=== PATIENT | female | born 1950 | race Caucasian/White ===

== ENCOUNTER → 2020-10-07 10:25 | Outpatient (BNVA) | payer MEDICARE, SELFPAY | PROVIDERS: PCP Internal Medicine; Visit Provider Internal Medicine | DX: J44.9 Chronic obstructive pulmonary disease, unspecified (principal); J30.2 Other seasonal allergic rhinitis; I50.9 Heart failure, unspecified; F17.210 Nicotine dependence, cigarettes, uncomplicated; Z79.899 Other long term (current) drug therapy | CPT/HCPCS: 99212 ==

== ENCOUNTER 2020-12-16 15:06 | Outpatient (REF) | payer MEDICARE, SELFPAY ==
[2020-12-16 15:47] LABS: Hematocrit 52.7 % (37-47); Hemoglobin 16.9 g/dl (12.0-16.0); Mean Corpuscular HGB Conc 32.1 g/dl (31.0-35.0); Mean Corpuscular Volume 87.3 fL (80-98); Platelet Count 268 X10*3/uL (160-400); Red Blood Count 6.04 X10*6/uL (4.20-5.50); Red Cell Distribution Width 12.5 % (11.0-16.0); White Blood Count 9.7 X10*3/uL (4.8-10.8)
[2020-12-16 15:57] LABS: Estimated Average Glucose 186 mg/dL; Hemoglobin A1c % 8.1 %
[2020-12-16 16:08] LABS: Alanine Aminotransferase 13 U/L (0-31); Albumin Level 4.5 g/dL (3.5-5.0); Alkaline Phosphatase 109 U/L (39-117); Anion Gap 17 (12-20); Aspartate Amino Transferase 13 U/L (5-31); Bilirubin Direct 0.2 mg/dL (0.0-0.5); Bilirubin Total 0.2 mg/dL (0.0-1.0); Blood Urea Nitrogen 14 mg/dL (9-16); C Reactive Protein 0.58 mg/dL (< or = 0.50); Calcium 9.4 mg/dL (8.4-10.2); Carbon Dioxide 29 mmol/L (22-29); Chloride 103 mmol/L (96-108); Cholesterol 207 mg/dL; Estimated Glomerular Filt Rate > 60; Glucose Random 213 mg/dL (60-115); HDL Cholesterol 40 mg/dL; LDL Cholesterol Calculated 124 mg/dl; Potassium 4.5 mmol/l (3.3-5.1); Sodium 144 mmol/L (135-145); Total Protein 7.1 g/dL (6.5-8.0); Triglycerides 217 mg/dL
== END 2020-12-16 15:07 | disposition home or self-care (01) ==
LOC: HO.LAB 15:06
PROVIDERS: PCP Internal Medicine; Visit Provider Internal Medicine
DX: E11.9 Type 2 diabetes mellitus without complications (principal); I10 Essential (primary) hypertension
CPT/HCPCS: 36415; 80048; 80061; 80076; 83036; 85027; 86140

== ENCOUNTER → 2021-02-03 13:11 | Outpatient (BNVA) | payer MEDICARE, SELFPAY | PROVIDERS: PCP Internal Medicine; Visit Provider Internal Medicine | DX: J44.9 Chronic obstructive pulmonary disease, unspecified (principal); J30.2 Other seasonal allergic rhinitis; F17.200 Nicotine dependence, unspecified, uncomplicated; Z79.51 Long term (current) use of inhaled steroids; Z71.6 Tobacco abuse counseling | CPT/HCPCS: 99212 ==

== ENCOUNTER 2021-04-22 10:14 | Outpatient (REF) | payer MEDICARE, SELFPAY ==
[2021-04-22 11:00] LABS: Glucose Urine UA 250 MG/DL (NEG); Leukocyte Esterase Urine NEG (NEG); Nitrite Urine NEG (NEG); Urine Blood NEG (NEG); Urine Ketones NEG (NEG); Urine Protein TRACE MG/DL (NEG-TRACE)
[2021-04-22 11:02] LABS: Appearance Urine CLEAR; Color Urine YELLOW
== END 2021-04-22 10:15 | disposition home or self-care (01) ==
LOC: HO.LAB 10:14
PROVIDERS: PCP Internal Medicine; Visit Provider Physician Assistant
DX: R30.0 Dysuria (principal)
CPT/HCPCS: 81003

== ENCOUNTER → 2021-08-11 13:10 | Outpatient (BNVA) | payer MEDICARE, SELFPAY | PROVIDERS: PCP Internal Medicine; Visit Provider Internal Medicine | DX: J30.2 Other seasonal allergic rhinitis (principal); J44.9 Chronic obstructive pulmonary disease, unspecified; F17.200 Nicotine dependence, unspecified, uncomplicated | CPT/HCPCS: 99212 ==

== ENCOUNTER 2022-01-27 12:28 | Outpatient (REF) | payer MEDICARE, SELFPAY ==
--- NOTE | ~2022-01-27 | CT_ITS ---
EXAMINATION: CT CHEST SCREENING CLINICAL INFORMATION: Nicotine dependence. COMPARISON: CT chest 06/04/2020. TECHNIQUE: Multidetector volumetric CT imaging of the chest is performed without contrast using low dose technique. Additional 2D coronal and sagittal reformatted images and axial 3D maximum intensity projection (MIP) images are generated on the CT workstation. This CT examination was performed using dose optimization techniques as appropriate, variously including the following: *Automated exposure control *Adjustment of mA and/or kV according to patient size (this includes techniques or standardized protocols for targeted exams where dose is matched to indication/reason for exam; i.e. extremities or head) *Use of iterative reconstruction technique DLP: 150 mGy-cm FINDINGS: LUNGS: There is diffuse emphysematous lungs with bilateral apical scarring and minimal apical pleural thickening. There is 3 mm subpleural chronic low-density area, which appears contiguous with a thick band of right apical scarring, similar to previous study. It is best visualized on axial image 104/6. There is a 3 mm nodule right major fissure axial image 236/6, likely intrafissural lymph node. There are no additional nodules, mass, or groundglass attenuation. MEDIASTINUM: The thyroid lobes are symmetric and normal. The central trachea and the bronchi are widely patent. Heart size and the great vessels are normal caliber. There is atherosclerotic calcification of thoracic aorta without aneurysmal dilatation. Small shotty lymph nodes are seen in the mediastinum with the largest pretracheal short axis lymph node measuring 6 mm. There is no pericardial effusion. PLEURA: There is no pleural effusion. No pleural mass or thickening. AXILLA: There are bilateral shotty axillary lymph nodes. UPPER ABDOMEN: There is pneumobilia from previous intervention. The rest of the liver, spleen, pancreas and right adrenal gland is unremarkable. There is a left adrenal nodule measuring 1.3 cm, similar to previous study. OSSEOUS STRUCTURES: No lytic or sclerotic process seen. There are degenerative disc changes with ventral spondylosis mid dorsal spine. There is mild osteopenia. CT/CT lung screening IMPRESSION: Diffuse centrilobular emphysema with bilateral bandlike apical scarring and minimal apical pleural thickening. Subpleural nodular density right upper lobe appears contiguous to the right apical scarring. These findings are stable. Mild intrafissural thickening right lung is likely intrafissural lymph node. It is stable. ASSESSMENT: Lung-RADS category 2: Benign. S CATEGORY: Emphysema. Left adrenal nodule, stable. RECOMMENDATION: Low-dose annual CT chest exam.
== END 2022-01-27 12:29 | disposition home or self-care (01) ==
LOC: HO.CT 12:28
PROVIDERS: Visit Provider Physician Assistant Medical
DX: Z12.2 Encounter for screening for malignant neoplasm of respiratory organs (principal); F17.210 Nicotine dependence, cigarettes, uncomplicated
CPT/HCPCS: 71271

== ENCOUNTER → 2022-02-09 12:59 | Outpatient (BNVA) | payer MEDICARE, SELFPAY | PROVIDERS: PCP Internal Medicine; Visit Provider Internal Medicine | DX: J44.9 Chronic obstructive pulmonary disease, unspecified (principal); J30.9 Allergic rhinitis, unspecified; Z87.891 Personal history of nicotine dependence | CPT/HCPCS: 94010; 99212 ==

== ENCOUNTER 2022-05-09 07:33 | Outpatient (REF) | payer MEDICARE, SELFPAY ==
[2022-05-09 08:34] LABS: Hematocrit 49.4 % (37.0-47.0); Hemoglobin 15.6 g/dl (12.0-16.0); Mean Corpuscular HGB Conc 31.6 g/dl (31.0-35.0); Mean Corpuscular Volume 85.6 fL (80.0-98.0); Mean Platelet Volume 10.9 fL (9.4-12.3); Platelet Count 242 X10*3/uL (160-400); Red Blood Count 5.77 X10*6/uL (4.20-5.50); Red Cell Distribution Width 13.3 % (11.0-16.0); White Blood Count 7.9 X10*3/uL (4.8-10.8)
[2022-05-09 08:48] LABS: Appearance Urine CLEAR; Color Urine YELLOW; Glucose Urine UA 100 MG/DL (NEG); Leukocyte Esterase Urine TRACE (NEG); Nitrite Urine NEG (NEG); Urine Blood NEG (NEG); Urine Ketones 5 MG/DL (NEG); Urine Protein NEG (NEG-TRACE)
[2022-05-09 09:11] LABS: Bacteria Urine 3+ /LPF; RBC Urine 0 /HPF (0); Squamous Epithelial Cell Urine 3+ /LPF
[2022-05-09 09:30] LABS: Alanine Aminotransferase 12 U/L (0-31); Albumin Level 4.3 g/dL (3.5-5.0); Alkaline Phosphatase 88 U/L (39-117); Anion Gap 15 (12-20); Aspartate Amino Transferase 13 U/L (5-31); Bilirubin Direct 0.3 mg/dL (0.0-0.5); Bilirubin Total 0.7 mg/dL (0.0-1.0); Blood Urea Nitrogen 18 mg/dL (9-16); Calcium 9.6 mg/dL (8.4-10.2); Carbon Dioxide 28 mmol/L (22-29); Chloride 103 mmol/L (96-108); Cholesterol 140 mg/dL; Estimated Glomerular Filt Rate 59; Glucose Random 176 mg/dL (60-115); HDL Cholesterol 36 mg/dL; LDL Cholesterol Calculated 79 mg/dl; Potassium 4.3 mmol/L (3.3-5.1); Sodium 142 mmol/L (135-145); Total Protein 6.8 g/dL (6.5-8.0); Triglycerides 129 mg/dL
[2022-05-09 09:48] LABS: Thyroid Stimulating Hormone 2.13 uIU/mL (0.32-4.0)
== END 2022-05-09 07:34 | disposition home or self-care (01) ==
LOC: HO.LAB 07:33
PROVIDERS: PCP Internal Medicine; Visit Provider Internal Medicine
DX: E11.9 Type 2 diabetes mellitus without complications (principal); J44.9 Chronic obstructive pulmonary disease, unspecified
CPT/HCPCS: 36415; 80048; 80061; 80076; 81001; 84443; 85027

== ENCOUNTER → 2022-08-10 12:50 | Outpatient (BNVA) | payer MEDICARE, SELFPAY | PROVIDERS: PCP Internal Medicine; Visit Provider Internal Medicine | DX: J44.9 Chronic obstructive pulmonary disease, unspecified (principal); J30.9 Allergic rhinitis, unspecified; F17.210 Nicotine dependence, cigarettes, uncomplicated | CPT/HCPCS: 99212 ==

== ENCOUNTER 2022-11-02 13:08 | Outpatient (REF) | payer MEDICARE, SELFPAY ==
[2022-11-02 14:06] LABS: Hematocrit 47.9 % (37.0-47.0); Hemoglobin 15.5 g/dl (12.0-16.0); Mean Corpuscular HGB Conc 32.4 g/dl (31.0-35.0); Mean Corpuscular Hemoglobin 27.9 pg (27.0-33.0); Mean Corpuscular Volume 86.2 fL (80.0-98.0); Mean Platelet Volume 10.7 fL (9.4-12.3); Platelet Count 274 X10*3/uL (160-400); Red Blood Count 5.56 X10*6/uL (4.20-5.50); Red Cell Distribution Width 13.1 % (11.0-16.0); White Blood Count 8.7 X10*3/uL (4.8-10.8)
[2022-11-02 14:11] LABS: Estimated Average Glucose 163 mg/dL; Hemoglobin A1c % 7.3 %
[2022-11-02 15:01] LABS: Alanine Aminotransferase 18 U/L (0-31); Albumin Level 4.3 g/dL (3.5-5.0); Alkaline Phosphatase 76 U/L (39-117); Anion Gap 15 (12-20); Aspartate Amino Transferase 10 U/L (5-31); Bilirubin Direct < 0.2 mg/dL (0.0-0.5); Bilirubin Total 0.4 mg/dL (0.0-1.0); Blood Urea Nitrogen 16 mg/dL (9-16); Calcium 9.6 mg/dL (8.4-10.2); Carbon Dioxide 30 mmol/L (22-29); Chloride 104 mmol/L (96-108); Cholesterol 180 mg/dL; Estimated Glomerular Filt Rate > 60; Glucose Random 180 mg/dL (60-115); HDL Cholesterol 36 mg/dL; LDL Cholesterol Calculated 103 mg/dl; Potassium 4.1 mmol/L (3.3-5.1); Sodium 145 mmol/L (135-145); Thyroid Stimulating Hormone 0.89 uIU/mL (0.32-4.0); Total Protein 6.6 g/dL (6.5-8.0); Triglycerides 208 mg/dL
== END 2022-11-02 13:09 | disposition home or self-care (01) ==
LOC: HO.HMGCLDS 13:08
PROVIDERS: PCP Internal Medicine; Visit Provider Internal Medicine
DX: E11.9 Type 2 diabetes mellitus without complications (principal); E78.01 Familial hypercholesterolemia; J44.9 Chronic obstructive pulmonary disease, unspecified; F17.200 Nicotine dependence, unspecified, uncomplicated
CPT/HCPCS: 36415; 80048; 80061; 80076; 83036; 84443; 85027

== ENCOUNTER 2023-02-26 13:55 | Outpatient (REF) | payer MEDICARE, SELFPAY ==
--- NOTE | ~2023-02-26 | CT_ITS ---
EXAMINATION: CT CHEST SCREENING CLINICAL INFORMATION: Nicotine dependence, uncomplicated current smoker one PPD 50 years. COMPARISON: None available. TECHNIQUE: Multidetector volumetric CT imaging of the chest is performed without contrast using low dose technique. Additional 2D coronal and sagittal reformatted images and axial 3D maximum intensity projection (MIP) images are generated on the CT workstation. This CT examination was performed using dose optimization techniques as appropriate, variously including the following: *Automated exposure control *Adjustment of mA and/or kV according to patient size (this includes techniques or standardized protocols for targeted exams where dose is matched to indication/reason for exam; i.e. extremities or head) *Use of iterative reconstruction technique DLP: 33 mGy-cm FINDINGS: LUNGS: There is diffuse centrilobular emphysematous lungs with bilateral apical parenchymal scarring and pleural thickening. Chronic bilateral right upper lobe linear stranding is unchanged. 3 mm nodule right major fissure axial image 214/6, is likely a small fissural lymph node. No additional lung nodules visualized. MEDIASTINUM: The thyroid lobes are symmetric and normal. The central trachea and the bronchi widely patent. Heart size and the great vessels are of normal caliber. There is no pericardial effusion. CORONARY ARTERY CALCIFICATION: None visualized on this study. PLEURA: There is no pleural effusion. No pleural mass or thickening. AXILLA: No lymphadenopathy. UPPER ABDOMEN: There is focal pneumobilia of the left hepatic lobe. Otherwise liver, spleen, pancreas and bilateral adrenal glands are unremarkable. Gallbladder has been surgically removed. OSSEOUS STRUCTURES: No aggressive lytic or sclerotic process seen. There is mild exaggerated thoracic kyphosis. CT/CT lung screening IMPRESSION: 1. Centrilobular emphysema with bilateral apical parenchymal scarring and pleural thickening. 2. Small fissural lymph node right major fissure. No new pulmonary nodules seen. ASSESSMENT: Lung-RADS category 2: Benign RECOMMENDATION: Low-dose annual CT chest.
== END 2023-02-26 13:56 | disposition home or self-care (01) ==
LOC: HO.CT 13:55
PROVIDERS: PCP Internal Medicine; Referring Provider Internal Medicine; Visit Provider Physician Assistant Medical
DX: Z12.2 Encounter for screening for malignant neoplasm of respiratory organs (principal); F17.210 Nicotine dependence, cigarettes, uncomplicated
CPT/HCPCS: 71271

== ENCOUNTER 2023-03-20 11:52 | Outpatient (REF) | payer MEDICARE, SELFPAY ==
--- NOTE | ~2023-03-20 | XR_ITS ---
EXAMINATION: XR CHEST CLINICAL INFORMATION: Hypoxemia. COMPARISON: 08/02/2019 chest radiographs. The low-dose chest CT scan dated 02/26/2023. TECHNIQUE: 2 views of the chest were obtained. FINDINGS: Generalized hyperinflation. The lungs otherwise clear. There are no pleural effusions. The heart and mediastinal structures are unremarkable. XR/XR chest 2V IMPRESSION: Generalized hyperinflation consistent with known COPD. No acute cardiopulmonary process.
[2023-03-20 13:45] LABS: Anion Gap 18 (12-20); Blood Urea Nitrogen 20 mg/dL (9-16); Carbon Dioxide 30 mmol/L (22-29); Chloride 102 mmol/L (96-108); Estimated Glomerular Filt Rate > 60; Glucose Random 300 mg/dL (60-115); Potassium 4.5 mmol/L (3.3-5.1); Sodium 145 mmol/L (135-145)
[2023-03-20 13:55] LABS: B Type Natriuretic Peptide 71 pg/mL (<100)
== END 2023-03-20 11:53 | disposition home or self-care (01) ==
LOC: HO.HMGCX 11:52
PROVIDERS: PCP Internal Medicine; Visit Provider Physician Assistant
DX: R09.02 Hypoxemia (principal); I50.9 Heart failure, unspecified
CPT/HCPCS: 36415; 71046; 80048; 83880

== ENCOUNTER 2023-03-22 11:31 | Inpatient (IN) | payer MEDICARE, SELFPAY ==
[2023-03-22] VITALS (8 sets, daily range): BP systolic 132–178; BP diastolic 63–81; PULSE 90–108; RESP 16–22; TEMP 36.1–36.6; O2SAT 87–97; BMI 22.1; BMI 21.7
--- NOTE | ~2023-03-22 | XR_ITS ---
EXAMINATION: XR CHEST CLINICAL INFORMATION: Shortness of breath COMPARISON: Previous chest x-ray most recent February 2022 TECHNIQUE: Frontal view of the chest was obtained. FINDINGS: The cardiac and mediastinal contours are stable. There are increased central bronchial markings. There may be bronchiectasis in the lower lobes. Appearance is more suggestive of airways disease/bronchitis and mild pulmonary edema. There is question of a small nodular opacities at the lung bases/bronchopneumonia. No pleural effusion or pneumothorax. Degenerative changes of the spine. XR/XR chest 1V IMPRESSION: Probable airways disease/bronchopneumonia.
--- NOTE | 2023-03-22 11:42 | ED_ITS ---
HPI - General Adult General Chief complaint: General Medical <CHULA Syed - Last Filed: 03/22/23 11:51> Stated complaint: Needs Labs Per PCP <CHULA Syed Last Filed: 03/22/23 11:51> Time Seen by Provider: 03/22/23 12:03 <CHULA Syed - Last Filed: 03/22/23 11:51> Source: patient <CHULA Lloyd Last Filed: 03/22/23 13:27> Mode of arrival: ambulatory <CHULA Lloyd Last Filed: 03/22/23 13:27> Limitations: no limitations <CHULA Lloyd Last Filed: 03/22/23 13:27> History of Present Illness HPI narrative: 72 yo female with history of CHF, COPD, GERD, HTN, HLD, osteoporosis, active smoker who presents to the ER from home for evaluation of low oxygen saturation and hyperglycemia. She was seen in the Urgent Care on 03/20 for difficulty breathing. She states they did an x-ray and labs, her oxygen was 91% and they encouraged her to come to the hospital but she said no. She was started on antibiotics. They called her today to tell her she might have a touch of pneumonia and her glucose was in the 300s. She states she has a chronic productive cough with white phlegm but it is worse than usual. She is more SOB with exertion than usual. She states it comes and goes. She also endorses LE edema that comes and goes and is chronic. She denies any fever or chills. Her significant other recently had a cold/URI. She arrives to the ER tachycardic and hypoxic to 84%, <CHULA Lloyd Last Filed: 03/22/23 13:27> MD complaint: difficulty breathing <CHULA Lloyd Last Filed: 03/22/23 13:27> Onset (ago): day(s) <CHULA Lloyd Last Filed: 03/22/23 13:27> Location: chest <CHULA Lloyd Last Filed: 03/22/23 13:27> Radiation: non-radiation <CHULA Lloyd Last Filed: 03/22/23 13:27> Severity: moderate <CHULA Lloyd - Last Filed: 03/22/23 13:27> Relieving factors: rest <CHULA Lloyd - Last Filed: 03/22/23 13:27> Exacerbating factors: movement <CHULA Lloyd - Last Filed: 03/22/23 13:27> Associated symptoms: cough and shortness of breath <CHULA Lloyd - Last Filed: 03/22/23 13:27> Treatments prior to arrival: none <CHULA Lloyd - Last Filed: 03/22/23 13:27> Related Data Home medications: Home Medications Medication Instructions Recorded Confirmed albuterol sulfate 90 mcg/actuation 2 puff inhalation Q6H PRN 09/17/20 08/10/22 aerosol inhaler fluticasone propionate 50 1 spray intranasal DAILY PRN 09/17/20 08/10/22 mcg/actuation nasal spray,suspension (Flonase Allergy Relief) Previous Rx's Medication Instructions Recorded blood sugar diagnostic (FreeStyle #100 ea 10/17/20 Lite Strips) lancets 28 gauge (FreeStyle #100 ea 10/17/20 Lancets) furosemide 20 mg tablet 20 mg PO DAILY #90 tabs 05/08/21 budesonide-formoterol HFA 160 2 puff inhalation Q12H copd 30 08/12/22 mcg-4.5 mcg/actuation aerosol days #10.2 grams inhaler (Symbicort) metformin 1,000 mg tablet 1,000 mg PO BID #180 tabs 01/05/23 lisinopril 30 mg tablet 30 mg PO DAILY #90 tabs 01/06/23 simvastatin 10 mg tablet 10 mg PO BEDTIME #90 tabs 01/06/23 amlodipine 5 mg tablet 5 mg PO DAILY #90 tabs 02/04/23 azithromycin 250 mg tablet 250 mg PO DAILY 5 days #6 tabs 03/20/23 (Zithromax Z-Kenneth) furosemide 20 mg tablet 20 mg PO DAILY #30 tabs 03/20/23 <CHULA Syed Last Filed: 03/22/23 11:51> Allergies/adverse reactions: Allergies Allergy/AdvReac Type Severity Reaction Status Date / Time No Known Allergies Allergy Verified 03/22/23 11:47 <CHULA Syed - Last Filed: 03/22/23 11:51> Review of Systems Review of Systems: Yes all other systems are reviewed and are negative <CHULA Lloyd - Last Filed: 03/22/23 13:27> [facility] Past Medical History Medical History: Medical History (Updated 03/22/23 @ 13:20 by CHULA Lloyd) Allergic rhinitis Chronic obstructive pulmonary disease, unspecified Congestive heart failure Familial hypercholesterolemia GERD (gastroesophageal reflux disease) Osteoporosis (~2013) Tobacco use disorder Type 2 diabetes mellitus without complications <CHULA Syed - Last Filed: 03/22/23 11:51> Surgical History: Surgical History History of cholecystectomy (~2017) History of ERCP (~2017) History of eye surgery (~2019) History of femoral hernia repair (~2008) History of myringotomy (~2006) History of nasal surgery (~1989) <CHULA Syed - Last Filed: 03/22/23 11:51> Family History Family History: Family History Father No problems noted. Mother No problems noted. <CHULA Syed - Last Filed: 03/22/23 11:51> Social History Social History: Social History Housing: House Alcohol intake: never Patient Tobacco Use Status: Current someday Tobacco user Tobacco use type: Cigarette Cigarettes Per Day: 1 (one every two days) e-Cigarette/Vaping Use: Never Used Second Hand Smoke Exposure: Yes service: No Current occupational status: retired Cognitive needs: No Hearing needs: No Vision needs: Yes (Glasses) <CHULA Syed - Last Filed: 03/22/23 11:51> Physical Exam ED Vital Signs: Vital Signs - 24 hr 03/22/23 11:42 03/22/23 12:18 Temperature 97.0 F Pulse Rate 103 H 108 H Respiratory Rate 20 16 Blood Pressure 165/65 H Pulse Oximetry 87 L Oxygen Delivery Method Room Air BMI result Body Mass Index 22.1 <CHULA Syed - Last Filed: 03/22/23 11:51> Vital Signs - 24 hr 03/22/23 11:42 03/22/23 12:18 Temperature 97.0 F Pulse Rate 103 H 108 H Respiratory Rate 20 16 Blood Pressure 165/65 H Pulse Oximetry 87 L Oxygen Delivery Method Room Air BMI result Body Mass Index 22.1 <CHULA Lloyd - Last Filed: 03/22/23 13:27> Appearance: Alert. Oriented X3. No acute distress. Head: normocephalic, atraumatic. Eyes: Pupils equal, round and reactive to light. ENT: Pharynx normal. No tonsillar swelling or exudate. Neck: Normal inspection. Neck supple. CVS: tachycardic, regular rhythm. HR low 100s. Pulses normal. Respiratory: No respiratory distress. Breath sounds diminished throughout post eriorly, anteriorly there is a NATE wheeze. Speaking in complete sentences. Abdomen: Soft and nontender. +BS x4 Skin: Skin warm and dry. Normal skin color. Normal skin turgor. No rashes. Extremities: 1+ lower extremity edema with chronic venous changes. No joint swelling. Neuro/psych: Oriented X 3. No motor deficit. No sensory deficit. CN II-XII intact. Normal speech and cognition. <CHULA Lloyd - Last Filed: 03/22/23 13:27> Course Course Course Narrative: RME: 72yo F w/PMHx COPD, CHF, GERD, DM c/o worsening cough, SOB since Wednesday, admits went to on Wednesday has labs and went home, received a call today from to go to ED d/t glucose 380 on outpatient labs. Per patient was 91% on room air at urgent care, reports bilateral ankle swelling and exertional dyspnea. Does not use oxygen at home Patient satting 87% on room air in triage, coarse cough noted EKG, labs, COVID/flu/RSV, CXR, DuoNeb ordered Full HPI, ROS and PE to be performed by primary ED provider. <CHULA Syed - Last Filed: 03/22/23 11:51> Reevaluation(s) Reevaluation #1: lactic acid 2.6, most likely due to increased WOB. WBC 14K with increased H/H and thrombocytosis, ?polycythemia due to chronic hypoxia? BNP normal on 03/20 - 500 cc IVF ordered. <CHULA Lloyd - Last Filed: 03/22/23 13:27> Time: 13:00 <CHULA Lloyd - Last Filed: 03/22/23 13:27> Reevaluation #2: CXR with bronchopneumonia. Rocephin and azithromycin ordered for CAP. After 1st duoneb there is slightly better air movement, now a slight wheeze. IV steroids ordered. Will plan to admit for further management <CHULA Lloyd - Last Filed: 03/22/23 13:27> Time: 13:16 <CHULA Lloyd - Last Filed: 03/22/23 13:27> Medications Administered Generic Name Dose Route Start Last Admin Trade Name Freq PRN Reason Stop Dose Admin Sodium Chloride 500 mls @ 500 mls/hr 03/22/23 12:45 03/22/23 12:42 Ns IV 03/22/23 13:44 500 mls/hr .Q1H DRISS Administration Discontinued Medications Generic Name Dose Route Start Last Admin Trade Name Freq PRN Reason Stop Dose Admin Albuterol/Ipratropium 3 ml 03/22/23 11:50 03/22/23 12:17 Albuterol/Iprat 2.5/0.5mg 3 Ml Ampul.Neb INHALE 03/22/23 11:51 3 ml ONCE ONE Administration <CHULA Syed - Last Filed: 03/22/23 11:51> Medications Administered Generic Name Dose Route Start Last Admin Trade Name Freq PRN Reason Stop Dose Admin Sodium Chloride 500 mls @ 500 mls/hr 03/22/23 12:45 03/22/23 12:42 Ns IV 03/22/23 13:44 500 mls/hr .Q1H DRISS Administration Discontinued Medications Generic Name Dose Route Start Last Admin Trade Name Freq PRN Reason Stop Dose Admin Albuterol/Ipratropium 3 ml 03/22/23 11:50 03/22/23 12:17 Albuterol/Iprat 2.5/0.5mg 3 Ml Ampul.Neb INHALE 03/22/23 11:51 3 ml ONCE ONE Administration <CHULA Lloyd - Last Filed: 03/22/23 13:27> Medical Decision Making Medical Decision Making MDM Narrative: 72 yo female with history of COPD, active smoker, CHF, presenting with SOB, EASON, and acute on chronic productive cough. Hypoxic and tachycardic on arrival but able to speak in complete sentences, SpO2 84%. Decreased breath sounds throughout, no rales, concern for COPD exacerbation. Duoneb given x1 with slight improvement in aeration. Patient found to have leukocytosis, elecavated lactic acid and CXR with PNA. Meets sepsis criteria. Gentle IVF given due to hx CHF. Covered for CAP with rocephin and azithromycin. Plan for admission, patient and spouse updated on plan of care and all questions anwered. <CHULA Lloyd - Last Filed: 03/22/23 13:27> Differential Diagnosis Differential Diagnoses: The differential diagnosis associated with the presentation includes <CHULA Lloyd - Last Filed: 03/22/23 13:27> acute COPD exacerbation, acute CHF exacerbation, pneumonia, bronchitis, COVID, Flu, RSV, other viral syndrome, less likely PE or ACS <CHULA Lloyd - Last Filed: 03/22/23 13:27> Admission/Observation Consideration of admission/observation: Escalation of care including admission/observation considered <CHULA Lloyd - Last Filed: 03/22/23 13:27> requiring O2, meeting sepsis criteria <CHULA Lloyd - Last Filed: 03/22/23 13:27> Consult Healthcare Provider Management of the patient was discussed with: Hospitalist <CHULA Lloyd - Last Filed: 03/22/23 13:27> hosptialist TT who accepts admission <CHULA Lloyd - Last Filed: 03/22/23 13:27> Lab Data MDM Lab Attestation statement: I reviewed the patient's lab results. <CHULA Lloyd - Last Filed: 03/22/23 13:27> Result Diagrams: 03/22/23 12:08 03/22/23 12:08 <CHULA Syed - Last Filed: 03/22/23 11:51> Labs: Lab Results 03/22/23 03/22/23 03/22/23 Range/Units 12:08 12:08 12:08 WBC 14.0 H (4.8-10.8) X10*3/uL RBC 6.06 H (4.20-5.50) X10*6/uL Hgb 16.6 H (12.0-16.0) g/dl Hct 52.7 H (37.0-47.0) % MCV 87.0 (80.0-98.0) fL MCH 27.4 (27.0-33.0) pg MCHC 31.5 (31.0-35.0) g/dl RDW 12.4 (11.0-16.0) % Plt Count 407 H D (160-400) X10*3/uL MPV 10.1 (9.4-12.3) fL Immature Gran % (Auto) 4.3 H (0.0-0.4) % Neut % (Auto) 81.7 H (45-73) % Lymph % (Auto) 7.3 L (20-40) % [place] % (Auto) 5.3 (2-11) % Eos % (Auto) 0.4 (0-4) % Baso % (Auto) 1.0 (0-2) % Lymph # (Auto) 1.0 L (1.2-4.9) X10*3/uL [place] # (Auto) 0.8 (0.1-1.2) X10*3/uL Eos # (Auto) 0.1 (0.0-0.4) X10*3/uL Baso # (Auto) 0.1 (0.0-0.2) X10*3/uL Abs Immat Gran (auto) 0.60 H (0.00-0.03) X10*3/uL Absolute Neuts (auto) 11.5 H (2.0-8.3) x10*3/uL Absolute Nucleated RBC 0.000 (0.0-0.012) X10*3/uL Nucleated RBC % (auto) 0.0 (0.0-0.2) /100WBC PT 12.0 (10.0-13.1) SEC INR 1.0 (0.9-1.1) Sodium 145 (135-145) mmol/L Potassium 4.8 (3.3-5.1) mmol/L Chloride 101 (96-108) mmol/L Carbon Dioxide 30 H (22-29) mmol/L Anion Gap 19 (12-20) BUN 26 H (9-16) mg/dL Creatinine 1.00 (0.5-1.4) mg/dL Estim Creat Clear Calc 39.0 Estimated GFR 54 Random Glucose 219 H (60-115) mg/dL Lactic Acid (0.5-2.0) mmol/L Calcium 9.9 (8.4-10.2) mg/dL Magnesium 1.6 (1.6-2.6) mg/dL Total Bilirubin 0.4 (0.0-1.0) mg/dL Direct Bilirubin 0.1 (0.0-0.5) mg/dL AST 9 (5-31) U/L ALT 11 (0-31) U/L Alkaline Phosphatase 102 (39-117) U/L Troponin I High Sens (<3.5-17.0) ng/L B-Natriuretic Peptide (<100) pg/mL Total Protein 7.3 (6.5-8.0) g/dL Albumin 4.3 (3.5-5.0) g/dL Influenza Type A (PCR) (Negative) Influenza Type B (PCR) (Negative) RSV RNA Qual (PCR) (Negative) SARS-CoV-2 RNA (RT-PCR) (Negative) 03/22/23 03/22/23 03/22/23 Range/Units 12:08 12:08 12:08 WBC (4.8-10.8) X10*3/uL RBC (4.20-5.50) X10*6/uL Hgb (12.0-16.0) g/dl Hct (37.0-47.0) % MCV (80.0-98.0) fL MCH (27.0-33.0) pg MCHC (31.0-35.0) g/dl RDW (11.0-16.0) % Plt Count (160-400) X10*3/uL MPV (9.4-12.3) fL Immature Gran % (Auto) (0.0-0.4) % Neut % (Auto) (45-73) % Lymph % (Auto) (20-40) % [place] % (Auto) (2-11) % Eos % (Auto) (0-4) % Baso % (Auto) (0-2) % Lymph # (Auto) (1.2-4.9) X10*3/uL [place] # (Auto) (0.1-1.2) X10*3/uL Eos # (Auto) (0.0-0.4) X10*3/uL Baso # (Auto) (0.0-0.2) X10*3/uL Abs Immat Gran (auto) (0.00-0.03) X10*3/uL Absolute Neuts (auto) (2.0-8.3) x10*3/uL Absolute Nucleated RBC (0.0-0.012) X10*3/uL Nucleated RBC % (auto) (0.0-0.2) /100WBC PT (10.0-13.1) SEC INR (0.9-1.1) Sodium (135-145) mmol/L Potassium (3.3-5.1) mmol/L Chloride (96-108) mmol/L Carbon Dioxide (22-29) mmol/L Anion Gap (12-20) BUN (9-16) mg/dL Creatinine (0.5-1.4) mg/dL Estim Creat Clear Calc Estimated GFR Random Glucose (60-115) mg/dL Lactic Acid (0.5-2.0) mmol/L Calcium (8.4-10.2) mg/dL Magnesium (1.6-2.6) mg/dL Total Bilirubin (0.0-1.0) mg/dL Direct Bilirubin (0.0-0.5) mg/dL AST (5-31) U/L ALT (0-31) U/L Alkaline Phosphatase (39-117) U/L Troponin I High Sens 7.0 (<3.5-17.0) ng/L B-Natriuretic Peptide 126 H (<100) pg/mL Total Protein (6.5-8.0) g/dL Albumin (3.5-5.0) g/dL Influenza Type A (PCR) NEGATIVE (Negative) Influenza Type B (PCR) NEGATIVE (Negative) RSV RNA Qual (PCR) NEGATIVE (Negative) SARS-CoV-2 RNA (RT-PCR) NEGATIVE (Negative) 04/24/23 Range/Units 12:08 WBC (4.8-10.8) X10*3/uL RBC (4.20-5.50) X10*6/uL Hgb (12.0-16.0) g/dl Hct (37.0-47.0) % MCV (80.0-98.0) fL MCH (27.0-33.0) pg MCHC (31.0-35.0) g/dl RDW (11.0-16.0) % Plt Count (160-400) X10*3/uL MPV (9.4-12.3) fL Immature Gran % (Auto) (0.0-0.4) % Neut % (Auto) (45-73) % Lymph % (Auto) (20-40) % [place] % (Auto) (2-11) % Eos % (Auto) (0-4) % Baso % (Auto) (0-2) % Lymph # (Auto) (1.2-4.9) X10*3/uL [place] # (Auto) (0.1-1.2) X10*3/uL Eos # (Auto) (0.0-0.4) X10*3/uL Baso # (Auto) (0.0-0.2) X10*3/uL Abs Immat Gran (auto) (0.00-0.03) X10*3/uL Absolute Neuts (auto) (2.0-8.3) x10*3/uL Absolute Nucleated RBC (0.0-0.012) X10*3/uL Nucleated RBC % (auto) (0.0-0.2) /100WBC PT (10.0-13.1) SEC INR (0.9-1.1) Sodium (135-145) mmol/L Potassium (3.3-5.1) mmol/L Chloride (96-108) mmol/L Carbon Dioxide (22-29) mmol/L Anion Gap (12-20) BUN (9-16) mg/dL Creatinine (0.5-1.4) mg/dL Estim Creat Clear Calc Estimated GFR Random Glucose (60-115) mg/dL Lactic Acid 2.6 H* (0.5-2.0) mmol/L Calcium (8.4-10.2) mg/dL Magnesium (1.6-2.6) mg/dL Total Bilirubin (0.0-1.0) mg/dL Direct Bilirubin (0.0-0.5) mg/dL AST (5-31) U/L ALT (0-31) U/L Alkaline Phosphatase (39-117) U/L Troponin I High Sens (<3.5-17.0) ng/L B-Natriuretic Peptide (<100) pg/mL Total Protein (6.5-8.0) g/dL Albumin (3.5-5.0) g/dL Influenza Type A (PCR) (Negative) Influenza Type B (PCR) (Negative) RSV RNA Qual (PCR) (Negative) SARS-CoV-2 RNA (RT-PCR) (Negative) <CHULA Syed - Last Filed: 03/22/23 11:51> Lab Results 03/22/23 03/22/23 03/22/23 Range/Units 12:08 12:08 12:08 WBC 14.0 H (4.8-10.8) X10*3/uL RBC 6.06 H (4.20-5.50) X10*6/uL Hgb 16.6 H (12.0-16.0) g/dl Hct 52.7 H (37.0-47.0) % MCV 87.0 (80.0-98.0) fL MCH 27.4 (27.0-33.0) pg MCHC 31.5 (31.0-35.0) g/dl RDW 12.4 (11.0-16.0) % Plt Count 407 H D (160-400) X10*3/uL MPV 10.1 (9.4-12.3) fL Immature Gran % (Auto) 4.3 H (0.0-0.4) % Neut % (Auto) 81.7 H (45-73) % Lymph % (Auto) 7.3 L (20-40) % [place] % (Auto) 5.3 (2-11) % Eos % (Auto) 0.4 (0-4) % Baso % (Auto) 1.0 (0-2) % Lymph # (Auto) 1.0 L (1.2-4.9) X10*3/uL [place] # (Auto) 0.8 (0.1-1.2) X10*3/uL Eos # (Auto) 0.1 (0.0-0.4) X10*3/uL Baso # (Auto) 0.1 (0.0-0.2) X10*3/uL Abs Immat Gran (auto) 0.60 H (0.00-0.03) X10*3/uL Absolute Neuts (auto) 11.5 H (2.0-8.3) x10*3/uL Absolute Nucleated RBC 0.000 (0.0-0.012) X10*3/uL Nucleated RBC % (auto) 0.0 (0.0-0.2) /100WBC PT 12.0 (10.0-13.1) SEC INR 1.0 (0.9-1.1) Sodium 145 (135-145) mmol/L Potassium 4.8 (3.3-5.1) mmol/L Chloride 101 (96-108) mmol/L Carbon Dioxide 30 H (22-29) mmol/L Anion Gap 19 (12-20) BUN 26 H (9-16) mg/dL Creatinine 1.00 (0.5-1.4) mg/dL Estim Creat Clear Calc 39.0 Estimated GFR 54 Random Glucose 219 H (60-115) mg/dL Lactic Acid (0.5-2.0) mmol/L Calcium 9.9 (8.4-10.2) mg/dL Magnesium 1.6 (1.6-2.6) mg/dL Total Bilirubin 0.4 (0.0-1.0) mg/dL Direct Bilirubin 0.1 (0.0-0.5) mg/dL AST 9 (5-31) U/L ALT 11 (0-31) U/L Alkaline Phosphatase 102 (39-117) U/L Troponin I High Sens (<3.5-17.0) ng/L B-Natriuretic Peptide (<100) pg/mL Total Protein 7.3 (6.5-8.0) g/dL Albumin 4.3 (3.5-5.0) g/dL Influenza Type A (PCR) (Negative) Influenza Type B (PCR) (Negative) RSV RNA Qual (PCR) (Negative) SARS-CoV-2 RNA (RT-PCR) (Negative) 03/22/23 03/22/23 03/22/23 Range/Units 12:08 12:08 12:08 WBC (4.8-10.8) X10*3/uL RBC (4.20-5.50) X10*6/uL Hgb (12.0-16.0) g/dl Hct (37.0-47.0) % MCV (80.0-98.0) fL MCH (27.0-33.0) pg MCHC (31.0-35.0) g/dl RDW (11.0-16.0) % Plt Count (160-400) X10*3/uL MPV (9.4-12.3) fL Immature Gran % (Auto) (0.0-0.4) % Neut % (Auto) (45-73) % Lymph % (Auto) (20-40) % [place] % (Auto) (2-11) % Eos % (Auto) (0-4) % Baso % (Auto) (0-2) % Lymph # (Auto) (1.2-4.9) X10*3/uL [place] # (Auto) (0.1-1.2) X10*3/uL Eos # (Auto) (0.0-0.4) X10*3/uL Baso # (Auto) (0.0-0.2) X10*3/uL Abs Immat Gran (auto) (0.00-0.03) X10*3/uL Absolute Neuts (auto) (2.0-8.3) x10*3/uL Absolute Nucleated RBC (0.0-0.012) X10*3/uL Nucleated RBC % (auto) (0.0-0.2) /100WBC PT (10.0-13.1) SEC INR (0.9-1.1) Sodium (135-145) mmol/L Potassium (3.3-5.1) mmol/L Chloride (96-108) mmol/L Carbon Dioxide (22-29) mmol/L Anion Gap (12-20) BUN (9-16) mg/dL Creatinine (0.5-1.4) mg/dL Estim Creat Clear Calc Estimated GFR Random Glucose (60-115) mg/dL Lactic Acid (0.5-2.0) mmol/L Calcium (8.4-10.2) mg/dL Magnesium (1.6-2.6) mg/dL Total Bilirubin (0.0-1.0) mg/dL Direct Bilirubin (0.0-0.5) mg/dL AST (5-31) U/L ALT (0-31) U/L Alkaline Phosphatase (39-117) U/L Troponin I High Sens 7.0 (<3.5-17.0) ng/L B-Natriuretic Peptide 126 H (<100) pg/mL Total Protein (6.5-8.0) g/dL Albumin (3.5-5.0) g/dL Influenza Type A (PCR) NEGATIVE (Negative) Influenza Type B (PCR) NEGATIVE (Negative) RSV RNA Qual (PCR) NEGATIVE (Negative) SARS-CoV-2 RNA (RT-PCR) NEGATIVE (Negative) 03/22/23 Range/Units 12:08 WBC (4.8-10.8) X10*3/uL RBC (4.20-5.50) X10*6/uL Hgb (12.0-16.0) g/dl Hct (37.0-47.0) % MCV (80.0-98.0) fL MCH (27.0-33.0) pg MCHC (31.0-35.0) g/dl RDW (11.0-16.0) % Plt Count (160-400) X10*3/uL MPV (9.4-12.3) fL Immature Gran % (Auto) (0.0-0.4) % Neut % (Auto) (45-73) % Lymph % (Auto) (20-40) % [place] % (Auto) (2-11) % Eos % (Auto) (0-4) % Baso % (Auto) (0-2) % Lymph # (Auto) (1.2-4.9) X10*3/uL [place] # (Auto) (0.1-1.2) X10*3/uL Eos # (Auto) (0.0-0.4) X10*3/uL Baso # (Auto) (0.0-0.2) X10*3/uL Abs Immat Gran (auto) (0.00-0.03) X10*3/uL Absolute Neuts (auto) (2.0-8.3) x10*3/uL Absolute Nucleated RBC (0.0-0.012) X10*3/uL Nucleated RBC % (auto) (0.0-0.2) /100WBC PT (10.0-13.1) SEC INR (0.9-1.1) Sodium (135-145) mmol/L Potassium (3.3-5.1) mmol/L Chloride (96-108) mmol/L Carbon Dioxide (22-29) mmol/L Anion Gap (12-20) BUN (9-16) mg/dL Creatinine (0.5-1.4) mg/dL Estim Creat Clear Calc Estimated GFR Random Glucose (60-115) mg/dL Lactic Acid 2.6 H* (0.5-2.0) mmol/L Calcium (8.4-10.2) mg/dL Magnesium (1.6-2.6) mg/dL Total Bilirubin (0.0-1.0) mg/dL Direct Bilirubin (0.0-0.5) mg/dL AST (5-31) U/L ALT (0-31) U/L Alkaline Phosphatase (39-117) U/L Troponin I High Sens (<3.5-17.0) ng/L B-Natriuretic Peptide (<100) pg/mL Total Protein (6.5-8.0) g/dL Albumin (3.5-5.0) g/dL Influenza Type A (PCR) (Negative) Influenza Type B (PCR) (Negative) RSV RNA Qual (PCR) (Negative) SARS-CoV-2 RNA (RT-PCR) (Negative) <CHULA Lloyd - Last Filed: 03/22/23 13:27> Independent Interpretation I performed an independent interpretation of an: EKG and Plain X-Ray <CHULA Lloyd - Last Filed: 03/22/23 13:27> Interpretation: EKG with sinus tachycardia, HR 102 bpm, no ST segment elevations or depressions, artifact present CXR with increased vascular markings, lower lobe opacities <CHULA Lloyd - Last Filed: 03/22/23 13:27> Radiology Impression Discussion of test interpretation with radiology: I have reviewed the radiologist's reading. <CHULA Lloyd - Last Filed: 03/22/23 13:27> Radiologist Impression: EXAMINATION: XR CHEST CLINICAL INFORMATION: Shortness of breath COMPARISON: Previous chest x-ray most recent February 2022 TECHNIQUE: Frontal view of the chest was obtained. FINDINGS: The cardiac and mediastinal contours are stable. There are increased central bronchial markings. There may be bronchiectasis in the lower lobes. Appearance is more suggestive of airways disease/bronchitis and mild pulmonary edema. There is question of a small nodular opacities at the lung bases/bronchopneumonia. No pleural effusion or pneumothorax. Degenerative changes of the spine. XR/XR chest 1V IMPRESSION: Probable airways disease/bronchopneumonia <CHULA Lloyd - Last Filed: 03/22/23 13:27> Independent Historian Clinical information obtained from an independent historian. History obtained from or confirmed by: Spouse <CHULA Lloyd - Last Filed: 03/22/23 13:27> External Record Review External record reviewed: Outpatient record, Prior outpatient labs and Prior outpatient radiology <CHULA Lloyd - Last Filed: 03/22/23 13:27> Prescription Management I considered prescription management with: Antibiotic <CHULA Lloyd - Last Filed: 03/22/23 13:27> Chronic Conditions Patient?s care impacted by: Other (COPD, active smoker) <CHULA Lloyd - Last Filed: 03/22/23 13:27> Critical Care Time Critical Care Time Critical Care Time: Yes <CHULA Lloyd - Last Filed: 03/22/23 13:27> Total Critical Care Time: 39 <CHULA Lloyd - Last Filed: 03/22/23 13:27> Attestation: I have personally provided critical care time exclusive of time spent on separately billable procedures. Time includes review of lab data, radiology results, discussion with consultants, and monitoring for potential decompensation. Intervention performed as documented. <CHULA Lloyd - Last Filed: 03/22/23 13:27> Discharge Plan Discharge Clinical Impression: Acute respiratory failure with hypoxia, COPD with acute exacerbation, CAP (community acquired pneumonia), Sepsis <CHULA Syed - Last Filed: 03/22/23 11:51> Patient Disposition: Admitted As Inpatient <CHULA Syed - Last Filed: 03/22/23 11:51>
--- NOTE | 2023-03-22 11:46 | ECG_ITS ---
Test Reason : sob Blood Pressure : / mmHG Vent. Rate : 102 BPM Atrial Rate : 102 BPM P-R Int : 122 ms QRS Dur : 080 ms QT Int : 356 ms P-R-T Axes : 085 085 084 degrees QTc Int : 463 ms Sinus tachycardia Right atrial enlargement Minimal voltage criteria for LVH, may be normal variant ( [place] product ) Nonspecific ST and T wave abnormality Abnormal ECG When compared with ECG of 25-AUG-2018 18:53, Nonspecific T wave abnormality, improved in Lateral leads Referred By: Criss Winston Electronically Signed By:Jorge L Winchester
[2023-03-22 12:17] LABS: MANUAL DIFF FLAG NO
[2023-03-22] MEDS: Albuterol/Iprat 2.5/0.5MG 3 ML AMPUL.NEB INHALE ×4 (12:17→19:39)
[2023-03-22 12:19] LABS: Basophils Absolute Auto 0.1 X10*3/uL (0.0-0.2); Eosinophils Absolute Auto 0.1 X10*3/uL (0.0-0.4); Eosinophils Percent Auto 0.4 % (0-4); Hematocrit 52.7 % (37.0-47.0); Hemoglobin 16.6 g/dl (12.0-16.0); Imm Gran Pct Auto 4.3 % (0.0-0.4); Lymphocytes Percent Auto 7.3 % (20-40); Mean Corpuscular HGB Conc 31.5 g/dl (31.0-35.0); Mean Corpuscular Hemoglobin 27.4 pg (27.0-33.0); Mean Platelet Volume 10.1 fL (9.4-12.3); Monocytes Absolute Auto 0.8 X10*3/uL (0.1-1.2); Monocytes Percent Auto 5.3 % (2-11); Neutrophils Absolute Auto 11.5 x10*3/uL (2.0-8.3); Neutrophils Percent Auto 81.7 % (45-73); Platelet Count 407 X10*3/uL (160-400); Red Blood Count 6.06 X10*6/uL (4.20-5.50); Red Cell Distribution Width 12.4 % (11.0-16.0)
[2023-03-22 12:34] LABS: Alanine Aminotransferase 11 U/L (0-31); Albumin Level 4.3 g/dL (3.5-5.0); Alkaline Phosphatase 102 U/L (39-117); Anion Gap 19 (12-20); Aspartate Amino Transferase 9 U/L (5-31); Bilirubin Direct 0.1 mg/dL (0.0-0.5); Bilirubin Total 0.4 mg/dL (0.0-1.0); Blood Urea Nitrogen 26 mg/dL (9-16); Calcium 9.9 mg/dL (8.4-10.2); Carbon Dioxide 30 mmol/L (22-29); Chloride 101 mmol/L (96-108); Estimated Glomerular Filt Rate 54; Glucose Random 219 mg/dL (60-115); Magnesium 1.6 mg/dL (1.6-2.6); Potassium 4.8 mmol/L (3.3-5.1); Sodium 145 mmol/L (135-145); Total Protein 7.3 g/dL (6.5-8.0)
[2023-03-22 12:39] LABS: Lactic Acid 2.6 mmol/L (0.5-2.0)
[2023-03-22 12:40] LABS: B Type Natriuretic Peptide 126 pg/mL (<100)
[2023-03-22] MEDS: 0.9 % Sodium Chloride 500 ML IV (12:42)
[2023-03-22 12:56] LABS: Influenza A PCR NEGATIVE (Negative); Influenza B PCR NEGATIVE (Negative); Resp Syncy Virus RNA Qual PCR NEGATIVE (Negative); SARS COV2 PCR INHOUSE NEGATIVE (Negative)
--- NOTE | 2023-03-22 13:27 | P.HPHOSP_ITS ---
History of Present Illness Date of Service: 03/22/23 Attending physician on admission: Christopher Hassan Chief Complaint: hypoxia 72-year-old female with history of systolic heart failure, COPD, GERD, hypertension, hyperlipidemia, osteoporosis, type 2 diabetes, who is a current everyday smoker presents to the ED for evaluation shortness of breath, hypoxia, and hyperglycemia. She apparently was seen in urgent care on 03/20 due to the shortness of breath and was called today regarding chest x-ray results and was told she had ?a touch of pneumonia? in her glucose was in the 300s. Apparently at the Urgent Care, her oximetry was 91% and she was advised to come to the ED but refused. She was started on azithromycin at the urgent care which she has been taking. There is chronic productive cough which has worsened from baseline with white sputum production. She is also reporting significant dyspnea on exertion that is intermittent. Reports her significant other recently had an upper respiratory infection. She has also had bilateral lower extremity edema. Endorses orthopnea and HACKETT. Only taking lasix intermittently. Denies any fevers, chills, sore throat, wheezing, abd pain, n/v, diarrhea, palpitations, lightheadedness, headache, or chest pain. No increase in albuterol usage. On arrival, patient hypoxic to 84%. Afebrile, tachycardic to 111. Placed on 2 L supplemental O2 via nasal cannula. Leukocytosis of 14.0. Renal function normal, electrolyte levels normal. Lactic acid 2.6, likely secondary to metformin use. Troponin 7.0. BNP 126 (was 71 03/20). Negative for COVID-19, influenza, RSV. CXR showing probable small airways disease/bronchopneumonia and mild pulmonary edema. No definitive pleural effusion. In the ED, treated with nebulizers with some improvement in symptoms. Patient to be admitted for pneumonia with acute hypoxemic respiratory failure and mild CHF exacerbation. Review of Systems Review of Systems: General: No fevers, malaise, unintentional weight loss HEENT: No blurred vision, diplopia. No sore throat, nasal congestion, rhinorrhea, sinus pain, ear pain Cardiovascular: No chest pain, palpitations, or leg edema Respiratory: +cough, +hackett, +orthopnea. No wheezing GI: No abdominal pain, nausea, vomiting, diarrhea, constipation, melena, hematochezia : No dysuria, hematuria, increased urinary frequency, decreased urinary output MSK: No myalgia, back pain Neuro: No headaches, weakness, paresthesias Skin: No rashes or lesions [facility] Medical History Allergic rhinitis Chronic obstructive pulmonary disease, unspecified Congestive heart failure Familial hypercholesterolemia GERD (gastroesophageal reflux disease) Osteoporosis (~2013) Tobacco use disorder Type 2 diabetes mellitus without complications Family History Father No problems noted. Mother No problems noted. Surgical History History of cholecystectomy (~2017) History of ERCP (~2017) History of eye surgery (~2019) History of femoral hernia repair (~2008) History of myringotomy (~2006) History of nasal surgery (~1989) Social History (Updated 03/22/23 @ 14:15 by CHULA Jensen) Housing: House Alcohol intake: never Patient Tobacco Use Status: Current everyday Tobacco user Tobacco use type: Cigarette Cigarette Packs Per Day: 0.5 e-Cigarette/Vaping Use: Never Used Second Hand Smoke Exposure: Yes service: No Current occupational status: retired Cognitive needs: No Hearing needs: No Vision needs: Yes (Glasses) Meds Allergies Allergy/AdvReac Type Severity Reaction Status Date / Time No Known Allergies Allergy Verified 03/22/23 11:47 Active Medications: Current Medications Sodium Chloride (Ns) 500 mls @ 500 mls/hr IV .Q1H DRISS Stop: 03/22/23 13:44 Last Admin: 03/22/23 12:42 Dose: 500 mls/hr Ceftriaxone Sodium 1 gm/ (Sodium Chloride) 50 mls @ 100 mls/hr IV ONCE ONE Stop: 03/22/23 13:35 Azithromycin 500 mg/ Sodium (Chloride) 250 mls @ 125 mls/hr IV ONCE ONE Stop: 03/22/23 15:05 Home Medications Medication Instructions Recorded Confirmed Last Taken Type albuterol sulfate 90 mcg/actuation 2 puff inhalation Q6H PRN Wheezing 09/17/20 03/22/23 03/22/23 History aerosol inhaler Physical Exam Vital Signs and Narrative: Vital Signs: Last Vital Signs Temp 97.0 F 04/24/23 11:42 Pulse 94 03/22/23 13:16 Resp 18 03/22/23 13:16 BP 165/65 H 03/22/23 11:42 Pulse Ox 87 L 03/22/23 11:42 O2 Del Method Room Air 03/22/23 11:42 BMI result Body Mass Index 22.1 Constitutional - Awake and Alert, No apparent distress Eyes - PERRLA, EOMI Cardiovascular - S1S2, RRR, No edema Respiratory - Normal lung expansion, Normal respiratory effort, No respiratory distress, diminished bilaterally, no wheezing, rhonchi, rales Gastrointestinal - NT / ND; +BS; No rebound or guarding Extremities - no calf tenderness bilaterally, no swelling Skin - Warm/Dry Neurological - Alert & oriented x3, CN II-XII in tact, 5/5 strength BUE and BLE Psychological - Appropriate affect Results Labs 03/22/23 12:08 03/22/23 12:08 Labs: Laboratory Results - last 24 hr 03/22/23 03/22/23 03/22/23 12:08 12:08 12:08 MCV 87.0 MCH 27.4 MCHC 31.5 RDW 12.4 Plt Count 407 H D MPV 10.1 Immature Gran % (Auto) 4.3 H Neut % (Auto) 81.7 H Lymph % (Auto) 7.3 L [place] % (Auto) 5.3 Eos % (Auto) 0.4 Baso % (Auto) 1.0 Lymph # (Auto) 1.0 L [place] # (Auto) 0.8 Eos # (Auto) 0.1 Baso # (Auto) 0.1 Abs Immat Gran (auto) 0.60 H Absolute Neuts (auto) 11.5 H Absolute Nucleated RBC 0.000 Nucleated RBC % (auto) 0.0 PT 12.0 INR 1.0 Anion Gap 19 Estim Creat Clear Calc 39.0 Estimated GFR 54 Random Glucose 219 H Lactic Acid Calcium 9.9 Magnesium 1.6 Total Bilirubin 0.4 Direct Bilirubin 0.1 AST 9 ALT 11 Alkaline Phosphatase 102 Troponin I High Sens B-Natriuretic Peptide Total Protein 7.3 Albumin 4.3 Influenza Type A (PCR) Influenza Type B (PCR) RSV RNA Qual (PCR) SARS-CoV-2 RNA (RT-PCR) 03/22/23 03/22/23 03/22/23 12:08 12:08 12:08 MCV MCH MCHC RDW Plt Count MPV Immature Gran % (Auto) Neut % (Auto) Lymph % (Auto) [place] % (Auto) Eos % (Auto) Baso % (Auto) Lymph # (Auto) [place] # (Auto) Eos # (Auto) Baso # (Auto) Abs Immat Gran (auto) Absolute Neuts (auto) Absolute Nucleated RBC Nucleated RBC % (auto) PT INR Anion Gap Estim Creat Clear Calc Estimated GFR Random Glucose Lactic Acid Calcium Magnesium Total Bilirubin Direct Bilirubin AST ALT Alkaline Phosphatase Troponin I High Sens 7.0 B-Natriuretic Peptide 126 H Total Protein Albumin Influenza Type A (PCR) NEGATIVE Influenza Type B (PCR) NEGATIVE RSV RNA Qual (PCR) NEGATIVE SARS-CoV-2 RNA (RT-PCR) NEGATIVE 03/22/23 12:08 MCV MCH MCHC RDW Plt Count MPV Immature Gran % (Auto) Neut % (Auto) Lymph % (Auto) [place] % (Auto) Eos % (Auto) Baso % (Auto) Lymph # (Auto) [place] # (Auto) Eos # (Auto) Baso # (Auto) Abs Immat Gran (auto) Absolute Neuts (auto) Absolute Nucleated RBC Nucleated RBC % (auto) PT INR Anion Gap Estim Creat Clear Calc Estimated GFR Random Glucose Lactic Acid 2.6 H* Calcium Magnesium Total Bilirubin Direct Bilirubin AST ALT Alkaline Phosphatase Troponin I High Sens B-Natriuretic Peptide Total Protein Albumin Influenza Type A (PCR) Influenza Type B (PCR) RSV RNA Qual (PCR) SARS-CoV-2 RNA (RT-PCR) Imaging Radiologist's Impressions: Impressions Chest X-Ray 03/22/23 12:22 IMPRESSION: Probable airways disease/bronchopneumonia. Assessment and Plan (1) Acute respiratory failure with hypoxia: Status: Acute (2) CAP (community acquired pneumonia): Status: Acute Plan 72-year-old female with history of congestive heart failure, COPD, GERD, hypertension, hyperlipidemia, osteoporosis, type 2 diabetes, who is a current everyday smoker admitted for acute bronchopneumonia with acute hypoxemic respiratory failure and mild CHF exacerbation. #Acute bronchopneumonia with acute hypoxemic respiratory failure -Not on supplemental O2 at baseline -CXR showing bilateral small airways disease and bronchopneumonia to maintain oximetry around 92% -Leukocytosis 14.0. Tachycardia likely related to albuterol use, not sepsis -IV ceftriaxone 1 g x5 days and IV azithromycin 500 mg x3 days (initiated 03/22) -IV methylprednisolone 40 mg b.i.d. -DuoNebs q.4h while awake, albuterol p.r.n. -guaifenesin, Elsy Trujillo p.r.n. # mild CHF exacerbation, unspecified ejection fraction -BNP 128 (was 71 two days ago) with orthopnea, HACKETT, and mild pulmonary edema noted on CXR -IV furosemide 20 mg daily -strict I and O -cardiac diet -echocardiogram ordered -consider Cardiology consult if no improvement #Severe exacerbation- no acute exacerbation -Continue home inhalers -IV steroid as above -Nebs as above #HTN -Continue home meds # [id number] type 2 diabetes with hyperglycemia -diabetic diet -POC glucose -humalog on sliding scale -hold metformin #lactic acidosis -related to metformin use, not severe sepsis #Cigarette smoker -0.5ppd smoker, working on quitting -declines nrt -smoking cessation counseling DVT prophylaxis- lovenox DNR/DNI Patient requires inpatient stay of at least 2 midnights for management of acute bronchopneumonia with acute hypoxemic respiratory failure requiring supplemental O2 and IV antibiotics as well as management of a mild CHF exacerbation. She requires close monitoring to prevent cardiopulmonary decompensation which cannot be achieved in a lower level of care. Time Spent With Patient Time: Total time managing care of this patient today ____ minutes. Quality Stroke Does the patient have a stroke diagnosis?: No VTE Prior VTE?: No VTE Risk Level:: Medical - moderate - high VTE Device Contraindication: Treatment Not Indicated VTE Drug Contraindication: N/A - Med Ordered
[2023-03-22 13:47] LABS: Procalcitonin 0.05 ng/mL
[2023-03-22] MEDS: Insulin Lispro 100 UNIT/ML 3 ML VIAL 8 UNIT SUBCUT (13:49)
[2023-03-22] MEDS: guaiFENesin LA 600 MG TAB.ER.12H 1200 MG PO (13:50)
[2023-03-22] MEDS: methylPREDNISolone Sod Succ 40 MG/ML VIAL IVPUSH ×2 (13:50→18:12)
[2023-03-22] MEDS: cefTRIAXone sodium 1 GM in 0.9 % Sodium Chloride 50 ML IV (13:55)
[2023-03-22 14:15] LABS: Reflex Lactate? Lactic Acid Added
--- NOTE | 2023-03-22 14:21 | PHA.MEDREC ---
Pharmacy Consult ? Medication Reconciliation Pharmacy has completed the medication reconciliation.
[2023-03-22 14:46] LABS: Glucose, Whole Blood 161 mg/dL (60-115)
[2023-03-22] MEDS: Furosemide 20 MG/2 ML VIAL IVPUSH (14:47)
[2023-03-22] MEDS: Enoxaparin Sodium 40 MG/0.4 ML SYRINGE SUBCUT (14:48)
[2023-03-22] MEDS: Azithromycin 500 MG in 0.9 % Sodium Chloride 250 ML 125 MG IV (14:48)
--- NOTE | 2023-03-22 14:56 | PC.NURSE ---
Patient states that she can feel the medication start to work, she has some wheezes noted in her lungs, and she has a barking type of cough. Patient sating 95% on 1L of O2, patient with some work of breathing but otherwise well appearing. Denies pain at this time.
[2023-03-22 15:49] LABS: ~Lactic Acid-LAB USE ONLY 2.1 mmol/L (0.5-2.0)
[2023-03-22] MEDS: Benzonatate 100 MG CAPSULE PO ×2 (16:06→21:12)
[2023-03-22 16:20] LABS: Glucose, Whole Blood 114 mg/dL (60-115)
[2023-03-22 16:40] LABS: Reflex Lactate? 2 Y
[2023-03-22 17:24] LABS: ~Lactic Acid-LAB USE ONLY 3.6 mmol/L (0.5-2.0)
[2023-03-22] MEDS: Atorvastatin Calcium 10 MG TABLET PO ×2 (21:13→21:14)
[2023-03-22] MEDS: Insulin Lispro 100 UNIT/ML 3 ML VIAL SUBCUT (21:13)
[2023-03-22 21:30] LABS: Glucose, Whole Blood 375 mg/dL (60-115)
[2023-03-22] MEDS: 0.9 % Sodium Chloride Flush 3 ML SYRINGE IVFLUSH (23:23)
[2023-03-23 03:55] VITALS: BP 160/75; PULSE 83; RESP 19; TEMP 36.1; O2SAT 98
[2023-03-23] MEDS: methylPREDNISolone Sod Succ 40 MG/ML VIAL IVPUSH (05:43)
[2023-03-23 06:34] LABS: Hematocrit 45.8 % (37.0-47.0); Mean Corpuscular HGB Conc 30.6 g/dl (31.0-35.0); Mean Corpuscular Hemoglobin 27.4 pg (27.0-33.0); Mean Corpuscular Volume 89.6 fL (80.0-98.0); Mean Platelet Volume 10.5 fL (9.4-12.3); Platelet Count 358 X10*3/uL (160-400); Red Blood Count 5.11 X10*6/uL (4.20-5.50); Red Cell Distribution Width 12.5 % (11.0-16.0); White Blood Count 16.5 X10*3/uL (4.8-10.8)
[2023-03-23 06:58] LABS: Anion Gap 16 (12-20); Blood Urea Nitrogen 29 mg/dL (9-16); Calcium 9.2 mg/dL (8.4-10.2); Carbon Dioxide 32 mmol/L (22-29); Chloride 104 mmol/L (96-108); Creatinine Clr Calc Pharmacy 44.3; Estimated Glomerular Filt Rate > 60; Glucose Random 185 mg/dL (60-115); Sodium 147 mmol/L (135-145)
--- NOTE | 2023-03-23 07:00 | CA_ITS ---
Transthoracic Echocardiogram Patient (Last, First, Middle): Gisel Taylor S Gender: Female Date of : 1950 Age: 72 Procedure Date: 03/23/2023 Procedure Type: Transthoracic Echocardiogram Location: S3E Height: 157.48 cm Weight: 53.52 kg BSA: 1.53 m2 Heart Rate: 88 bpm BP: 141 / 63 mmHg Shank Carrier: [place] Referring MD: Johanna QUIROS Symptoms: CHF Study Quality: Adequate/Contrast ECG Rhythm: Sinus Conclusions: - Normal left ventricular cavity size. There is mildly increased left ventricular wall thickness. The left ventricular systolic function is hyperdynamic. The visually estimated ejection fraction is >70%. - Normal right ventricular cavity size and systolic function. Findings Procedure Information Contrast agent, definity, is being given per protocol without apparent complications. Left Ventricle Normal left ventricular cavity size. There is mildly increased left ventricular wall thickness. The left ventricular systolic function is hyperdynamic. The visually estimated ejection fraction is >70%. There is no evidence of regional wall motion abnormalities. Abnormal diastolic function is noted. Spectral Doppler is indicative of an impaired relaxation filling pattern. E/E prime ratio is between 8 and 15 consistent with indeterminate filling pressures. Right Ventricle Normal right ventricular cavity size and systolic function. Atria The left atrium is normal in size. The right atrium is normal in size. Aortic Valve Normal aortic valve structure and function. There is no aortic valve stenosis. There is no aortic valve regurgitation. Mitral Valve Normal mitral valve structure and function. There is no mitral valve regurgitation. There is no mitral valve stenosis. Pulmonic Valve The pulmonic valve is likely normal. Tricuspid Valve Likely normal tricuspid valve structure and function. Tricuspid regurgitation envelope is inadequate for calculation of right ventricular systolic pressure. Normal right atrial pressure. Great Vessels All visible segments of the aorta are normal in size. The visualized portions of the pulmonary artery and branches are normal. Venous The inferior vena cava is normal in size and collapses greater than 50% with inspiration. Pericardium/Pleural There is no evidence of pericardial effusion. Prior Study Comparison No significant change compared to prior study dated: 08/08/2019. Measurements 2D Linear Measurements IVSd: 1.17 0.6-0.9/0.6-1.0 cm LVIDd: 3.42 3.9-5.3/4.2-5.9 cm LVIDd Index: 2.24 2.4-3.2/2.2-3.1 cm/m2 LVIDs: 1.45 2.0-3.6 cm LVPWd: 1.09 0.7-1.1 cm LA Diam: 2.90 2.7-3.8/3.0-4.0 cm LAIDs Index: 1.90 1.5-2.3 cm/m2 LV Mass: 148.98 67-162/88-224 g LV Mass Index: 97.37 43-95/49-115 g/m2 LVOT Diam: 1.80 3.0+(-)1.3 cm 2D Systolic Function EF 4C: 72.40 >55% EF 2C: 82.90 >55% EF BiP: 76.80 >55% Mitral Valve MV Pk E: 0.78 MV PK A: 1.15 MV Decel Time: 247.00 E/A: 0.70 E'Lateral: 7.94 E'Medial: 5.98 E/E' Med: 13.10 E/E' Lat: 9.90 PHT: 72.00 MVA PHT: 3.06 Decel [place]: 3.17 Aortic Valve AoV Pk Mal: 1.48 AoV Mn Mal: 1.06 AoV VTI: 0.28 AoV Pk Grad: 9.00 Aov Mn Grad: 5.00 YESENIA Cont.VTI: 2.31 LVOT LVOT Pk Mal: 1.40 LVOT Mn Mal: 0.97 LVOT VTI: 0.25 LVOT Pk Grad: 8.00 LVOT Mn Grad: 4.00 LVOT Diam: 1.80 LVOT Area: 2.54 Diastolic Function MV Pk E: 0.78 MV Pk A: 1.15 E/A: 0.70 E'Medial: 5.98 E/E' Med: 13.10 E' Laterial: 7.94 E/E' Lat: 9.90 Right Ventricle TAPSE (mm): 17.70 TVS' Mal: 13.60 Tricuspid Valve RA Press: 3.00 Great Vessels Aorta Sinus of Valsalva: 2.90 2.0-3.5 cm Ao Asc: 2.70 2.1-3.4 cm Pulmonary Valve PV Pk Mal: 1.11 Peak PV Grad: 5.00 Updated in Other Vendor System with Status of Final Jorge L Winchester MD electronically signed on 03/24/2023 4:48:16 PM with status of Final
[2023-03-23 07:43] LABS: Band Neutrophils Percent 4 % (3-5); Lymphocytes Absolute Manual 0.8 X10*3/uL (1.2-4.9); Lymphocytes Percent Manual 5 % (20-40); Metamyelocytes Absolute 0.2 X10*3/uL; Metamyelocytes Percent 1 %; Monocytes Absolute Manual 0.5 X10*3/uL (0.1-1.2); Monocytes Percent Manual 3 % (2-11); Neutrophils Percent Manual 87 % (45-73)
[2023-03-23 07:44] LABS: Platelet Estimate NORMAL (NORMAL); Platelet Morphology Comment NORMAL
[2023-03-23 07:45] LABS: RBC Morphology NORMAL
[2023-03-23 07:51] LABS: Glucose, Whole Blood 195 mg/dL (60-115)
[2023-03-23 08:22] VITALS: BP 171/76; PULSE 85; RESP 20; TEMP 37.1; O2SAT 97
[2023-03-23] MEDS: Insulin Lispro 100 UNIT/ML 3 ML VIAL SUBCUT ×2 (08:48→12:00)
[2023-03-23] MEDS: Benzonatate 100 MG CAPSULE PO (08:49)
[2023-03-23] MEDS: amLODIPine Besylate 5 MG TABLET PO (08:49)
[2023-03-23] MEDS: lisinopriL 10 MG TABLET 30 MG PO (08:49)
[2023-03-23] MEDS: 0.9 % Sodium Chloride Flush 3 ML SYRINGE IVFLUSH (08:49)
[2023-03-23] MEDS: Albuterol/Iprat 2.5/0.5MG 3 ML AMPUL.NEB INHALE ×3 (08:56→15:41)
[2023-03-23] MEDS: Fluticasone/Vilanterol 200/25 BLST.W.DEV 1 PUFF INHALE (08:56)
[2023-03-23 08:57] VITALS: PULSE 85; RESP 18; O2SAT 95
[2023-03-23 11:43] LABS: Glucose, Whole Blood 337 mg/dL (60-115)
[2023-03-23 12:01] VITALS: PULSE 85; RESP 18; O2SAT 92
--- NOTE | 2023-03-23 13:19 | MHC.CM.PN ---
pt lives with is independent has no services has own ride home dc plan home no services
[2023-03-23] MEDS: cefTRIAXone sodium 1 GM in 0.9 % Sodium Chloride 50 ML IV (14:10)
[2023-03-23 15:42] VITALS: PULSE 89; RESP 18; O2SAT 92
--- NOTE | 2023-03-23 16:05 | MHC.CM.PN ---
pt dcd home no skilled servceis ordered
--- NOTE | 2023-03-23 16:16 | PM.DS ---
DS: Providers Provider Date of Service: 03/23/23 Date of admission: 03/22/23 13:49 Primary care physician: Yoshi Shetty MD DS: Diagnosis Discharge Diagnosis (1) Acute respiratory failure with hypoxia: Status: Acute (2) CAP (community acquired pneumonia): Status: Acute DS: Summary Hospital Course Hospital Course: Date of Service: 03/22/23 Attending physician on admission: Christopher Hassan Chief Complaint: hypoxia 72-year-old female with history of systolic heart failure, COPD, GERD, hypertension, hyperlipidemia, osteoporosis, type 2 diabetes, who is a current everyday smoker presents to the ED for evaluation shortness of breath, hypoxia, and hyperglycemia.? She apparently was seen in urgent care on 03/20 due to the shortness of breath and was called today regarding chest x-ray results and was told she had ?a touch of pneumonia? in her glucose was in the 300s.? Apparently at the Urgent Care, her oximetry was 91% and she was advised to come to the ED but refused.? She was started on azithromycin at the urgent care which she has been taking.? There is chronic productive cough which has worsened from baseline with white sputum production.? She is also reporting significant dyspnea on exertion that is intermittent.? Reports her significant other recently had an upper respiratory infection. She has also had bilateral lower extremity edema. Endorses orthopnea and EASON. Only taking lasix intermittently. Denies any fevers, chills, sore throat, wheezing, abd pain, n/v, diarrhea, palpitations, lightheadedness, headache, or chest pain. No increase in albuterol usage. On arrival, patient hypoxic to 84%.? Afebrile, tachycardic to 111.? Placed on 2 L supplemental O2 via nasal cannula.? Leukocytosis of 14.0.? Renal function normal, electrolyte levels normal.? Lactic acid 2.6, likely secondary to metformin use.? Troponin 7.0. BNP 126 (was 71 03/20).? Negative for COVID-19, influenza, RSV.? CXR showing probable small airways disease/bronchopneumonia and mild pulmonary edema.? No definitive pleural effusion.? In the ED, treated with nebulizers with some improvement in symptoms.? Patient to be admitted for pneumonia with acute hypoxemic respiratory failure and mild CHF exacerbation. Hospital course 72-year-old female with history of congestive heart failure, COPD, GERD, hypertension, hyperlipidemia, osteoporosis, type 2 diabetes, who is a current everyday smoker admitted for acute bronchopneumonia with acute hypoxemic respiratory failure and mild CHF exacerbation. #Acute bronchopneumonia with acute hypoxemic respiratory failure likely viral infection with super added bacterial infection, patient admitted to medical floor,CXR showed bilateral small airways disease and bronchopneumonia patient treated with IV antibiotics, IV steroids and updraft treatment patient responded rapidly to above treatment oxygenation improved , currently on room air finger oximetry 92-94% lung examination of clear therefore she is being discharged home and recommended to finish course of azithromycin med was initiated as outpatient recommended to continue cough medication and use inhalers as needed since patient has no significant rhonchi wheeze therefore will not continue steroids upon discharge # mild CHF exacerbation, unspecified ejection fraction, there was a concern for mild CHF due to BNP 128 (was 71 two days ago) with orthopnea, EASON, and mild pulmonary edema noted on CXR, patient treated with 1 dose of IV Lasix echo obtained clinically patient appears euvolemic therefore no further Lasix as recommended outpatient recommend to follow echo report with primary care physician and review continued use of Lasix with PCP, likely symptoms were related to above. #HTN -Continue home meds # [id number] type 2 diabetes with hyperglycemia recommend to continue diabetic diet and metformin #lactic acidosis -related to metformin use, updraft treatment and not severe sepsis #Cigarette smoker -0.5ppd smoker, working on quitting, declines nrt, counseling done Time Spent with Patient Time attestation: Total time managing care of this patient today ____ minutes. Discharge coordination time: Greater than 30 minutes Quality: Safe Use of Opioids Does Pt have an Active Cancer Diagnosis on the Problem List?: No Quality: Stroke Does the patient have a stroke diagnosis?: No Physical Exam Vital Signs: Vital Signs: Last Vital Signs Temp 98.7 F 03/23/23 08:22 Pulse 89 03/23/23 15:42 Resp 18 03/23/23 15:42 BP 171/76 H 03/23/23 08:22 Pulse Ox 97 03/23/23 08:22 O2 Del Method Room Air 03/23/23 08:22 O2 Flow Rate 2 03/23/23 03:55 BMI result Body Mass Index 21.7 Const: Other: General resting comfortably, talking in full sentences, in no acute distress. Neck supple no JVD. CVS regular rate rhythm, Respiratory lungs clear to auscultation, no respiratory distress, no wheeze, no rhonchi. Gastrointestinal abdomen soft, nontender, bowel sounds audible, no guarding , no rigidity. Extremities no edema. Neuro nonfocal Skin no rash Psych appropriate affect DS: Data Data Completed and Pending Labs on day of discharge: Laboratory Results - last 24 hr 03/22/23 03/22/23 03/22/23 16:17 16:55 21:08 WBC RBC Hgb Hct MCV MCH MCHC RDW Plt Count MPV Immature Gran % (Auto) Neut % (Auto) Lymph % (Auto) [place] % (Auto) Eos % (Auto) Baso % (Auto) Lymph # (Auto) [place] # (Auto) Eos # (Auto) Baso # (Auto) Abs Immat Gran (auto) Absolute Neuts (auto) Absolute Nucleated RBC Nucleated RBC % (auto) Neutrophils % (Manual) Band Neutrophils % Lymphocytes % (Manual) Monocytes % (Manual) Metamyelocytes % Abs Neuts (Manual) Lymphocytes # (Manual) Monocytes # (Manual) Metamyelocytes # Platelet Estimate Plt Morphology Comment RBC Morphology Sodium Potassium Chloride Carbon Dioxide Anion Gap BUN Creatinine Estim Creat Clear Calc Estimated GFR POC Glucose 114 375 H* Random Glucose Lactic Acid F/U @ 4Hr 3.6 H* Calcium 03/23/23 03/23/23 03/23/23 06:00 06:00 07:47 WBC 16.5 H RBC 5.11 Hgb 14.0 Hct 45.8 MCV 89.6 MCH 27.4 MCHC 30.6 L RDW 12.5 Plt Count 358 MPV 10.5 Immature Gran % (Auto) Cancelled Neut % (Auto) Cancelled Lymph % (Auto) Cancelled [place] % (Auto) Cancelled Eos % (Auto) Cancelled Baso % (Auto) Cancelled Lymph # (Auto) Cancelled [place] # (Auto) Cancelled Eos # (Auto) Cancelled Baso # (Auto) Cancelled Abs Immat Gran (auto) Cancelled Absolute Neuts (auto) Cancelled Absolute Nucleated RBC 0.000 Nucleated RBC % (auto) 0.0 Neutrophils % (Manual) 87 H Band Neutrophils % 4 Lymphocytes % (Manual) 5 L Monocytes % (Manual) 3 Metamyelocytes % 1 Abs Neuts (Manual) 15.0 H Lymphocytes # (Manual) 0.8 L Monocytes # (Manual) 0.5 Metamyelocytes # 0.2 Platelet Estimate NORMAL Plt Morphology Comment NORMAL RBC Morphology NORMAL Sodium 147 H Potassium 5.0 Chloride 104 Carbon Dioxide 32 H Anion Gap 16 BUN 29 H Creatinine 0.88 Estim Creat Clear Calc 44.3 Estimated GFR > 60 POC Glucose 195 H Random Glucose 185 H Lactic Acid F/U @ 4Hr Calcium 9.2 D 03/23/23 11:39 WBC RBC Hgb Hct MCV MCH MCHC RDW Plt Count MPV Immature Gran % (Auto) Neut % (Auto) Lymph % (Auto) [place] % (Auto) Eos % (Auto) Baso % (Auto) Lymph # (Auto) [place] # (Auto) Eos # (Auto) Baso # (Auto) Abs Immat Gran (auto) Absolute Neuts (auto) Absolute Nucleated RBC Nucleated RBC % (auto) Neutrophils % (Manual) Band Neutrophils % Lymphocytes % (Manual) Monocytes % (Manual) Metamyelocytes % Abs Neuts (Manual) Lymphocytes # (Manual) Monocytes # (Manual) Metamyelocytes # Platelet Estimate Plt Morphology Comment RBC Morphology Sodium Potassium Chloride Carbon Dioxide Anion Gap BUN Creatinine Estim Creat Clear Calc Estimated GFR POC Glucose 337 H Random Glucose Lactic Acid F/U @ 4Hr Calcium Preliminary micro results at discharge 03/22/23 12:34 Blood Culture - Preliminary Blood - Venous No growth after 24 hours. 03/22/23 12:08 Blood Culture - Preliminary Blood - Venous No growth after 24 hours. Discharge Plan Discharge Anticipated Discharge Date/Time: 03/23/23 15:41 Patient Disposition: Home, Self-Care Discharge Diagnosis: Acute hypoxic respiratory failure due to bronchopneumonia Referrals: Yoshi Shetty MD [Primary Care Provider] - 1 Week Discharge Medications: Continued (DME) FreeStyle Lite Strips Strip See Rx Instructions .ROUTE .MEDSUPPLY Qty: 100 0RF Rx Instructions: once a day (DME) lancets [FreeStyle Lancets] 28 gauge misc See Rx Instructions .ROUTE .MEDSUPPLY Qty: 100 0RF Rx Instructions: once a day budesonide-formoterol [Symbicort] 160-4.5 mcg/actuation HFA aerosol inhaler 2 puff inhalation Q12H 30 Days Qty: 10.2 5RF metformin 1,000 mg tablet 1,000 mg PO BID Qty: 180 1RF lisinopril 30 mg tablet 30 mg PO DAILY Qty: 90 1RF simvastatin 10 mg tablet 10 mg PO BEDTIME Qty: 90 1RF albuterol sulfate 90 mcg/actuation HFA aerosol inhaler 2 puff inhalation Q6H PRN (Reason: Wheezing) amlodipine 5 mg tablet 5 mg PO DAILY Qty: 90 1RF Discontinued furosemide 20 mg tablet 20 mg PO DAILY Qty: 30 0RF Discharge Orders: Discharge Order (Routine); Ordered 03/23/23 Ordered By: Christopher Hassan Diet: Diabetic diet Activity on Discharge: As tolerated Stand Alone Forms: Patient Portal Discharge page Care Plan Goals: take azithromycin tab 250mg daily starting today for 3 more days, take cough medication rest fluids, cough will gradually improve over the course of 1-2 weeks Follow echocardiogram report with primary care physician hold Lasix for now and discuss use with PCP regarding continued use Health Concerns: Diabetes mellitus follow diabetic diet Plan of Treatment: Outpatient follow-up with primary care physician Assessment: As above
== END 2023-03-23 16:49 | disposition home or self-care (01) | DRG 193 ==
LOC: HO.ED 13:55 → HO.EDOVER 13:58 → HO.S3 14:23
PROVIDERS: Physician Assistant; Admitting Provider Physician Assistant; Emergency Provider Emergency Medicine; PCP Internal Medicine; Visit Provider Hospitalist
DX: J15.9 Unspecified bacterial pneumonia (principal); J96.01 Acute respiratory failure with hypoxia; E87.20 Acidosis, unspecified; J44.1 Chronic obstructive pulmonary disease with (acute) exacerbation; J44.0 Chronic obstructive pulmonary disease with (acute) lower respiratory infection; J12.9 Viral pneumonia, unspecified; Z66 Do not resuscitate; E78.00 Pure hypercholesterolemia, unspecified; E11.65 Type 2 diabetes mellitus with hyperglycemia; M81.0 Age-related osteoporosis without current pathological fracture; I11.0 Hypertensive heart disease with heart failure; I50.9 Heart failure, unspecified; F17.210 Nicotine dependence, cigarettes, uncomplicated; Z71.6 Tobacco abuse counseling; Z20.822 Contact with and (suspected) exposure to COVID-19; Z79.84 Long term (current) use of oral hypoglycemic drugs; Z79.899 Other long term (current) drug therapy
CPT/HCPCS: 0241U; 36415; 71045; 80048; 80076; 82947; 83605; 83735; 83880; 84145; 84484; 85007; 85025; 85027; 85610; 87040; 93005; 93306; 94640; 99285; J0456; J0696; J1650; J1940; J2920; Q9957

== ENCOUNTER → 2023-03-31 13:09 | Outpatient (BNVA) | payer MEDICARE, SELFPAY | PROVIDERS: PCP Internal Medicine; Visit Provider Internal Medicine | DX: J18.9 Pneumonia, unspecified organism (principal); J44.9 Chronic obstructive pulmonary disease, unspecified; J30.9 Allergic rhinitis, unspecified; F17.210 Nicotine dependence, cigarettes, uncomplicated | CPT/HCPCS: 99212 ==

== ENCOUNTER 2023-04-08 15:14 | Outpatient (REF) | payer MEDICARE, SELFPAY ==
[2023-04-08 16:29] LABS: Hematocrit 46.6 % (37.0-47.0); Hemoglobin 14.9 g/dl (12.0-16.0); Mean Corpuscular Hemoglobin 27.5 pg (27.0-33.0); Mean Corpuscular Volume 86.1 fL (80.0-98.0); Mean Platelet Volume 10.4 fL (9.4-12.3); Platelet Count 299 X10*3/uL (160-400); Red Blood Count 5.41 X10*6/uL (4.20-5.50); Red Cell Distribution Width 13.4 % (11.0-16.0); White Blood Count 11.4 X10*3/uL (4.8-10.8)
== END 2023-04-08 15:15 | disposition home or self-care (01) ==
LOC: HO.HMGCLDS 15:14
PROVIDERS: PCP Internal Medicine; Visit Provider Internal Medicine
DX: J18.9 Pneumonia, unspecified organism (principal)
CPT/HCPCS: 36415; 85027

== ENCOUNTER 2023-07-22 09:28 | Outpatient (AMB) | payer MEDICARE, SELFPAY ==
--- NOTE | 2023-07-22 09:38 | A.OFFPC_ITS ---
Vital Signs 07/22/23 09:40 Height 5 ft 2 in Weight 118 lb 8 oz BMI 21.7 BP 132/78 Blood Pressure Location Lt brachial Position Sitting Pulse 88 Pulse Source Pulse Oximeter Pulse Oximetry (%) 97 Oxygen Delivery Method Room Air Intake Visit Reasons: 3 month f/u - A1C and Microalbumin due Intake Note: Patient is here to follow up on DM, HTN, CHF, GERD. Complaint of sinus lito estion. Marketing Technologist Required: No Roofing Subcontractor: Not Required per policy Accompanied by: Self / Same As Patient Allergies No Known Allergies Allergy (Verified 07/22/23 10:45) Medication List - Last Reconciled 07/22/23 by Yoshi Shetty MD albuterol sulfate 90 mcg/actuation 2 puffs inhalation Q6H PRN amlodipine 5 mg PO DAILY blood sugar diagnostic (FreeStyle Lite Strips) test daily blood-glucose meter (FreeStyle Lite Meter kit) test daily budesonide-formoterol 160-4.5 mcg/actuation (Symbicort) 2 puffs inhalation Q12H 30 days lancets (FreeStyle Lancets) test daily lisinopril 30 mg PO DAILY metformin 1,000 mg PO BID simvastatin 10 mg PO BEDTIME Tobacco use date assessed: 07/22/23 Fall risk assessment: No Falls in past year Last assessed Fall Risk: 07/22/23 Dental Screening Dental Screen Date: 07/22/23 Did you have a dental visit in the last 12 months?: No Did you have a dental problem in the last 6 months where you did not have access to dental care?: No Was dental information given to patient?: Patient has dentist HPI 3 month f/u - A1C and Microalbumin due HPI Details 73-year-old female presents to the office to discuss her chronic medical conditions. Patient reports compliance with medications. She would like to get her A1c checked. Her Cologuard test came back positive and she is wondering what the next procedure would be. Able to function and do activities of daily living. [facility] Medical History Allergic rhinitis Chronic obstructive pulmonary disease, unspecified Congestive heart failure Familial hypercholesterolemia GERD (gastroesophageal reflux disease) Osteoporosis (~2013) Tobacco use disorder Type 2 diabetes mellitus without complications Surgical History History of cholecystectomy (~2017) History of ERCP (~2017) History of eye surgery (~2019) History of femoral hernia repair (~2008) History of myringotomy (~2006) History of nasal surgery (~1989) Family History Father No problems noted. Mother No problems noted. Social History Household Members: Spouse Housing: House Do you presently have visiting nurse or other home services: No Alcohol intake: never Patient Tobacco Use Status: Current everyday Tobacco user Tobacco use type: Cigarette Cigarette Packs Per Day: 0.5 Cigarettes Per Day: 3 (three a week) Years Smoked: 40 years e-Cigarette/Vaping Use: Never Used Second Hand Smoke Exposure: No service: No Current occupational status: retired Cognitive needs: No Hearing needs: No Vision needs: Yes (Glasses) Questionnaire Thrive Questionnaire Date Thrive assessed: 02/04/23 WESLEY-7 AMB Questionnaire WESLEY-7 Date WESLEY - 7 assessed: 02/04/23 Source: Developed by Drs. Maxx Owens, Gisel Pina, Juvenal Stoner and colleagues, with an educational saritha from [employer]. Physical exam (Primary Care) Vital Signs: Last Vital Signs Pulse 88 07/22/23 09:40 BP 132/78 07/22/23 09:40 Pulse Ox 97 07/22/23 09:40 Oxygen Delivery Method Room Air 07/22/23 09:40 BMI result Body Mass Index 21.7 Tobacco/Smoking Status: Tobacco use Status Tobacco use date assessed 07/22/23 07/22/23 09:50 Patient Tobacco Use Status Current everyday Tobacco 07/22/23 09:50 Tobacco use type Cigarette 07/22/23 09:50 e-Cigarette/Vaping Use Never Used 07/22/23 09:50 Thrive Assessment: Date of Thrive Assessment Date Thrive assessed 02/04/23 07/22/23 09:50 Const General: cooperative, healthy appearing and comfortable HENSD Head: Yes normal to inspection and Yes atraumatic Eyes General: appearance normal, both eyes and all related structures Neck Neck: Yes normal visual inspection and Yes full ROM Chest Chest palpation & inspection: normal inspection of the chest Resp Effort & Inspection: normal respiratory effort Auscultation: clear to auscultation bilaterally Cardio Jugular venous distension: no JVD Palpation: normal PMI Rate: regular rate Heart sounds: S1 normal heart sound present and S2 normal heart sound present GI Palpation (GI): Soft to palpation and No hepatosplenomegaly present Extrem General: Yes normal to inspection and Yes full ROM Results AMB Hemoglobin A1c AMB Hemoglobin A1c 7.1 % Last Edit by LAWSON Caputo on 07/22/23 09:54 Results Reviewed Results Reviewed: Laboratory Last Values Hgb A1c (Clinic) 7.1 % (4.0-6.0) H 07/22/23 09:38 Assessment and Plan Assessment & Plan (1) Familial hypercholesterolemia: Code(s): E78.01 - Familial hypercholesterolemia Plan: Blood work has been ordered will call with results. (2) Type 2 diabetes mellitus without complications: Code(s): E11.9 - Type 2 diabetes mellitus without complications Qualifiers: Diabetes mellitus retirement insulin use: without retirement use Qualified Code(s): E11.9 - Type 2 diabetes mellitus without complications Plan: A1c is 7.1. Continue medications at same dosage P Orders: Orders Basic Metabolic Panel Today E11.9 - Type 2 diabetes mellitus without complications, E78.01 - Familial hypercholesterolemia Lipid Panel Today E11.9 - Type 2 diabetes mellitus without complications, E78.01 - Familial hypercholesterolemia Liver Panel Today E11.9 - Type 2 diabetes mellitus without complications, E78.01 - Familial hypercholesterolemia Thyroid Stimulating Hormone Today E11.9 - Type 2 diabetes mellitus without complications, E78.01 - Familial hypercholesterolemia Microalbumin, Random (w Creat) Today E11.9 - Type 2 diabetes mellitus without complications, E78.01 - Familial hypercholesterolemia Complete Blood Count no Diff Today E11.9 - Type 2 diabetes mellitus without complications, E78.01 - Familial hypercholesterolemia AMB Hemoglobin A1c Today E11.9 - Type 2 diabetes mellitus without complications Referrals Gastroenterology Referral Z12.11 - Encounter for screening for malignant neoplasm of colon Coding Level of Care Code Est Pt Level 4 (78770) Diagnoses Familial hypercholesterolemia E78.01 Type 2 diabetes mellitus without complications E11.9 Diabetes mellitus retirement insulin use: without middle or intermediate school principal use
[2023-07-22 09:40] VITALS: BP 132/78; PULSE 88; O2SAT 97; BMI 21.7
== END 2023-07-22 10:32 | disposition home or self-care (01) ==
PROVIDERS: PCP Internal Medicine; Visit Provider Internal Medicine
DX: E78.01 Familial hypercholesterolemia (principal); E11.9 Type 2 diabetes mellitus without complications
CPT/HCPCS: 83036; 99214

== ENCOUNTER 2023-07-22 11:46 | Outpatient (REF) | payer MEDICARE, SELFPAY ==
[2023-07-22 13:49] LABS: Hematocrit 48.2 % (37.0-47.0); Hemoglobin 15.3 g/dl (12.0-16.0); Mean Corpuscular HGB Conc 31.7 g/dl (31.0-35.0); Mean Corpuscular Hemoglobin 27.5 pg (27.0-33.0); Mean Corpuscular Volume 86.5 fL (80.0-98.0); Mean Platelet Volume 10.8 fL (9.4-12.3); Platelet Count 268 X10*3/uL (160-400); Red Blood Count 5.57 X10*6/uL (4.20-5.50); White Blood Count 9.1 X10*3/uL (4.8-10.8)
[2023-07-22 16:39] LABS: Creatinine Urine 51.01 mg/dL; Microalbum/Creatinine Ratio Ur 58.8 ug/mg cr (<30)
[2023-07-22 16:53] LABS: Alanine Aminotransferase 9 U/L (0-31); Albumin Level 4.1 g/dL (3.5-5.0); Alkaline Phosphatase 73 U/L (39-117); Anion Gap 17 (12-20); Aspartate Amino Transferase 11 U/L (5-31); Bilirubin Direct 0.1 mg/dL (0.0-0.5); Bilirubin Total 0.4 mg/dL (0.0-1.0); Blood Urea Nitrogen 13 mg/dL (9-16); Calcium 9.6 mg/dL (8.4-10.2); Carbon Dioxide 29 mmol/L (22-29); Chloride 102 mmol/L (96-108); Cholesterol 178 mg/dL (<200); Estimated Glomerular Filt Rate > 60; Glucose Random 103 mg/dL (60-115); HDL Cholesterol 43 mg/dL (>40); LDL Cholesterol Calculated 112 mg/dL (<100); Potassium 3.6 mmol/L (3.3-5.1); Sodium 144 mmol/L (135-145); Total Protein 6.9 g/dL (6.5-8.0); Triglycerides 119 mg/dL (<150)
[2023-07-22 17:13] LABS: Thyroid Stimulating Hormone 2.06 uIU/mL (0.32-4.0)
== END 2023-07-22 11:47 | disposition home or self-care (01) ==
LOC: HO.HMGCLDS 11:46
PROVIDERS: PCP Internal Medicine; Visit Provider Internal Medicine
DX: E11.9 Type 2 diabetes mellitus without complications (principal); E78.01 Familial hypercholesterolemia
CPT/HCPCS: 36415; 80048; 80061; 80076; 82043; 84443; 85027

== ENCOUNTER 2023-09-22 09:48 | Outpatient (AMB) | payer MEDICARE, SELFPAY ==
[2023-09-22 09:51] VITALS: BP 154/62; PULSE 97; BMI 21.8
--- NOTE | 2023-09-22 09:51 | A.OFFVIS_ITS ---
Intake Vital Signs 3 09/22/23 09:51 Height 5 ft 2 in Weight 119 lb BMI 21.8 BP 154/62 H Blood Pressure Location Lt brachial Position Sitting Pulse 97 Intake Visit Reasons: Colonoscopy Screening Intake Note: Patient presents to in office visit today as a new patient for colonoscopy screening. CC: Patient reports she had a positive cologuard and was referred to us. She states she sometimes gets abdominal cramps and loose stools d/t metforming. Patient reports concerns about procedure due to COPD. Denies other GI symptoms today. 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 She is referred by Yoshi Shetty of [facility] primary care. PMX Smoker Allergic rhinitis COPD CHF Diabetes Hypertension High cholesterol Osteoporosis GERD - pt denies Left adrenal nodule * SURGICAL HISTORY Bilateral Myringotomy Nasal surgery ERCP and sphincterotomy-Errol Femoral hernia repair Cholecystectomy Iridotomy * ALLERGIES: NKDA * [employer] LABS: Laboratory Tests 03/22/23 07/22/23 07/22/23 12:08 09:38 11:50 WBC 9.1 Hgb 15.3 Hct 48.2 H MCV MCH Plt Count Estimated GFR > 60 Hgb A1c (Clinic) 7.1 H Total Bilirubin Direct Bilirubin AST ALT Alkaline Phosphata se B-Natriuretic Pept omar 126 H TSH 07/22/23 07/22/23 11:50 11:50 WBC Hgb Hct MCV 86.5 MCH 27.5 Plt Count 268 Estimated GFR Hgb A1c (Clinic) Total Bilirubin 0.4 Direct Bilirubin 0.1 AST 11 ALT 9 Alkaline Phosphata se 73 B-Natriuretic Pept omar TSH 2.06 TODAY'S VISIT She has never had a colonoscopy but had a recent positive Cologuard. She is fearful about the procedure with relation to her COPD. Her processing spec is Dr. Zayas so we will check with him for clearance. Despite her CHF she does not see a cycle consultant and she seems unaware of her prior CHF problems. I will send her to cardiology for clearance. No bowel or upper GI problems, she denies having GERD. There are no prior problems with anesthesia or sedation. No ID problems. No known FHX of CRC or polyps. [facility] Medical History Tobacco use disorder Allergic rhinitis Osteoporosis (~2013) Congestive heart failure Chronic obstructive pulmonary disease, unspecified GERD (gastroesophageal reflux disease) Familial hypercholesterolemia Type 2 diabetes mellitus without complications Surgical History History of myringotomy (~2006) History of nasal surgery (~1989) History of ERCP (~2017) History of femoral hernia repair (~2008) History of cholecystectomy (~2017) History of eye surgery (~2019) Family History Father No problems noted. Mother No problems noted. Social History Household Members: Spouse Housing: House Do you presently have visiting nurse or other home services: No Alcohol intake: never Patient Tobacco Use Status: Current everyday Tobacco user Tobacco use type: Cigarette Cigarette Packs Per Day: 0.5 Cigarettes Per Day: 3 (three a week) Years Smoked: 40 years e-Cigarette/Vaping Use: Never Used Second Hand Smoke Exposure: No service: No Current occupational status: retired Cognitive needs: No Hearing needs: No Vision needs: Yes (Glasses) Review of Systems Const Denies fatigue, Denies fever(s), Denies night sweats, Denies poor appetite and Denies weight loss Eyes Details: glasses Reports requires corrective lenses ENT Reports Normal hearing present, Denies dental pain, Denies dysphagia, Denies hearing loss, Denies mouth pain, Denies odynophagia, Denies throat swelling, Denies tongue swelling and Reports other (Dentition adequate) Card Reports no additional complaints, Reports dyspnea and Reports dyspnea on exertion Resp Reports dyspnea and Reports dyspnea on exertion GI Denies abdominal pain, Denies melena, Denies bloating, Denies hematochezia, Denies constipation, Denies GI cramping, Denies dysphagia, Denies excessive flatus, Denies early satiety, Denies heartburn, Denies diarrhea, Denies nausea, Denies odynophagia, Denies vomiting and Denies hematemesis Skin/Breast Denies pruritus, Denies lesions, Denies rash and Denies jaundice Neuro Reports Normal hearing present and Denies Abnormal speech present Endo Denies fatigue Aller/Immun Denies throat swelling and Denies tongue swelling Physical Exam Vital Signs: Last Vital Signs Pulse 97 09/22/23 09:51 BP 154/62 H 09/22/23 09:51 BMI result Body Mass Index 21.8 Const General: cooperative, no acute distress, well developed and well groomed Nutritional Appearance: average body habitus and well nourished Orientation/consciousness: oriented to person, oriented to place and oriented to time Limitations: No language barrier HEENT Head: Yes normocephalic and Yes atraumatic Eyes General: appearance normal, both eyes and all related structures Pupils: Equal, round and reactive pupils present Neck Neck: Yes normal visual inspection and Yes no lymphadenopathy Thyroid: Thyroid normal Resp Effort & Inspection: normal respiratory effort, able to speak in complete sentences and Actively coughing Quality: wet Auscultation: abnormal I/E ratio, wheezes scattered wheezes and upper bilaterally and diminished lung sounds bilateral throughout Cardio Other: heart sounds distant Rate: regular rate Rhythm: regular rhythm Heart sounds: Normal, physiologic split S2 sound present Peripheral pulses: radial pulses present and dorsalis pedis pulses not present GI Inspection: No distended and No Abdominal panniculus present Palpation (GI): Soft to palpation, nontender, no guarding, not rigid and No hepatosplenomegaly present Percussion: Yes normal to percussion Auscultation: normal bowel sounds Rectal Exam - Female: deferred Abdomen image: 2 1. remote surgical scar Skin Other: cap refill of LE's severely diminished General skin exam: decreased turgor, dry skin, no jaundice, No spider nevi, no striae and turgor decreased Rashes: no rashes Wounds: no wounds Nails: clubbing Neuro General: oriented to person, oriented to place and oriented to time Cranial nerves: Yes Equal, round and reactive pupils present and Yes Normal hearing present Speech: No Abnormal speech present Extrem General: Yes normal to inspection, No clubbing, No cyanosis, Yes edema (mild pitting at ankles) and Yes venous stasis dermatitis Psych Appearance: grossly normal and well kempt Mental Status: mental status grossly normal Speech and movement: Normal speech and movement present Affect: normal affect Attitude: cooperative Thought process: Normal thought process present and not confabulating Thought content: Normal thought content present Insight: Limited insight present (Psych) Judgement: Limited judgement present (Psych) Assessment & Plan Assessment & Plan (1) Pre-op examination: Code(s): Z01.818 - Encounter for other preprocedural examination Plan: She has never had a colonoscopy but had a recent positive Cologuard. She is fearful about the procedure with relation to her COPD. Her processing spec is Dr. Zayas so we will check with him for clearance. Despite her CHF she does not see a cycle consultant and she seems unaware of her prior CHF problems. I will send her to cardiology for clearance. No bowel or upper GI problems, she denies having GERD. There are no prior problems with anesthesia or sedation. No ID problems. No known FHX of CRC or polyps. (2) Congestive heart failure: Comment: (hospitalized 11/2019 mild CHF, chronic leg edema controlled on furosemide) Code(s): I50.9 - Heart failure, unspecified Qualifiers: Heart failure chronicity: chronic Heart failure type: unspecified Qualified Code(s): I50.9 - Heart failure, unspecified (3) Type 2 diabetes mellitus without complications: Code(s): E11.9 - Type 2 diabetes mellitus without complications Qualifiers: Diabetes mellitus acute care clinical nurse specialist insulin use: without [facility] use Qualified Code(s): E11.9 - Type 2 diabetes mellitus without complications (4) Chronic obstructive pulmonary disease, unspecified: Comment: (COPD ,severe , but clinically seems to be well controlled and stable. [place] : SYMBICORT 160-4.52 PUFFS B.I.D., I stress that she should use 2 puffs b.i.d. and not only once a day. ALBUTEROL( proair ) 2 PUFFS Q.4 HOURS P.R.N.) Code(s): J44.9 - Chronic obstructive pulmonary disease, unspecified Qualifiers: COPD type: unspecified COPD Qualified Code(s): J44.9 - Chronic obstructive pulmonary disease, unspecified (5) Tobacco use disorder: Comment: Today she claims that she is down to 2 cigarettes a day. Like always she is counseled to quit completely. She claims it is very hard for her to stop altogether. Advised to continue in LDCT program. Code(s): F17.200 - Nicotine dependence, unspecified, uncomplicated (6) Preoperative clearance: Code(s): Z01.818 - Encounter for other preprocedural examination Orders: Referrals 2 Cardiology Referral I50.9 - Heart failure, unspecified, Z01.818 - Encounter for other preprocedural examination Coding Level of Care Code New Pt Level 3 (20150) Diagnoses Pre-op examination Z01.818 Chronic congestive heart failure, unspecified heart failure type I50.9 Heart failure chronicity: chronic Heart failure type: unspecified Type 2 diabetes mellitus without complication, without long-term current use of insulin E11.9 Diabetes mellitus [facility] insulin use: without [facility] use Chronic obstructive pulmonary disease, unspecified COPD type J44.9 COPD type: unspecified COPD Tobacco use disorder F17.200 Preoperative clearance Z01.818
== END 2023-09-22 10:39 | disposition home or self-care (01) ==
PROVIDERS: PCP Internal Medicine; Visit Provider Nurse Practitioner
DX: Z01.818 Encounter for other preprocedural examination (principal); Z12.11 Encounter for screening for malignant neoplasm of colon; R19.5 Other fecal abnormalities; J44.9 Chronic obstructive pulmonary disease, unspecified; F17.200 Nicotine dependence, unspecified, uncomplicated
CPT/HCPCS: 99203

== ENCOUNTER → 2023-09-22 09:48 | Outpatient (BNVA) | payer MEDICARE, SELFPAY | PROVIDERS: PCP Internal Medicine; Visit Provider Nurse Practitioner | DX: Z01.818 Encounter for other preprocedural examination (principal); I50.9 Heart failure, unspecified; E11.9 Type 2 diabetes mellitus without complications; J44.9 Chronic obstructive pulmonary disease, unspecified; F17.210 Nicotine dependence, cigarettes, uncomplicated | CPT/HCPCS: 99202 ==

== ENCOUNTER 2023-10-04 13:18 | Outpatient (AMB) | payer MEDICARE, SELFPAY ==
--- NOTE | 2023-10-04 13:33 | A.OFFVIS_ITS ---
Intake Vital Signs 10/04/23 13:34 Height 5 ft 2 in Weight 120 lb BMI 21.9 BP 120/78 Blood Pressure Location Lt brachial Position Sitting Pulse 86 Pulse Source Pulse Oximeter Pulse Oximetry (%) 94 Oxygen Delivery Method Room Air Intake Visit Reasons: COPD follow-up Intake Note: pt is here for pre-op clearance for colonoscopy, by Roland Rhodes here [facility]. not scheduled yet. Supervisor Print Line Required: No Allergies No Known Allergies Allergy (Verified 10/04/23 13:57) Medication List - Last Reconciled 10/04/23 by Rock Zayas MD albuterol sulfate 90 mcg/actuation 2 puffs inhalation Q6H PRN amlodipine 5 mg PO DAILY blood sugar diagnostic (FreeStyle Lite Strips) test daily blood-glucose meter (FreeStyle Lite Meter kit) test daily budesonide-formoterol 160-4.5 mcg/actuation (Symbicort) 2 puffs inhalation Q12H 30 days lancets (FreeStyle Lancets) test daily lisinopril 30 mg PO DAILY metformin 1,000 mg PO BID simvastatin 10 mg PO BEDTIME Do you need a note to return to daycare/school/sports/work: No HPI COPD follow-up HPI Details BERENICE IS 73 YEARS OLD FEMALE, SHE IS BEING FOLLOWED FOR BRONCHIAL ASTHMA/CHRONIC OBSTRUCTIVE PULMONARY DISEASE. THIS HAS BEEN GOING ON FOR MANY MANY YEARS BUT LUCKILY SHE IS HOLDING STABLE. SHE WAS TREATED FOR ACUTE EXACERBATION IN FEBRUARY OF THIS YEAR, IN THE HOSPITAL AND RECOVERED FROM THAT RELATIVELY QUICKLY. SHE HAS BEEN A PAST SMOKER, CURRENTLY SMOKES ONLY 1-2 CIGARETTES A DAY. HER BREATHING STATUS HAS REMAINED STABLE. SHE GETS SHORT OF BREATH IF SHE WALKS UP HILL, CLIMBS 1 FLIGHT OF STAIRS, OR WALKS ABOUT HALF A BLOCK , FROM THE PARKING LOT TO THE HOUSE. SHE IS SUPPOSED TO USE SYMBICORT 2 PUFFS B.I.D. BUT IS USING ONLY 2 PUFFS A DAY. SHE HAS NOT NEEDED TO USE THE RESCUE INHALER MUCH. PATIENT WILL BE UNDERGOING DIAGNOSTIC COLONOSCOPY AND NEEDS PULMONARY CLEARANCE. [facility] Medical History Tobacco use disorder Allergic rhinitis Osteoporosis (~2013) Congestive heart failure Chronic obstructive pulmonary disease, unspecified GERD (gastroesophageal reflux disease) Familial hypercholesterolemia Type 2 diabetes mellitus without complications Surgical History History of myringotomy (~2006) History of nasal surgery (~1989) History of ERCP (~2017) History of femoral hernia repair (~2008) History of cholecystectomy (~2017) History of eye surgery (~2019) Family History Father No problems noted. Mother No problems noted. Social History Household Members: Spouse Housing: House Do you presently have visiting nurse or other home services: No Alcohol intake: never Patient Tobacco Use Status: Current everyday Tobacco user Tobacco use type: Cigarette Cigarette Packs Per Day: 0.5 Cigarettes Per Day: 3 (three a week) Years Smoked: 40 years e-Cigarette/Vaping Use: Never Used Second Hand Smoke Exposure: No service: No Current occupational status: retired Cognitive needs: No Hearing needs: No Vision needs: Yes (Glasses) Review of Systems Const All systems reviewed & are unremarkable except as noted in HPI and below Eyes Reports no additional complaints ENT Reports nasal congestion and Reports nasal discharge Card Denies chest pain, Denies irregular heart rhythm and Reports leg edema (MILD) Resp Reports as per HPI GI Reports no additional complaints Reports no additional complaints Musc Reports no additional complaints Skin/Breast Reports system reviewed and no additional complaints, except as documented Neuro Reports no additional complaints Psych Reports no additional complaints Endo Reports no additional complaints Physical Exam Vital Signs: Last Vital Signs Pulse 86 10/04/23 13:34 BP 120/78 10/04/23 13:34 Pulse Ox 94 10/04/23 13:34 Oxygen Delivery Method Room Air 10/04/23 13:34 BMI result Body Mass Index 21.9 Const General: comfortable, no acute distress, alert and awake Orientation/consciousness: patient oriented x3 HEENT Head: Yes normal to inspection General nose exam: No nasal polyps present, No nasal discharge present and Other nasal findings present (Marked bilateral nasal congestion and hypertrophy of the turbinates.) Face and sinus: Yes sinuses nontender Mouth: oropharynx normal Throat: Yes posterior oropharynx normal Eyes General: appearance normal, both eyes and all related structures Neck Neck: Yes normal visual inspection, Yes no lymphadenopathy, Yes trachea midline and Yes no JVD Thyroid: Thyroid normal Chest Chest palpation & inspection: normal inspection of the chest, normal palpation of entire chest wall and no tenderness Resp Other: Percussion note hyper-resonant, breath sounds are very distant with prolonged expiratory phase. No audible wheezes rhonchi or crepitations are heard at this time . Cardio Palpation: normal PMI Rate: regular rate Rhythm: regular rhythm Heart sounds: no gallops and no murmurs GI Palpation (GI): Soft to palpation, nontender, No hepatosplenomegaly present and no masses Auscultation: normal bowel sounds Back/Spine/Pelvis Thoracic/Lumbar Spine: thoracic and lumbar spine normal to inspection Skin General skin exam: no rashes or lesions noted Neuro General: patient oriented x3 and no focal motor deficits Cranial nerves: Yes CN's II-XII intact bilaterally Extrem General: Yes normal to inspection, Yes no calf tenderness and Yes edema (1 + edema of the lower 1/3 of the legs.) Psych Appearance: grossly normal and well kempt Speech and movement: Normal speech and movement present Office Procedures Spirometry Testing Spirometry Comments: Spirometry done in the office, Dr. Zayas has the results results scanned to her chart. 13186- Spirometry Results Reviewed Results Reviewed: SPIROMETRY IN THE OFFICE. , FVC 41%, , FEV1 23%, FEV1/FVC = 44 , FEF 25-75 = 11%. * PART OF THE REASON THAT THIS NUMBERS ARE SO POOR, IS THAT SHE WAS NOT ABLE TO BELOW OUT WELL. Assessment & Plan Assessment & Plan (1) Chronic obstructive pulmonary disease, unspecified: Comment: (COPD ,severe , but clinically seems to be well controlled and stable. TX : SYMBICORT 160-4.52 PUFFS B.I.D., I stress that she should use 2 puffs b.i.d. and not only once a day. ALBUTEROL( proair ) 2 PUFFS Q.4 HOURS P.R.N.) Discussed about adding another agent from [facility], but she says, as long as she is stable and doing well she does not want any additional medicine because of extra payments. Code(s): J44.9 - Chronic obstructive pulmonary disease, unspecified Qualifiers: COPD type: unspecified COPD Qualified Code(s): J44.9 - Chronic obstructive pulmonary disease, unspecified (2) Allergic rhinitis: Comment: She has chronic allergic rhinitis which is getting worse and almost on a daily basis. Tx continue Flonase 2 spray in each nostril daily May use Claritin 10 mg once a day as needed Code(s): J30.9 - Allergic rhinitis, unspecified (3) Tobacco use disorder: Comment: Today she claims that she is down to 2 cigarettes a day. Like always she is counseled to quit completely. She claims it is very hard for her to stop altogether. Advised to continue in LDCT program. Code(s): F17.200 - Nicotine dependence, unspecified, uncomplicated Plan: FAR PULMONARY CLEARANCE FOR COLONOSCOPY IS CONCERNED, CLINICALLY I THINK SHE HAS NO CONTRAINDICATION AND SHE SHE SHOULD BE ABLE TO UNDERGO THE PROCEDURE WITHOUT ANY PROBLEM. HOWEVER HER SPIROMETRY NUMBERS ARE QUITE LOW, AND WE NEED TO BE WATCHFUL DURING THE PROCEDURE, SHE MAY NEED OXYGEN SUPPLEMENTATION. AND SHE MAY NEED TO BE TREATED WITH DUONEB UPDRAFT Q 4 HOURS P.R.N.. Orders: Orders AMB Spirometry Testing Today J44.9 - Chronic obstructive pulmonary disease, unspecified Coding Level of Care Code Est Pt Level 3 (15161) Diagnoses Chronic obstructive pulmonary disease, unspecified COPD type J44.9 COPD type: unspecified COPD Allergic rhinitis J30.9 Tobacco use disorder F17.200 CPT Codes Spirometry - CPT: 50527- Spirometry ([id number])
[2023-10-04 13:34] VITALS: BP 120/78; PULSE 86; O2SAT 94; BMI 21.9
== END 2023-10-04 14:09 | disposition home or self-care (01) ==
PROVIDERS: PCP Internal Medicine; Visit Provider Internal Medicine
DX: J44.9 Chronic obstructive pulmonary disease, unspecified (principal); J30.9 Allergic rhinitis, unspecified; F17.200 Nicotine dependence, unspecified, uncomplicated
CPT/HCPCS: 94010; 99213

== ENCOUNTER → 2023-10-04 13:18 | Outpatient (BNVA) | payer MEDICARE, SELFPAY | PROVIDERS: Visit Provider Internal Medicine | DX: J44.9 Chronic obstructive pulmonary disease, unspecified (principal); J30.9 Allergic rhinitis, unspecified; F17.210 Nicotine dependence, cigarettes, uncomplicated | CPT/HCPCS: 94010; 99212 ==

== ENCOUNTER 2023-10-28 09:13 | Outpatient (AMB) | payer MEDICARE, SELFPAY ==
[2023-10-28 09:46] VITALS: BP 136/80; PULSE 90; O2SAT 96; BMI 21.9
--- NOTE | 2023-10-28 09:47 | A.OFFVIS_ITS ---
Intake Vital Signs 10/28/23 09:46 Height 5 ft 2 in Weight 120 lb BMI 21.9 BP 136/80 Blood Pressure Location Lt brachial Position Sitting Pulse 90 Pulse Source Pulse Oximeter Pulse Oximetry (%) 96 Oxygen Delivery Method Room Air Intake Visit Reasons: AWv G0438 Intake Note: Patient here for an annual wellness visit Institution Librarian Required: No Accompanied by: Self / Same As Patient Allergies No Known Allergies Allergy (Verified 10/28/23 09:48) HPI AWv G0438 HPI Details 73-year-old female [facility] wellness [facility]. [facility] Medical History Tobacco use disorder Allergic rhinitis Osteoporosis (~2013) Congestive heart failure Chronic obstructive pulmonary disease, unspecified GERD (gastroesophageal reflux disease) Familial hypercholesterolemia Type 2 diabetes mellitus without complications Surgical History History of myringotomy (~2006) History of nasal surgery (~1989) History of ERCP (~2017) History of femoral hernia repair (~2008) History of cholecystectomy (~2017) History of eye surgery (~2019) Family History Father No problems noted. Mother No problems noted. Social History Household Members: Spouse Housing: House Do you presently have visiting nurse or other home services: No Alcohol intake: never Patient Tobacco Use Status: Current everyday Tobacco user Tobacco use type: Cigarette Cigarette Packs Per Day: 0.5 Cigarettes Per Day: 3 (three a week) Years Smoked: 40 years e-Cigarette/Vaping Use: Never Used Second Hand Smoke Exposure: No service: No Current occupational status: retired Cognitive needs: No Hearing needs: No Vision needs: Yes (Glasses) Questionnaire Medicare Wellness Checkup [age] What gender do you identify with?: female During the past 4 weeks, how much have you been bothered by emotional problems such as feeling anxious, depressed, irritable, sad or downhearted, and blue?: not at all During the past 4 weeks, has your physical & emotional health limited your social activities with family, friends, neighbors, or groups?: not at all During the past 4 weeks, how much bodily pain have you generally had?: no pain During the past 4 weeks, was someone available to help you if you needed & wanted help?: no, not at all During the past 4 weeks, what was the hardest physical activity you could do for at least 2 minutes?: moderate Can you get to places out of walking distance without help? (For eg., can you travel alone on buses, taxis or drive your car?): Yes Can you go shopping for groceries or clothes without someone's help?: Yes Can you prepare your own meals?: Yes Can you do your housework without help?: Yes Because of any health problems, do you need the help of another person with your personal care needs such as eating, bathing, dressing or getting around the house?: No Can you handle your own money without help?: Yes During the past 4 weeks, how would you rate your health in general?: fair During the past 4 weeks how have things been going for you?: good & bad parts about equal Are you having difficulties driving your car?: no Do you always fasten your seat belt when you are in a car?: yes, usually During past 4 weeks, have you been bothered by the following: never: Falling or dizzy when standing up, Sexual problems?, Trouble eating well?, Teeth or denture problems?, Problems using the telephone? and Tiredness or fatigue? Have you fallen 2 or more times in the past year?: No Are you afraid of falling?: No Are you a smoker?: yes, and I might quit During the past 4 weeks, how many drinks of wine, beer, or other alcoholic beverages did you have?: no alcohol at all Do you exercise for about 20 minutes 3 or more times a week?: yes, some of the time Have you been given information to help with the following?: no: Hazards in your house that might hurt you? and no: Keeping track of your medications? How often do you have trouble taking medicines the way you have been told to take them?: I always take medicine as prescribed How confident are you that you can control & manage most of your health problems?: very confident What is your race?: White Mini Mental State Exam (MMSE) Orientation What is the (year) (season) (date) (day) (month)?: year, season, date, day and month Registration Name of 3 unrelated objects clearly and slowly, then ask patient to repeat all 3 of them. (1st repeat determines score. Make sure they can repeat all three): object 1, object 2 and object 3 Attention & Calculation (CHOOSE ONE) Ask pt to begin with 100 & count backward by 7. Stop after 5 repeats. If pt cannot ask them to spell the word WORLD backward.: 93, 86 and 79 Recall Ask patient to repeat the 3 items from question #3.: object 1, object 2 and object 3 Score Score: 14 Activity of Daily Living Bathing - sponge bath, tub bath or shower: receives no assistance (gets in/out by self, if usual bathing means Dressing - getting clothes from closets & drawers, including inner/outer garments & fasteners.: gets clothes & gets completely dressed without help Toileting - going to the 'toilet room' for urine/bowel elimination & cleaning self/arranging clothes: goes to toilet room, cleans self, arranges clothes without help Transfer: moves in & out of bed and chair without help (may use support object) Continence: controls urination/bowel movements completely by self Feeding: feeds self without help Total Score: 0 Information obtained from: patient Using telephone: independent Traveling: independent Shopping: independent Preparing meals: independent Housework: independent Taking medicine: independent Managing money: independent PHQ-9 Over the last 2 weeks, how often have you been bothered by any of the following problems? 1. Little interest or pleasure in doing things: not at all 2. Feeling down, depressed, or hopeless: not at all 3. Trouble falling or staying asleep, or sleeping too much: not at all 4. Feeling tired or having little energy: not at all 5. Poor appetite or overeating: not at all 6. Feeling bad about yourself - or that you are a failure or have let yourself or your family down: not at all 7. Trouble concentrating on things, such as reading the newspaper or watching television: not at all 8. Moving or speaking so slowly that other people could have noticed. Or the opposite - being so fidgety or restless that you have been moving around a lot more than usual: not at all 9. Thoughts that you would be better off or of hurting yourself in some way: not at all Total score: 0 Depression Screening Interpretation: Negative Depression Screening Done: Yes Source: Developed by Drs. Maxx Owens, Gisel Pina, Juvenal Stoner and colleagues, with an educational saritha from [employer]. WESLEY-7 AMB Questionnaire WESLEY-7 Date WESLEY - 7 assessed: 10/28/23 Feeling nervous, anxious, or on edge: 0 = Not at all Not being able to stop or control worryin = Not at all Worrying too much about different things: 0 = Not at all Trouble relaxin = Not at all Being so restless that it is hard to sit still: 0 = Not at all Becoming easily annoyed or irritable: 0 = Not at all Feeling afraid as if something awful might happen: 0 = Not at all Total WESLEY-7 score (0-4 normal; 5-9 mild; 10-14 moderate; 15-21 severe): 0 Source: Developed by Drs. Maxx Owens, Gisel Pina, Juvenal chamorro nd colleagues, with an educational saritha from [employer]. Physical Exam Vital Signs: Last Vital Signs Pulse 90 10/28/23 09:46 BP 136/80 10/28/23 09:46 Pulse Ox 96 10/28/23 09:46 Oxygen Delivery Method Room Air 10/28/23 09:46 BMI result Body Mass Index 21.9 Balance: Negative Romberg: Negative Tandem Walk: Able to Walk and Turn: Able to Rise from sit to stand: Able Hearing Whisper test:Pass Results AMB Hemoglobin A1c AMB Hemoglobin A1c 7.7 % Last Edit by LAWSON Bautista on 10/28/23 10:0 4 Results Reviewed Results Reviewed: Laboratory Last Values Hgb A1c (Clinic) 7.7 % (4.0-6.0) H 10/28/23 09:57 Assessment & Plan Assessment & Plan (1) Essential hypertension: Code(s): I10 - Essential (primary) hypertension (2) Congestive heart failure: Comment: (hospitalized 11/2019 mild CHF, chronic leg edema controlled on furosemide) Code(s): I50.9 - Heart failure, unspecified Qualifiers: Heart failure type: unspecified Heart failure chronicity: chronic Qualified Code(s): I50.9 - Heart failure, unspecified (3) Familial hypercholesterolemia: Code(s): E78.01 - Familial hypercholesterolemia (4) Type 2 diabetes mellitus without complications: Code(s): E11.9 - Type 2 diabetes mellitus without complications Qualifiers: Diabetes mellitus long term care phlebotomist insulin use: without long term care phlebotomist use Qualified Code(s): E11.9 - Type 2 diabetes mellitus without complications Plan: A1c is rising. Patient attributes it to poor diet. Does not want to add any medications. Will check A1c in 3 months. (5) Chronic obstructive pulmonary disease, unspecified: Comment: (COPD ,severe , but clinically seems to be well controlled and stable. [place] : SYMBICORT 160-4.52 PUFFS B.I.D., I stress that she should use 2 puffs b.i.d. and not only once a day. ALBUTEROL( proair ) 2 PUFFS Q.4 HOURS P.R.N.) Code(s): J44.9 - Chronic obstructive pulmonary disease, unspecified Qualifiers: COPD type: unspecified COPD Qualified Code(s): J44.9 - Chronic obstructive pulmonary disease, unspecified (6) GERD (gastroesophageal reflux disease): Comment: Continue PPI as directed. Code(s): K21.9 - Gastro-esophageal reflux disease without esophagitis Qualifiers: Esophagitis presence: esophagitis presence not specified Qualified Code(s): K21.9 - Gastro-esophageal reflux disease without esophagitis Plan: Condition is stable. (7) Adrenal nodule: Comment: (left adrenal nodule measuring 1.3 cm on 12/[address]) Code(s): E27.8 - Other specified disorders of adrenal gland Plan: Condition is stable. (8) Annual physical exam: Code(s): Z00.00 - Encounter for general adult medical examination without abnormal findings Plan Patient is up-to-date on all screening procedures and immunizations. Orders: Orders AMB Hemoglobin A1c Today E11.9 - Type 2 diabetes mellitus without complications Quality Reporting (2019) Depression/Bipolar (159/160/161/177) PHQ-9: Total score: 0 Coding Level of Care Code Medicare Subsequent (G0439) Diagnoses Essential hypertension I10 Chronic congestive heart failure, unspecified heart failure type I50.9 Heart failure type: unspecified Heart failure chronicity: chronic Familial hypercholesterolemia E78.01 Type 2 diabetes mellitus without complication, without long-term current use of insulin E11.9 Diabetes mellitus long term care phlebotomist insulin use: without mcc use Chronic obstructive pulmonary disease, unspecified COPD type J44.9 COPD type: unspecified COPD Gastroesophageal reflux disease, unspecified whether esophagitis present K21.9 Esophagitis presence: esophagitis presence not specified Adrenal nodule E27.8 Annual physical exam Z00.00 CPT Codes Advance Care Planning - Time spent: 1-15 minutes, not on file ([id number]) Advance Care Planning Advance Care Planning discussion: Exists, not on file Date of discussion: 10/28/23 Who was present: Patient Forms completed: Health Care Proxy and MOLST Time spent: 1-15 minutes, not on file Actual minutes spent: 5
== END 2023-10-28 10:23 | disposition home or self-care (01) ==
PROVIDERS: PCP Internal Medicine; Visit Provider Internal Medicine
DX: Z00.00 Encounter for general adult medical examination without abnormal findings (principal); I11.0 Hypertensive heart disease with heart failure; I50.9 Heart failure, unspecified; E11.9 Type 2 diabetes mellitus without complications; E27.8 Other specified disorders of adrenal gland; J44.9 Chronic obstructive pulmonary disease, unspecified; E78.01 Familial hypercholesterolemia; K21.9 Gastro-esophageal reflux disease without esophagitis
CPT/HCPCS: 1124F; 83036; G0439

== ENCOUNTER 2023-11-09 12:41 | Outpatient (AMB) | payer MEDICARE, SELFPAY ==
[2023-11-09 13:02] VITALS: BP 150/66; PULSE 102; BMI 21.8
--- NOTE | 2023-11-09 13:02 | A.OFFVIS_ITS ---
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 Intake Note: NPV Gas Well Pumper Required: No Accompanied by: Self / Same As Patient Allergies No Known Allergies Allergy (Verified 11/09/23 13:03) Medication List - Last Reconciled 11/09/23 by Brenton Macedo MD albuterol sulfate 90 mcg/actuation 2 puffs inhalation Q6H PRN amlodipine 5 mg PO DAILY blood sugar diagnostic (FreeStyle Lite Strips) test daily blood-glucose meter (FreeStyle Lite Meter kit) test daily budesonide-formoterol 160-4.5 mcg/actuation (Symbicort) 2 puffs inhalation Q12H 30 days lancets (FreeStyle Lancets) test daily lisinopril 30 mg PO DAILY metformin 1,000 mg PO BID simvastatin 10 mg PO BEDTIME HPI HPI Comments History of Present Illness Details Gisel is here for assessment of possible congestive heart failure. She also needs preoperative assessment for colonoscopy. No known cardiac issues. However, multiple risk factors including diabetes, hypertension, dyslipidemia, history of smoking. She has significant COPD and also sees Pulmonary. She states she does get short of breath with activity, presumably from her COPD. No clear-cut angina. [facility] Medical History Tobacco use disorder Allergic rhinitis Osteoporosis (~2013) Congestive heart failure Chronic obstructive pulmonary disease, unspecified GERD (gastroesophageal reflux disease) Familial hypercholesterolemia Type 2 diabetes mellitus without complications Surgical History History of myringotomy (~2006) History of nasal surgery (~1989) History of ERCP (~2017) History of femoral hernia repair (~2008) History of cholecystectomy (~2017) History of eye surgery (~2019) Family History Father No problems noted. Mother No problems noted. Social History Household Members: Spouse Housing: House Do you presently have visiting nurse or other home services: No Alcohol intake: never Patient Tobacco Use Status: Current everyday Tobacco user Tobacco use type: Cigarette Cigarette Packs Per Day: 0.5 Cigarettes Per Day: 3 (three a week) Years Smoked: 40 years e-Cigarette/Vaping Use: Never Used Second Hand Smoke Exposure: No service: No Current occupational status: retired Cognitive needs: No Hearing needs: No Vision needs: Yes (Glasses) Review of Systems Const Denies weakness Eyes Denies loss of vision ENT Denies dizziness Card Denies chest pain, Denies chest pain with activity, Denies syncope, Denies rapid heart rate, Denies pedal edema, Denies edema, Denies leg edema, Denies lightheadedness, Denies palpitations, Denies dyspnea, Reports dyspnea on exertion and Denies orthopnea Resp Denies cough, Denies dyspnea, Reports dyspnea on exertion and Denies wheezing GI Denies hematochezia and Denies change in stool character Denies hematuria, Denies urinary frequency and Denies dysuria Musc Denies abnormal gait, Denies muscle cramps, Denies muscle weakness, Denies numbness, Denies radiating pain into limb and Denies tingling Skin/Breast Denies nail changes and Denies rash Neuro Denies Abnormal speech present, Denies abnormal gait, Denies dizziness, Denies syncope, Denies loss of vision, Denies memory loss, Denies numbness, Denies tingling and Denies weakness Psych Denies depression and Denies memory loss Endo Denies palpitations Aller/Immun Denies wheezing Physical Exam Vital Signs: Last Vital Signs Pulse 102 H 11/09/23 13:02 BP 150/66 H 11/09/23 13:02 BMI result Body Mass Index 21.8 Const General: comfortable and no acute distress Orientation/consciousness: patient oriented x3 HEENT Other: Unremarkable Head: Yes normal to inspection Neck Neck: Yes normal visual inspection Chest Chest palpation & inspection: normal inspection of the chest Resp Auscultation: clear to auscultation bilaterally Cardio Palpation: normal PMI Heart sounds: S1 normal heart sound present, S2 normal heart sound present, no gallops, no murmurs and no rubs GI Palpation (GI): Soft to palpation Back/Spine/Pelvis Other: unremarkable Skin General skin exam: no rashes or lesions noted Neuro General: patient oriented x3 Speech: No Abnormal speech present Extrem General: Yes normal to inspection Psych Mental Status: mental status grossly normal Assessment & Plan Assessment & Plan (1) Preoperative cardiovascular examination: Code(s): Z01.810 - Encounter for preprocedural cardiovascular examination (2) Type 2 diabetes mellitus without complications: Code(s): E11.9 - Type 2 diabetes mellitus without complications Qualifiers: Diabetes mellitus termite technician insulin use: without penitentiary use Qualified Code(s): E11.9 - Type 2 diabetes mellitus without complications (3) Essential hypertension: Code(s): I10 - Essential (primary) hypertension (4) Chronic obstructive pulmonary disease, unspecified: Comment: (COPD ,severe , but clinically seems to be well controlled and stable. [place] : SYMBICORT 160-4.52 PUFFS B.I.D., I stress that she should use 2 puffs b.i.d. and not only once a day. ALBUTEROL( proair ) 2 PUFFS Q.4 HOURS P.R.N.) Code(s): J44.9 - Chronic obstructive pulmonary disease, unspecified Qualifiers: COPD type: unspecified COPD Qualified Code(s): J44.9 - Chronic obstructive pulmonary disease, unspecified Plan EKG with sinus rhythm at 102/Min; right atrial enlargement; voltage criteria for LVH, nonspecific ST-T changes. Echocardiogram with hyperdynamic LVEF. No wall motion abnormalities. Based on risk factors, we can get a pharmacological stress perfusion imaging study. Highly unlikely to exercise on the treadmill. When this is completed, can make an addendum. Orders: Orders NM cardiolite stress test Today R07.2 - Precordial pain, Z01.810 - Encounter for preprocedural cardiovascular examination CA lexiscan stress w yamileth Today I20.9 - Angina pectoris, unspecified, Z01.810 - Encounter for preprocedural cardiovascular examination Coding Level of Care Code New Pt Level 4 (26153) Diagnoses Preoperative cardiovascular examination Z01.810 Type 2 diabetes mellitus without complication, without long-term current use of insulin E11.9 Diabetes mellitus penitentiary insulin use: without penitentiary use Essential hypertension I10 Chronic obstructive pulmonary disease, unspecified COPD type J44.9 COPD type: unspecified COPD
== END 2023-11-09 13:20 | disposition home or self-care (01) ==
PROVIDERS: PCP Internal Medicine; Visit Provider Internal Medicine
DX: Z01.810 Encounter for preprocedural cardiovascular examination (principal); E11.9 Type 2 diabetes mellitus without complications; I10 Essential (primary) hypertension; J44.9 Chronic obstructive pulmonary disease, unspecified
CPT/HCPCS: 99204

== ENCOUNTER → 2023-11-09 12:41 | Outpatient (BNVA) | payer MEDICARE, SELFPAY | PROVIDERS: PCP Internal Medicine; Visit Provider Internal Medicine | DX: Z01.810 Encounter for preprocedural cardiovascular examination (principal); J44.9 Chronic obstructive pulmonary disease, unspecified; I10 Essential (primary) hypertension; E11.9 Type 2 diabetes mellitus without complications | CPT/HCPCS: 99202 ==

== ENCOUNTER 2024-02-03 13:11 | Outpatient (AMB) | payer MEDICARE, SELFPAY ==
--- NOTE | 2024-02-03 13:13 | A.OFFPC_ITS ---
Vital Signs 02/03/24 13:15 Height 5 ft 2 in Weight 121 lb 2 oz BMI 22.2 BP 132/64 Blood Pressure Location Lt brachial Position Sitting Pulse 91 Pulse Source Pulse Oximeter Pulse Oximetry (%) 95 Oxygen Delivery Method Room Air Intake Visit Reasons: 3 month f/u Intake Note: Patient is here to follow up on DM, CHF, HTN, COPD, GERD. 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 Crown Buffer: Not Required per policy Accompanied by: Self / Same As Patient Allergies No Known Allergies Allergy (Verified 02/03/24 13:40) Medication List - Last Reconciled 02/03/24 by Yoshi Shetty MD albuterol sulfate 90 mcg/actuation 2 puffs inhalation Q6H PRN amlodipine 5 mg PO DAILY blood sugar diagnostic (FreeStyle Lite Strips) test daily blood-glucose meter (FreeStyle Lite Meter kit) test daily budesonide-formoterol 160-4.5 mcg/actuation (Symbicort) 2 puffs inhalation Q12H 30 days lancets (FreeStyle Lancets) test daily lisinopril 30 mg PO DAILY metformin 1,000 mg PO BID simvastatin 10 mg PO BEDTIME Tobacco use date assessed: 02/03/24 Fall risk assessment: No Falls in past year Last assessed Fall Risk: 02/03/24 Dental Screening Dental Screen Date: 02/03/24 Did you have a dental visit in the last 12 months?: No Did you have a dental problem in the last 6 months where you did not have access to dental care?: No Was dental information given to patient?: Patient has dentist HPI 3 month f/u HPI Details 73-year-old female presents to the [facility] for a follow-up visit. Patient is requesting a handicap plate for her car. Due to her chronic respiratory disease, she experiences shortness of breath even walking from the parking lot. Continues to smoke 5 cigarettes a week. Has been compliant with all her diabetic medications. Does not check her blood sugars at home. Her sleep patterns are normal. Does not report any urinary incontinence. [facility] Medical History Tobacco use disorder Allergic rhinitis Osteoporosis (~2013) Congestive heart failure Chronic obstructive pulmonary disease, unspecified GERD (gastroesophageal reflux disease) Familial hypercholesterolemia Type 2 diabetes mellitus without complications Surgical History History of myringotomy (~2006) History of nasal surgery (~1989) History of ERCP (~2017) History of femoral hernia repair (~2008) History of cholecystectomy (~2017) History of eye surgery (~2019) Family History Father No problems noted. Mother No problems noted. Social History Household Members: Spouse Housing: House Do you presently have visiting nurse or other home services: No Alcohol intake: never Patient Tobacco Use Status: Current everyday Tobacco user Tobacco use type: Cigarette Cigarette Packs Per Day: 0.5 Cigarettes Per Day: 1.5 (three a week) Years Smoked: 40 years e-Cigarette/Vaping Use: Never Used Second Hand Smoke Exposure: Yes service: No Current occupational status: retired Cognitive needs: No Hearing needs: No Vision needs: Yes (Glasses) Questionnaire PHQ-9 Over the last 2 weeks, how often have you been bothered by any of the following problems? 1. Little interest or pleasure in doing things: not at all 2. Feeling down, depressed, or hopeless: not at all 3. Trouble falling or staying asleep, or sleeping too much: not at all 4. Feeling tired or having little energy: not at all 5. Poor appetite or overeating: not at all 6. Feeling bad about yourself - or that you are a failure or have let yourself or your family down: not at all 7. Trouble concentrating on things, such as reading the newspaper or watching television: not at all 8. Moving or speaking so slowly that other people could have noticed. Or the opposite - being so fidgety or restless that you have been moving around a lot more than usual: not at all 9. Thoughts that you would be better off or of hurting yourself in some way: not at all Total score: 0 Depression Screening Interpretation: Negative Depression Screening Done: Yes Source: Developed by Drs. Maxx Owens, Gisel Pina, Juvenal Stoner and colleagues, with an educational saritha from [employer]. Thrive Questionnaire Date Thrive assessed: 02/03/24 I am a: Patient What is your living situation today?: I have a steady place to live Within the past 12 months, did the food you bought not last and you didn't have the money to get more?: Never true Within the past 12 months, did you worry whether your food would run out before you got money to buy more?: Never true Do you have trouble paying for medicines?: No Do you have trouble getting transportation to medical appointments?: No Do you have trouble paying your heating and electricity bill?: No Do you have trouble taking care of your child, family member or friend?: No Do you have trouble with day-to-day activities such as bathing, preparing meals, shopping, managing finances, etc.?: No Are you currently unemployed and looking for a job?: No Are you interested in more education?: No Currently or been in a relationship where the following occur: no concerns reported THRIVE Score: 0 AUDIT C Alcohol Use Questionnaire (AUDIT-C) 1. How often do you have a drink containing alcohol?: Never Total Score: 0 WESLEY-7 AMB Questionnaire WESLEY-7 Date WESLEY - 7 assessed: 02/03/24 Feeling nervous, anxious, or on edge: 0 = Not at all Not being able to stop or control worryin = Not at all Worrying too much about different things: 0 = Not at all Trouble relaxin = Not at all Being so restless that it is hard to sit still: 0 = Not at all Becoming easily annoyed or irritable: 0 = Not at all Feeling afraid as if something awful might happen: 0 = Not at all Total WESLEY-7 score (0-4 normal; 5-9 mild; 10-14 moderate; 15-21 severe): 0 Source: Developed by Drs. Maxx Owens, Gisel Pina, Juvenal Stoner and colleagues, with an educational saritha from [employer]. Physical exam (Primary Care) Vital Signs: Last Vital Signs Pulse 91 02/03/24 13:15 BP 132/64 02/03/24 13:15 Pulse Ox 95 02/03/24 13:15 Oxygen Delivery Method Room Air 02/03/24 13:15 Care Plan Goal for BP management: Blood pressure is in range. Continue current medications. BMI result Body Mass Index 22.2 Tobacco/Smoking Status: Tobacco use Status Tobacco use date assessed 02/03/24 02/03/24 13:26 Patient Tobacco Use Status Current everyday Tobacco 02/03/24 13:26 Tobacco use type Cigarette 02/03/24 13:26 e-Cigarette/Vaping Use Never Used 02/03/24 13:26 Are you ready to quit: No Tobacco cessation counseling provided: No PHQ-9: PHQ-9 Score PHQ-9: Total score 0 02/03/24 13:26 Depression Screening Interpretation: Negative Thrive Assessment: Date of Thrive Assessment Date Thrive assessed 02/03/24 02/03/24 13:26 Currently or been in a relationship where the following occur: no concerns reported Const General: cooperative and healthy appearing Nutritional Appearance: well nourished Orientation/consciousness: patient oriented x3 Limitations: no limitations HENMT Head: Yes normal to inspection Eyes General: appearance normal, both eyes and all related structures Neck Neck: Yes normal visual inspection Chest Chest palpation & inspection: normal palpation of entire chest wall Resp Effort & Inspection: normal respiratory effort Neuro General: patient oriented x3 Results AMB Hemoglobin A1c AMB Hemoglobin A1c 7.7 % Last Edit by LAWSON Caputo on 02/03/24 13:30 Results Reviewed Results Reviewed: Laboratory Last Values Hgb A1c (Clinic) 7.7 % (4.0-6.0) H 02/03/24 13:12 Assessment and Plan Assessment & Plan (1) Type 2 diabetes mellitus without complications: Code(s): E11.9 - Type 2 diabetes mellitus without complications Qualifiers: Diabetes mellitus intermediate manager insulin use: without group home use Qualified Code(s): E11.9 - Type 2 diabetes mellitus without complications Plan: A1c is down to 7.7. I offered to add Jardiance to the regimen. Explained that it will help with her blood sugars and also for the heart failure. Patient is reluctant to start the medications for a variety of reasons. She would like to wait another 3 months before adding medication to the regimen. (2) Chronic obstructive pulmonary disease, unspecified: Comment: (COPD ,severe , but clinically seems to be well controlled and stable. [place] : SYMBICORT 160-4.52 PUFFS B.I.D., I stress that she should use 2 puffs b.i.d. and not only once a day. ALBUTEROL( proair ) 2 PUFFS Q.4 HOURS P.R.N.) Code(s): J44.9 - Chronic obstructive pulmonary disease, unspecified Qualifiers: COPD type: unspecified COPD Qualified Code(s): J44.9 - Chronic obstructive pulmonary disease, unspecified (3) Congestive heart failure: Comment: (hospitalized 11/2019 mild CHF, chronic leg edema controlled on furosemide) Code(s): I50.9 - Heart failure, unspecified Qualifiers: Heart failure type: unspecified Heart failure chronicity: chronic Qualified Code(s): I50.9 - Heart failure, unspecified Orders: Orders AMB Hemoglobin A1c Today E11.9 - Type 2 diabetes mellitus without complications Coding Level of Care Code Est Pt Level 4 (87290) Diagnoses Type 2 diabetes mellitus without complication, without long-term current use of insulin E11.9 Diabetes mellitus intermediate manager insulin use: without group home use Chronic obstructive pulmonary disease, unspecified COPD type J44.9 COPD type: unspecified COPD Chronic congestive heart failure, unspecified heart failure type I50.9 Heart failure type: unspecified Heart failure chronicity: chronic
[2024-02-03 13:15] VITALS: BP 132/64; PULSE 91; O2SAT 95; BMI 22.2
== END 2024-02-03 13:37 | disposition home or self-care (01) ==
PROVIDERS: PCP Internal Medicine; Visit Provider Internal Medicine
DX: E11.9 Type 2 diabetes mellitus without complications (principal); J44.9 Chronic obstructive pulmonary disease, unspecified; I50.9 Heart failure, unspecified
CPT/HCPCS: 83036; 99214

== ENCOUNTER 2024-02-05 08:10 | Outpatient (REF) | payer MEDICARE, SELFPAY ==
[2024-02-05 11:07] LABS: Appearance Urine Hazy; Color Urine Yellow; Glucose Urine UA Negative (Negative); Leukocyte Esterase Urine Negative (Negative); Nitrite Urine Negative (Negative); PH 7.5 (5.0-9.0); Specific Gravity - Urine 1.015 (1.005-1.025); Urine Blood Negative (Negative); Urine Ketones Trace mg/dL (Negative); Urine Protein Negative (Neg-Trace)
[2024-02-05 11:13] LABS: Hematocrit 48.6 % (37.0-47.0); Hemoglobin 15.5 g/dl (12.0-16.0); Mean Corpuscular HGB Conc 31.9 g/dl (31.0-35.0); Mean Corpuscular Hemoglobin 27.8 pg (27.0-33.0); Mean Corpuscular Volume 87.1 fL (80.0-98.0); Mean Platelet Volume 10.9 fL (9.4-12.3); Platelet Count 244 X10*3/uL (160-400); Red Blood Count 5.58 X10*6/uL (4.20-5.50); Red Cell Distribution Width 13.1 % (11.0-16.0); White Blood Count 6.9 X10*3/uL (4.8-10.8)
[2024-02-05 11:58] LABS: Creatinine Urine 93.99 mg/dL; Microalbum/Creatinine Ratio Ur 53.1 ug/mg cr (<30)
[2024-02-05 12:17] LABS: Alanine Aminotransferase 10 U/L (0-31); Albumin Level 4.1 g/dL (3.5-5.0); Alkaline Phosphatase 79 U/L (39-117); Anion Gap 11 (12-20); Aspartate Amino Transferase 13 U/L (5-31); Bilirubin Direct 0.2 mg/dL (0.0-0.5); Bilirubin Total 0.6 mg/dL (0.0-1.0); Blood Urea Nitrogen 15 mg/dL (9-16); Calcium 9.5 mg/dL (8.4-10.2); Carbon Dioxide 31 mmol/L (22-29); Chloride 106 mmol/L (96-108); Cholesterol 144 mg/dL (<200); Estimated Glomerular Filt Rate > 60; Glucose Random 143 mg/dL (60-115); HDL Cholesterol 37 mg/dL (>40); LDL Cholesterol Calculated 78 mg/dL (<100); Potassium 3.9 mmol/L (3.3-5.1); Sodium 144 mmol/L (135-145); Total Protein 6.8 g/dL (6.5-8.0); Triglycerides 148 mg/dL (<150)
[2024-02-05 12:38] LABS: Thyroid Stimulating Hormone 1.64 uIU/mL (0.32-4.0)
== END 2024-02-05 08:11 | disposition home or self-care (01) ==
LOC: HO.HMGCLDS 08:10
PROVIDERS: PCP Internal Medicine; Visit Provider Internal Medicine
DX: E11.9 Type 2 diabetes mellitus without complications (principal); E78.01 Familial hypercholesterolemia; J44.9 Chronic obstructive pulmonary disease, unspecified
CPT/HCPCS: 36415; 80048; 80061; 80076; 81003; 82043; 82570; 84443; 85027

== ENCOUNTER 2024-02-08 13:37 | Outpatient (AMB) | payer MEDICARE, SELFPAY ==
--- NOTE | 2024-02-08 13:42 | MHC.OFFVIS ---
Intake Vital Signs 02/08/24 13:43 Height 5 ft 2 in Weight 121 lb BMI 22.1 BP 110/62 Blood Pressure Location Lt brachial Position Sitting Pulse 112 H Pulse Source Pulse Oximeter Pulse Oximetry (%) 93 Oxygen Delivery Method Room Air Intake Visit Reasons: copd : 4 month f/u Intake Note: pt is here for follow up and states her breathing is only bad when walking long distance, down to 5 cigarettes a week. Transition Advisor Required: No Allergies No Known Allergies Allergy (Verified 02/08/24 13:46) Medication List - Last Reconciled 02/08/24 by Rock Zayas MD albuterol sulfate 90 mcg/actuation 2 puffs inhalation Q6H PRN amlodipine 5 mg PO DAILY blood sugar diagnostic (FreeStyle Lite Strips) test daily blood-glucose meter (FreeStyle Lite Meter kit) test daily budesonide-formoterol 160-4.5 mcg/actuation (Symbicort) 2 puffs inhalation Q12H 30 days lancets (FreeStyle Lancets) test daily lisinopril 30 mg PO DAILY metformin 1,000 mg PO BID simvastatin 10 mg PO BEDTIME Do you need a note to return to daycare/school/sports/work: No HPI copd : 4 month f/u HPI Details Gisel is 73 years old a lifelong smoker, who is being followed for bronchial asthma/COPD. She has cut down the cigarettes to 5 cigarettes in a week, Cough is much less. She denies any wheezing attacks. Still gets short of breath on walking no more than a block, or if she has to climb 1 flight of stairs. Overall she is feeling better. [facility]LY [facility] Medical History Tobacco use disorder Allergic rhinitis Osteoporosis (~2013) Congestive heart failure Chronic obstructive pulmonary disease, unspecified GERD (gastroesophageal reflux disease) Familial hypercholesterolemia Type 2 diabetes mellitus without complications Surgical History History of myringotomy (~2006) History of nasal surgery (~1989) History of ERCP (~2017) History of femoral hernia repair (~2008) History of cholecystectomy (~2017) History of eye surgery (~2019) Family History Father No problems noted. Mother No problems noted. Social History Household Members: Spouse Housing: House Do you presently have visiting nurse or other home services: No Alcohol intake: never Patient Tobacco Use Status: Current everyday Tobacco user Tobacco use type: Cigarette Cigarette Packs Per Day: 0.5 Cigarettes Per Day: 1.5 (three a week) Years Smoked: 40 years e-Cigarette/Vaping Use: Never Used Second Hand Smoke Exposure: Yes service: No Current occupational status: retired Cognitive needs: No Hearing needs: No Vision needs: Yes (Glasses) Review of Systems Const All systems reviewed & are unremarkable except as noted in HPI and below Eyes Reports no additional complaints ENT Reports nasal congestion and Reports nasal discharge Card Denies chest pain, Denies irregular heart rhythm and Reports leg edema (MILD) Resp Reports as per HPI GI Reports no additional complaints Reports no additional complaints Musc Reports no additional complaints Skin/Breast Reports system reviewed and no additional complaints, except as documented Neuro Reports no additional complaints Psych Reports no additional complaints Endo Reports no additional complaints Physical Exam Vital Signs: Last Vital Signs Pulse 112 H 02/08/24 13:43 BP 170/72 H 02/08/24 13:43 Pulse Ox 93 02/08/24 13:43 Oxygen Delivery Method Room Air 02/08/24 13:43 BMI result Body Mass Index 22.1 Const General: comfortable, no acute distress, alert and awake Orientation/consciousness: patient oriented x3 HEENT Head: Yes normal to inspection General nose exam: No nasal polyps present, No nasal discharge present and Other nasal findings present (Marked bilateral nasal congestion and hypertrophy of the turbinates.) Face and sinus: Yes sinuses nontender Mouth: oropharynx normal Throat: Yes posterior oropharynx normal Eyes General: appearance normal, both eyes and all related structures Neck Neck: Yes normal visual inspection, Yes no lymphadenopathy, Yes trachea midline and Yes no JVD Thyroid: Thyroid normal Chest Chest palpation & inspection: normal inspection of the chest, normal palpation of entire chest wall and no tenderness Resp Other: Percussion note hyper-resonant, breath sounds are very distant with prolonged expiratory phase. No audible wheezes rhonchi or crepitations are heard at this time . Cardio Palpation: normal PMI Rate: regular rate Rhythm: regular rhythm Heart sounds: no gallops and no murmurs GI Palpation (GI): Soft to palpation, nontender, No hepatosplenomegaly present and no masses Auscultation: normal bowel sounds Back/Spine/Pelvis Thoracic/Lumbar Spine: thoracic and lumbar spine normal to inspection Skin General skin exam: no rashes or lesions noted Neuro General: patient oriented x3 and no focal motor deficits Cranial nerves: Yes CN's II-XII intact bilaterally Extrem General: Yes normal to inspection, Yes no calf tenderness and Yes edema (1 + edema of the lower 1/3 of the legs.) Psych Appearance: grossly normal and well kempt Speech and movement: Normal speech and movement present Assessment & Plan Assessment & Plan (1) Chronic obstructive pulmonary disease, unspecified: Comment: (COPD ,severe , but clinically seems to be well controlled and stable. Code(s): J44.9 - Chronic obstructive pulmonary disease, unspecified Qualifiers: COPD type: unspecified COPD Qualified Code(s): J44.9 - Chronic obstructive pulmonary disease, unspecified Plan: TX : SYMBICORT 160-4.52 PUFFS B.I.D., ALBUTEROL( proair ) 2 PUFFS Q.4 HOURS P.R.N.) (2) Tobacco use disorder: Comment: She has the lifelong history of smoking, Today she claims that she is smoking only 5 cigarettes a week, which is much less than before. As a result she does feel better and her cough is much less. Code(s): F17.200 - Nicotine dependence, unspecified, uncomplicated Plan: Commended for cutting down smoking and stressed that she should quit completely. Advised to continue in LDCT program. (3) Allergic rhinitis: Comment: She has chronic allergic rhinitis which is getting worse and almost on a daily basis. Code(s): J30.9 - Allergic rhinitis, unspecified Plan: Tx continue Flonase 2 spray in each nostril daily May use Claritin 10 mg once a day as needed Coding Level of Care Code Est Pt Level 3 (26621) Diagnoses Chronic obstructive pulmonary disease, unspecified COPD type J44.9 COPD type: unspecified COPD Tobacco use disorder F17.200 Allergic rhinitis J30.9
[2024-02-08 13:43] VITALS: BP 110/62; PULSE 112; O2SAT 93; BMI 22.1
== END 2024-02-08 13:58 | disposition home or self-care (01) ==
PROVIDERS: PCP Internal Medicine; Visit Provider Internal Medicine
DX: J44.9 Chronic obstructive pulmonary disease, unspecified (principal); F17.200 Nicotine dependence, unspecified, uncomplicated; J30.9 Allergic rhinitis, unspecified
CPT/HCPCS: 99213

== ENCOUNTER → 2024-02-08 13:37 | Outpatient (BNVA) | payer MEDICARE, SELFPAY | PROVIDERS: PCP Internal Medicine; Visit Provider Internal Medicine | DX: J44.9 Chronic obstructive pulmonary disease, unspecified (principal); J30.9 Allergic rhinitis, unspecified; F17.210 Nicotine dependence, cigarettes, uncomplicated | CPT/HCPCS: 99212 ==

== ENCOUNTER 2024-03-17 13:18 | Outpatient (REF) | payer MEDICARE, SELFPAY ==
--- NOTE | ~2024-03-17 | CT_ITS ---
EXAMINATION: CT CHEST SCREENING CLINICAL INFORMATION: Nicotine dependence. Current smoker. One pack per day for a total of 51 pack years. COMPARISON: 02/26/2023. TECHNIQUE: Multidetector volumetric CT imaging of the chest is performed without contrast using low-dose technique. Additional 2D coronal and sagittal reformatted images and axial 3D maximum intensity projection (MIP) images are generated on the CT workstation. This CT examination was performed using dose optimization techniques as appropriate, variously including the following: *Automated exposure control *Adjustment of mA and/or kV according to patient size (this includes techniques or standardized protocols for targeted exams where dose is matched to indication/reason for exam; i.e. extremities or head) *Use of iterative reconstruction technique DLP: 32 mGy-cm. FINDINGS: LUNGS: Marked emphysematous changes are present along with diffuse bronchial thickening. Biapical pleural-parenchymal scarring is present. Multiple pulmonary nodules are present and unchanged includin mm right upper lobe laterally pleural-based (5:96 compare prior 5:96). 3 mm perifissural lymph node right upper lobe (5:157 compare prior 5:163). 3 mm triangular right lower lobe perifissural lymph node (5:230 compare prior 5:230). There is a new 3 mm right upper lobe opacity which represents mucus in a bronchus (5:142 compare prior 5:142). MEDIASTINUM: The mediastinum is normal. CORONARY ARTERY CALCIFICATION: Mild. PLEURA: There is no pleural effusion. No pleural mass or thickening. AXILLA: No lymphadenopathy. UPPER ABDOMEN: Pneumobilia is again noted status post cholecystectomy. Stable low-attenuation thickening of left adrenal gland. No additional imaging or follow up needed. OSSEOUS STRUCTURES: Unremarkable. CT/CT lung screening IMPRESSION: Benign-appearing nodules, none larger than 3 mm. New area of mucus impaction within a right lower lobe bronchus. Marked emphysema. ASSESSMENT: Lung-RADS category 2: Benign. RECOMMENDATION: Routine annual low-dose CT screening in 12 months.
== END 2024-03-17 13:19 | disposition home or self-care (01) ==
LOC: HO.CT 13:18
PROVIDERS: PCP Internal Medicine; Visit Provider Nurse Practitioner Family
DX: Z12.2 Encounter for screening for malignant neoplasm of respiratory organs (principal); F17.210 Nicotine dependence, cigarettes, uncomplicated
CPT/HCPCS: 71271

== ENCOUNTER 2024-04-25 13:45 | Outpatient (AMB) | payer MEDICARE, SELFPAY ==
[2024-04-25 14:57] VITALS: BP 122/70; PULSE 85; O2SAT 93
--- NOTE | 2024-04-25 14:57 | AM.OFFWIN_ITS ---
Intake Vital Signs 04/25/24 14:57 Height 5 ft 2 in BP 122/70 Blood Pressure Location Rt brachial Position Sitting Pulse 85 Pulse Source Pulse Oximeter Pulse Oximetry (%) 93 Intake Visit Reasons: EP Skin tear LT lower leg/Diabetic Intake Note: Pt is here for skin tear on left lower leg Patient Tobacco Use Status: Current everyday Tobacco user Allergies No Known Allergies Allergy (Verified 04/25/24 14:58) Do you need a note to return to daycare/school/sports/work: No HPI EP Skin tear LT lower leg/Diabetic HPI Details 74 yr old female presents to the office for a sick visit. Patient has noticed swelling in both her feet since she started taking amlodipine. In the past few days, the lower leg is oozing fluid and now has an open skin. She would like to have the lower extremity examined. [facility] Medical History Tobacco use disorder Allergic rhinitis Osteoporosis (~2013) Congestive heart failure Chronic obstructive pulmonary disease, unspecified GERD (gastroesophageal reflux disease) Familial hypercholesterolemia Type 2 diabetes mellitus without complications Surgical History History of myringotomy (~2006) History of nasal surgery (~1989) History of ERCP (~2017) History of femoral hernia repair (~2008) History of cholecystectomy (~2017) History of eye surgery (~2019) Family History Father No problems noted. Mother No problems noted. Social History Household Members: Spouse Housing: House Do you presently have visiting nurse or other home services: No Alcohol intake: never Patient Tobacco Use Status: Current everyday Tobacco user Tobacco use type: Cigarette Cigarette Packs Per Day: 0.5 Cigarettes Per Day: 1.5 (three a week) Years Smoked: 40 years e-Cigarette/Vaping Use: Never Used Second Hand Smoke Exposure: Yes service: No Current occupational status: retired Cognitive needs: No Hearing needs: No Vision needs: Yes (Glasses) Physical Exam Vital Signs: Last Vital Signs Pulse 85 04/25/24 14:57 BP 122/70 04/25/24 14:57 Pulse Ox 93 04/25/24 14:57 Const General: cooperative and healthy appearing Nutritional Appearance: well nourished Orientation/consciousness: patient oriented x3 Limitations: no limitations HEENT Head: Yes normal to inspection Eyes General: appearance normal, both eyes and all related structures Neck Neck: Yes normal visual inspection Chest Chest palpation & inspection: normal palpation of entire chest wall Resp Effort & Inspection: normal respiratory effort Neuro General: patient oriented x3 Extrem Other: Lower Ext: Right and left: Edema in both ext, pitting in nature, oozing fluid, more near the george. Open wound at the back of the leg bilaterally. Assessment & Plan Assessment & Plan (1) Edema of both feet: Code(s): R60.0 - Localized edema Plan: Stop the amlodipine. Pt will start 20 mg Furosemide, she has at home. Hydrocortisone cream on the affected open area. Follow up at [facility] if sx not improving. Medications: New hydrocortisone 2.5% 1 appl topical BID PRN 20 grams 0RF skin irritation Discontinued amlodipine Discontinued Reason: Doctor's Order 5 mg PO DAILY 90 tabs 1RF Coding Level of Care Code Est Pt Level 4 (93346) Diagnoses Edema of both feet R60.0
== END 2024-04-25 16:07 | disposition home or self-care (01) ==
PROVIDERS: PCP Internal Medicine; Visit Provider Internal Medicine
DX: R60.0 Localized edema (principal)
CPT/HCPCS: 99214

== ENCOUNTER 2024-05-25 14:51 | Outpatient (AMB) | payer MEDICARE, SELFPAY ==
--- NOTE | 2024-05-25 15:38 | A.OFFPC_ITS ---
Vital Signs 05/25/24 15:39 Height 5 ft 2 in Weight 116 lb 6 oz BMI 21.3 BP 132/72 Blood Pressure Location Lt brachial Position Sitting Pulse 98 Pulse Source Pulse Oximeter Pulse Oximetry (%) 88 L Oxygen Delivery Method Room Air Intake Visit Reasons: 3 Month F/U Intake Note: Patient is here to follow up on DM, CHF, HTN, COPD. 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 Patient has owned dog scratched her on the left hand yesterday. Minimal bleeding. She cleaned the wound profusely under cold water. Compliant with all her medications and reporting no side effects. After the amlodipine was stopped, the edema of the feet has resolved. Unfortunately patient continues to smoke. [facility] Medical History Tobacco use disorder Allergic rhinitis Osteoporosis (~2013) Congestive heart failure Chronic obstructive pulmonary disease, unspecified GERD (gastroesophageal reflux disease) Familial hypercholesterolemia Type 2 diabetes mellitus without complications Surgical History History of myringotomy (~2006) History of nasal surgery (~1989) History of ERCP (~2017) History of femoral hernia repair (~2008) History of cholecystectomy (~2017) History of eye surgery (~2019) Family History Father No problems noted. Mother No problems noted. Social History Household Members: Spouse Housing: House Do you presently have visiting nurse or other home services: No Alcohol intake: never Patient Tobacco Use Status: Current everyday Tobacco user Tobacco use type: Cigarette Cigarette Packs Per Day: 0.25 Cigarettes Per Day: 2 (three a week) Years Smoked: 40 years e-Cigarette/Vaping Use: Never Used Second Hand Smoke Exposure: Yes service: No Current occupational status: retired Cognitive needs: No Hearing needs: No Vision needs: Yes (Glasses) Questionnaire Thrive Questionnaire Date Thrive assessed: 02/03/24 WESLEY-7 AMB Questionnaire WESLEY-7 Date WESLEY - 7 assessed: 02/03/24 Source: Developed by Drs. Maxx Owens, Gisel Pina, Juvenal Stoner and colleagues, with an educational saritha from [employer]. Physical exam (Primary Care) Vital Signs: Last Vital Signs Pulse 98 05/25/24 15:39 BP 132/72 05/25/24 15:39 Pulse Ox 88 L 05/25/24 15:39 Oxygen Delivery Method Room Air 05/25/24 15:39 BMI result Body Mass Index 21.3 Tobacco/Smoking Status: Tobacco use Status Tobacco use date assessed 05/25/24 05/25/24 15:39 Patient Tobacco Use Status Current everyday Tobacco 05/25/24 15:39 Tobacco use type Cigarette 05/25/24 15:39 e-Cigarette/Vaping Use Never Used 05/25/24 15:39 Thrive Assessment: Date of Thrive Assessment Date Thrive assessed 02/03/24 05/25/24 15:39 Const General: cooperative and healthy appearing Nutritional Appearance: well nourished Orientation/consciousness: patient oriented x3 Limitations: no limitations HENMT Head: Yes normal to inspection Eyes General: appearance normal, both eyes and all related structures Neck Neck: Yes normal visual inspection Chest Chest palpation & inspection: normal palpation of entire chest wall Resp Effort & Inspection: normal respiratory effort Skin Other: Left hand: Open wound on the dorsum. Very superficial. No surrounding erythema. 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 Amlodipine has been discontinued. Continue current medications. (2) Type 2 diabetes mellitus without complications: Code(s): E11.9 - Type 2 diabetes mellitus without complications Qualifiers: Diabetes mellitus long-term insulin use: without long-term use Qualified Code(s): E11.9 - Type 2 diabetes mellitus without complications Plan: A1c is improving. Continue medications at same dosage. (3) Chronic obstructive pulmonary disease, unspecified: Comment: (COPD ,severe , but clinically seems to be well controlled and stable. Code(s): J44.9 - Chronic obstructive pulmonary disease, unspecified Qualifiers: COPD type: unspecified COPD Qualified Code(s): J44.9 - Chronic obstructive pulmonary disease, unspecified Plan: Condition is stable. (4) Bite wound of left hand: Code(s): S61.452A - Open bite of left hand, initial encounter Plan The should heal on its own. Tetanus toxoid provided. Orders: Orders AMB Hemoglobin A1c Today E11.9 - Type 2 diabetes mellitus without complications Td State Immunization Today Z23 - Encounter for immunization Coding Level of Care Code Est Pt Level 4 (80011) Complex EM visit Add On G2211 Diagnoses Essential hypertension I10 Type 2 diabetes mellitus without complication, without long-term current use of insulin E11.9 Diabetes mellitus long term care administrator insulin use: without long term care administrator use Chronic obstructive pulmonary disease, unspecified COPD type J44.9 COPD type: unspecified COPD Bite wound of left hand S61.452A
[2024-05-25 15:39] VITALS: BP 132/72; PULSE 98; O2SAT 88; BMI 21.3
== END 2024-05-25 16:24 | disposition home or self-care (01) ==
PROVIDERS: PCP Internal Medicine; Visit Provider Internal Medicine
DX: E11.9 Type 2 diabetes mellitus without complications (principal); J44.9 Chronic obstructive pulmonary disease, unspecified; S61.452A Open bite of left hand, initial encounter; Z23 Encounter for immunization; I10 Essential (primary) hypertension
CPT/HCPCS: 83036; 90471; 90714; 99214

== ENCOUNTER 2024-07-23 12:39 | Inpatient (IN) | payer MEDICARE, SELFPAY ==
[2024-07-23] VITALS (16 sets, daily range): BP systolic 136–166; BP diastolic 58–98; PULSE 80–112; RESP 22–36; TEMP 36.4–36.7; O2SAT 82–98; BMI 23.8
--- NOTE | ~2024-07-23 | XR_ITS ---
EXAMINATION: XR CHEST CLINICAL INFORMATION: Dyspnea. COMPARISON: CT chest 03/17/2024. Chest radiograph 03/22/2023. TECHNIQUE: Frontal view of the chest was obtained. FINDINGS: Stable prominence of the cardiomediastinal silhouette. Background of chronic interstitial coarsening with slightly increased interstitial markings compared to chest radiograph from 03/22/2023. New subtle focal air space density overlying the right lower lung field in between the posterior sixth and seventh ribs. Increased streaky opacities in the retrocardiac space. No pleural effusion or pneumothorax. Subcentimeter pulmonary nodules are best visualized on prior CT chest. No acute osseous findings. XR/XR chest 1V IMPRESSION: 1. Increased interstitial prominence suggesting acute infectious/inflammatory small airways disease within a background of chronic interstitial lung abnormality. 2. New focal air space densities projecting over the right lower lung field suspicious for early consolidation. Recommend follow-up imaging to ensure resolution. 3. Increased subsegmental atelectasis in the retrocardiac region. Electronically signed by: Darlyn Escobar MD 07/23/2024 03:17 PM EDT
--- NOTE | 2024-07-23 12:54 | ECG_ITS ---
Test Reason : sob Blood Pressure : / mmHG Vent. Rate : 110 BPM Atrial Rate : 110 BPM P-R Int : 124 ms QRS Dur : 082 ms QT Int : 360 ms P-R-T Axes : 078 101 087 degrees QTc Int : 487 ms Sinus tachycardia Rightward axis Right atrial enlargement Anterior infarct , age undetermined Abnormal ECG When compared with ECG of 22-MAR-2023 11:53, ST no longer depressed in Lateral leads Referred By: Concha Ruth Electronically Signed By:SAL ECHAVARRIA
[2024-07-23] MEDS: Albuterol Sulfate 5 MG, Albuterol/Iprat 2.5/0.5MG 3 ML 3 ML INHALE ×2 (13:02→13:22)
[2024-07-23 13:16] LABS: MANUAL DIFF FLAG NO
[2024-07-23 13:17] LABS: Basophils Percent Auto 0.2 % (0-2); Hematocrit 51.8 % (37.0-47.0); Hemoglobin 16.2 g/dl (12.0-16.0); Imm Gran Abs Auto 0.08 X10*3/uL (0.00-0.03); Imm Gran Pct Auto 0.7 % (0.0-0.4); Lymphocytes Absolute Auto 0.8 X10*3/uL (1.2-4.9); Lymphocytes Percent Auto 6.5 % (20-40); Mean Corpuscular HGB Conc 31.3 g/dl (31.0-35.0); Mean Corpuscular Hemoglobin 27.6 pg (27.0-33.0); Mean Corpuscular Volume 88.2 fL (80.0-98.0); Mean Platelet Volume 10.5 fL (9.4-12.3); Monocytes Absolute Auto 0.7 X10*3/uL (0.1-1.2); Monocytes Percent Auto 5.3 % (2-11); Neutrophils Absolute Auto 10.7 x10*3/uL (2.0-8.3); Neutrophils Percent Auto 87.3 % (45-73); Platelet Count 326 X10*3/uL (160-400); Red Blood Count 5.87 X10*6/uL (4.20-5.50); Red Cell Distribution Width 13.2 % (11.0-16.0); White Blood Count 12.2 X10*3/uL (4.8-10.8)
[2024-07-23 13:20] LABS: VBG Base Excess 2.6 mmol/L; VBG HCO3 30 mmol/L (22-26); VBG pCO2 59 mmHg; VBG pH 7.32 (7.32-7.43); VBG pO2 71 mmHg
[2024-07-23 13:22] LABS: INTERNATIONAL NORM RATIO 1.1 (0.9-1.1); Prothrombin Time 12.9 SEC (11.1-13.3)
[2024-07-23] MEDS: Furosemide 20 MG/2 ML VIAL IVPUSH ×2 (13:22→17:53)
[2024-07-23 13:23] LABS: Venous Blood Gas Refer to POC result
[2024-07-23 13:31] LABS: Lactic Acid 1.6 mmol/L (0.5-2.0)
[2024-07-23] MEDS: cefTRIAXone sodium 1 GM in 0.9 % Sodium Chloride 50 ML IV (13:31)
[2024-07-23 13:36] LABS: D Dimer High Sensitivity 165 NG/ML
[2024-07-23 13:42] LABS: B Type Natriuretic Peptide 969 pg/mL (<100)
[2024-07-23 13:44] LABS: Troponin-I High Sensitivity 36.1 ng/L (<3.5-17.0)
[2024-07-23 13:48] LABS: Alanine Aminotransferase 32 U/L (0-31); Albumin Level 4.2 g/dL (3.5-5.0); Alkaline Phosphatase 77 U/L (39-117); Anion Gap 20 (12-20); Aspartate Amino Transferase 20 U/L (5-31); Bilirubin Direct 0.2 mg/dL (0.0-0.5); Bilirubin Total 0.4 mg/dL (0.0-1.0); Blood Urea Nitrogen 27 mg/dL (9-16); C Reactive Protein 12.38 mg/dL (< or = 0.50); Carbon Dioxide 26 mmol/L (22-29); Chloride 105 mmol/L (96-108); Estimated Glomerular Filt Rate > 60; Glucose Random 234 mg/dL (60-115); Lipase 10 U/L (8-78); Magnesium 1.9 mg/dL (1.6-2.6); Potassium 4.9 mmol/L (3.3-5.1); Sodium 146 mmol/L (135-145); Total Protein 7.7 g/dL (6.5-8.0)
[2024-07-23 13:59] LABS: Influenza A PCR NEGATIVE (Negative); Influenza B PCR NEGATIVE (Negative); Resp Syncy Virus RNA Qual PCR NEGATIVE (Negative); SARS COV2 PCR INHOUSE POSITIVE (Negative)
--- NOTE | 2024-07-23 14:06 | ED_ITS ---
HPI - SOB/Dyspnea General Chief Complaint: Dyspnea Stated Complaint: SOB 68% RA,96% 10LPM NRB,DUONEB GIVEEN,? COVID Time Seen by Provider: 07/23/24 12:42 Source: patient and EMS Mode of arrival: EMS Limitations: no limitations History of Present Illness ED Provider: BYRON HPI Narrative: 74 yo female with PMH of COPD not on home O2, CHF, HLD, still a smoker, DM2, GERD, vaccinated against COVID x 4, notes her was just ill and hospitalized with COVID she thinks she was sick sometime this week maybe the middle of the week with chills, cough, increased sputum production, increased work of breathing. She has not tested herself. She notes her legs are also more swollen. Today is much worse than usual. EMS found her 88% on RA and gave her 125mg solumedrol and duoneb with some improvement. Patient states she is DNR/DNI. MD elicited complaint: shortness of breath Pertinent past history: COPD and congestive heart failure Onset (ago): day(s) (several) Context: other (sick contact) Timing: progressively worsening Severity: severe Exacerbating factors: lying flat, exertion, movement and coughing Relieving factors: oxygen, rest, bronchodilators and upright position Known history of: COPD and congestive heart failure Associated symptoms: cough, wheezing, sputum production and chest congestion Treatment prior to arrival: oxygen, bronchodilator and other (IV solumedrol) Related Data Home Medications ?Medication ?Instructions ?Recorded ?Confirmed albuterol sulfate 90 mcg/actuation 2 puff inhalation Q6H PRN Wheezing 09/17/20 02/08/24 aerosol inhaler Previous Rx's ?Medication ?Instructions ?Recorded budesonide-formoterol HFA 160 2 puff inhalation Q12H copd 30 08/12/22 mcg-4.5 mcg/actuation aerosol days #10.2 grams inhaler (Symbicort) blood sugar diagnostic (FreeStyle #100 ea 04/15/23 Lite Strips) blood-glucose meter (FreeStyle #1 ea 04/15/23 Lite Meter kit) lancets 28 gauge (FreeStyle #100 ea 07/16/23 Lancets) hydrocortisone 2.5 % topical cream 1 appl topical BID PRN skin 04/25/24 irritation #20 grams lisinopril 30 mg tablet 30 mg PO DAILY #90 tabs 07/05/24 metformin 1,000 mg tablet 1,000 mg PO BID #180 tabs 07/05/24 simvastatin 10 mg tablet 10 mg PO BEDTIME #90 tabs 07/05/24 Allergies Allergy/AdvReac Type Severity Reaction Status Date / Time No Known Allergies Allergy Verified 07/23/24 12:47 Review of Systems 2 Review of Systems: Constitutional : No Fever, pos Chills ENT/Mouth : No Hoarseness, No sore throat, No Rhinorrhea Eyes: No Redness, No Discharge, No Vision Changes Cardiovascular : No Chest Pain, positive SOB, positive Dyspnea on Exertion, pos Edema Respiratory : positive Cough, pos Sputum, positive Wheezing, Gastrointestinal : No Nausea, No Vomiting, No Diarrhea, No abdominal Pain Genitourinary : No Dysuria, No Hematuria Musculoskeletal : No joint pain, No Myalgias Skin : No rash Neuro : No Weakness, No Numbness, No Headache Psych : No anxiety, depression All other systems reviewed and are negative [facility], [facility] Past Medical History Attestation statement: The following information was validated with the patient. Source: old records reviewed Medical History Tobacco use disorder Allergic rhinitis Osteoporosis (~2013) Congestive heart failure Chronic obstructive pulmonary disease, unspecified GERD (gastroesophageal reflux disease) Familial hypercholesterolemia Type 2 diabetes mellitus without complications Surgical History History of myringotomy (~2006) History of nasal surgery (~1989) History of ERCP (~2017) History of femoral hernia repair (~2008) History of cholecystectomy (~2017) History of eye surgery (~2019) Family History Family History Father No problems noted. Mother No problems noted. Social History Social History Household Members: Spouse Housing: House Do you presently have visiting nurse or other home services: No Alcohol intake: never Patient Tobacco Use Status: Current everyday Tobacco user Tobacco use type: Cigarette Cigarette Packs Per Day: 0.25 Cigarettes Per Day: 2 (three a week) Years Smoked: 40 years Smoked in Last 30 Days: Yes e-Cigarette/Vaping Use: Never Used Second Hand Smoke Exposure: Yes Use of substances other than those prescribed or required for medical reasons: No Advance Directives: No Advance Directives Information Provided: No service: No Current occupational status: retired Cognitive needs: No Hearing needs: No Vision needs: Yes (Glasses) Physical Exam 2 Vital Signs: Vital Signs: Last Vital Signs Temp 97.6 F 07/23/24 14:00 Pulse 112 H 07/23/24 14:00 Resp 34 H 07/23/24 14:00 BP 136/58 L 07/23/24 14:00 Pulse Ox 92 07/23/24 14:00 O2 Del Method Large Bore Nasal Cannula 07/23/24 14:00 O2 Flow Rate 2 07/23/24 14:00 BMI result Body Mass Index 23.8 Appearance: Alert. Oriented X3. Mild acute distress. Eyes: Pupils equal, round and reactive to light. ENT: Pharynx normal. Neck: Normal inspection. Neck supple. CVS: Normal heart rate and rhythm. Pulses normal. Respiratory: Mild respiratory distress tachypnea and retractions labored. Breath sounds very coarse throughout with wheezes exp throughout. Abdomen: Soft and nontender. Skin: Skin warm and dry. Normal skin color. Normal skin turgor. Extremities: 1+ pitting lower extremity edema. Neuro: Oriented X 3. No motor deficit. No sensory deficit. Course Course Course Narrative: patient much improved at this time pending high flow and therapies daughter at bedside updated with plan Medications Administered Discontinued Medications Generic Name Dose Route Start Last Admin Trade Name Freq PRN Reason Stop Dose Admin Albuterol Sulfate 5 mg/ 0 mg 07/23/24 12:46 07/23/24 13:02 Albuterol/Ipratropium 3 ml INHALE 07/23/24 12:47 1 each ONCE ONE Administration Albuterol Sulfate 5 mg/ 0 mg 07/23/24 13:18 07/23/24 13:22 Albuterol/Ipratropium 3 ml INHALE 07/23/24 13:19 1 each ONCE ONE Administration Furosemide 20 mg 07/23/24 12:54 07/23/24 13:22 Furosemide 20 Mg/2 Ml Vial IVPUSH 07/23/24 12:55 20 mg ONCE ONE Administration Protocol Ceftriaxone Sodium 1 gm/ 50 mls @ 100 mls/hr 07/23/24 12:54 07/23/24 13:31 Sodium Chloride IV 07/23/24 13:23 100 mls/hr ONCE ONE Administration Medical Decision Making Medical Decision Making [facility] Narrative: 74 yo female with PMH of COPD not on home O2, CHF, HLD, still a smoker, DM2, GERD, vaccinated against COVID x 4 here with malaise, fatigue, difficulty breathing, hypoxia after exposure to COVID at this time already given steroids by EMS will repeat nebs, start on empiric ceftriaxone and azithromycin given her labored breathing will start on high flow and monitor closely she is DNR/DNI, anticipate admission to hospital - ddimer ordered to evaluate for VTE, she denies chest pain low susp for ACS though NSTEMI demand possible. IV lasix 20mg ordered as well for edema and suspicion for CHF. Differential Diagnosis Differential Diagnoses: The differential diagnosis associated with the presentation includes COVID, COPD, CHF, pneumonia Admission/Observation Consideration of admission/observation: Escalation of care including admission/observation considered admit given work of breathing Consult Healthcare Provider Management of the patient was discussed with: Hospitalist (will admit) Lab Data [facility] Lab Attestation statement: I reviewed the patient's lab results. 07/23/24 13:10 07/23/24 13:10 Labs: Lab Results 07/23/24 07/23/24 Range/Units 13:10 13:17 WBC 12.2 H (4.8-10.8) X10*3/uL RBC 5.87 H (4.20-5.50) X10*6/uL Hgb 16.2 H (12.0-16.0) g/dl Hct 51.8 H (37.0-47.0) % MCV 88.2 (80.0-98.0) fL MCH 27.6 (27.0-33.0) pg MCHC 31.3 (31.0-35.0) g/dl RDW 13.2 (11.0-16.0) % Plt Count 326 D (160-400) X10*3/uL MPV 10.5 (9.4-12.3) fL Immature Gran % (Auto) 0.7 H (0.0-0.4) % Neut % (Auto) 87.3 H (45-73) % Lymph % (Auto) 6.5 L (20-40) % Glynn % (Auto) 5.3 (2-11) % Eos % (Auto) 0.0 (0-4) % Baso % (Auto) 0.2 (0-2) % Lymph # (Auto) 0.8 L (1.2-4.9) X10*3/uL Glynn # (Auto) 0.7 (0.1-1.2) X10*3/uL Eos # (Auto) 0.0 (0.0-0.4) X10*3/uL Baso # (Auto) 0.0 (0.0-0.2) X10*3/uL Abs Immat Gran (auto) 0.08 H (0.00-0.03) X10*3/uL Absolute Neuts (auto) 10.7 H (2.0-8.3) x10*3/uL Absolute Nucleated RBC 0.000 (0.0-0.012) X10*3/uL Nucleated RBC % (auto) 0.0 (0.0-0.2) /100WBC PT 12.9 (11.1-13.3) SEC INR 1.1 (0.9-1.1) D-Dimer High Sensitivty 165 NG/ML VBG pH 7.32 (7.32-7.43) VBG pCO2 59 mmHg VBG pO2 71 mmHg VBG HCO3 30 H (22-26) mmol/L VBG O2 Saturation 93.0 % VBG Base Excess 2.6 mmol/L Sodium 146 H (135-145) mmol/L Potassium 4.9 D (3.3-5.1) mmol/L Chloride 105 (96-108) mmol/L Carbon Dioxide 26 (22-29) mmol/L Anion Gap 20 (12-20) BUN 27 H (9-16) mg/dL Creatinine 0.90 (0.5-1.4) mg/dL Estim Creat Clear Calc 42.0 Estimated GFR > 60 Random Glucose 234 H (60-115) mg/dL Lactic Acid 1.6 (0.5-2.0) mmol/L Calcium 10.0 (8.4-10.2) mg/dL Magnesium 1.9 (1.6-2.6) mg/dL Total Bilirubin 0.4 (0.0-1.0) mg/dL Direct Bilirubin 0.2 (0.0-0.5) mg/dL AST 20 (5-31) U/L ALT 32 H (0-31) U/L Alkaline Phosphatase 77 (39-117) U/L Troponin I High Sens 36.1 H D (<3.5-17.0) ng/L C-Reactive Protein 12.38 H (< or = 0.50) mg/dL B-Natriuretic Peptide 969 H (<100) pg/mL Total Protein 7.7 (6.5-8.0) g/dL Albumin 4.2 (3.5-5.0) g/dL Lipase 10 (8-78) U/L Procalcitonin 0.04 ng/mL Influenza Type A (PCR) NEGATIVE (Negative) Influenza Type B (PCR) NEGATIVE (Negative) RSV RNA Qual (PCR) NEGATIVE (Negative) SARS-CoV-2 RNA (RT-PCR) POSITIVE A (Negative) Independent Interpretation I performed an independent interpretation of an: EKG and Plain X-Ray Interpretation: Rate: 110 Rhythm: sinus tachycardia [place]: normal Normal P waves. Normal RENATA. Normal QRS complex. ST T wave : inverted t waves V1 and V2, t waves tall V2 and V4, no MARI qTC: 487 prior studies: changed The study has been interpreted contemporaneously by me. . Radiology Impression Discussion of test interpretation with radiology: I have reviewed the radiologist's reading. Independent Historian Clinical information obtained from an independent historian. History obtained from or confirmed by: EMS External Record Review External record reviewed: Inpatient record Critical Care Time Critical Care Time Critical Care Time: Yes Total Critical Care Time: 60 Attestation: repeat nebs, review of records, high flow for hypoxia, admission I attest to this time spent taking care of the patient Discharge Plan Discharge Clinical Impression: COVID-19, Hypoxia, Acute dyspnea CHF (congestive heart failure) Qualifiers: Heart failure type: unspecified Heart failure chronicity: acute on chronic Q ualified Code(s): I50.9 - Heart failure, unspecified Patient Disposition: Admitted As Inpatient Print Language: Maltese
[2024-07-23 14:08] LABS: Procalcitonin 0.04 ng/mL
[2024-07-23] MEDS: Azithromycin 500 MG in 0.9 % Sodium Chloride 250 ML 125 MG IV (14:52)
--- NOTE | 2024-07-23 15:23 | PM.IMHP ---
History of Present Illness Date of Service: 07/23/24 Chief Complaint: hypoxia, sob The patient is a 74-year-old female with a past medical history of COPD and CHF, diabetes, hypertension, active tobacco use who presents to the hospital with about a one-week history of respiratory symptoms. The patient is currently on high-flow oxygen and hence the history is corroborated by her daughter who is bedside. Apparently, last weekend the patient had begun feeling some shortness of breath. There are reports of intermittent fevers. She reports an intermittently productive cough. She reports chronic lower extremity edema, which she has not noticed to be increased. Unclear if she has orthopnea. The patient's also was hospitalized and reportedly positive for COVID. Over the course of the week, her symptoms progressed and on the day of admission a home pulse ox was checked which read readings below 70. Paramedics were called and ultimately the patient was brought to the emergency room. In the emergency room patient was found to be significantly hypoxic with increased work of breathing. She tested positive for COVID. Her BNP is elevated to over 900. A chest x-ray showed prominent interstitial findings along with possible right lower lung early consolidation. She has been given DuoNebs and steroids by the paramedics. In the emergency room she has been treated with empiric IV antibiotics along with IV Lasix. She is currently on high-flow at 45 L/FiO2 40%. She appears to be breathing comfortably and is able to talk in short sentences. Review of Systems Review of Systems: Negative except HPI [facility] Medical History Tobacco use disorder Allergic rhinitis Osteoporosis (~2013) Congestive heart failure Chronic obstructive pulmonary disease, unspecified GERD (gastroesophageal reflux disease) Familial hypercholesterolemia Type 2 diabetes mellitus without complications Family History Father No problems noted. Mother No problems noted. Surgical History History of myringotomy (~2006) History of nasal surgery (~1989) History of ERCP (~2017) History of femoral hernia repair (~2008) History of cholecystectomy (~2017) History of eye surgery (~2019) Social History Household Members: Spouse Housing: House Do you presently have visiting nurse or other home services: No Alcohol intake: never Patient Tobacco Use Status: Current everyday Tobacco user Tobacco use type: Cigarette Cigarette Packs Per Day: 0.25 Cigarettes Per Day: 2 (three a week) Years Smoked: 40 years e-Cigarette/Vaping Use: Never Used Second Hand Smoke Exposure: Yes service: No Current occupational status: retired Cognitive needs: No Hearing needs: No Vision needs: Yes (Glasses) Meds Allergies Allergy/AdvReac Type Severity Reaction Status Date / Time No Known Allergies Allergy Verified 07/23/24 12:47 Active Medications: Current Medications Acetaminophen (Acetaminophen 325 Mg Tablet) 650 mg PO Q6H PRN PRN Reason: Pain, Mild (Pain Scale 1-3), fever or headache Calcium Carbonate (Calcium Carbonate 750 Mg Tab.Chew) 750 mg PO Q4H PRN PRN Reason: Heartburn Enoxaparin Sodium (Enoxaparin Sodium 40 Mg/0.4 Ml Syringe) 40 mg SUBCUT Q24H DRISS Magnesium Hydroxide (Milk Of Magnesia 30 Ml Oral.Susp) 30 ml PO DAILY PRN PRN Reason: Constipation Melatonin (Melatonin 3 Mg Tablet) 6 mg PO BEDTIME PRN PRN Reason: Insomnia Ondansetron HCl (Ondansetron Hcl 4 Mg/2 Ml Vial) 4 mg IVPUSH Q8H PRN PRN Reason: Nausea and Vomiting Sodium Chloride (0.9 % Sodium Chloride Flush 3 Ml Syringe) 3 ml IVFLUSH QSHIFT DRISS Home Medications ?Medication ?Instructions ?Recorded ?Confirmed ?Last Taken ?Type albuterol sulfate 90 mcg/actuation 2 puff inhalation Q6H PRN Wheezing 09/17/20 07/23/24 03/22/23 History aerosol inhaler furosemide 20 mg tablet 20 mg PO DAILY PRN fluid overload 07/23/24 07/23/24 Unknown History Physical Exam Vital Signs and Narrative: Vital Signs: Last Vital Signs Temp 97.6 F 07/23/24 14:00 Pulse 112 H 07/23/24 14:00 Resp 34 H 07/23/24 15:19 BP 136/58 L 07/23/24 14:00 Pulse Ox 92 07/23/24 14:00 O2 Del Method Large Bore Nasal Cannula 07/23/24 14:00 O2 Flow Rate 2 07/23/24 14:00 BMI result Body Mass Index 23.8 Const: Other: Constitutional - Awake and Alert, mild respiratory distress Eyes - PERRLA, EOMI Cardiovascular - S1S2, RRR, No edema Respiratory - coarse sounds, RR in the 20s Gastrointestinal - NT / ND; +BS; No rebound or guarding - No CVA tenderness Extremities - b/l LE edema Musculoskeletal - Normal inspection, normal ROM Skin - Warm/Dry Neurological - Alert & oriented x3, No focal deficit Psychological - Appropriate affect Results Labs 07/26/24 06:02 07/26/24 06:02 Labs: Laboratory Results - last 24 hr 07/23/24 07/23/24 13:10 13:17 MCV 88.2 MCH 27.6 MCHC 31.3 RDW 13.2 Plt Count 326 D MPV 10.5 Immature Gran % (Auto) 0.7 H Neut % (Auto) 87.3 H Lymph % (Auto) 6.5 L [place] % (Auto) 5.3 Eos % (Auto) 0.0 Baso % (Auto) 0.2 Lymph # (Auto) 0.8 L [place] # (Auto) 0.7 Eos # (Auto) 0.0 Baso # (Auto) 0.0 Abs Immat Gran (auto) 0.08 H Absolute Neuts (auto) 10.7 H Absolute Nucleated RBC 0.000 Nucleated RBC % (auto) 0.0 PT 12.9 INR 1.1 D-Dimer High Sensitivty 165 VBG pH 7.32 VBG pCO2 59 VBG pO2 71 VBG HCO3 30 H VBG O2 Saturation 93.0 VBG Base Excess 2.6 Anion Gap 20 Estim Creat Clear Calc 42.0 Estimated GFR > 60 Random Glucose 234 H Lactic Acid 1.6 Calcium 10.0 Magnesium 1.9 Total Bilirubin 0.4 Direct Bilirubin 0.2 AST 20 ALT 32 H Alkaline Phosphatase 77 Troponin I High Sens 36.1 H D C-Reactive Protein 12.38 H B-Natriuretic Peptide 969 H Total Protein 7.7 Albumin 4.2 Lipase 10 Procalcitonin 0.04 Influenza Type A (PCR) NEGATIVE Influenza Type B (PCR) NEGATIVE RSV RNA Qual (PCR) NEGATIVE SARS-CoV-2 RNA (RT-PCR) POSITIVE A Imaging Radiologist's Impressions: Impressions Chest X-Ray 07/23/24 12:54 IMPRESSION: 1. Increased interstitial prominence suggesting acute infectious/inflammatory small airways disease within a background of chronic interstitial lung abnormality. 2. New focal air space densities projecting over the right lower lung field suspicious for early consolidation. Recommend follow-up imaging to ensure resolution. 3. Increased subsegmental atelectasis in the retrocardiac region. Electronically signed by: Darlyn Escobar MD 07/23/2024 03:17 PM EDT RP Assessment and Plan (1) Hypoxia: Status: Acute (2) CHF (congestive heart failure): Qualifiers: Heart failure chronicity: acute on chronic Heart failure type: unspecified Qualified Code(s): I50.9 - Heart failure, unspecified Status: Acute (3) COVID-19: Status: Acute Plan The patient is a 74-year-old female with a past medical history of COPD and CHF, not on diuretics at home, diabetes, hypertension, active tobacco use who presents to the hospital with a 1 week history of respiratory symptoms. She was found to be COVID positive with likely early pneumonia on imaging and clinically also appears to have some fluid overload. She will be admitted for further work up and treamtment. 1. Acute respiratory failure with hypoxia Currently requiring high-flow oxygen Multifactorial, see details below 2. Pneumonia Suspect a component of bacterial pneumonia with positive imaging Will continue with ceftriaxone and azithromycin 3. COVID positive 3a. COPD Symptomatic with hypoxia Given Solu-Medrol by paramedics, we will continue the same We will consult ID to see if other therapies are indicated 4. Acute heart failure with preserved ejection fraction Does not appear to be on diuretics at home. She states she is on a p.r.n. Given IV Lasix 20 mg in the emergency room, we will continue 20 b.i.d. 5. DM On metformin at home, we will hold orals Use sliding scale insulin and point of cares 6. History of hypertension Normotensive currently Monitor BP trend and start lisinopril tomorrow if stable Med rec pending, we will continue baseline meds as appropriate Code status: (prior MOLST form indicates DNR/DNI); discussed with the patient about her wishes, and at this time she wants to be full code. DVT pptx -- Lovenox Quality Stroke Does the patient have a stroke diagnosis?: No VTE Prior VTE?: No VTE Risk Level:: Medical - moderate - high VTE Device Contraindication: Treatment Not Indicated VTE Drug Contraindication: N/A - Med Ordered
[2024-07-23] MEDS: Enoxaparin Sodium 40 MG/0.4 ML SYRINGE SUBCUT (16:12)
[2024-07-23] MEDS: Albuterol/Iprat 2.5/0.5MG 3 ML AMPUL.NEB INHALE ×2 (16:23→21:11)
--- NOTE | 2024-07-23 17:00 | PHA.MEDREC ---
Addendum entered by Kath Heath RPh 07/23/24 17:42: [facility] reviewed Original Note: Pharmacy Consult ? Medication Reconciliation Pharmacy has completed the medication reconciliation. Per pt, Pt takes furosemide 20 mg PRN fluid overload.
--- NOTE | 2024-07-23 17:43 | PC.NURSE ---
pt resitng. on high flow nasal cannula. tachypnic rate of about 30. abx infused.
[2024-07-23] MEDS: methylPREDNISolone Sod Succ 40 MG/ML VIAL IVPUSH (17:51)
[2024-07-23 19:19] LABS: Glucose, Whole Blood 294 mg/dL (60-115)
[2024-07-23] MEDS: Insulin Lispro 100 UNIT/ML 3 ML VIAL SUBCUT ×2 (19:38→21:55)
--- NOTE | 2024-07-23 19:49 | PC.NURSE ---
Messaged Lucinda QUIROS RE: POC 291, patient not eating, getting IV steroids, do you still want her to get ordered sliding scale? Lucinda confirmed yes please give SC. Medicated per JAN w/ note. Patient changed into hospital attire, O2 probe applied, repositioned in bed, requesting liquids at this time. Continues on 45L 40% on HF, sats 93 - 95%.
[2024-07-23 20:14] LABS: Appearance Urine Clear; Color Urine Yellow; Glucose Urine UA 250 mg/dL (Negative); Leukocyte Esterase Urine Negative (Negative); Nitrite Urine Negative (Negative); Specific Gravity - Urine 1.015 (1.005-1.025); Urine Blood Negative (Negative); Urine Ketones Negative (Negative); Urine Protein Trace mg/dL (Neg-Trace)
[2024-07-23 21:17] LABS: Glucose, Whole Blood 302 mg/dL (60-115)
--- NOTE | 2024-07-23 22:17 | PC.NURSE ---
Patient transferred to hospital bed for patient comfort.
[2024-07-24] VITALS (15 sets, daily range): BP systolic 100–144; BP diastolic 41–75; PULSE 63–101; RESP 19–34; TEMP 36.5–36.7; O2SAT 90–99
[2024-07-24] MEDS: 0.9 % Sodium Chloride Flush 3 ML SYRINGE IVFLUSH (01:17)
[2024-07-24 05:24] LABS: Hematocrit 44.4 % (37.0-47.0); Hemoglobin 13.7 g/dl (12.0-16.0); Mean Corpuscular HGB Conc 30.9 g/dl (31.0-35.0); Mean Corpuscular Hemoglobin 27.8 pg (27.0-33.0); Mean Corpuscular Volume 90.2 fL (80.0-98.0); Mean Platelet Volume 10.9 fL (9.4-12.3); Platelet Count 278 X10*3/uL (160-400); Red Blood Count 4.92 X10*6/uL (4.20-5.50); Red Cell Distribution Width 13.1 % (11.0-16.0); White Blood Count 8.1 X10*3/uL (4.8-10.8)
[2024-07-24 05:43] LABS: Anion Gap 16 (12-20); Blood Urea Nitrogen 32 mg/dL (9-16); Calcium 8.9 mg/dL (8.4-10.2); Carbon Dioxide 29 mmol/L (22-29); Chloride 106 mmol/L (96-108); Creatinine Clr Calc Pharmacy 43.4; Estimated Glomerular Filt Rate > 60; Glucose Random 146 mg/dL (60-115); Potassium 3.9 mmol/L (3.3-5.1); Sodium 147 mmol/L (135-145)
[2024-07-24] MEDS: methylPREDNISolone Sod Succ 40 MG/ML VIAL IVPUSH ×2 (06:22→20:10)
[2024-07-24] MEDS: Albuterol/Iprat 2.5/0.5MG 3 ML AMPUL.NEB INHALE ×4 (07:29→20:38)
[2024-07-24 07:50] LABS: Glucose, Whole Blood 155 mg/dL (60-115)
[2024-07-24] MEDS: Insulin Lispro 100 UNIT/ML 3 ML VIAL SUBCUT ×2 (07:50→14:09)
--- NOTE | 2024-07-24 07:54 | PC.NURSE ---
Pt. medicated per JAN. Breakfast tray provided and set up for pt. Pt. repositioned in a way to comfortably eat, call light within reach.
[2024-07-24] MEDS: Furosemide 20 MG/2 ML VIAL IVPUSH ×2 (10:27→20:10)
--- NOTE | 2024-07-24 11:18 | MHC.CM.PN ---
IMM 07/24/24, Pt lives with her , she does not use home health services or DME. HCP is her daughter Darcy, she said we have it on file. to transport home at DC. PCP confirmed: Dr. Shetty. DCP: home, self care, CM to follow for DC needs.
[2024-07-24 11:37] LABS: Glucose, Whole Blood 181 mg/dL (60-115)
--- NOTE | 2024-07-24 11:42 | HO.PM.IMPN ---
Subjective Subjective Date of Service: 07/24/24 Interval History: seen and examined this AM feeling better but still quiet sob still with cough no chest pain Review of Systems Negative except HPI/interval history. Physical Exam Vital Signs: Vital Signs: Last Vital Signs Temp 98.0 F 07/24/24 08:00 Pulse 71 07/24/24 08:00 Resp 30 H 07/24/24 08:00 BP 137/74 07/24/24 10:27 Pulse Ox 90 L 07/24/24 08:00 O2 Del Method High Flow Nasal C annula 07/24/24 08:00 O2 Flow Rate 45 07/24/24 05:01 FiO2 40 07/23/24 19:39 BMI result Body Mass Index 23.8 Const: Other: General - no acute distress, appears comfortable at rest Cardiovascular - regular rate and rhythm, S1-S2 Lungs - dim sounds; sats low 90s on HFNC Abdomen - soft, nontender, no rebound or guarding Extremities - no edema bilaterally Neuro - awake and alert, no focal deficits Objective Data Active Medications Acetaminophen (Acetaminophen 325 Mg Tablet) 650 mg PO Q6H PRN PRN Reason: Pain, Mild (Pain Scale 1-3), fever or headache Albuterol/Ipratropium (Albuterol/Iprat 2.5/0.5mg 3 Ml Ampul.Neb) 3 ml INHALE RQ4H WHILE AWAKE [facility] Last Admin: 07/24/24 07:29 Dose: 3 ml Documented By: UNA Atorvastatin Calcium (Atorvastatin Calcium 10 Mg Tablet) 10 mg PO BEDTIME [facility] Calcium Carbonate (Calcium Carbonate 750 Mg Tab.Chew) 750 mg PO Q4H PRN PRN Reason: Heartburn Enoxaparin Sodium (Enoxaparin Sodium 40 Mg/0.4 Ml Syringe) 40 mg SUBCUT Q24H [facility] Last Admin: 07/23/24 16:12 Dose: 40 mg Documented By: AJIT Furosemide (Furosemide 20 Mg/2 Ml Vial) 20 mg IVPUSH BID@0900,1800 [facility]; Protocol Last Admin: 07/24/24 10:27 Dose: 20 mg Documented By: ARMANDO Ceftriaxone Sodium 1 gm/ (Sodium Chloride) 50 mls @ 100 mls/hr IV Q24H [facility] Azithromycin 500 mg/ Sodium (Chloride) 250 mls @ 125 mls/hr IV Q24H [facility] Insulin Human Lispro (Insulin Lispro 100 Unit/Ml 3 Ml Vial) 0 unit SUBCUT QIDACHS [facility]; Protocol Last Admin: 07/24/24 07:50 Dose: 2 unit Documented By: ARMANDO Magnesium Hydroxide (Milk Of Magnesia 30 Ml Oral.Susp) 30 ml PO DAILY PRN PRN Reason: Constipation Melatonin (Melatonin 3 Mg Tablet) 6 mg PO BEDTIME PRN PRN Reason: Insomnia Methylprednisolone Sodium Succinate (Methylprednisolone Sod Succ 40 Mg/Ml Vial) 40 mg IVPUSH Q12H [facility] Last Admin: 07/24/24 06:22 Dose: 40 mg Documented By: SHAISTA Ondansetron HCl (Ondansetron Hcl 4 Mg/2 Ml Vial) 4 mg IVPUSH Q8H PRN PRN Reason: Nausea and Vomiting Sodium Chloride (0.9 % Sodium Chloride Flush 3 Ml Syringe) 3 ml IVFLUSH QSHIFT [facility] Last Admin: 07/24/24 07:42 Dose: Not Given Documented By: ARMANDO Non-Admin Reason: Previously Administered Labs 07/24/24 04:08 07/24/24 04:08 Labs: Laboratory Results - last 24 hr 07/23/24 07/23/24 07/23/24 13:10 13:17 19:12 MCV 88.2 MCH 27.6 MCHC 31.3 RDW 13.2 Plt Count 326 D MPV 10.5 Immature Gran % (Auto) 0.7 H Neut % (Auto) 87.3 H Lymph % (Auto) 6.5 L [place] % (Auto) 5.3 Eos % (Auto) 0.0 Baso % (Auto) 0.2 Lymph # (Auto) 0.8 L [place] # (Auto) 0.7 Eos # (Auto) 0.0 Baso # (Auto) 0.0 Abs Immat Gran (auto) 0.08 H Absolute Neuts (auto) 10.7 H Absolute Nucleated RBC 0.000 Nucleated RBC % (auto) 0.0 PT 12.9 INR 1.1 D-Dimer High Sensitivty 165 VBG pH 7.32 VBG pCO2 59 VBG pO2 71 VBG HCO3 30 H VBG O2 Saturation 93.0 VBG Base Excess 2.6 Anion Gap 20 Estim Creat Clear Calc 42.0 Estimated GFR > 60 POC Glucose 294 H Random Glucose 234 H Lactic Acid 1.6 Calcium 10.0 Magnesium 1.9 Total Bilirubin 0.4 Direct Bilirubin 0.2 AST 20 ALT 32 H Alkaline Phosphatase 77 Troponin I High Sens 36.1 H D C-Reactive Protein 12.38 H B-Natriuretic Peptide 969 H Total Protein 7.7 Albumin 4.2 Lipase 10 Procalcitonin 0.04 Urine Color Urine Appearance Urine pH Ur Specific [place] Urine Protein Urine Glucose (UA) Urine Ketones Urine Blood Urine Nitrite Ur Leukocyte Esterase Influenza Type A (PCR) NEGATIVE Influenza Type B (PCR) NEGATIVE RSV RNA Qual (PCR) NEGATIVE SARS-CoV-2 RNA (RT-PCR) POSITIVE A 07/23/24 07/23/24 07/24/24 19:29 21:13 04:08 MCV 90.2 MCH 27.8 MCHC 30.9 L RDW 13.1 Plt Count 278 MPV 10.9 Immature Gran % (Auto) Neut % (Auto) Lymph % (Auto) [place] % (Auto) Eos % (Auto) Baso % (Auto) Lymph # (Auto) [place] # (Auto) Eos # (Auto) Baso # (Auto) Abs Immat Gran (auto) Absolute Neuts (auto) Absolute Nucleated RBC 0.000 Nucleated RBC % (auto) 0.0 PT INR D-Dimer High Sensitivty VBG pH VBG pCO2 VBG pO2 VBG HCO3 VBG O2 Saturation VBG Base Excess Anion Gap 16 Estim Creat Clear Calc 43.4 Estimated GFR > 60 POC Glucose 302 H Random Glucose 146 H Lactic Acid Calcium 8.9 D Magnesium Total Bilirubin Direct Bilirubin AST ALT Alkaline Phosphatase Troponin I High Sens C-Reactive Protein B-Natriuretic Peptide Total Protein Albumin Lipase Procalcitonin Urine Color Yellow Urine Appearance Clear Urine pH 5.0 Ur Specific [place] 1.015 Urine Protein Trace Urine Glucose (UA) 250 H Urine Ketones Negative Urine Blood Negative Urine Nitrite Negative Ur Leukocyte Esterase Negative Influenza Type A (PCR) Influenza Type B (PCR) RSV RNA Qual (PCR) SARS-CoV-2 RNA (RT-PCR) 07/24/24 07/24/24 07:43 11:32 MCV MCH MCHC RDW Plt Count MPV Immature Gran % (Auto) Neut % (Auto) Lymph % (Auto) [place] % (Auto) Eos % (Auto) Baso % (Auto) Lymph # (Auto) [place] # (Auto) Eos # (Auto) Baso # (Auto) Abs Immat Gran (auto) Absolute Neuts (auto) Absolute Nucleated RBC Nucleated RBC % (auto) PT INR D-Dimer High Sensitivty VBG pH VBG pCO2 VBG pO2 VBG HCO3 VBG O2 Saturation VBG Base Excess Anion Gap Estim Creat Clear Calc Estimated GFR POC Glucose 155 H 181 H Random Glucose Lactic Acid Calcium Magnesium Total Bilirubin Direct Bilirubin AST ALT Alkaline Phosphatase Troponin I High Sens C-Reactive Protein B-Natriuretic Peptide Total Protein Albumin Lipase Procalcitonin Urine Color Urine Appearance Urine pH Ur Specific [place] Urine Protein Urine Glucose (UA) Urine Ketones Urine Blood Urine Nitrite Ur Leukocyte Esterase Influenza Type A (PCR) Influenza Type B (PCR) RSV RNA Qual (PCR) SARS-CoV-2 RNA (RT-PCR) Assessment and Plan (1) Acute dyspnea: Status: Acute Plan The patient is a 74-year-old female with a past medical history of COPD and CHF, not on diuretics at home, diabetes, hypertension, active tobacco use who presents to the hospital with a 1 week history of respiratory symptoms. She was found to be COVID positive with likely early pneumonia on imaging and clinically also appears to have some fluid overload. She will be admitted for further work up and treamtment. 1. Acute respiratory failure with hypoxia Currently requiring high-flow oxygen - wean as tolerated Multifactorial, see details below 2. Pneumonia rocehin/zithromax day #2 3. COVID positive 3a. COPD Symptomatic with hypoxia steroids We will consult ID to see if other therapies are indicated 4. Acute heart failure with preserved ejection fraction Does not appear to be on diuretics at home. She states she is on a p.r.n. continue IV lasix BID - day #2 5. DM On metformin at home, we will hold orals Use sliding scale insulin and point of cares 6. History of hypertension Normotensive currently, will continue to hold lisinopril Med rec pending, we will continue baseline meds as appropriate Code status: (prior MOLST form indicates DNR/DNI); discussed with the patient about her wishes, and at this time she wants to be full code. DVT pptx -- Padcomx Quality Stroke Does the patient have a stroke diagnosis?: No VTE Prior VTE?: No VTE Risk Level:: Medical - moderate - high VTE Device Contraindication: Treatment Not Indicated VTE Drug Contraindication: N/A - Med Ordered
--- NOTE | 2024-07-24 11:59 | PC.NURSE ---
Waiting to administer Insulin Lispro until lunch tray arrives
[2024-07-24] MEDS: cefTRIAXone sodium 1 GM in 0.9 % Sodium Chloride 50 ML IV (12:10)
--- NOTE | 2024-07-24 12:51 | P.CDIM_ITS ---
PROVIDER RESPONSE TEXT: To clarify, the appropriate diagnosis supported by the clinical indicators: Other (explain): Clinically insignificant QUERY TEXT: PHYSICIAN'S DOCUMENTATION REQUEST Date of Query: 07/24/2024 12:22 PM EDT Patient Name: Gisel Taylor Admit Date: 07/23/2024 Dear Eladio Maza MD, A review of the medical record indicates additional documentation may be needed. Please review below and update the documentation accordingly. Clinical Indicators: LABS: Sodium 146 H 147 H Fluids Based on the above, is there a diagnosis that correlates with these lab findings: Hypernatremia possible, probable, suspected, resolved etc. Labs indicate a diagnosis of (please specify) Other (explain) Clinically unable to determine (explain) Thank you, Lizbeth Reece, CCS, CDIS Use of terms such as suspected, likely, concern for, or probable (associated with a specific diagnosi s that is being evaluated, monitored, or treated as if it exists) are acceptable and can be coded in the inpatient se tting, when documented at the time of discharge. Please use your independent medical judgment in providing your response. THIS QUERY IS PART OF THE PERMANENT MEDICAL RECORD
--- NOTE | 2024-07-24 14:03 | PC.NURSE ---
Pt. received lunch tray at this time. Will medicate with Lispro per JAN.
[2024-07-24 14:06] LABS: Glucose, Whole Blood 193 mg/dL (60-115)
[2024-07-24] MEDS: Azithromycin 500 MG in 0.9 % Sodium Chloride 250 ML 125 MG IV (14:09)
[2024-07-24] MEDS: Enoxaparin Sodium 40 MG/0.4 ML SYRINGE SUBCUT (16:59)
[2024-07-24] MEDS: Atorvastatin Calcium 10 MG TABLET PO (20:10)
[2024-07-24 20:27] LABS: Glucose, Whole Blood 153 mg/dL (60-115)
[2024-07-25] VITALS (10 sets, daily range): BP systolic 125–145; BP diastolic 60–79; PULSE 66–94; RESP 18–20; TEMP 35.3–36.8; O2SAT 90–100
[2024-07-25] MEDS: 0.9 % Sodium Chloride Flush 3 ML SYRINGE IVFLUSH ×4 (00:04→21:03)
[2024-07-25] MEDS: methylPREDNISolone Sod Succ 40 MG/ML VIAL IVPUSH ×2 (05:51→18:53)
[2024-07-25 07:35] LABS: Glucose, Whole Blood 245 mg/dL (60-115)
[2024-07-25] MEDS: Albuterol/Iprat 2.5/0.5MG 3 ML AMPUL.NEB INHALE ×4 (07:45→19:45)
--- NOTE | 2024-07-25 08:51 | HO.PM.IMPN ---
Subjective Subjective Date of Service: 07/25/24 Interval History: seen and examined this AM continues to feel better day by day still with cough weaned from HFNC to 3L Review of Systems Negative except HPI/interval history. Physical Exam Vital Signs: Vital Signs: Last Vital Signs Temp 98.0 F 07/25/24 07:53 Pulse 83 07/25/24 07:53 Resp 18 07/25/24 07:53 BP 145/72 H 07/25/24 07:53 Pulse Ox 97 07/25/24 07:53 O2 Del Method Nasal Cannula 07/25/24 07:53 O2 Flow Rate 3 07/25/24 07:53 FiO2 35 07/24/24 18:31 BMI result Body Mass Index 23.8 Const: Other: General - no acute distress, appears comfortable at rest Cardiovascular - regular rate and rhythm, S1-S2 Lungs - dim sounds; sats low 90s on 3L Abdomen - soft, nontender, no rebound or guarding Extremities - no edema bilaterally Neuro - awake and alert, no focal deficits Objective Data Active Medications Acetaminophen (Acetaminophen 325 Mg Tablet) 650 mg PO Q6H PRN PRN Reason: Pain, Mild (Pain Scale 1-3), fever or headache Albuterol/Ipratropium (Albuterol/Iprat 2.5/0.5mg 3 Ml Ampul.Neb) 3 ml INHALE RQ4H WHILE AWAKE [facility] Last Admin: 07/25/24 07:45 Dose: 3 ml Documented By: PATRICIA Atorvastatin Calcium (Atorvastatin Calcium 10 Mg Tablet) 10 mg PO BEDTIME [facility] Last Admin: 07/24/24 20:10 Dose: 10 mg Documented By: CHRISTIN Calcium Carbonate (Calcium Carbonate 750 Mg Tab.Chew) 750 mg PO Q4H PRN PRN Reason: Heartburn Enoxaparin Sodium (Enoxaparin Sodium 40 Mg/0.4 Ml Syringe) 40 mg SUBCUT Q24H [facility] Last Admin: 07/24/24 16:59 Dose: 40 mg Documented By: ARMANDO Furosemide (Furosemide 20 Mg/2 Ml Vial) 20 mg IVPUSH BID@0900,1800 [facility]; Protocol Last Admin: 07/24/24 20:10 Dose: 20 mg Documented By: CHRISTIN Ceftriaxone Sodium 1 gm/ (Sodium Chloride) 50 mls @ 100 mls/hr IV Q24H [facility] Last Infusion: 07/24/24 13:53 Dose: Infused Documented By: ARMANDO Azithromycin 500 mg/ Sodium (Chloride) 250 mls @ 125 mls/hr IV Q24H [facility] Last Infusion: 07/24/24 16:19 Dose: Infused Documented By: ARMANDO Insulin Human Lispro (Insulin Lispro 100 Unit/Ml 3 Ml Vial) 0 unit SUBCUT QIDACHS [facility]; Protocol Last Admin: 07/24/24 23:06 Dose: Not Given Documented By: CHRISTIN Non-Admin Reason: No Insulin Coverage Magnesium Hydroxide (Milk Of Magnesia 30 Ml Oral.Susp) 30 ml PO DAILY PRN PRN Reason: Constipation Melatonin (Melatonin 3 Mg Tablet) 6 mg PO BEDTIME PRN PRN Reason: Insomnia Methylprednisolone Sodium Succinate (Methylprednisolone Sod Succ 40 Mg/Ml Vial) 40 mg IVPUSH Q12H [facility] Last Admin: 07/25/24 05:51 Dose: 40 mg Documented By: FRANKLIN Ondansetron HCl (Ondansetron Hcl 4 Mg/2 Ml Vial) 4 mg IVPUSH Q8H PRN PRN Reason: Nausea and Vomiting Sodium Chloride (0.9 % Sodium Chloride Flush 3 Ml Syringe) 3 ml IVFLUSH QSHIFT [facility] Last Admin: 07/25/24 00:04 Dose: 3 ml Documented By: FRANKLIN Labs 07/24/24 04:08 07/24/24 04:08 Labs: Laboratory Results - last 24 hr 07/24/24 07/24/24 07/24/24 11:32 14:02 19:54 POC Glucose 181 H 193 H 153 H 07/25/24 07:29 POC Glucose 245 H Microbiology Microbiology Results: Microbiology 07/23/24 13:21 Blood Culture - Preliminary Blood - Venous No growth after 24 hours. 07/23/24 13:12 Blood Culture - Preliminary Blood - Venous No growth after 24 hours. Assessment and Plan (1) Acute dyspnea: Status: Acute Plan The patient is a 74-year-old female with a past medical history of COPD and CHF, not on diuretics at home, diabetes, hypertension, active tobacco use who presents to the hospital with a 1 week history of respiratory symptoms. She was found to be COVID positive with likely early pneumonia on imaging and clinically also appears to have some fluid overload. She will be admitted for further work up and treamtment. 1. Acute respiratory failure with hypoxia HFNC x 2 days - now on 3L, wean as tolerated Multifactorial, see details below 2. Pneumonia rocehin/zithromax day #3 3. COVID positive 3a. COPD exacerbation continue solu-medrol 40mg bid x 24 hours more and then likely wean continue updrafts 4. Acute heart failure with preserved ejection fraction Does not appear to be on diuretics at home. She states she is on a p.r.n. continue IV lasix BID - day #3; AM labs pending, will re-eval IV lasix pending renal function 5. DM On metformin at home, we will hold orals Use sliding scale insulin and point of cares 6. History of hypertension restart home lisinopril after AM labs Code status: (prior MOLST form indicates DNR/DNI); discussed with the patient about her wishes, and at this time she wants to be full code. DVT pptx -- Lovenox Quality Stroke Does the patient have a stroke diagnosis?: No VTE Prior VTE?: No VTE Risk Level:: Medical - moderate - high VTE Device Contraindication: Treatment Not Indicated VTE Drug Contraindication: N/A - Med Ordered
[2024-07-25] MEDS: Insulin Lispro 100 UNIT/ML 3 ML VIAL SUBCUT ×4 (09:33→21:03)
[2024-07-25] MEDS: Furosemide 20 MG/2 ML VIAL IVPUSH (09:33)
[2024-07-25 09:37] LABS: Hematocrit 48.4 % (37.0-47.0); Hemoglobin 14.9 g/dl (12.0-16.0); Mean Corpuscular HGB Conc 30.8 g/dl (31.0-35.0); Mean Corpuscular Hemoglobin 27.9 pg (27.0-33.0); Mean Corpuscular Volume 90.6 fL (80.0-98.0); Mean Platelet Volume 10.8 fL (9.4-12.3); Platelet Count 295 X10*3/uL (160-400); Red Blood Count 5.34 X10*6/uL (4.20-5.50); Red Cell Distribution Width 13.1 % (11.0-16.0); White Blood Count 15.3 X10*3/uL (4.8-10.8)
[2024-07-25 10:02] LABS: Anion Gap 11 (12-20); Blood Urea Nitrogen 39 mg/dL (9-16); Calcium 8.7 mg/dL (8.4-10.2); Carbon Dioxide 38 mmol/L (22-29); Chloride 103 mmol/L (96-108); Estimated Glomerular Filt Rate 56; Glucose Random 251 mg/dL (60-115); Potassium 4.7 mmol/L (3.3-5.1); Sodium 147 mmol/L (135-145)
[2024-07-25 11:15] LABS: Glucose, Whole Blood 373 mg/dL (60-115)
[2024-07-25] MEDS: cefTRIAXone sodium 1 GM in 0.9 % Sodium Chloride 50 ML IV (12:36)
[2024-07-25] MEDS: Azithromycin 500 MG in 0.9 % Sodium Chloride 250 ML 125 MG IV (14:31)
--- NOTE | 2024-07-25 14:34 | W.PM.IDCN ---
History of Present Illness Data of Consult Service Date: 07/24/24 Requesting physician: Eladio Maza Primary Care Provider: Yoshi Shetty MD HPI Reason for consult: RLL infiltrate,hypoxia ,COVID She presents with cough ,shortness of breath and hypoxia. COVID test is positive. She has symptoms for last week at least. She has COPD and not on home oxygen. reported COVID and hospitalized 07/23. Procal is .04 She has some yellowish sputum production,culture may be pending. Review of Systems Review of Systems: Yes all other systems are reviewed and are negative [facility] Past Medical History Medical History Tobacco use disorder Allergic rhinitis Osteoporosis (~2013) Congestive heart failure Chronic obstructive pulmonary disease, unspecified GERD (gastroesophageal reflux disease) Familial hypercholesterolemia Type 2 diabetes mellitus without complications Family History Family History Father No problems noted. Mother No problems noted. Family history: reviewed and not pertinent Surgical History Surgical History History of myringotomy (~2006) History of nasal surgery (~1989) History of ERCP (~2017) History of femoral hernia repair (~2008) History of cholecystectomy (~2017) History of eye surgery (~2019) Social History Social History Household Members: Spouse Housing: House Do you presently have visiting nurse or other home services: No Alcohol intake: never Patient Tobacco Use Status: Current everyday Tobacco user Tobacco use type: Cigarette Cigarette Packs Per Day: 0.25 Cigarettes Per Day: 2 (three a week) Years Smoked: 40 years e-Cigarette/Vaping Use: Never Used Second Hand Smoke Exposure: Yes service: No Current occupational status: retired Cognitive needs: No Hearing needs: No Vision needs: Yes (Glasses) Meds Allergies Allergy/AdvReac Type Severity Reaction Status Date / Time No Known Allergies Allergy Verified 07/23/24 12:47 Active Medications: Current Medications Acetaminophen (Acetaminophen 325 Mg Tablet) 650 mg PO Q6H PRN PRN Reason: Pain, Mild (Pain Scale 1-3), fever or headache Albuterol/Ipratropium (Albuterol/Iprat 2.5/0.5mg 3 Ml Ampul.Neb) 3 ml INHALE RQ4H WHILE AWAKE [facility] Last Admin: 07/25/24 11:37 Dose: 3 ml Atorvastatin Calcium (Atorvastatin Calcium 10 Mg Tablet) 10 mg PO BEDTIME [facility] Last Admin: 07/24/24 20:10 Dose: 10 mg Calcium Carbonate (Calcium Carbonate 750 Mg Tab.Chew) 750 mg PO Q4H PRN PRN Reason: Heartburn Enoxaparin Sodium (Enoxaparin Sodium 40 Mg/0.4 Ml Syringe) 40 mg SUBCUT Q24H [facility] Last Admin: 07/24/24 16:59 Dose: 40 mg Furosemide (Furosemide 20 Mg/2 Ml Vial) 20 mg IVPUSH BID@0900,1800 [facility]; Protocol Last Admin: 07/25/24 09:33 Dose: 20 mg Ceftriaxone Sodium 1 gm/ (Sodium Chloride) 50 mls @ 100 mls/hr IV Q24H [facility] Last Admin: 07/25/24 12:36 Dose: 100 mls/hr Azithromycin 500 mg/ Sodium (Chloride) 250 mls @ 125 mls/hr IV Q24H [facility] Last Admin: 07/25/24 14:31 Dose: 125 mls/hr Insulin Human Lispro (Insulin Lispro 100 Unit/Ml 3 Ml Vial) 0 unit SUBCUT QIDACHS [facility]; Protocol Last Admin: 07/25/24 12:34 Dose: 10 unit Magnesium Hydroxide (Milk Of Magnesia 30 Ml Oral.Susp) 30 ml PO DAILY PRN PRN Reason: Constipation Melatonin (Melatonin 3 Mg Tablet) 6 mg PO BEDTIME PRN PRN Reason: Insomnia Methylprednisolone Sodium Succinate (Methylprednisolone Sod Succ 40 Mg/Ml Vial) 40 mg IVPUSH Q12H [facility] Last Admin: 07/25/24 05:51 Dose: 40 mg Ondansetron HCl (Ondansetron Hcl 4 Mg/2 Ml Vial) 4 mg IVPUSH Q8H PRN PRN Reason: Nausea and Vomiting Sodium Chloride (0.9 % Sodium Chloride Flush 3 Ml Syringe) 3 ml IVFLUSH QSHIFT [facility] Last Admin: 07/25/24 09:35 Dose: 3 ml Home Medications ?Medication ?Instructions ?Recorded ?Confirmed ?Last Taken ?Type albuterol sulfate 90 mcg/actuation 2 puff inhalation Q6H PRN Wheezing 09/17/20 07/23/24 03/22/23 History aerosol inhaler furosemide 20 mg tablet 20 mg PO DAILY PRN fluid overload 07/23/24 07/23/24 Unknown History Physical Exam Vital Signs: Vital Signs: Last Vital Signs Temp 98.1 F 07/25/24 11:32 Pulse 85 07/25/24 11:37 Resp 18 07/25/24 11:37 BP 140/65 H 07/25/24 11:32 Pulse Ox 98 07/25/24 11:32 O2 Del Method Nasal Cannula 07/25/24 11:32 O2 Flow Rate 3 07/25/24 11:32 FiO2 35 07/24/24 18:31 BMI result Body Mass Index 23.8 Resp: Effort & Inspection: normal respiratory effort Results Labs 07/25/24 08:55 07/25/24 08:55 Labs: Short CBC 07/25/24 Range/Units 08:55 WBC 15.3 H (4.8-10.8) X10*3/uL Hgb 14.9 (12.0-16.0) g/dl Hct 48.4 H (37.0-47.0) % Plt Count 295 (160-400) X10*3/uL BMP 07/25/24 08:55 Sodium 147 H Potassium 4.7 D Chloride 103 Carbon Dioxide 38 H BUN 39 H Creatinine 0.97 Calcium 8.7 Microbiology Microbiology Results: Microbiology 07/23/24 13:21 Blood - Venous Blood Culture - Preliminary No growth after 24 hours. 07/23/24 13:12 Blood - Venous Blood Culture - Preliminary No growth after 24 hours. Assessment and Plan (1) Acute dyspnea: Status: Acute (2) Hypoxia: Status: Acute (3) COVID-19: Status: Acute Plan I think there is some element bronchiectasis or early pneumonia with COPD,despite normal procalcitonin. She has COPD. She also has COVID of undetermined duration ,certain not within last couple days Would continue Ceftriaxone and Zithromax 3-5 days. Await sputum culture if any. Steroids for COPD. No specific COVID therapies ,unknown duration COVID and harm with probable bacterial superinfection more than good. Oxygen supplementation.
[2024-07-25 16:08] LABS: Glucose, Whole Blood 204 mg/dL (60-115)
[2024-07-25] MEDS: Enoxaparin Sodium 40 MG/0.4 ML SYRINGE SUBCUT (18:54)
[2024-07-25 20:21] LABS: Glucose, Whole Blood 172 mg/dL (60-115)
[2024-07-25] MEDS: Atorvastatin Calcium 10 MG TABLET PO (21:03)
[2024-07-26] VITALS (9 sets, daily range): BP systolic 131–162; BP diastolic 59–79; PULSE 81–93; RESP 17–18; TEMP 36–36.7; O2SAT 5–97
[2024-07-26] MEDS: methylPREDNISolone Sod Succ 40 MG/ML VIAL IVPUSH ×2 (05:32→17:21)
[2024-07-26 06:21] LABS: Hematocrit 49.6 % (37.0-47.0); Hemoglobin 15.1 g/dl (12.0-16.0); Mean Corpuscular HGB Conc 30.4 g/dl (31.0-35.0); Mean Corpuscular Hemoglobin 27.2 pg (27.0-33.0); Mean Corpuscular Volume 89.4 fL (80.0-98.0); Mean Platelet Volume 10.5 fL (9.4-12.3); Platelet Count 272 X10*3/uL (160-400); Red Blood Count 5.55 X10*6/uL (4.20-5.50); Red Cell Distribution Width 12.8 % (11.0-16.0); White Blood Count 13.9 X10*3/uL (4.8-10.8)
[2024-07-26 06:34] LABS: Anion Gap 16 (12-20); Blood Urea Nitrogen 36 mg/dL (9-16); Calcium 9.4 mg/dL (8.4-10.2); Carbon Dioxide 32 mmol/L (22-29); Chloride 102 mmol/L (96-108); Creatinine Clr Calc Pharmacy 45.1; Estimated Glomerular Filt Rate > 60; Glucose Random 165 mg/dL (60-115); Potassium 4.2 mmol/L (3.3-5.1); Sodium 146 mmol/L (135-145)
[2024-07-26] MEDS: Albuterol/Iprat 2.5/0.5MG 3 ML AMPUL.NEB INHALE ×4 (07:36→19:23)
[2024-07-26 07:46] LABS: Glucose, Whole Blood 170 mg/dL (60-115)
[2024-07-26] MEDS: Insulin Lispro 100 UNIT/ML 3 ML VIAL SUBCUT ×4 (08:02→20:46)
[2024-07-26] MEDS: 0.9 % Sodium Chloride Flush 3 ML SYRINGE IVFLUSH ×3 (08:03→20:52)
--- NOTE | 2024-07-26 09:50 | P.PNIM_ITS ---
Subjective Subjective Date of Service: 07/26/24 Interval History: Being followed for hypoxic respiratory failure due to COVID-19 infection Patient feeling better denies shortness of breath, no chest pain, no PND, no orthopnea, no fevers, no chills requiring 2 L of oxygen finger oximetry 89-90%, not on home O2. Review of Systems All other system reviewed and negative. Physical Exam 2 Vital Signs: Vital Signs: Last Vital Signs Temp 96.8 F 07/26/24 07:51 Pulse 81 07/26/24 07:51 Resp 18 07/26/24 07:51 BP 162/79 H 07/26/24 07:51 Pulse Ox 95 07/26/24 07:51 O2 Del Method Nasal Cannula 07/26/24 07:51 O2 Flow Rate 3 07/26/24 07:51 FiO2 35 07/24/24 18:31 BMI result Body Mass Index 23.8 Const: Other: General - no acute distress, appears comfortable at rest Anicteric sclera No JVD Cardiovascular - regular rate and rhythm, S1-S2 Lungs - diminished breath sound, prolonged expiration Abdomen - soft, non tender, bowel sounds audible, no rebound or guarding Extremities - no edema bilaterally Neuro - awake and alert, no focal deficits Appropriate affect Objective Data Active Medications Acetaminophen (Acetaminophen 325 Mg Tablet) 650 mg PO Q6H PRN PRN Reason: Pain, Mild (Pain Scale 1-3), fever or headache Albuterol/Ipratropium (Albuterol/Iprat 2.5/0.5mg 3 Ml Ampul.Neb) 3 ml INHALE RQ4H WHILE AWAKE [facility] Last Admin: 07/26/24 07:36 Dose: 3 ml Documented By: UNA Atorvastatin Calcium (Atorvastatin Calcium 10 Mg Tablet) 10 mg PO BEDTIME [facility] Last Admin: 07/25/24 21:03 Dose: 10 mg Documented By: JANICE Calcium Carbonate (Calcium Carbonate 750 Mg Tab.Chew) 750 mg PO Q4H PRN PRN Reason: Heartburn Enoxaparin Sodium (Enoxaparin Sodium 40 Mg/0.4 Ml Syringe) 40 mg SUBCUT Q24H [facility] Last Admin: 07/25/24 18:54 Dose: 40 mg Documented By: SEAN Ceftriaxone Sodium 1 gm/ (Sodium Chloride) 50 mls @ 100 mls/hr IV Q24H [facility] Last Infusion: 07/25/24 14:35 Dose: Infused Documented By: SEAN Azithromycin 500 mg/ Sodium (Chloride) 250 mls @ 125 mls/hr IV Q24H [facility] Last Infusion: 07/25/24 18:56 Dose: Infused Documented By: SEAN Insulin Human Lispro (Insulin Lispro 100 Unit/Ml 3 Ml Vial) 0 unit SUBCUT QIDACHS [facility]; Protocol Last Admin: 07/26/24 08:02 Dose: 2 unit Documented By: EVETTE Magnesium Hydroxide (Milk Of Magnesia 30 Ml Oral.Susp) 30 ml PO DAILY PRN PRN Reason: Constipation Melatonin (Melatonin 3 Mg Tablet) 6 mg PO BEDTIME PRN PRN Reason: Insomnia Methylprednisolone Sodium Succinate (Methylprednisolone Sod Succ 40 Mg/Ml Vial) 40 mg IVPUSH Q12H [facility] Last Admin: 07/26/24 05:32 Dose: 40 mg Documented By: JANICE Ondansetron HCl (Ondansetron Hcl 4 Mg/2 Ml Vial) 4 mg IVPUSH Q8H PRN PRN Reason: Nausea and Vomiting Sodium Chloride (0.9 % Sodium Chloride Flush 3 Ml Syringe) 3 ml IVFLUSH QSHIFT [facility] Last Admin: 07/26/24 08:03 Dose: 3 ml Documented By: EVETTE Labs 07/26/24 06:02 07/26/24 06:02 Labs: Laboratory Results - last 24 hr 07/25/24 07/25/24 07/25/24 08:55 11:09 15:48 MCV MCH MCHC RDW Plt Count MPV Absolute Nucleated RBC Nucleated RBC % (auto) Anion Gap 11 L Estim Creat Clear Calc 39.0 Estimated GFR 56 POC Glucose 373 H* 204 H Random Glucose 251 H Calcium 8.7 07/25/24 07/26/24 07/26/24 20:06 06:02 07:14 MCV 89.4 MCH 27.2 MCHC 30.4 L RDW 12.8 Plt Count 272 MPV 10.5 Absolute Nucleated RBC 0.000 Nucleated RBC % (auto) 0.0 Anion Gap 16 Estim Creat Clear Calc 45.1 Estimated GFR > 60 POC Glucose 172 H 170 H Random Glucose 165 H Calcium 9.4 D Microbiology Microbiology Results: Microbiology 07/23/24 13:21 Blood Culture - Preliminary Blood - Venous No growth after 48 hours. 07/23/24 13:12 Blood Culture - Preliminary Blood - Venous No growth after 48 hours. Assessment and Plan (1) Acute dyspnea: Status: Acute (2) Hypoxia: Status: Acute (3) COVID-19: Status: Acute (4) CHF (congestive heart failure): Status: Acute Plan The patient is a 74-year-old female with a past medical history of COPD and CHF, not on diuretics at home, diabetes, hypertension, active tobacco use who presents to the hospital with a 1 week history of respiratory symptoms. She was found to be COVID positive with likely early pneumonia on imaging and clinically also appears to have some fluid overload. She will be admitted for further work up and treamtment. 1. Acute respiratory failure with hypoxia due to COVID-19 infection and possible pneumonia Initially treated with high-flow currently on nasal cannula 2 L, not on home oxygen No fevers, elevated WBC likely due to steroids, blood cultures x2 no growth times 48 hours On IV ceftriaxone and azithromycin day 3/ will transition to by mouth antibiotic upon discharge Continue IV Solu Medrol 40mg bid , transition to by mouth steroids at a.m. and if stable discharge on tapering dose starting at 30 mg Seen by ID she recommend no specific COVID therapies due to unknown duration of COVID. 2.Mild acute hypernatremia due to diuresis, Lasix stopped, follow BMP. 3. History of COPD mild acute exacerbation on iv steroids and duoneb q4WA On albuterol MDI and Symbicort 2 puffs b.i.d. at home follows by Dr. Zayas 4. Acute heart failure with preserved ejection fraction Heart failure resolved DC IV diuretics Recommend to resume Lasix home dose upon discharge 5. DM type 2 with hyperglycemia likely due to steroids On metformin at home, currently on hold, continue diabetic diet and ISS 6. History of hypertension Noted to have elevated blood pressure 162/79, will resume lisinopril 20 mg daily, (home dose 30 mg) Code status: (prior MOLST form indicates DNR/DNI); discussed with the patient about her wishes, and at this time she wants to be full code. DVT pptx -- Lovenox Patient requires continued inpatient hospitalization for hypoxic respiratory failure requiring IV antibiotics, IV steroids and oxygen treatment can not be provided in less acute setting. Quality Stroke Does the patient have a stroke diagnosis?: No VTE Prior VTE?: No VTE Risk Level:: Medical - moderate - high VTE Device Contraindication: Treatment Not Indicated VTE Drug Contraindication: N/A - Med Ordered
[2024-07-26 11:45] LABS: Glucose, Whole Blood 265 mg/dL (60-115)
[2024-07-26] MEDS: cefTRIAXone sodium 1 GM in 0.9 % Sodium Chloride 50 ML IV (12:33)
[2024-07-26] MEDS: Azithromycin 500 MG in 0.9 % Sodium Chloride 250 ML 125 MG IV (14:03)
--- NOTE | 2024-07-26 14:39 | MHC.CM.PN ---
EMR REVIEWED, PT W/ARF D/T COVID19, PT REMAINS ON IV SOLUMEDROL AND SUPPLEMENTAL O2, PLAN TO TRANSITION TO PO TOMORROW 07/27, ANTIC PT WILL NEED PT EVAL FOR DISPO, CM WILL CONT TO FOLLOW DC NEEDS.
[2024-07-26 16:23] LABS: Glucose, Whole Blood 172 mg/dL (60-115)
[2024-07-26] MEDS: Enoxaparin Sodium 40 MG/0.4 ML SYRINGE SUBCUT (17:22)
[2024-07-26 20:45] LABS: Glucose, Whole Blood 257 mg/dL (60-115)
[2024-07-26] MEDS: Atorvastatin Calcium 10 MG TABLET PO (20:46)
[2024-07-27] VITALS (11 sets, daily range): BP systolic 116–161; BP diastolic 57–82; PULSE 67–103; RESP 18–20; TEMP 35.8–36.8; O2SAT 88–97
[2024-07-27] MEDS: methylPREDNISolone Sod Succ 40 MG/ML VIAL IVPUSH (05:13)
[2024-07-27 07:29] LABS: Glucose, Whole Blood 195 mg/dL (60-115)
[2024-07-27] MEDS: Albuterol/Iprat 2.5/0.5MG 3 ML AMPUL.NEB INHALE ×4 (08:18→18:46)
[2024-07-27 09:20] LABS: Anion Gap 13 (12-20); Blood Urea Nitrogen 35 mg/dL (9-16); Calcium 9.5 mg/dL (8.4-10.2); Carbon Dioxide 36 mmol/L (22-29); Chloride 99 mmol/L (96-108); Creatinine Clr Calc Pharmacy 41.6; Estimated Glomerular Filt Rate > 60; Potassium 4.7 mmol/L (3.3-5.1); Sodium 143 mmol/L (135-145)
[2024-07-27 09:50] LABS: Glucose Random 366 mg/dL (60-115)
[2024-07-27] MEDS: cefTRIAXone sodium 1 GM in 0.9 % Sodium Chloride 50 ML IV (10:39)
[2024-07-27] MEDS: Insulin Lispro 100 UNIT/ML 3 ML VIAL SUBCUT ×4 (10:40→20:27)
[2024-07-27] MEDS: 0.9 % Sodium Chloride Flush 3 ML SYRINGE IVFLUSH ×3 (10:40→20:27)
[2024-07-27 11:11] LABS: Glucose, Whole Blood 307 mg/dL (60-115)
--- NOTE | 2024-07-27 14:04 | P.PNIM_ITS ---
Subjective Subjective Date of Service: 07/27/24 Interval History: seen and examined this morning follow up for covid 19 feeling better, breathing improving, but still requiring supplemental oxygen Review of Systems Review of Systems: Yes all other systems are reviewed and are negative Constitutional Constitutional: Denies chills and Denies fever(s) Cardiovascular Cardiovascular: Denies chest pain, Denies palpitations and Denies dyspnea Respiratory Respiratory: Reports cough and Denies dyspnea Endocrine Endocrine: Denies palpitations Physical Exam 2 Vital Signs: Vital Signs: Last Vital Signs Temp 98.3 F 07/27/24 11:59 Pulse 80 07/27/24 11:59 Resp 18 07/27/24 11:59 BP 131/70 07/27/24 11:59 Pulse Ox 90 L 07/27/24 11:59 O2 Del Method Nasal Cannula 07/27/24 11:59 O2 Flow Rate 3 07/27/24 11:59 FiO2 35 07/24/24 18:31 BMI result Body Mass Index 23.8 Const: General: cooperative, comfortable, no acute distress, alert and awake Nutritional Appearance: average body habitus Orientation/consciousness: p atient oriented x3 Resp: Effort & Inspection: normal respiratory effort, able to speak in complete sentences, no respiratory distress and no use of accessory muscles Cardio: Rate: regular rate GI: Inspection: No distended Palpation (GI): Soft to palpation and nontender Neuro: General: patient oriented x3, moves all extremities and CN's II-XI intact bilaterally Extrem: General: Yes no pedal edema Objective Data Active Medications Acetaminophen (Acetaminophen 325 Mg Tablet) 650 mg PO Q6H PRN PRN Reason: Pain, Mild (Pain Scale 1-3), fever or headache Albuterol/Ipratropium (Albuterol/Iprat 2.5/0.5mg 3 Ml Ampul.Neb) 3 ml INHALE RQ4H WHILE AWAKE [facility] Last Admin: 07/27/24 11:42 Dose: 3 ml Documented By: KATHY Atorvastatin Calcium (Atorvastatin Calcium 10 Mg Tablet) 10 mg PO BEDTIME [facility] Last Admin: 07/26/24 20:46 Dose: 10 mg Documented By: MIKAYLA Calcium Carbonate (Calcium Carbonate 750 Mg Tab.Chew) 750 mg PO Q4H PRN PRN Reason: Heartburn Enoxaparin Sodium (Enoxaparin Sodium 40 Mg/0.4 Ml Syringe) 40 mg SUBCUT Q24H [facility] Last Admin: 07/26/24 17:22 Dose: 40 mg Documented By: EVETTE Ceftriaxone Sodium 1 gm/ (Sodium Chloride) 50 mls @ 100 mls/hr IV Q24H [facility] Last Admin: 07/27/24 10:39 Dose: 100 mls/hr Documented By: HANG Azithromycin 500 mg/ Sodium (Chloride) 250 mls @ 125 mls/hr IV Q24H [facility] Last Infusion: 07/26/24 18:15 Dose: Infused Documented By: EVETTE Insulin Human Lispro (Insulin Lispro 100 Unit/Ml 3 Ml Vial) 0 unit SUBCUT QIDACHS [facility]; Protocol Last Admin: 07/27/24 10:40 Dose: 10 unit Documented By: HANG Magnesium Hydroxide (Milk Of Magnesia 30 Ml Oral.Susp) 30 ml PO DAILY PRN PRN Reason: Constipation Melatonin (Melatonin 3 Mg Tablet) 6 mg PO BEDTIME PRN PRN Reason: Insomnia Methylprednisolone Sodium Succinate (Methylprednisolone Sod Succ 40 Mg/Ml Vial) 40 mg IVPUSH Q12H [facility] Last Admin: 07/27/24 05:13 Dose: 40 mg Documented By: MIKAYLA Ondansetron HCl (Ondansetron Hcl 4 Mg/2 Ml Vial) 4 mg IVPUSH Q8H PRN PRN Reason: Nausea and Vomiting Sodium Chloride (0.9 % Sodium Chloride Flush 3 Ml Syringe) 3 ml IVFLUSH QSHIFT [facility] Last Admin: 07/27/24 10:40 Dose: 3 ml Documented By: HANG Labs 07/26/24 06:02 07/27/24 08:32 Labs: Laboratory Results - last 24 hr 07/26/24 07/26/24 07/27/24 16:12 20:36 07:16 Anion Gap Estim Creat Clear Calc Estimated GFR POC Glucose 172 H 257 H 195 H Random Glucose Calcium 07/27/24 07/27/24 08:32 11:05 Anion Gap 13 Estim Creat Clear Calc 41.6 Estimated GFR > 60 POC Glucose 307 H Random Glucose 366 H* Calcium 9.5 Assessment and Plan (1) COVID-19: Status: Acute Plan The patient is a 74-year-old female with a past medical history of COPD and CHF, not on diuretics at home, diabetes, hypertension, active tobacco use who presents to the hospital with a 1 week history of respiratory symptoms. She was found to be COVID positive with likely early pneumonia on imaging and clinically also appears to have some fluid overload. She will be admitted for further work up and treamtment. 1. Acute respiratory failure with hypoxia due to COVID-19 infection and possible pneumonia Initially treated with high-flow currently on nasal cannula 2-3 L, not on home oxygen No fevers, elevated WBC likely due to steroids, blood cultures x2 no growth times 48 hours On IV ceftriaxone and azithromycin day 4/ will transition to by mouth antibiotic upon discharge transition to by mouth steroids starting tomorrow am, discharge on tapering dose starting at 30 mg Seen by ID she recommend no specific COVID therapies due to unknown duration of COVID. blood cultures negative to date 2.Mild acute hypernatremia due to diuresis, Lasix stopped resolved 3. History of COPD mild acute exacerbation on iv steroids and duoneb q4WA On albuterol MDI and Symbicort 2 puffs b.i.d. at home follows by Dr. Zayas 4. Acute heart failure with preserved ejection fraction Heart failure resolved DC IV diuretics Recommend to resume Lasix home dose upon discharge 5. DM type 2 with hyperglycemia likely due to steroids On metformin at home, currently on hold, continue diabetic diet and ISS 6. History of hypertension Noted to have elevated blood pressure 162/79, will resume lisinopril 20 mg daily, (home dose 30 mg) Code status: (prior MOLST form indicates DNR/DNI); discussed with the patient about her wishes, and at this time she wants to be full code. DVT pptx -- Lovenox Patient requires continued inpatient hospitalization for hypoxic respiratory failure requiring IV antibiotics, IV steroids and oxygen treatment can not be provided in less acute setting. Quality Stroke Does the patient have a stroke diagnosis?: No VTE Prior VTE?: No VTE Risk Level:: Medical - moderate - high VTE Device Contraindication: Treatment Not Indicated VTE Drug Contraindication: N/A - Med Ordered
[2024-07-27] MEDS: Azithromycin 500 MG in 0.9 % Sodium Chloride 250 ML 125 MG IV (14:48)
[2024-07-27] MEDS: Enoxaparin Sodium 40 MG/0.4 ML SYRINGE SUBCUT (15:04)
[2024-07-27 16:13] LABS: Glucose, Whole Blood 246 mg/dL (60-115)
[2024-07-27 20:21] LABS: Glucose, Whole Blood 174 mg/dL (60-115)
[2024-07-27] MEDS: Atorvastatin Calcium 10 MG TABLET PO (20:27)
[2024-07-28] VITALS (7 sets, daily range): BP systolic 131–145; BP diastolic 62–76; PULSE 69–100; RESP 15–18; TEMP 36.7–36.8; O2SAT 84–99
[2024-07-28] MEDS: Albuterol/Iprat 2.5/0.5MG 3 ML AMPUL.NEB INHALE ×2 (07:14→11:14)
[2024-07-28 08:38] LABS: Glucose, Whole Blood 163 mg/dL (60-115)
[2024-07-28] MEDS: Insulin Lispro 100 UNIT/ML 3 ML VIAL SUBCUT ×2 (09:25→13:19)
[2024-07-28] MEDS: predniSONE 20 MG TABLET 40 MG PO (10:30)
[2024-07-28] MEDS: 0.9 % Sodium Chloride Flush 3 ML SYRINGE IVFLUSH (10:31)
[2024-07-28 11:10] LABS: Glucose, Whole Blood 277 mg/dL (60-115)
[2024-07-28] MEDS: cefTRIAXone sodium 1 GM in 0.9 % Sodium Chloride 50 ML IV (12:50)
[2024-07-28] MEDS: Azithromycin 500 MG in 0.9 % Sodium Chloride 250 ML 125 MG IV (13:17)
--- NOTE | 2024-07-28 14:00 | P.DS_ITS ---
DS: Providers Provider Date of Service: 07/28/24 Date of admission: 07/23/24 15:13 Date of discharge: 07/28/24 Primary care physician: Yoshi Shetty MD Consults: 07/23/24 15:22 Consult to Infectious Diseases Routine Consulting Provider: [facility] [facility] Reason for consultation: COVID+; on high-flow; ? need treatment beyond decadron Attending physician on discharge: Eladio Maza Discharging clinician: Yu Michelle DS: Diagnosis Discharge Diagnosis (1) COVID-19: Status: Acute DS: Summary Hospital Course Hospital Course: from H&P on the day of discharge The patient is a 74-year-old female with a past medical history of COPD and CHF, diabetes, hypertension, active tobacco use who presents to the hospital with about a one-week history of respiratory symptoms. The patient is currently on high-flow oxygen and hence the history is corroborated by her daughter who is bedside. Apparently, last weekend the patient had begun feeling some shortness of breath. There are reports of intermittent fevers. She reports an intermittently productive cough. She reports chronic lower extremity edema, which she has not noticed to be increased. Unclear if she has orthopnea. The patient's also was hospitalized and reportedly positive for COVID. Over the course of the week, her symptoms progressed and on the day of admission a home pulse ox was checked which read readings below 70. Paramedics were called and ultimately the patient was brought to the emergency room. In the emergency room patient was found to be significantly hypoxic with increased work of breathing. She tested positive for COVID. Her BNP is elevated to over 900. A chest x-ray showed prominent interstitial findings along with possible right lower lung early consolidation. She has been given DuoNebs and steroids by the paramedics. In the emergency room she has been treated with empiric IV antibiotics along with IV Lasix. She is currently on high-flow at 45 L/FiO2 40%. She appears to be breathing comfortably and is able to talk in short sentences. Acute respiratory failure with hypoxia due to COVID-19 infection and possible pneumonia Initially treated with high-flow currently on nasal cannula 3 L, not on home oxygen No fevers, elevated WBC likely due to steroids, blood cultures x2 no growth to date On IV ceftriaxone and azithromycin, completed course during hospitalization. transitioned to by mouth steroids discharge on tapering dose starting at 30 mg Seen by ID she recommend no specific COVID therapies due to unknown duration of COVID. she had home oxygen evaluation and qualifies for 3L of supplemental oxygen at rest and with ambulation. Reviewed all O2 testing on July 28 Patient was seen by PT on the day of discharge she was able to ambulate without difficulty, no further PT services indicated at the time of discharge. Mild acute hypernatremia due to diuresis, Lasix stopped resolved History of COPD mild acute exacerbation treated with systemi steroids and duonebs continued on home albuterol MDI and Symbicort 2 puffs b.i.d - follows by Dr. Zayas. Recommend outpatient follow-up with pulmonology Acute heart failure with preserved ejection fraction Heart failure resolved DC IV diuretics. Recommend to resume Lasix home dose upon discharge DM type 2 with hyperglycemia likely due to steroids On metformin at home Time Attestation Discharge Coordination Time (in mins): 38 Quality: Safe Use of Opioids Does Pt have an Active Cancer Diagnosis on the Problem List?: No Quality: Stroke Does the patient have a stroke diagnosis?: No Physical Exam Vital Signs: Vital Signs: Last Vital Signs Temp 98.3 F 07/28/24 11:44 Pulse 84 07/28/24 11:44 Resp 18 07/28/24 11:44 BP 131/62 07/28/24 13:46 Pulse Ox 97 07/28/24 11:44 O2 Del Method Nasal Cannula 07/28/24 11:44 O2 Flow Rate 3 07/28/24 11:44 FiO2 35 07/24/24 18:31 BMI result Body Mass Index 23.8 Const: General: cooperative, comfortable, no acute distress, alert and awake Nutritional Appearance: average body habitus Orientation/consciousness: patient oriented x3 Resp: Effort & Inspection: normal respiratory effort, able to speak in complete sentences, no respiratory distress and no use of accessory muscles Cardio: Rate: regular rate GI: Inspection: No distended Palpation (GI): Soft to palpation and nontender Neuro: General: patient oriented x3, moves all extremities and CN's II-XI in tact bilaterally Extrem: General: Yes no pedal edema DS: Data Data Completed and Pending Labs on day of discharge: Laboratory Results - last 24 hr 07/27/24 07/27/24 07/28/24 16:04 20:15 07:50 POC Glucose 246 H 174 H 163 H 07/28/24 11:00 POC Glucose 277 H Preliminary micro results at discharge 07/23/24 13:21 Blood Culture - Preliminary Blood - Venous No growth after 48 hours. 07/23/24 13:12 Blood Culture - Preliminary Blood - Venous No growth after 48 hours. Discharge Plan Discharge Anticipated Discharge Date/Time: 07/28/24 14:05 Patient Disposition: Home Health Service Discharge Diagnosis: covid 19 Referrals: Yoshi Shetty MD [Primary Care Provider] - 1 Week Discharge Medications: New prednisone 10 mg tablet See Taper PO DIRECTED Qty: 12 0RF Taper: Prednisone 30 mg daily for 2 Days and 0 Hour 20 mg daily for 2 Days and 0 Hour 10 mg daily for 3 Days and 0 Hour Rx Instructions: see taper instructions Continued budesonide-formoterol [Symbicort] 160-4.5 mcg/actuation HFA aerosol inhaler 2 puff inhalation Q12H 30 Days Qty: 10.2 5RF (DME) blood-glucose meter [FreeStyle Lite Meter] Kit See Rx Instructions .Route Qty: 1 0RF Rx Instructions: test daily (DME) FreeStyle Lite Strips Strip See Rx Instructions .Route Qty: 100 3RF Rx Instructions: test daily (DME) lancets [FreeStyle Lancets] 28 gauge misc See Rx Instructions .Route Qty: 100 0RF Rx Instructions: test daily lisinopril 30 mg tablet 30 mg PO DAILY Qty: 90 0RF metformin 1,000 mg tablet 1,000 mg PO BID Qty: 180 0RF simvastatin 10 mg tablet 10 mg PO BEDTIME Qty: 90 0RF furosemide 20 mg Tablet 20 mg PO DAILY PRN (Reason: fluid overload) albuterol sulfate 90 mcg/actuation HFA aerosol inhaler 2 puff inhalation Q6H PRN (Reason: Wheezing) Discharge Orders: Discharge Order (Routine); Ordered 07/28/24 Ordered By: Yu Michelle Activity on Discharge: As tolerated Stand Alone Forms: Patient Portal Discharge page Print Language: Argentine Care Plan Goals: see below Health Concerns: acute respiratory failure with hypoxia due to COVID-19 COPD exacerbation Mild exacerbation of CHF. Resolved Plan of Treatment: Complete tapering dose of steroids as prescribed You have qualified for 3 L of supplemental oxygen at rest and with ambulation Do not smoke while using supplemental oxygen Call to schedule post hospitalization follow-up appointment with PCP and design leader Assessment: see discharge summary
--- NOTE | 2024-07-28 14:10 | P.F2F_ITS ---
Service Date Service Date: 07/28/24 Encounter Date of encounter: 07/28/24 Reasons for Services Signs and symptoms assessed: needs mcfp for monitoring of oxygen saturation post-Covid infection with new supplemental oxygen; monitoring of blood sugar while on steroids Reason for mcfp: diabetic teaching MD Overseeing Care: Yoshi Shetty Homebound: Leaving the home is medically contraindicated at this time without the asist of a device and/or another person due th the listed conditions above and below. Reason homebound: weakness related to hospital stay Certification: Based on the above findings, I certify that this patient is confined to the home and needs intermittent mcfp care, physical therapy and/or speech therapy, or continues to need occupational therapy. The patient is under my care, and I have initiated the establishment of the plan of care. The patient will be followed by a physician who will periodically review the plan of care. Time Spent With Patient Time: Total time managing care of this patient today ____ minutes.
--- NOTE | 2024-07-28 14:47 | MHC.CM.PN ---
Addendum entered by María De La Fuente 07/28/24 15:11: VNA services will be provided by [facility] Original Note: Second IMM, pt has been medically cleared for DC, she will go home today via family transport. Refferals out for VNA services that accept HNE, none accepting as of yet.
[2024-07-28] MEDS: Enoxaparin Sodium 40 MG/0.4 ML SYRINGE SUBCUT (15:08)
== END 2024-07-28 16:12 | disposition home health service (06) | DRG 177 ==
LOC: HO.ED 14:18 → HO.EDOVER 15:37 → HO.IMC 07-24 08:22 → HO.EDOVER 07-24 08:29 → HO.IMC 07-24 16:57
PROVIDERS: Hospitalist; Admitting Provider Family Medicine; Emergency Provider Emergency Medicine; PCP Internal Medicine; Visit Provider Physician Assistant Medical
DX: U07.1 COVID-19 (principal); I50.31 Acute diastolic (congestive) heart failure; J96.01 Acute respiratory failure with hypoxia; J15.9 Unspecified bacterial pneumonia; J44.0 Chronic obstructive pulmonary disease with (acute) lower respiratory infection; J44.1 Chronic obstructive pulmonary disease with (acute) exacerbation; E11.65 Type 2 diabetes mellitus with hyperglycemia; Z66 Do not resuscitate; K21.9 Gastro-esophageal reflux disease without esophagitis; I11.0 Hypertensive heart disease with heart failure; F17.210 Nicotine dependence, cigarettes, uncomplicated; Z71.6 Tobacco abuse counseling; Z79.84 Long term (current) use of oral hypoglycemic drugs; Z79.899 Other long term (current) drug therapy
CPT/HCPCS: 0241U; 36415; 71045; 80048; 80076; 81003; 82803; 82947; 83605; 83690; 83735; 83880; 84145; 84484; 85025; 85027; 85379; 85610; 86140; 87040; 93005; 94640; 97161; 99285; J0456; J0696; J1650; J1940; J2919

== ENCOUNTER → 2024-07-23 15:13 | Outpatient (BNV) | payer MEDICARE, SELFPAY | PROVIDERS: Admitting Provider Family Medicine; Emergency Provider Emergency Medicine; PCP Internal Medicine; Visit Provider Family Medicine | DX: U07.1 COVID-19 (principal) | CPT/HCPCS: 99223; 99232; 99233; 99239; G0180 ==

== ENCOUNTER → 2024-07-23 15:13 | Outpatient (BNV) | payer MEDICARE, SELFPAY | PROVIDERS: Admitting Provider Family Medicine; Emergency Provider Emergency Medicine; PCP Internal Medicine; Visit Provider Internal Medicine | DX: R06.00 Dyspnea, unspecified (principal); R09.02 Hypoxemia; U07.1 COVID-19 | CPT/HCPCS: 99222 ==

== ENCOUNTER 2024-08-03 13:42 | Outpatient (AMB) | payer MEDICARE, SELFPAY ==
[2024-08-03 14:08] VITALS: BP 122/68; PULSE 107; O2SAT 95; BMI 19.6
--- NOTE | 2024-08-03 14:08 | A.OFFVIS_ITS ---
Vital Signs 08/03/24 14:08 Height 5 ft 2 in Weight 106 lb 14.787 oz BMI 19.6 BP 122/68 Blood Pressure Location Lt brachial Position Sitting Pulse 107 H Pulse Source Pulse Oximeter Pulse Oximetry (%) 95 Oxygen Delivery Method Nasal Cannula Oxygen Flow Rate 3 Intake Visit Reasons: hospital follow-up Intake Note: pt is here for f/u and went home on oxygen, she is using 3 liters 24 hours a day, she states she feels good, she must monitor her fluid. only a cigarette once in a while, maybe qod. 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 Allergies No Known Allergies Allergy (Verified 08/03/24 14:32) Medication List - Last Reconciled 08/03/24 by Rock Zayas MD albuterol sulfate 90 mcg/actuation 2 puffs inhalation Q6H PRN blood sugar diagnostic (FreeStyle Lite Strips) test daily blood-glucose meter (FreeStyle Lite Meter kit) test daily furosemide 20 mg PO DAILY PRN lancets (FreeStyle Lancets) test daily lisinopril 30 mg PO DAILY metformin 1,000 mg PO BID simvastatin 10 mg PO BEDTIME Symbicort 160-4.5 mcg/actuation (budesonide-formoterol) 2 puffs PO Q12H NS HPI HPI hospital follow-up: Details: BERENICE IS 74 YEARS OLD FEMALE, A [employer], WITH HISTORY OF ASTHMA/COPD, SHE WAS ADMITTED TO THE HOSPITAL, JUST ABOUT 10 DAYS AGO, FOR 1 WEEK, BECAUSE OF COVID INFECTION. SHE CONTRACTED COVID DISEASE FROM HER . SHE WAS TREATED IN THE HOSPITAL WITH PAXLOVID , IV SOLU-MEDROL UPDRAFTS AND OXYGEN. SHE RECOVERED FAIRLY WELL BUT BEFORE SHE WAS DISCHARGE SHE WAS STILL HYPOXIC ON MINIMAL EXERTION. SO SHE WAS SENT HOME ON OXYGEN 3 L/MINUTE CONTINUOUSLY , SHE WAS ADVISED TO COME TO SEE ME FOR FOLLOW-UP. SINCE HER DISCHARGE HOME SHE IS FEELING BETTER THAN BEFORE, WITH THE USE OF OXYGEN SHE ACTUALLY FEELS SOMEWHAT MORE ENERGETIC. SHE RESUMED SMOKING BUT ONLY 1 OR 2 CIGARETTES A DAY. SHE CONTINUES TO USE SYMBICORT 160-4.52 PUFFS B.I.D. AND ALBUTEROL HFA ONLY P.R.N.. PFS Medical History (Updated 08/03/24 @ 14:45 by Rock Zayas MD) Respiratory failure with hypoxia Post covid-19 condition, unspecified Tobacco use disorder Allergic rhinitis Osteoporosis (~2013) Congestive heart failure Chronic obstructive pulmonary disease, unspecified GERD (gastroesophageal reflux disease) Familial hypercholesterolemia Type 2 diabetes mellitus without complications Surgical History History of myringotomy (~2006) History of nasal surgery (~1989) History of ERCP (~2017) History of femoral hernia repair (~2008) History of cholecystectomy (~2017) History of eye surgery (~2019) Family History Father No problems noted. Mother No problems noted. Social History Household Members: Spouse Housing: House Do you presently have visiting nurse or other home services: No Alcohol intake: never Patient Tobacco Use Status: Current someday Tobacco user Tobacco use type: Cigarette Cigarette Packs Per Day: 0.25 Cigarettes Per Day: 1 (three a week) Years Smoked: 40 years e-Cigarette/Vaping Use: Never Used Second Hand Smoke Exposure: Yes service: No Current occupational status: retired Cognitive needs: No Hearing needs: No Vision needs: Yes (Glasses) Review of Systems Const All systems reviewed & are unremarkable except as noted in HPI and below Eyes Reports no additional complaints ENT Reports nasal congestion and Reports nasal discharge Card Denies chest pain, Denies irregular heart rhythm and Reports leg edema (MILD) Resp Reports as per HPI GI Reports no additional complaints Reports no additional complaints Musc Reports no additional complaints Skin/Breast Reports system reviewed and no additional complaints, except as documented Neuro Reports no additional complaints Psych Reports no additional complaints Endo Reports no additional complaints Physical Exam Vital Signs: Last Vital Signs Pulse 107 H 08/03/24 14:08 BP 122/68 08/03/24 14:08 Pulse Ox 95 08/03/24 14:08 Oxygen Delivery Method Nasal Cannula 08/03/24 14:08 Oxygen Flow Rate 3 08/03/24 14:08 BMI result Body Mass Index 19.6 Const General: comfortable, no acute distress, alert and awake Orientation/consciousness: patient oriented x3 HEENT Head: Yes normal to inspection General nose exam: No nasal polyps present, No nasal discharge present and Other nasal findings present (Marked bilateral nasal congestion and hypertrophy of the turbinates.) Face and sinus: Yes sinuses nontender Mouth: oropharynx normal Throat: Yes posterior oropharynx normal Eyes General: appearance normal, both eyes and all related structures Neck Neck: Yes normal visual inspection, Yes no lymphadenopathy, Yes trachea midline and Yes no JVD Thyroid: Thyroid normal Chest Chest palpation & inspection: normal inspection of the chest, normal palpation of entire chest wall and no tenderness Resp Other: Percussion note hyper-resonant, breath sounds are very distant with prolonged expiratory phase. No audible wheezes rhonchi or crepitations are heard at this time . Cardio Palpation: normal PMI Rate: regular rate Rhythm: regular rhythm Heart sounds: no gallops and no murmurs GI Palpation (GI): Soft to palpation, nontender, No hepatosplenomegaly present and no masses Auscultation: normal bowel sounds Back/Spine/Pelvis Thoracic/Lumbar Spine: thoracic and lumbar spine normal to inspection Skin General skin exam: no rashes or lesions noted Neuro General: patient oriented x3 and no focal motor deficits Cranial nerves: Yes CN's II-XII intact bilaterally Extrem General: Yes normal to inspection, Yes no calf tenderness and Yes edema (1 + edema of the lower 1/3 of the legs.) Psych Appearance: grossly normal and well kempt Speech and movement: Normal speech and movement present Results Reviewed Results Reviewed: HOSPITAL COURSE AND REPORTS OF THE CHEST X-RAY ARE REVIEWED. THERE WAS NO CONSOLIDATION, INCREASED BRONCHOVASCULAR MARKINGS CONSISTENT WITH ACUTE INFLAMMATION, Assessment & Plan Assessment & Plan (1) Chronic obstructive pulmonary disease, unspecified: Comment: (COPD ,severe , with recent exacerbation due to acute COVID-19 infection . Now improved and patient feels stronger while using oxygen. Code(s): J44.9 - Chronic obstructive pulmonary disease, unspecified Category: Medical Qualifiers: COPD type: unspecified COPD Qualified Code(s): J44.9 - Chronic obstructive pulmonary disease, unspecified Plan: Symbicort 160-4.52 puffs b.i.d. Albuterol HFA 2 puffs Q 4-6 hours p.r.n.. O2 2 L/minute at night, at rest during the daytime and 3 L/minute when going outdoors with the portable cylinder. IS ADVISED TO CHECK HER O2 SAT AND GOAL IS TO KEEP ABOVE 90%. (2) Tobacco use disorder: Comment: She has the lifelong history of smoking, Today she claims that she is smoking only 1-2 cigarettes a day with a goal to quit completely. Code(s): F17.200 - Nicotine dependence, unspecified, uncomplicated Category: Medical Plan: Again stress that she needs to quit smoking completely. (3) Allergic rhinitis: Comment: She has chronic allergic rhinitis which is controlled relatively well. Code(s): J30.9 - Allergic rhinitis, unspecified Category: Medical Plan: Advised to use loratadine 10 mg once a day but only p.r.n. (4) Post covid-19 condition, unspecified: Comment: Patient recovered from recent COVID infection. Luckily she did not have COVID pneumonia, She did have mild exacerbation of COPD which is now back to baseline, except that she is requiring oxygen supplementation. Code(s): U09.9 - Post COVID-19 condition, unspecified Category: Medical Plan: No further action (5) Respiratory failure with hypoxia: Comment: Due to acute exacerbation/secondary to acute viral infection her pulmonary status has deteriorated and she was treated with oxygen supplementation. She is using O2 3 L/minute continuously. I dropped the O2 to 2 L/minute and O2 sat is remaining 95-96%. Code(s): J96.91 - Respiratory failure, unspecified with hypoxia Category: Medical Plan: Discussed with the patient and her and the plan is gradually cut down on the oxygen supplementation, with the hope to discontinue it in the next few weeks. At present she is advised to use O2 2 L/minute during sleep, 2 L/minute during the daytime when resting. 3 L/minute with the portable cylinder when going outdoors. Coding Level of Care Code Est Pt Level 4 (88792) Diagnoses Chronic obstructive pulmonary disease, unspecified COPD type J44.9 COPD type: unspecified COPD Tobacco use disorder F17.200 Allergic rhinitis J30.9 Post covid-19 condition, unspecified U09.9 Respiratory failure with hypoxia J96.91
== END 2024-08-03 14:32 | disposition home or self-care (01) ==
PROVIDERS: PCP Internal Medicine; Visit Provider Internal Medicine
DX: J44.9 Chronic obstructive pulmonary disease, unspecified (principal); F17.200 Nicotine dependence, unspecified, uncomplicated; J30.9 Allergic rhinitis, unspecified; U09.9 Post COVID-19 condition, unspecified; J96.91 Respiratory failure, unspecified with hypoxia
CPT/HCPCS: 99214

== ENCOUNTER → 2024-08-03 13:42 | Outpatient (BNVA) | payer MEDICARE, SELFPAY | PROVIDERS: PCP Internal Medicine; Visit Provider Internal Medicine | DX: J44.9 Chronic obstructive pulmonary disease, unspecified (principal); J30.9 Allergic rhinitis, unspecified; J96.91 Respiratory failure, unspecified with hypoxia; U09.9 Post COVID-19 condition, unspecified; F17.210 Nicotine dependence, cigarettes, uncomplicated; Z99.81 Dependence on supplemental oxygen | CPT/HCPCS: 99212 ==

== ENCOUNTER 2024-08-04 11:09 | Outpatient (AMB) | payer MEDICARE, SELFPAY ==
[2024-08-04 11:14] VITALS: BP 124/58; PULSE 88; O2SAT 96; BMI 19.6
--- NOTE | 2024-08-04 11:14 | MHC.PC.OV ---
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 Required: No Allergies No Known Allergies Allergy (Verified 08/03/24 14:32) Medication List - Last Reconciled 08/04/24 by yMriam Galloway PA-C albuterol sulfate 90 mcg/actuation 2 puffs inhalation Q6H PRN blood sugar diagnostic (FreeStyle Lite Strips) test daily blood-glucose meter (FreeStyle Lite Meter kit) test daily furosemide 20 mg PO DAILY PRN lancets (FreeStyle Lancets) test daily lisinopril 30 mg PO DAILY metformin 1,000 mg PO BID simvastatin 10 mg PO BEDTIME Symbicort 160-4.5 mcg/actuation (budesonide-formoterol) 2 puffs PO Q12H NS Tobacco use date assessed: 05/25/24 Fall risk assessment: No Falls in past year Last assessed Fall Risk: 08/04/24 Dental Screening Dental Screen Date: 02/03/24 HPI TCM COVID HPI Details 74-year-old female with past medical history of GERD, osteoporosis, tobacco use disorder, COPD, diabetes mellitus, hypertension, congestive heart failure last seen by Dr. Shetty coming in for hospital discharge follow up. In review of the notes, patient was seen in [facility] ED 07/23/2024 for respiratory symptoms. In the ER patient was significantly hypoxic and tested positive for COVID treated with empiric IV antibiotics and IV Lasix for x-ray findings of early consolidation and started on high-flow oxygen. Patient was admitted for further monitoring and treated with IV ceftriaxone and azithromycin. Patient was treated with oral steroids and duo nebs and recommended outpatient follow up with pulmonology. Patient was discharged 07/28/2024 to complete tapering of steroids and follow up with pulmonology. Patient was seen by pulmonology 08/03/2024 with goal decreasing oxygen supplementation over the next few weeks and follow up with pulmonology at that time. Patient states she did recently finish the steroids and has been feeling much better. She still does use the oxygen supplementation and is currently on 3 L. She does regularly monitor her saturation which has been at her baseline. She continues to smoke cigarettes about 1 per day. 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 She does also mentioned that the antibiotics she was on gave her a yeast infection and would like treatment. TCM TCM Information Date of Discharge 07/28/24 Discharged From [facility] Medical History (Updated 08/04/24 @ 12:23 by Myriam Galloway PA-C) Respiratory failure with hypoxia Post covid-19 condition, unspecified Tobacco use disorder Allergic rhinitis Osteoporosis (~2013) Congestive heart failure Chronic obstructive pulmonary disease, unspecified GERD (gastroesophageal reflux disease) Familial hypercholesterolemia Type 2 diabetes mellitus without complications Surgical History History of myringotomy (~2006) History of nasal surgery (~1989) History of ERCP (~2017) History of femoral hernia repair (~2008) History of cholecystectomy (~2017) History of eye surgery (~2019) Family History Father No problems noted. Mother No problems noted. Social History Household Members: Spouse Housing: House Do you presently have visiting nurse or other home services: No Alcohol intake: never Patient Tobacco Use Status: Current someday Tobacco user Tobacco use type: Cigarette Cigarette Packs Per Day: 0.25 Cigarettes Per Day: 1 (three a week) Years Smoked: 40 years e-Cigarette/Vaping Use: Never Used Second Hand Smoke Exposure: Yes service: No Current occupational status: retired Cognitive needs: No Hearing needs: No Vision needs: Yes (Glasses) Questionnaire Thrive Questionnaire Date Thrive assessed: 07/24/24 WESLEY-7 AMB Questionnaire WESLEY-7 Date WESLEY - 7 assessed: 02/03/24 Source: Developed by Drs. Maxx Owens, Gisel Pina, Juvenal Stoner and colleagues, with an educational saritha from [employer]. Review of Systems Const Denies body aches, Denies chills, Denies fatigue and Denies fever(s) Eyes Reports no additional complaints ENT Reports no additional complaints Card Details: Steady weights Denies chest pain, Denies leg edema, Denies lightheadedness and Denies dyspnea Resp Details: Currently on 3 L of oxygen Denies cough, Denies hemoptysis, Denies excessive phlegm production and Denies dyspnea GI Reports no additional complaints Details: Thick white vaginal discharge Musc Reports no additional complaints Skin/Breast Reports system reviewed and no additional complaints, except as documented Endo Denies fatigue Physical exam (Primary Care) Vital Signs: Last Vital Signs Pulse 88 08/04/24 11:14 BP 124/58 L 08/04/24 11:14 Pulse Ox 96 08/04/24 11:14 Oxygen Delivery Method Nasal Cannula 08/04/24 11:14 Oxygen Flow Rate 2 08/04/24 11:14 BMI result Body Mass Index 19.6 Tobacco/Smoking Status: Tobacco use Status Tobacco use date assessed 05/25/24 08/04/24 11:21 Patient Tobacco Use Status Current someday Tobacco 08/04/24 11:21 Tobacco use type Cigarette 08/04/24 11:21 e-Cigarette/Vaping Use Never Used 08/04/24 11:21 Thrive Assessment: Date of Thrive Assessment Date Thrive assessed 07/24/24 08/04/24 11:21 Const General: cooperative, healthy appearing, comfortable and no acute distress Orientation/consciousness: patient oriented x3 HENMT Head: Yes normocephalic Ears: hearing grossly normal bilaterally General nose exam: Normal external nose present Eyes General: appearance normal, both eyes and all related structures Conjunctivae: conjunctivae normal Neck Neck: Yes full ROM and Yes no lymphadenopathy Resp Effort & Inspection: normal respiratory effort Auscultation: clear to auscultation bilaterally, no crackles, no rales, no rhonchi and no wheezes Cardio Rate: regular rate Rhythm: regular rhythm Skin General skin exam: no rashes or lesions noted Neuro General: patient oriented x3 Gait exam (Neuro): Normal gait present Extrem General: Yes normal to inspection, Yes full ROM and No edema Psych Affect: normal affect Attitude: cooperative Insight: Good insight present (Psych) Judgement: Good judgement present (Psych) Assessment and Plan Assessment & Plan (1) Respiratory failure with hypoxia: Comment: Due to acute exacerbation/secondary to acute viral infection her pulmonary status has deteriorated and she was treated with oxygen supplementation. She is using O2 3 L/minute continuously. I dropped the O2 to 2 L/minute and O2 sat is remaining 95-96%. Code(s): J96.91 - Respiratory failure, unspecified with hypoxia Plan: Continue to follow with pulmonology. (2) CHF (congestive heart failure): Code(s): I50.9 - Heart failure, unspecified Qualifiers: Heart failure chronicity: acute on chronic Heart failure type: unspecified Qualified Code(s): I50.9 - Heart failure, unspecified Plan: Patient does not have a history of heart failure and last echocardiogram 02/2023 showed ejection fraction of over 70%. Strongly recommended a repeat echocardiogram which patient has declined. Also suggested follow up with Cardiology for new diagnosis which was also declined. Advised patient to monitor her weights daily and watch oral water and salt intake. Follow up at next visit. (3) Post covid-19 condition, unspecified: Comment: Patient recovered from recent COVID infection. Luckily she did not have COVID pneumonia, She did have mild exacerbation of COPD which is now back to baseline, except that she is requiring oxygen supplementation. Code(s): U09.9 - Post COVID-19 condition, unspecified Plan: Continue to follow up with pulmonology. (4) Tobacco use disorder: Comment: She has the lifelong history of smoking, Today she claims that she is smoking only 1-2 cigarettes a day with a goal to quit completely. Code(s): F17.200 - Nicotine dependence, unspecified, uncomplicated Plan: Discussed nicotine replacement therapy which patient is not interested at this time. Stressed the importance of smoking cessation in regards to her chronic health conditions as well as in the setting oxygen use. She assures me that she does not smoke while close to the oxygen tank. (5) Vulvovaginal candidiasis: Code(s): B37.31 - Acute candidiasis of vulva and vagina Plan: Patient states she has a yeast infection since taking the antibiotics and describes the discharge as thick and white. We will order for fluconazole as 1 time dose. Follow up as needed for this concern. Plan This note was constructed using voice recognition software. While every effort has been made to ensure accuracy and typewriter tester, still areas may have been included sometimes these areas may affect the content or meeting of the given symptoms. Total time spent caring for the patient today was 30 minutes. This includes time spent before the visit reviewing the chart, time spent during the visit, and time spent after the visit and documentation. Medications: New fluconazole 150 mg PO DAILY 1 tab 0RF Coding Level of Care Code TCM Mod MDM <= 7 Days Diagnoses Respiratory failure with hypoxia J96.91 CHF (congestive heart failure) I50.9 Heart failure chronicity: acute on chronic Heart failure type: unspecified Post covid-19 condition, unspecified U09.9 Tobacco use disorder F17.200 Vulvovaginal candidiasis B37.31
== END 2024-08-04 12:04 | disposition home or self-care (01) ==
PROVIDERS: PCP Internal Medicine
DX: J96.91 Respiratory failure, unspecified with hypoxia (principal); I50.9 Heart failure, unspecified; U09.9 Post COVID-19 condition, unspecified; F17.210 Nicotine dependence, cigarettes, uncomplicated; B37.31 Acute candidiasis of vulva and vagina
CPT/HCPCS: 99495

== ENCOUNTER 2024-08-10 14:56 | Outpatient (AMB) | payer MEDICARE, SELFPAY ==
--- NOTE | 2024-08-10 15:05 | MHC.PC.OV ---
Vital Signs 08/10/24 15:08 Height 5 ft 2 in Weight 111 lb BMI 20.3 BP 120/70 Blood Pressure Location Lt brachial Position Sitting Pulse 81 Pulse Source Pulse Oximeter Pulse Oximetry (%) 95 Oxygen Delivery Method Nasal Cannula Intake Visit Reasons: 3mth f/u Intake Note: Patient is here to follow up on DM, CHF, HTN, RF. Orange Picking Supervisor Required: No Business Office Specialist: Present Accompanied by: Spouse Allergies No Known Allergies Allergy (Verified 08/10/24 15:50) Medication List - Last Reconciled 08/10/24 by Yoshi Shetty MD albuterol sulfate 90 mcg/actuation 2 puffs inhalation Q6H PRN blood sugar diagnostic (FreeStyle Lite Strips) test daily blood-glucose meter (FreeStyle Lite Meter kit) test daily fluconazole 150 mg PO DAILY furosemide 20 mg PO DAILY PRN lancets (FreeStyle Lancets) test daily lisinopril 30 mg PO DAILY metformin 1,000 mg PO BID simvastatin 10 mg PO BEDTIME Symbicort 160-4.5 mcg/actuation (budesonide-formoterol) 2 puffs PO Q12H NS Tobacco use date assessed: 08/10/24 Fall risk assessment: No Falls in past year Last assessed Fall Risk: 08/10/24 Dental Screening Dental Screen Date: 02/03/24 HPI 3mth f/u HPI Details 74-year-old female presents to the office for a hospital discharge follow-up. Patient was recently admitted to the hospital with COVID pneumonia. She has been discharged on 2 liters/minute home oxygen. Patient is now at her baseline state of health. Requesting a refill on 1 of her medications. [facility] Medical History (Updated 08/10/24 @ 15:55 by Yoshi Shetty MD) Respiratory failure with hypoxia Post covid-19 condition, unspecified Tobacco use disorder Allergic rhinitis Osteoporosis (~2013) Congestive heart failure Chronic obstructive pulmonary disease, unspecified GERD (gastroesophageal reflux disease) Familial hypercholesterolemia Type 2 diabetes mellitus without complications Surgical History History of myringotomy (~2006) History of nasal surgery (~1989) History of ERCP (~2017) History of femoral hernia repair (~2008) History of cholecystectomy (~2017) History of eye surgery (~2019) Family History Father No problems noted. Mother No problems noted. Social History Household Members: Spouse Housing: House Do you presently have visiting nurse or other home services: No Alcohol intake: never Patient Tobacco Use Status: Current someday Tobacco user Tobacco use type: Cigarette Cigarette Packs Per Day: 0.25 Cigarettes Per Day: 1 (three a week) Years Smoked: 40 years e-Cigarette/Vaping Use: Never Used Second Hand Smoke Exposure: Yes service: No Current occupational status: retired Cognitive needs: No Hearing needs: No Vision needs: Yes (Glasses) Questionnaire Thrive Questionnaire Date Thrive assessed: 07/24/24 WESLEY-7 AMB Questionnaire WESLEY-7 Date WESLEY - 7 assessed: 02/03/24 Source: Developed by Drs. Maxx Owens, Gisel Pina, Juvenal Stoner and colleagues, with an educational saritha from [employer]. Physical exam (Primary Care) Vital Signs: Last Vital Signs Pulse 81 08/10/24 15:08 BP 120/70 08/10/24 15:08 Pulse Ox 95 08/10/24 15:08 Oxygen Delivery Method Nasal Cannula 08/10/24 15:08 BMI result Body Mass Index 20.3 Tobacco/Smoking Status: Tobacco use Status Tobacco use date assessed 08/10/24 08/10/24 15:17 Patient Tobacco Use Status Current someday Tobacco 08/10/24 15:05 Tobacco use type Cigarette 08/10/24 15:05 e-Cigarette/Vaping Use Never Used 08/10/24 15:05 Thrive Assessment: Date of Thrive Assessment Date Thrive assessed 07/24/24 08/10/24 15:05 Const General: cooperative and healthy appearing Nutritional Appearance: well nourished Orientation/consciousness: patient oriented x3 Limitations: no limitations HENMT Head: Yes normal to inspection Eyes General: appearance normal, both eyes and all related structures Neck Neck: Yes normal visual inspection Chest Chest palpation & inspection: normal palpation of entire chest wall Resp Effort & Inspection: normal respiratory effort Neuro General: patient oriented x3 Results AMB Hemoglobin A1c AMB Hemoglobin A1c 8.6 % Last Edit by LAWSON Caputo on 08/10/24 15:21 Results Reviewed Results Reviewed: Laboratory Last Values Hgb A1c (Clinic) 8.6 % (4.0-6.0) H 08/10/24 15:06 Assessment and Plan Assessment & Plan (1) CAP (community acquired pneumonia): Code(s): J18.9 - Pneumonia, unspecified organism Plan: Condition has stabilized. Continue current medications. Furosemide has been reordered. Orders: Orders AMB Hemoglobin A1c Today E11.9 - Type 2 diabetes mellitus without complications Coding Level of Care Code Est Pt Level 3 (77496) Complex EM visit Add On G2211 Diagnoses CAP (community acquired pneumonia) J18.9
[2024-08-10 15:08] VITALS: BP 120/70; PULSE 81; O2SAT 95; BMI 20.3
== END 2024-08-10 15:53 | disposition home or self-care (01) ==
PROVIDERS: PCP Internal Medicine; Visit Provider Internal Medicine
DX: E11.9 Type 2 diabetes mellitus without complications (principal); J18.9 Pneumonia, unspecified organism; U07.1 COVID-19
CPT/HCPCS: 83036; 99213; G2211

== ENCOUNTER → 2024-08-11 23:59 | Outpatient (BNV) | payer MEDICARE, SELFPAY | PROVIDERS: PCP Internal Medicine; Visit Provider Internal Medicine | DX: E11.65 Type 2 diabetes mellitus with hyperglycemia (principal); U07.1 COVID-19; J44.1 Chronic obstructive pulmonary disease with (acute) exacerbation; I50.31 Acute diastolic (congestive) heart failure | CPT/HCPCS: G0180 ==

== ENCOUNTER 2024-08-16 14:09 | Outpatient (AMB) | payer MEDICARE, SELFPAY ==
--- NOTE | 2024-08-16 14:22 | A.OFFPC_ITS ---
Vital Signs 08/16/24 14:24 Height 5 ft 3 in Weight 114 lb 2 oz BMI 20.2 BP 132/70 Blood Pressure Location Lt brachial Position Sitting Pulse 80 Pulse Source Pulse Oximeter Pulse Oximetry (%) 98 Oxygen Delivery Method Nasal Cannula Intake Visit Reasons: bump on right elbow/Discharge fluid Intake Note: Patient is here to follow up on bump on right elbow with fluid discharge. 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 Noticed some drainage from the right elbow. She always had a swelling beneath the elbow. No pain or discomfort. [facility] Medical History (Updated 08/10/24 @ 15:55 by Yoshi Shetty MD) Respiratory failure with hypoxia Post covid-19 condition, unspecified Tobacco use disorder Allergic rhinitis Osteoporosis (~2013) Congestive heart failure Chronic obstructive pulmonary disease, unspecified GERD (gastroesophageal reflux disease) Familial hypercholesterolemia Type 2 diabetes mellitus without complications Surgical History History of myringotomy (~2006) History of nasal surgery (~1989) History of ERCP (~2017) History of femoral hernia repair (~2008) History of cholecystectomy (~2017) History of eye surgery (~2019) Family History Father No problems noted. Mother No problems noted. Social History Household Members: Spouse Housing: House Do you presently have visiting nurse or other home services: No Alcohol intake: never Patient Tobacco Use Status: Current someday Tobacco user Tobacco use type: Cigarette Cigarette Packs Per Day: 0.25 Cigarettes Per Day: 1 (three a week) Years Smoked: 40 years e-Cigarette/Vaping Use: Never Used Second Hand Smoke Exposure: Yes service: No Current occupational status: retired Cognitive needs: No Hearing needs: No Vision needs: Yes (Glasses) Questionnaire Thrive Questionnaire Date Thrive assessed: 07/24/24 Are you currently unemployed and looking for a job?: No WESLEY-7 AMB Questionnaire WESLEY-7 Date WESLEY - 7 assessed: 02/03/24 Source: Developed by Drs. Maxx Owens, Gisel Pina, Juvenal Stoner and colleagues, with an educational saritha from [employer]. Physical exam (Primary Care) Vital Signs: Last Vital Signs Pulse 80 08/16/24 14:24 BP 132/70 08/16/24 14:24 Pulse Ox 98 08/16/24 14:24 Oxygen Delivery Method Nasal Cannula 08/16/24 14:24 BMI result Body Mass Index 20.2 Tobacco/Smoking Status: Tobacco use Status Tobacco use date assessed 08/10/24 08/16/24 14:28 Patient Tobacco Use Status Current someday Tobacco 08/16/24 14:28 Tobacco use type Cigarette 08/16/24 14:28 e-Cigarette/Vaping Use Never Used 08/16/24 14:28 Thrive Assessment: Date of Thrive Assessment Date Thrive assessed 07/24/24 08/16/24 14:28 Extrem Other: Right elbow: Slightly boggy swelling, no erythema or tenderness. Full range of motion at the elbow joint. Trace serous fluid. Assessment and Plan Assessment & Plan (1) Wound, open, elbow: Code(s): S51.009A - Unspecified open wound of unspecified elbow, initial encounter Plan: Serous drainage. No evidence of infection. No antibiotics needed. Coding Level of Care Code Est Pt Level 3 (65502) Complex EM visit Add On G2211 Diagnoses Wound, open, elbow S51.009A
[2024-08-16 14:24] VITALS: BP 132/70; PULSE 80; O2SAT 98; BMI 20.2
== END 2024-08-16 15:55 | disposition home or self-care (01) ==
PROVIDERS: PCP Internal Medicine; Visit Provider Internal Medicine
DX: S51.009A Unspecified open wound of unspecified elbow, initial encounter (principal)

== ENCOUNTER → 2024-08-16 14:09 | Outpatient (BNVA) | payer MEDICARE, SELFPAY | PROVIDERS: PCP Internal Medicine; Visit Provider Internal Medicine | DX: S51.001A Unspecified open wound of right elbow, initial encounter (principal) | CPT/HCPCS: 99212 ==

== ENCOUNTER 2024-09-20 14:37 | Outpatient (AMB) | payer MEDICARE, SELFPAY ==
--- NOTE | 2024-09-20 14:53 | MHC.OFFVIS ---
Vital Signs 09/20/24 14:54 Height 5 ft 3 in Weight 113 lb BMI 20.0 BP 130/78 Blood Pressure Location Lt brachial Position Sitting Pulse 96 Pulse Source Pulse Oximeter Pulse Oximetry (%) 94 Oxygen Delivery Method Room Air Intake Visit Reasons: COPD Intake Note: pt is here for follow up and has not been using oxygen for over a week, and is maintaining about 92-96 .. .O2, slight cough once in a while. Hoping to have oxygen taken out. Die Sinker Apprentice Required: No Allergies No Known Allergies Allergy (Verified 09/20/24 15:21) Medication List - Last Reconciled 09/20/24 by Rock Zayas MD albuterol sulfate 90 mcg/actuation 2 puffs inhalation Q6H PRN blood sugar diagnostic (FreeStyle Lite Strips) test daily blood-glucose meter (FreeStyle Lite Meter kit) test daily furosemide 20 mg PO DAILY PRN lancets (FreeStyle Lancets) test daily lisinopril 30 mg PO DAILY metformin 1,000 mg PO BID simvastatin 10 mg PO BEDTIME Symbicort 160-4.5 mcg/actuation (budesonide-formoterol) 2 puffs PO Q12H NS Do you need a note to return to daycare/school/sports/work: No HPI HPI COPD: Details: BERENICE, 74 YEARS OLD FEMALE IS A CASE OF LONGSTANDING BRONCHIAL ASTHMA, WHICH HAS NOW PROGRESSED TO CHRONIC OBSTRUCTIVE PULMONARY DISEASE. SHE ALSO HAS HISTORY OF SMOKING FOR LONG TIME HAVING QUIT SINCE HER LAST ADMISSION TO THE HOSPITAL IN [place]. STILL ENDS UP SMOKING 1 OR 2 CIGARETTES A DAY EVERY NOW AND THEN. DURING HER ADMISSION IN [place] DUE TO COVID INFECTION SHE WAS FOUND TO BE HYPOXIC AND STARTED ON OXYGEN THERAPY. SHE IS SUPPOSED TO USE O2 2 L/MINUTE WITH ANY PHYSICAL EXERTION AND ALSO AT NIGHT. TODAY SHE COMES FOR FOLLOW-UP AND STATES THAT SHE DOES NOT NEED OXYGEN. DURING THE LAST 1 WEEK HER O2 SAT HAS REMAINED ABOVE 90% THROUGHOUT THE DAY EVEN WITH SOME WALKING IN THE HOUSE. SHE SLEEPS GOOD AND NOT USING OXYGEN AT NIGHT. DENIES COUGH OR EXPECTORATION. [facility] Medical History Respiratory failure with hypoxia Post covid-19 condition, unspecified Tobacco use disorder Allergic rhinitis Osteoporosis (~2013) Congestive heart failure Chronic obstructive pulmonary disease, unspecified GERD (gastroesophageal reflux disease) Familial hypercholesterolemia Type 2 diabetes mellitus without complications Surgical History History of myringotomy (~2006) History of nasal surgery (~1989) History of ERCP (~2017) History of femoral hernia repair (~2008) History of cholecystectomy (~2017) History of eye surgery (~2019) Family History Father No problems noted. Mother No problems noted. Social History Household Members: Spouse Housing: House Do you presently have visiting nurse or other home services: No Alcohol intake: never Patient Tobacco Use Status: Current someday Tobacco user Tobacco use type: Cigarette Cigarette Packs Per Day: 0.25 Cigarettes Per Day: 1 (three a week) Years Smoked: 40 years e-Cigarette/Vaping Use: Never Used Second Hand Smoke Exposure: Yes service: No Current occupational status: retired Cognitive needs: No Hearing needs: No Vision needs: Yes (Glasses) Review of Systems Const All systems reviewed & are unremarkable except as noted in HPI and below Eyes Reports no additional complaints ENT Reports nasal congestion and Reports nasal discharge Card Denies chest pain, Denies irregular heart rhythm and Reports leg edema (MILD) Resp Reports as per HPI GI Reports no additional complaints Reports no additional complaints Musc Reports no additional complaints Skin/Breast Reports system reviewed and no additional complaints, except as documented Neuro Reports no additional complaints Psych Reports no additional complaints Endo Reports no additional complaints Physical Exam Vital Signs: Last Vital Signs Pulse 96 09/20/24 14:54 BP 130/78 09/20/24 14:54 Pulse Ox 94 09/20/24 14:54 Oxygen Delivery Method Room Air 09/20/24 14:54 BMI result Body Mass Index 20.0 Const General: comfortable, no acute distress, alert and awake Orientation/consciousness: patient oriented x3 HEENT Head: Yes normal to inspection General nose exam: No nasal polyps present, No nasal discharge present and Other nasal findings present (Marked bilateral nasal congestion and hypertrophy of the turbinates.) Face and sinus: Yes sinuses nontender Mouth: oropharynx normal Throat: Yes posterior oropharynx normal Eyes General: appearance normal, both eyes and all related structures Neck Neck: Yes normal visual inspection, Yes no lymphadenopathy, Yes trachea midline and Yes no JVD Thyroid: Thyroid normal Chest Chest palpation & inspection: normal inspection of the chest, normal palpation of entire chest wall and no tenderness Resp Other: Percussion note hyper-resonant, breath sounds are very distant with prolonged expiratory phase. No audible wheezes rhonchi or crepitations are heard at this time . Cardio Palpation: normal PMI Rate: regular rate Rhythm: regular rhythm Heart sounds: no gallops and no murmurs GI Palpation (GI): Soft to palpation, nontender, No hepatosplenomegaly present and no masses Auscultation: normal bowel sounds Back/Spine/Pelvis Thoracic/Lumbar Spine: thoracic and lumbar spine normal to inspection Skin General skin exam: no rashes or lesions noted Neuro General: patient oriented x3 and no focal motor deficits Cranial nerves: Yes CN's II-XII intact bilaterally Extrem General: Yes normal to inspection, Yes no calf tenderness and Yes edema (1 + edema of the lower 1/3 of the legs.) Psych Appearance: grossly normal and well kempt Speech and movement: Normal speech and movement present Assessment & Plan Assessment & Plan (1) Chronic obstructive pulmonary disease, unspecified: Comment: (COPD ,severe , with recent exacerbation due to acute COVID-19 infection . RESPIRATORY STATUS IS STABLE, BUT SHE STILL HAS HYPOXEMIA ON WALKING. Code(s): J44.9 - Chronic obstructive pulmonary disease, unspecified Category: Medical Qualifiers: COPD type: unspecified COPD Qualified Code(s): J44.9 - Chronic obstructive pulmonary disease, unspecified Plan: CONTINUE SYMBICORT 160-4.52 PUFFS B.I.D. ALBUTEROL HFA 2 PUFFS Q 4-6 HOURS P.R.N. (2) Allergic rhinitis: Comment: She has chronic allergic rhinitis which is controlled relatively well. Code(s): J30.9 - Allergic rhinitis, unspecified Category: Medical Plan: MAY USE FLONASE NASAL SPRAY 2 SPRAY EACH NOSTRIL ONCE A DAY P.R.N.. AND MAY USE LORATADINE 10 MG ONCE A DAY P.R.N. (3) Tobacco use disorder: Comment: She has the lifelong history of smoking, Today she claims that she is smoking only 1-2 cigarettes a day. HAS NOT BEEN ABLE TO STOP COMPLETELY Code(s): F17.200 - Nicotine dependence, unspecified, uncomplicated Category: Medical Plan: I STRESS THAT SHE NEEDS TO QUIT COMPLETELY. (4) Respiratory failure with hypoxia: Comment: Due to acute exacerbation/secondary to acute viral infection her pulmonary status has deteriorated and she was treated with oxygen supplementation. She is using O2 3 L/minute continuously. I dropped the O2 to 2 L/minute and O2 sat is remaining 95-96%. SHE CAME WITH THE EXPECTATION THAT SHE CAN STOP USING THE OXYGEN. * I MADE HER WALK ON ROOM AIR, WITHIN 2 MINUTES OF WALKING HER O2 SAT DID DROP DOWN TO 89 AND THEN DOWN TO 86%. SHE BECAME SHORT OF BREATH VERY QUICKLY AND HAD TO TAKE REST AFTER 3 MINUTES WALK. Code(s): J96.91 - Respiratory failure, unspecified with hypoxia Category: Medical Plan: I EXPLAINED TO THE PATIENT THAT SHE IS BETTER OF USING O2 2 L/MINUTE WITH ANY PHYSICAL ACTIVITY, AND WHEN SHE GOES OUTDOORS. I THINK IT IS BENEFICIAL FOR HER TO USE O2 AT NIGHT DURING SLEEP AT 2 L/MINUTE. Coding Level of Care Code Est Pt Level 3 (60309) Diagnoses Chronic obstructive pulmonary disease, unspecified COPD type J44.9 COPD type: unspecified COPD Allergic rhinitis J30.9 Tobacco use disorder F17.200 Respiratory failure with hypoxia J96.91
[2024-09-20 14:54] VITALS: BP 130/78; PULSE 96; O2SAT 94
== END 2024-09-20 15:40 | disposition home or self-care (01) ==
PROVIDERS: PCP Internal Medicine; Visit Provider Internal Medicine
DX: J44.9 Chronic obstructive pulmonary disease, unspecified (principal); J30.9 Allergic rhinitis, unspecified; F17.200 Nicotine dependence, unspecified, uncomplicated; J96.91 Respiratory failure, unspecified with hypoxia
CPT/HCPCS: 99213

== ENCOUNTER → 2024-09-20 14:37 | Outpatient (BNVA) | payer MEDICARE, SELFPAY | PROVIDERS: PCP Internal Medicine; Visit Provider Internal Medicine | DX: J44.9 Chronic obstructive pulmonary disease, unspecified (principal); J30.9 Allergic rhinitis, unspecified; J96.91 Respiratory failure, unspecified with hypoxia; F17.210 Nicotine dependence, cigarettes, uncomplicated | CPT/HCPCS: 99212 ==

== ENCOUNTER 2024-11-08 10:01 | Outpatient (AMB) | payer MEDICARE, SELFPAY ==
--- NOTE | 2024-11-08 10:29 | AM.OFFVISMDC ---
Intake Vital Signs 11/08/24 10:31 Height 5 ft 3 in Weight 112 lb 4 oz BMI 19.9 BP 140/70 H Blood Pressure Location Lt brachial Position Sitting Pulse 86 Pulse Source Pulse Oximeter Pulse Oximetry (%) 96 Oxygen Delivery Method Room Air Intake Visit Reasons: AWV Intake Note: Patient is here for an Annual Wellness Visit. Cloth Calender Required: No Allergies No Known Allergies Allergy (Verified 11/08/24 11:33) HPI AWV HPI Details 74 yr old female presents to the office for an annual wellness exam. In addition patient wishes to discuss her diabetes. She has been compliant with metformin. Not checking her blood sugars. Not following any particular diet or exercise. Continues to smoke one cigg per day. [facility] Medical History Respiratory failure with hypoxia Post covid-19 condition, unspecified Tobacco use disorder Allergic rhinitis Osteoporosis (~2013) Congestive heart failure Chronic obstructive pulmonary disease, unspecified GERD (gastroesophageal reflux disease) Familial hypercholesterolemia Type 2 diabetes mellitus without complications Surgical History History of myringotomy (~2006) History of nasal surgery (~1989) History of ERCP (~2017) History of femoral hernia repair (~2008) History of cholecystectomy (~2017) History of eye surgery (~2019) Family History Father No problems noted. Mother No problems noted. Social History Household Members: Spouse Housing: House Do you presently have visiting nurse or other home services: No Alcohol intake: never Patient Tobacco Use Status: Current someday Tobacco user Tobacco use type: Cigarette Cigarette Packs Per Day: 0.25 Cigarettes Per Day: 1 (three a week) Years Smoked: 40 years e-Cigarette/Vaping Use: Never Used Second Hand Smoke Exposure: Yes service: No Current occupational status: retired Cognitive needs: No Hearing needs: No Vision needs: Yes (Glasses) Questionnaire Medicare Wellness Checkup [age] What gender do you identify with?: female During the past 4 weeks, how much have you been bothered by emotional problems such as feeling anxious, depressed, irritable, sad or downhearted, and blue?: not at all During the past 4 weeks, has your physical & emotional health limited your social activities with family, friends, neighbors, or groups?: not at all During the past 4 weeks, how much bodily pain have you generally had?: no pain During the past 4 weeks, was someone available to help you if you needed & wanted help?: yes, as much as I wanted During the past 4 weeks, what was the hardest physical activity you could do for at least 2 minutes?: moderate Can you get to places out of walking distance without help? (For eg., can you travel alone on buses, taxis or drive your car?): Yes Can you go shopping for groceries or clothes without someone's help?: Yes Can you prepare your own meals?: Yes Can you do your housework without help?: Yes Because of any health problems, do you need the help of another person with your personal care needs such as eating, bathing, dressing or getting around the house?: No Can you handle your own money without help?: Yes During the past 4 weeks, how would you rate your health in general?: good During the past 4 weeks how have things been going for you?: pretty well Are you having difficulties driving your car?: no Do you always fasten your seat belt when you are in a car?: yes, usually During past 4 weeks, have you been bothered by the following: never: Falling or dizzy when standing up, Sexual problems?, Trouble eating well?, Teeth or denture problems?, Problems using the telephone? and Tiredness or fatigue? Have you fallen 2 or more times in the past year?: No Are you afraid of falling?: No Are you a smoker?: yes, and I might quit During the past 4 weeks, how many drinks of wine, beer, or other alcoholic beverages did you have?: no alcohol at all Do you exercise for about 20 minutes 3 or more times a week?: yes, some of the time Have you been given information to help with the following?: yes: Keeping track of your medications? and no: Hazards in your house that might hurt you? How often do you have trouble taking medicines the way you have been told to take them?: I always take medicine as prescribed How confident are you that you can control & manage most of your health problems?: somewhat confident What is your race?: White Mini Mental State Exam (MMSE) Orientation What is the (year) (season) (date) (day) (month)?: year, season, date and day Score Score: 4 Activity of Daily Living Bathing - sponge bath, tub bath or shower: receives no assistance (gets in/out by self, if usual bathing means Dressing - getting clothes from closets & drawers, including inner/outer garments & fasteners.: gets clothes & gets completely dressed without help Toileting - going to the 'toilet room' for urine/bowel elimination & cleaning self/arranging clothes: goes to toilet room, cleans self, arranges clothes without help Transfer: moves in & out of bed and chair without help (may use support object) Feeding: feeds self without help Total Score: 0 PHQ-9 Over the last 2 weeks, how often have you been bothered by any of the following problems? 1. Little interest or pleasure in doing things: not at all 2. Feeling down, depressed, or hopeless: not at all 3. Trouble falling or staying asleep, or sleeping too much: not at all 4. Feeling tired or having little energy: not at all 5. Poor appetite or overeating: not at all 6. Feeling bad about yourself - or that you are a failure or have let yourself or your family down: not at all 7. Trouble concentrating on things, such as reading the newspaper or watching television: not at all 8. Moving or speaking so slowly that other people could have noticed. Or the opposite - being so fidgety or restless that you have been moving around a lot more than usual: not at all 9. Thoughts that you would be better off or of hurting yourself in some way: not at all Total score: 0 Depression Screening Interpretation: Negative Depression Screening Done: Yes Source: Developed by Drs. Maxx Owens, Gisel Pina, Juvenal Stoner and colleagues, with an educational saritha from [employer]. Thrive Questionnaire Date Thrive assessed: 07/24/24 Are you currently unemployed and looking for a job?: No WESLEY-7 AMB Questionnaire WESLEY-7 Date WESLEY - 7 assessed: 02/03/24 Source: Developed by DrsMena Owens, Gisel Pina, Juvenal Stoner and colleagues, with an educational saritha from [employer]. Physical Exam Vital Signs: Last Vital Signs Pulse 86 11/08/24 10:31 BP 140/70 H 11/08/24 10:31 Pulse Ox 96 11/08/24 10:31 Oxygen Delivery Method Room Air 11/08/24 10:31 BMI result Body Mass Index 19.9 Balance: Normal Romberg: Negative Tandem Walk: Able to Walk and Turn: Able to Rise from sit to stand: able to Hearing Whisper test: Pass Const General: cooperative and healthy appearing Nutritional Appearance: well nourished Orientation/consciousness: patient oriented x3 Limitations: no limitations HEENT Head: Yes normal to inspection Eyes General: appearance normal, both eyes and all related structures Neck Neck: Yes normal visual inspection Chest Chest palpation & inspection: normal palpation of entire chest wall Resp Effort & Inspection: normal respiratory effort Neuro General: patient oriented x3 Results AMB Hemoglobin A1c AMB Hemoglobin A1c 8.0 % Last Edit by LAWSON Caputo on 11/08/24 10:45 Results Reviewed Results Reviewed: Laboratory Last Values Hgb A1c (Clinic) 8.0 % (4.0-6.0) H 11/08/24 10:34 Assessment & Plan Assessment & Plan (1) Type 2 diabetes mellitus without complications: Code(s): E11.9 - Type 2 diabetes mellitus without complications Qualifiers: Diabetes mellitus technician terminal and repeater insulin use: without retirement use Qualified Code(s): E11.9 - Type 2 diabetes mellitus without complications Plan: A1c is 8.0. Trulicity is added to the regimen. Patient was adviced to make healthy choices for nutrition intake. Encouraged her to quit smoking. (2) Annual physical exam: Code(s): Z00.00 - Encounter for general adult medical examination without abnormal findings Plan: AWE completed. Orders: Orders AMB Hemoglobin A1c Today E11.9 - Type 2 diabetes mellitus without complications Medications: New dulaglutide (Trulicity) 0.75 mg (0.5 mL) subcut QWEEK 2 mL 1RF Quality Reporting (2019) Depression/Bipolar (159/160/161/177) PHQ-9: Total score: 0 Coding Level of Care Code Medicare Subsequent (G0439) Est Pt Level 4 (81233) Diagnoses Type 2 diabetes mellitus without complication, without long-term current use of insulin E11.9 Diabetes mellitus retirement insulin use: without technician terminal and repeater use Annual physical exam Z00.00
[2024-11-08 10:31] VITALS: BP 140/70; PULSE 86; O2SAT 96; BMI 19.9
--- OUTSIDE RECORDS SUMMARY | 2024-11-08 23:59 | XMS_ITS ---
Author Organization [facility] Address [address] [place] [id number] Care Team Providers Care Kitchen Porter Name Role Phone Yoshi Shetty Primary Care Provider Santy Erickson [phone] Encounters Encounter Location Date Provider Diagnosis [address] [address] 07/25/2024 Santy Erickson Plan Of Treatment Next Appt Details Provider Name:Santy Erickson , 12/05/2024 02:45:00 PM, [address] [place] [address], [phone], Progress Notes * BRANDONGisel GUERIN SDOB: [birth year] (74 yo F)Acc No.[id number]:07/25/2024 Progress Note Patient:?BRANDONGisel GUERIN Provider:?Santy Erickson DPM :1950???Age:74 Y???Sex:Female D ate:07/25/2024 Address:[address] [place] [address] [facility] Pcp:Yoshi Shetty Subjective: * Chief Complaints: * ??? * Medical History:? Objective: * Vitals:? Assessment: Plan: * Treatment: * Images: * The named appointment provid er may or may not be the originator of this progress note, and it is not deemed complete until electronically signed by the appointment provider. Sign off status: Pending * Provider:?Santy Erickson DPM Date:?2023 Generated for Janie licea/Paul/Terry on:?11/08/2024 11:59 PM EST
--- OUTSIDE RECORDS SUMMARY | 2024-11-08 23:59 | XMS_ITS ---
Author Organization [facility] Address [address] [place] [address] Care Team Providers Care Web Press Operator Name Role Phone Sena, Kartik Primary Care Provider Santy Erickson [phone] REASON FOR VISIT cx appt 07/25/24 Encounters Encounter Location Date Provider Diagnosis [address] [address] 07/24/2024 Santy Erickson Plan Of Treatment Next Appt Details Provider Name:Santy Erickson , 12/05/2024 02:45:00 PM, [address] [place] [address], [phone], Progress Notes * Gisel TAYLOR SDOB: [birth year] (74 yo F)Acc No.[id number]:07/24/2024 Patient:?Gisel Taylor :1950???Age:74 Y???Sex:Female Address:[address] [place] [id number] * true * Date:? Generated for Printi ng/Fabriang/eTransmitting on:?11/08/2024 11:59 PM EST
--- OUTSIDE RECORDS SUMMARY | 2024-11-08 23:59 | XMS_ITS ---
Author Organization [facility] anuel Beaumont Address [address] [place] [address] Care Team Providers Care Vat Skimmer Name Role Phone Sena, Kartik Primary Care Provider [phone] Santy Erickson Unavailable [phone] Allergies No Known Allergies REASON FOR VISIT At Risk Footcare, Painful Nail(s) aggrevated by shoes and causing difficulty standing/walking. Medications Medication SIG (Take, Route, Frequency, Duration) Notes Start Date End Date Status Extra Depth Orthopedic Shoes, (1) Pair With (3) Pair Custom Heat Molded Multidensity Innersoles Dx: NIDDM/PVD(E11.51), Hammertoe Foot Deformity(M20.41,M20.42) , Preulcerative Skin Lesion(s)(L85.1) Wear Daily for 365 days 12/07/2023 Not-Taking amLODIPine Besylate 5 MG 1 tablet Orally Once a day Active Lisinopril 30 MG 1 tablet Orally Once a day Active Simvastatin 10 MG 2 tablets in the gino lubna Orally Once a day Active metFORMIN HCl 1000 MG 1 tablet with a me al Orally Once a day Active Symbicort 160-4.5 MCG/ACT 2 puffs Inhalation Twice a day Active Social History Tobacco Use: Social History Observation Description Date Details (start date - stop date) Current Smoker NA - NA Tobacco Use/Smoking Question Answer Notes Are you a: current smoker How many cigarettes a day do you smoke? 21-30 Additional Findings: Tobacco User Modera te cigarette smoker (10-19 cigs/day) Alcohol Screen Question Answer Notes Did you have a drink containing alcohol in the p ast year? No Points 0 Interpretation Negative Tobacco use other than smoking: Question Answer Notes Are you an other tobacco user? No Vital Signs Height 5ft 2in in 09/01/2024 Weight 113 lbs 09/01/2024 BMI 20.67 kg/m2 09/01/2024 Blood pressure systolic 120 mm Hg 09/01/20 24 Blood pressure diastolic 80 mm Hg 024 Procedures Procedure Date Ordered Date Performed Result Body Sit e 44018-CTPXYXX NAIL, 1-5 09/01/2024 N/A 67648-RWKG SKIN LESIONS, OVER 4 09/01/2024 N/A N7591-PQVGMBGB DYSTROPHIC NAILS ANY # 09/01/2024 N/A Encounters Encounter Location Date Provider Diagnosis [facility] [address] [address] 09/01/2024 Santy Erickson Type 2 diabetes mellitus with diabetic peripheral angiopathy without gangrene E11.51 ; Tinea unguium B35.1 ; Pain in right toe(s) M79.674 and Pain in left toe(s) M79.675 Assessments Encounter Date Diagnosis (ICD Code) Assessment Notes Treatment Notes Treatment Clinical Notes Section Notes 09/01/2024 Type 2 diabetes mellitus with diabetic peripheral angiopathy without gangrene (ICD-10 - E11.51) 09/01/2024 Tinea unguium (ICD-10 - B35.1) 09/01/2024 Pain in right toe(s) (ICD-10 - M79.674) 09/01/2024 Pain in left toe(s) (ICD-10 - M79.675) Plan Of Treatment Pending Test Test Name Order Date 56684-FHWGZIM NAIL, 1-5 09/01/2024 21869-BVFT SKIN LESIONS, OVER 4 09/01/20 24 N9361-BGTAVLAG DYSTROPHIC NAILS ANY # Next Appt Details Follow Up: prn, Reason: Provider Name:Santy Erickson , 12/05/2024 02:45:00 PM, [address] [place] [address], [id number], Procedure Notes * Category Sub-Category Detail Notes Keratoma Treatment Parring or Cutting o f Benign Hyperkeratotic Lesion(s) (-57) More than 4 Lesions - The Benign hyperkeratotic lesions, as described above were pared, and/or cut utilizing a sterile 15 blade, tissue nippers, and/or dremel - 42599 , Q8 Debride Nails 1-5 Procedure: Performance of this nail treatment by a nonprofessional would put this patients foot and overall health at risk. Therefore, nail debridement was performed extensively to reduce/remove overall nail length, girth, thickness, subungual debris, and necrotic tissue, by manual and/or electrical means through the use of a nail nipper and/or dremel-type grinder carbon plant, to a more viable healthy nail plate or bed tissue 1-5. Silver nitrate used for any petechial bleeding as necessary. Definitive antifungal treatment options have been reviewed and discussed with the patient. The patient chooses, no pharmaceutical tx - 27412 Nail Reduction Nail Reduction (-27) Trimming o f dystrophic nails performed to reduce/remove overall nail length and girth, by manual and electrical means with use of a nail nipper and/or dremel, to more viable healthy nail plate or bed tissue, any number - G0127 , Q8 Progress Notes * Gisel TAYLOR SDOB: [birth year] (74 yo F)Acc No.[id number]:09/01/2024 Progress Note Patient:?Gisel Taylor S Provider:?Santy Erickson DPM :1950???Age:74 Y???Sex:Female D ate:09/01/2024 Address:[address] [place], [place] [id number] Pcp:Yoshi Shetty Subjective: * Chief Complaints: * ???At Risk FootcarePainful N ail(s) aggrevated by shoes and causing difficulty standing/walking. * HPI: ???At Risk footcare:?Pt States Last PCP Visit:?Date?07/17/2024 * ROS:?General/Constitutional:?Nausea?denies.?Vomiting?denies.?Hunger Thirst?denies.?Loss appetite?denies.?Chills?denies.?Fatigue?denies.?Fever?denies.?Night Sweats?denies.?Unexplained weight loss?denies.?Unexplained weight gain?denies.?HEENTM:?Dentures?denies.?Dizziness?denies.?Glasses/contacts?admits.?Retinopathy?de nies.?Blurred/double vision?denies.?TMJ?denies.?Discharge/drainage?denies.?Implants?denies.?Sore throat?denies.?Dental implants?denies.?Hard of hearing ?denies.?Difficulty chewing/swallowing/speaking?denies.?Nose bleeds?denies.?Sore mouth?denies.?Respiratory:?On Oxygen?denies.?Pneumonia/pleurisy?denies.?Bronchitis?denies.?Emphysema?denies.?C oughing?denies.?Cough blood?denies.?Shortness of breath?denies.?Wheezing?denies.?Cardiovascular:?Pacemaker?denies.?MVP?denies.?WPW?denies.?CHF?denies.?Heart attack?denies.?Septal defect?denies.?Rapid beat?denies.?Chest pain ?denies.?Atrial Fib.?denies.?Murmur/Palpitations?denies.?Gastrointestinal:?Hemorrhoids?denies.?Stomach/Abdominal pain?denies.?Dark blood stool?denies.?Irritable bowel ?denies.?Constipation?denies.?Diarrhea?denies.?Hematology:?Swelling?admits.?Clots?denies.?Varicose Veins?denies.?Bruising?denies.?Bleeding problem?denies.?Genitourinary:?Blood urine?denies.?Frequent/Painfu/urination/bladder control?denies.?Kidney stones?denies.?Infection (UTI)?denies.?Nephropathy?denies.?sex trans dis (STD)?denies.?Prostate?denies.?Musculoskeletal:?Hammertoes?denies.?Bunions?denies.?Back Pain?denies.?Muscle Cramps/ Resting?denies.?Muscle cramps / walking?denies.?Generalized aches and pains?denies.?Weakness?denies.?Integ.:?Sanz?denies.?Scars?denies.?Corns/calluses?admits.?Ingrown nails?admits.?Painful nails?admits.?Open Sores?denies.?Rashes?denies.?Neurologic:?Difficulty sleeping?denies.?Brain disorder?denies.?Numbness?denies.?Balance trouble?denies.?Confusion?denies.?Fainting/blackouts?denies.?Tingling?denies.?Tr emors?denies.? * Medical History:? * Surgical History:?Gall bladd er removal [id number] * Hospitalization/Major Diagno stic Procedure:?covid 07/24/2024 * Family History:?Mother: dece ased, diagnosed with Unspecified heart disease.?Father: , diagnosed with Diabetic - NIDDM.? * Social History:?Tobacco Use:?Tobacco Use/Smoking?Are you a:?current smoker ?How many cigarettes a day do you smoke??21-30 ?Additional Findings: Tobacco User?Moderate cigarette smoker (10-19 cigs/day) ?Tobacco use other than smoking?Are you an other tobacco user??No ???Drugs/Alcohol:?Drugs?Have you used drugs other than those for medical reasons in the past 12 months??No ?Alcohol Screen?Did you have a drink containing alcohol in the past year??No ?Points?0 ?Interpretation?Negative ???Miscellaneous:?Caffeine: yes, 1 cup per day. ?Children: yes, 2. ?no Exercise. ?Marital status: . ?Occupation: Retired. * Medications:?TakingSymbicort 160-4.5 MCG/ACT Aerosol 2 puffs Inhalation Twice a daymetFORMIN HCl 1000 MG Tablet 1 tablet with a meal Orally Once a daySimvastatin 10 MG Tablet 2 tablets in the evening Orally Once a dayamLODIPine Besylate 5 MG Tablet 1 tablet Orally Once a dayLisinopril 30 MG Tablet 1 tablet Orally Once a dayTaking Symbicort 160-4.5 MCG/ACT Aerosol 2 puffs Inhalation Twice a dayTaking metFORMIN HCl 1000 MG Tablet 1 tablet with a meal Orally Once a dayTaking Simvastatin 10 MG Tablet 2 tablets in the evening Orally Once a dayTaking amLODIPine Besylate 5 MG Tablet 1 tablet Orally Once a dayTaking Lisinopril 30 MG Tablet 1 tablet Orally Once a dayNot-Taking/PRNExtra Depth Orthopedic Shoes, (1) Pair With (3) Pair Custom Heat Molded Multidensity Innersoles . Dx: NIDDM/PVD(E11.51), Hammertoe Foot Deformity(M20.41,M20.42), Preulcerative Skin Lesion(s)(L85.1) Wear DailyMedication List reviewed and reconciled with the patientNot-Taking/PRN Extra Depth Orthopedic Shoes, (1) Pair With (3) Pair Custom Heat Molded Multidensity Innersoles . Dx: NIDDM/PVD(E11.51), Hammertoe Foot Deformity(M20.41,M20.42), Preulcerative Skin Lesion(s)(L85.1) Wear DailyMedication List reviewed and reconciled with the patient * Allergies:?N.K.D.A.yes[Aller gies Verified] Objective: * Vitals:?Ht: 5ft 2in, Wt: 113 , BMI: 20.67, Shoe size: 8.8.5, BP: 120/80 mm Hg, BS: 126, Ht-cm: 157.48 cm, Wt-k.26 kg. * ???Past Orders: ???Lab:HEMOGLOBIN A1C (GLYCO HEMOGLOBIN) (Order Date - 02/22/2024) (Collection Date - 12/30/2023) ? Value Reference Range ?HEMOGLOBIN A1C (HH) 7.8 * Examination: ???Vascular: ?DP PULSES(B):? 0/4, B/L.?PT PULSES(B):? 0/4, B/L.?CAPILLARY FILL TIME:? delayed, all digits, B/L.?TROPHIC CONDITION-TEXTURE/ELASTICITY/TURGOR/HAIR GROWTH(B):? decreased, fragile, thin, shiny skin, with sparse to absent hair growth, B/L.?TEMPERTURE GRADIENT(C):? decreased, cool to cool, proximal to distal, B/L.?PIGMENTATION:?rubrous, B/L.?EDEMA(C):?2/4 , pitting , without aching pain , Leg(s) , Ankle(s) , Foot , B/L.?CLAUDICATION(C):?denies, B/L.?REST PAIN:?denies, B/L.?Nails: ?NAILS are:?Elongated, overgrown, dystrophic, lytic, greater than 3mm thick, discolored and friable with crumbly malodorous subungual debris, with pain on palpation , TA , T5 , remaining nails are elongated, overgrown, dystrophic.?Dermatologic: ?SKIN FINDINGS:?Skin exam reveals Keratotic lesion(s) located at , SUB MTH (s), 1, B/L, SUB MTH (s) , 5 , B/L , Heel(s) , B/L.? Assessment: * Assessment: 1.?Tinea unguium - B35.1?2.? Type 2 diabetes mellitus with diabetic peripheral angiopathy without gangrene - E11.51?3.?Pain in right toe(s) - M79.674?4.?Pain in left toe(s) - M79.675? Plan: * Treatment: 2.?Type 2 diabetes mellitus with diabetic peripheral angiopathy without gangrene?Procedure: 96654-SBCC SKIN LESIONS, OVER 4 ?Procedure: K8139-DUBWNOXQ DYSTROPHIC NAILS ANY # * Procedures:?Debride Nails 1-5:?Procedure:?Performance of this nail treatment by a nonprofessional would put this patients foot and overall health at risk. Therefore, nail debridement was performed extensively to reduce/remove overall nail length, girth, thickness, subungual debris, and necrotic tissue, by manual and/or electrical means through the use of a nail nipper and/or dremel-type grinder carbon plant, to a more viable healthy nail plate or bed tissue 1-5. Silver nitrate used for any petechial bleeding as necessary. Definitive antifungal treatment options have been reviewed and discussed with the patient. The patient chooses, no pharmaceutical tx - 48073.?Keratoma Treatment:?Parring or Cutting of Benign Hyperkeratotic Lesion(s)?(-57) More than 4 Lesions - The Benign hyperkeratotic lesions, as described above were pared, and/or cut utilizing a sterile 15 blade, tissue nippers, and/or dremel - 79413 , Q8.?Nail Reduction:?Nail Reduction?(-27) Trimming of dystrophic nails performed to reduce/remove overall nail length and girth, by manual and electrical means with use of a nail nipper and/or dremel, to more viable healthy nail plate or bed tissue, any number - G0127 , Q8.? * Procedure Codes:?G0127 ADALBERTO ING DYSTROPHIC NAILS ANY #, Modifiers: XS , [id number] DEBRIDE NAIL, 1-5, Modifiers: XS 78595 TRIM SKIN LESIONS, OVER 4, Modifiers: XS , Q8 * Follow Up:?prn * Images: * Sign off status: Completed true * Provider:?Santy Erickson DPM Date:?2023 Generated for Janie licea/Paul/Terry on:?11/08/2024 11:59 PM EST History and Physical Notes * HPI (History of Present Illness) Category Sub-Category Detail Notes Category Not es At Risk footcare Pt States Last PCP Visit: Date: Examination Category Sub-Category Detail Notes Category Not es Dermatologic SKIN FINDINGS: Skin exam reveal s Keratotic lesion(s) located at , SUB MTH (s), 1, B/L, SUB MTH (s) , 5 , B/L , Heel(s) , B/L Vascular DP PULSES(B): 0/4, B/L PT PULSES(B): 0/4, B/L CAPILLARY FILL TIME: delayed, all digits , B/L TEMPERTURE GRADIENT(C): decreased, cool to cool, proximal to distal, B/L TROPHIC CONDITION-TEXTURE/ELASTICITY/TURGOR/HAIR GROWTH(B): decreased, fragile, thin, shiny skin, wi th sparse to absent hair growth, B/L EDEMA(C): 2/4 , pitting , with out aching pain , Leg(s) , Ankle(s) , Foot , B/L CLAUDICATION(C): denies, B/L REST PAIN: denies, B/L PIGMENTATION: rubrous, B/L Nails NAILS are: Elongated, overg rown, dystrophic, lytic, greater than 3mm thick, discolored and friable with crumbly malodorous subungual debris, with pain on palpation , TA , T5 , remaining nails are elongated, overgrown, dystrophic
--- OUTSIDE RECORDS SUMMARY | 2024-11-08 23:59 | XMS_ITS | Patient Health Record ---
Author Organization [facility] Address [address] [place] [address] Care Team Providers Care Gate Person Name Role Phone Sena Yoshi Primary Care Provider Santy Erickson Unavailable [phone] Allergies No Known Allergies Results Component Value Reference Range Notes HEMOGLOBIN A1C (GLYCOHEMOGLO BIN) Reviewed date:12/07/2023 12:55:26 PM Interpretation: Performing Lab: Notes/Report: HEMOGLOBIN A1C (HH) 7.8 HEMOGLOBIN A1C (GLYCOHEMOGLO BIN) Reviewed date:02/22/2024 01:18:47 PM Interpretation: Performing Lab: Notes/Report: HEMOGLOBIN A1C (HH) 7.8 Reason For Referral No Information Medications Medication SIG (Take, Route, Frequency, Duration) [...] gino lubna Orally Once a day Active Symbicort 160-4.5 MCG/ACT 2 puffs Inhalation Twice a day Active metFORMIN HCl 1000 MG 1 tablet with a me al Orally Once a day Active Social History Tobacco Use: [...] Are you an other tobacco user? No Problems Problem Type SNOMED Code ICD Code Onset Dates Problem Status W/U Status Risk Notes Problem Acquired hammer toe of right foot (1841731087735 105) Other hammer toe(s) (acquired), right foot (M20.41) Active confirmed Response to treatment,I mprovement Problem Acquired hammer toe of left foot (7663970937562 103) Other hammer toe(s) (acquired), left foot (M20.42) Active confirmed Response to treatment,I mprovement Problem Type 2 diabetes mellitus with peripheral angiopathy (872523054) Type 2 diabetes mellitus with diabetic peripheral angiopathy without gangrene (E11.51) Active confirmed Vital Signs Blood pressure diastolic 80 mm Hg 09/01/2024 Height 5ft 2in in 09/01/2024 Blood pressure systolic 120 mm Hg 09/01/2024 Weight 113 lbs 09/01/2024 BMI 20.67 kg/m2 09/01/2024 Procedures Procedure Date Ordered Date Performed Result Body Sit e 30429-TBUCWQV NAIL, 1-12/07/2023 N/A 22194-TZVL SKIN LESIONS, OVER 4 12/07/2023 N/A J8727-TCXLNNAI DYSTROPHIC NAILS ANY # 12/07/2023 N/A 18811-RVFQILV NAIL, 1-5 02/22/2024 N/A 95716-KRIS SKIN LESIONS, OVER 4 02/22/2024 N/A H6520-TAVSBVTQ DYSTROPHIC NAILS ANY # 02/22/2024 N/A 28043-ORAREXH NAIL, 1-5 05/02/2024 N/A 76389-RHQM SKIN LESIONS, OVER 4 05/02/2024 N/A F5940-MPBOINYT DYSTROPHIC NAILS ANY # 05/02/2024 N/A 12348-ELZYUFF NAIL, 1-5 09/01/2024 N/A 78769-NYWJ SKIN LESIONS, OVER 4 09/01/2024 N/A C2694-YHLHADXT DYSTROPHIC NAILS ANY # 09/01/2024 N/A Encounters Encounter Location Date Provider Diagnosis [address] [address] 12/07/2023 Santysandra Erickson Type 2 diabetes mellitus with diabetic peripheral angiopathy without gangrene E11.51 ; Tinea unguium B35.1 ; Pain in right toe(s) M79.674 ; Pain in left toe(s) M79.675 ; Other hammer toe(s) (acquired), right foot M20.41 and Other hammer toe(s) (acquired), left foot M20.[address] [address] 02/22/2024 Santy Erickson Type 2 diabetes mellitus with diabetic peripheral angiopathy without gangrene E11.51 ; Tinea unguium B35.1 ; Pain in right toe(s) M79.674 ; Pain in left toe(s) M79.675 ; Other hammer toe(s) (acquired), right foot M20.41 and Other hammer toe(s) (acquired), left foot M20.[address] [address] 05/02/2024 Santy Erickson Type 2 diabetes mellitus with diabetic peripheral angiopathy without gangrene E11.51 ; Tinea unguium B35.1 ; Pain in right toe(s) M79.674 and Pain in left toe(s) M79.[address] [address] 09/01/2024 Santy Erickson Type 2 diabetes mellitus with diabetic peripheral angiopathy without gangrene E11.51 ; Tinea unguium B35.1 ; Pain in right toe(s) M79.674 and Pain in left toe(s) M79.[address] [address] 07/24/2024 Santy Erickson Assessments Encounter Date Diagnosis (ICD Code) Assessment Notes Treatment Notes Treatment Clinical Notes Section Notes 12/07/2023 Tinea unguium (ICD-10 - B35.1) 12/07/2023 Type 2 diabetes mellitus with diabetic peripheral angiopathy without gangrene (ICD-10 - E11.51) 02/22/2024 Tinea unguium (ICD-10 - B35.1) 02/22/2024 Type 2 diabetes mellitus with diabetic peripheral angiopathy without gangrene (ICD-10 - E11.51) 05/02/2024 Tinea unguium (ICD-10 - B35.1) 05/02/2024 Type 2 diabetes mellitus with diabetic peripheral angiopathy without gangrene (ICD-10 - E11.51) 09/01/2024 Tinea unguium (ICD-10 - B35.1) 09/01/2024 Type 2 diabetes mellitus with diabetic peripheral angiopathy without gangrene (ICD-10 - E11.51) 05/02/2024 Pain in right toe(s) (ICD-10 - M79.674) 09/01/2024 Pain in right toe(s) (ICD-10 - M79.674) 12/07/2023 Pain in right toe(s) (ICD-10 - M79.674) 02/22/2024 Pain in right toe(s) (ICD-10 - M79.674) 05/02/2024 Pain in left toe(s) (ICD-10 - M79.675) 09/01/2024 Pain in left toe(s) (ICD-10 - M79.675) 02/22/2024 Pain in left toe(s) (ICD-10 - M79.675) 12/07/2023 Pain in left toe(s) (ICD-10 - M79.675) 12/07/2023 Other hammer toe(s) (acquired), right foot (ICD-10 - M20.41) Patient Educated with: DIABETIC FOOT CARE INSTRUCTIONS.p df (DIABETIC FOOT CARE INSTRUCTIONS.p df) 02/22/2024 Other hammer toe(s) (acquired), right foot (ICD-10 - M20.41) Response to treatment,Impro vement 02/22/2024 Other hammer toe(s) (acquired), left foot (ICD-10 - M20.42) Response to treatment,Impro vement 12/07/2023 Other hammer toe(s) (acquired), left foot (ICD-10 - M20.42) Plan Of Treatment Pending Test Test Name Order Date 20772-VCWZPSM NAIL, 1-12/07/2023 28718-DKUWWFN NAIL, 1-02/22/2024 65490-DKONWHF NAIL, 1-05/02/2024 59314-VWIZQAP NAIL, 1-09/01/2024 60427-TDTO SKIN LESIONS, OVER 4 09/01/20 90206-NVSF SKIN LESIONS, OVER 4 05/02/20 20726-UOVK SKIN LESIONS, OVER 4 12/07/19 65324-MIDA SKIN LESIONS, OVER 4 02/22/20 W1523-TBKOQIGY DYSTROPHIC NAILS ANY # Z8789-UZLXPOSK DYSTROPHIC NAILS ANY # Z5734-NKSTXGBD DYSTROPHIC NAILS ANY # Z5695-OMHYKCTV DYSTROPHIC NAILS ANY # Next Appt Details Provider Name:Santy Erickson , 12/05/2024 02:45:00 PM, [address] [place], [address], Insurance Providers Payer Name Payer Address Payer Phone Subscriber Number Group Number Insured Name Patient Relationship to Insured Coverage Start Date Coverage End Date [employer] [address] [place] [address] [phone] [id number] Gisel Taylor Self - patient is the insured Medical (General) History Medical History History ICD Code type II diabetes Heart disease High blood pressure Poor circulation sinusitis Measles Mumps Chicken pox COPD Surgical History Surgery Date(Month/Year) Gall bladder removal 08-25-2018 Hernia Hospitalization History Reason Date(Month/Year) covid 07/24/2024
== END 2024-11-08 11:33 | disposition home or self-care (01) ==
PROVIDERS: PCP Internal Medicine; Visit Provider Internal Medicine
DX: Z00.00 Encounter for general adult medical examination without abnormal findings (principal); E11.9 Type 2 diabetes mellitus without complications

== ENCOUNTER → 2024-11-08 10:01 | Outpatient (BNVA) | payer MEDICARE, SELFPAY | PROVIDERS: PCP Internal Medicine; Visit Provider Physician Assistant Medical | DX: Z00.00 Encounter for general adult medical examination without abnormal findings (principal); E11.9 Type 2 diabetes mellitus without complications | CPT/HCPCS: 83036; 96127; 99212 ==

== ENCOUNTER 2024-12-19 13:22 | Outpatient (AMB) | payer MEDICARE, SELFPAY ==
[2024-12-19 13:37] VITALS: BP 168/78; PULSE 105; O2SAT 96; BMI 20.3
--- NOTE | 2024-12-19 13:37 | MHC.OFFVIS ---
Vital Signs 12/19/24 13:37 Height 5 ft 3 in Weight 114 lb 10.246 oz BMI 20.3 BP 168/78 H Blood Pressure Location Lt brachial Position Sitting Pulse 105 H Pulse Source Pulse Oximeter Pulse Oximetry (%) 96 Oxygen Delivery Method Room Air Intake Visit Reasons: COPD Intake Note: pt is here for follow up and states she is feeling good. 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 Allergies No Known Allergies Allergy (Verified 12/19/24 14:06) Medication List - Last Reconciled 12/19/24 by Rock Zayas MD albuterol sulfate 90 mcg/actuation 2 puffs inhalation Q6H PRN blood sugar diagnostic (FreeStyle Lite Strips) test daily blood-glucose meter (FreeStyle Lite Meter kit) test daily dulaglutide (Trulicity) 0.75 mg (0.5 mL) subcut QWEEK furosemide 20 mg PO DAILY PRN lancets (FreeStyle Lancets) test daily lisinopril 30 mg PO DAILY metformin 1,000 mg PO BID simvastatin 10 mg PO BEDTIME Symbicort 160-4.5 mcg/actuation (budesonide-formoterol) 2 puffs PO Q12H NS Do you need a note to return to daycare/school/sports/work: No HPI HPI COPD: Details: 74 YEARS OLD FEMALE IS HERE FOR FOLLOW-UP AFTER 4 MONTHS. SHE IS A SMOKER. BUT NOW HAS CUT DOWN TO 1 AND HALF CIGARETTES A DAY. SHE IS BEING FOLLOWED FOR CHRONIC OBSTRUCTIVE PULMONARY DISEASE USES SYMBICORT 2 PUFFS B.I.D. AND ALBUTEROL JUST NEEDED. SHE HAS HAD NO RECENT RESPIRATORY INFECTION. ONLY COMPLAINT IS MILD INTERMITTENT DRY COUGH. SINCE SHE QUIT SMOKING , HER PHLEGM IS MOSTLY WHITISH. SHE DOES HAVE O2 CONCENTRATOR AT HOME BUT DOES NOT USE. HOWEVER HER O2 SAT DOES FALL BELOW 90 IN WHEN SHE IS DOING ANY PHYSICAL WORK. [facility] Medical History Respiratory failure with hypoxia Post covid-19 condition, unspecified Tobacco use disorder Allergic rhinitis Osteoporosis (~2013) Congestive heart failure Chronic obstructive pulmonary disease, unspecified GERD (gastroesophageal reflux disease) Familial hypercholesterolemia Type 2 diabetes mellitus without complications Surgical History History of myringotomy (~2006) History of nasal surgery (~1989) History of ERCP (~2017) History of femoral hernia repair (~2008) History of cholecystectomy (~2017) History of eye surgery (~2019) Family History Father No problems noted. Mother No problems noted. Social History Household Members: Spouse Housing: House Do you presently have visiting nurse or other home services: No Alcohol intake: never Patient Tobacco Use Status: Current someday Tobacco user Tobacco use type: Cigarette Cigarette Packs Per Day: 0.25 Cigarettes Per Day: 1 (three a week) Years Smoked: 40 years e-Cigarette/Vaping Use: Never Used Second Hand Smoke Exposure: Yes service: No Current occupational status: retired Cognitive needs: No Hearing needs: No Vision needs: Yes (Glasses) Review of Systems Const All systems reviewed & are unremarkable except as noted in HPI and below Eyes Reports no additional complaints ENT Reports nasal congestion and Reports nasal discharge Card Denies chest pain, Denies irregular heart rhythm and Reports leg edema (MILD) Resp Reports as per HPI GI Reports no additional complaints Reports no additional complaints Musc Reports no additional complaints Skin/Breast Reports system reviewed and no additional complaints, except as documented Neuro Reports no additional complaints Psych Reports no additional complaints Endo Reports no additional complaints Physical Exam Vital Signs: Last Vital Signs Pulse 105 H 12/19/24 13:37 BP 168/78 H 12/19/24 13:37 Pulse Ox 96 12/19/24 13:37 Oxygen Delivery Method Room Air 12/19/24 13:37 BMI result Body Mass Index 20.3 Const General: comfortable, no acute distress, alert and awake Orientation/consciousness: patient oriented x3 HEENT Head: Yes normal to inspection General nose exam: No nasal polyps present, No nasal discharge present and Other nasal findings present (Marked bilateral nasal congestion and hypertrophy of the turbinates.) Face and sinus: Yes sinuses nontender Mouth: oropharynx normal Throat: Yes posterior oropharynx normal Eyes General: appearance normal, both eyes and all related structures Neck Neck: Yes normal visual inspection, Yes no lymphadenopathy, Yes trachea midline and Yes no JVD Thyroid: Thyroid normal Chest Chest palpation & inspection: normal inspection of the chest, normal palpation of entire chest wall and no tenderness Resp Other: Percussion note hyper-resonant, breath sounds are very distant with prolonged expiratory phase. No audible wheezes rhonchi or crepitations are heard at this time . Cardio Palpation: normal PMI Rate: regular rate Rhythm: regular rhythm Heart sounds: no gallops and no murmurs GI Palpation (GI): Soft to palpation, nontender, No hepatosplenomegaly present and no masses Auscultation: normal bowel sounds Back/Spine/Pelvis Thoracic/Lumbar Spine: thoracic and lumbar spine normal to inspection Skin General skin exam: no rashes or lesions noted Neuro General: patient oriented x3 and no focal motor deficits Cranial nerves: Yes CN's II-XII intact bilaterally Extrem General: Yes normal to inspection, Yes no clubbing, cyanosis or edema and Yes no calf tenderness Psych Appearance: grossly normal and well kempt Speech and movement: Normal speech and movement present Results Reviewed Results Reviewed: WALK TEST. O2 SAT AT REST 96%. WALKED IN THE HALLWAY FOR 4 MINUTES, O2 SAT DROPPED TO 88%, SHE WAS ONLY SLIGHTLY SHORT OF BREATH. AFTER RESTING O2 SAT COMES BACK TO 96%. Assessment & Plan Assessment & Plan (1) Chronic obstructive pulmonary disease, unspecified: Comment: (COPD ,severe , fairly stable at this time. RESPIRATORY STATUS IS STABLE, BUT SHE STILL HAS MILD HYPOXEMIA ON WALKING. Code(s): J44.9 - Chronic obstructive pulmonary disease, unspecified Category: Medical Qualifiers: COPD type: unspecified COPD Qualified Code(s): J44.9 - Chronic obstructive pulmonary disease, unspecified Plan: CONTINUE SYMBICORT 160-4.52 PUFFS B.I.D.. ALBUTEROL HFA 2 PUFFS Q 6 HOURS P.R.N. (2) Allergic rhinitis: Comment: She has chronic allergic rhinitis which is controlled relatively well. Code(s): J30.9 - Allergic rhinitis, unspecified Category: Medical Plan: USE FLONASE -50 2 SPRAYS IN EACH NOSTRIL ONCE A DAY BUT ONLY P.R.N. (3) Tobacco use disorder: Comment: She has the lifelong history of smoking, Today she claims that she is smoking only 1 AND HAVE cigarette a day. HAS NOT BEEN ABLE TO STOP COMPLETELY Code(s): F17.200 - Nicotine dependence, unspecified, uncomplicated Category: Medical Plan: DISCUSSED WITH HER AND URGE THAT SHE SHOULD QUIT COMPLETELY (4) Respiratory failure with hypoxia: Comment: Due to acute exacerbation/secondary to acute viral infection last year, her pulmonary status has deteriorated and she was treated with oxygen supplementation. SHE CAME WITH THE EXPECTATION THAT SHE CAN STOP USING THE OXYGEN. * I MADE HER WALK ON ROOM AIR, SHE DID NOT HAVE ANY SIGNIFICANT SHORTNESS OF BREATH AFTER WALKING 4 MINUTES , BUT O2 SAT DID DROP DOWN TO 88%. Code(s): J96.91 - Respiratory failure, unspecified with hypoxia Category: Medical Plan: I ADVISED HER TO KEEP THE O2 SUPPLY AT HOME. SHE SHOULD USE O2 2 L/MINUTE P.R.N. IF SHE HAS INCREASED SHORTNESS OF BREATH. ALSO IT WOULD BE GOOD FOR HER TO USE O2 2 L/MINUTE WHENEVER SHE IS WALKING OR DOING ANY PHYSICAL ACTIVITY. NO NEED TO RETURN THE O2 SUPPLY. Coding Level of Care Code Est Pt Level 3 (36423) Diagnoses Chronic obstructive pulmonary disease, unspecified COPD type J44.9 COPD type: unspecified COPD Allergic rhinitis J30.9 Tobacco use disorder F17.200 Respiratory failure with hypoxia J96.91
--- OUTSIDE RECORDS SUMMARY | 2024-12-19 15:08 | XMS_ITS ---
Author Organization [facility] [place] Address [address] [place] [address] Care Team Providers Care Director Market Intelligence Name Role Phone Sena, Kartik Primary Care Provider [phone] Santy Erickson Unavailable [phone] Allergies No Known Allergies REASON FOR VISIT At Risk Footcare, Painful Nail(s) aggrevated by shoes and causing difficulty standing/walking., ToeIrritation Medications Medication SIG (Take, Route, Frequency, Duration) Notes Start Date End Date Status Lisinopril 30 MG 1 tablet Orally Once a day Active amLODIPine Besylate 5 MG 1 tablet Orally Once a day Active Extra Depth Orthopedic Shoes, (1) Pair With (3) Pair Custom Heat Molded Multidensity Innersoles Dx: NIDDM/PVD(E11.51), Hammertoe Foot Deformity(M20.41,M20.42) , Preulcerative Skin Lesion(s)(L85.1) Wear Daily for 365 days 12/07/2023 Not-Taking Simvastatin 10 MG 2 tablets in the [...] User Modera te cigarette smoker (10-19 cigs/day) Tobacco use other than smoking: Question Answer Notes Are you an other tobacco user? No AUDIT-C (Standard) Question Answer Notes Did you have a drink containing alcohol in the p ast year? No Points 0 Interpretation Negative Vital Signs Height 5ft 2in in 12/05/2024 Weight 112 lbs 12/05/2024 BMI 20.48 kg/m2 12/05/2024 Blood pressure systolic 120 mm Hg 12/05/19 25 Blood pressure diastolic 70 mm Hg 025 Procedures Procedure Date Ordered Date Performed Result Body Sit e 20681-EGYEMVJ NAIL, 1-12/05/2024 N/A 84945-GTNT SKIN LESIONS, OVER 4 12/05/2024 N/A R3488-PLDAPYRS DYSTROPHIC NAILS ANY # 12/05/2024 N/A Encounters Encounter Location Date Provider Diagnosis [facility] [address] [place] [address] 12/05/2024 Santy Erickson Type 2 diabetes mellitus with diabetic peripheral angiopathy without gangrene E11.51 ; Other hammer toe(s) (acquired), right foot M20.41 ; Tinea unguium B35.1 ; Pain in right toe(s) M79.674 ; Pain in left toe(s) M79.675 and Other hammer toe(s) (acquired), left foot M20.42 Assessments Encounter Date Diagnosis (ICD Code) Assessment Notes Treatment Notes Treatment Clinical Notes Section Notes 12/05/2024 Type 2 diabetes mellitus with diabetic peripheral angiopathy without gangrene (ICD-10 - E11.51) 12/05/2024 Other hammer toe(s) (acquired), right foot (ICD-10 - M20.41) 12/05/2024 Tinea unguium (ICD-10 - B35.1) 12/05/2024 Pain in right toe(s) (ICD-10 - M79.674) 12/05/2024 Pain in left toe(s) (ICD-10 - M79.675) 12/05/2024 Other hammer toe(s) (acquired), left foot (ICD-10 - M20.42) Plan Of Treatment Pending Test Test Name Order Date 58937-OUWDYFR NAIL, 1-5 12/05/2024 31601-ZPAF SKIN LESIONS, OVER 4 12/05/19 25 H7700-KKRHMCDU DYSTROPHIC NAILS ANY # Next Appt Details Follow Up: prn, Reason: Provider Name:Santy Erickson , 03/06/2025 11:00:00 AM, [address] [place] [address], [id number], Procedure Notes * Category Sub-Category Detail Notes Keratoma Treatment Parring or Cutting o f Benign Hyperkeratotic Lesion(s) (-57) More than 4 Lesions - Due to the at risk nature of the patients medical condition as documented in the exam findings, performance of this keratoderma treatment is medically necessary as its management by an unskilled/untrained nonprofessional would put this patients foot and overall health at risk. Therefore, the benign hyperkeratotic lesions, ( 6) in total, locations as stated and described in the exam ( SUB MTH (s), 1, B/L, SUB MTH (s) , 5 , B/L , Plantar, Heel(s) , B/L), were pared, and/or cut utilizing a sterile 15 blade, tissue nippers, and/or power dremel instrumentation by the physician of record - 83661, Q8 Debride Nails 1-5 Procedure: Due to the cli nical pathology outlined in the exam findings, performance of this nail treatment is medically necessary as its management by an unskilled/untrained nonprofessional would put this patients foot and overall health at risk. Therefore, debridement to affected nail(s), as described in exam ( TA , T5 ), was performed exclusively by the physician of record to reduce/remove overall nail length, girth, thickness, subungual debris, and necrotic tissue, by manual and/or electrical means through the use of a nail nipper and/or dremel stylegrinder, to a more viable healthy nail plate or bed tissue 5 nails or fewer in number. Silver nitrate was used for any petechial bleeding as necessary. Definitive antifungal treatment options, both pharmaceutical and surgical, have been reviewed and discussed with the patient. The patient solely prefers the use of intermittent/as needed professional debridement services for their nail condition and understands that additional periodic treatments may be required as necessary to maintain effective symptomatic relief - 54151 Nail Reduction Nail Reduction (-27) Trimming o f all dystrophic nails - Due to the at risk nature of the patients medical condition as documented in the exam findings, performance of this nail treatment is medically necessary as its management by an unskilled/untrained nonprofessional would put this patients foot and overall health at risk. Therefore, the dystrophic nails, in locations as stated and described in the exam ( T1, T2, T3, T4, T6, T7, T8, T9), were debrided by the phisician of record to reduce/remove overall nail length and girth, by manual and electrical means with use of a nail nipper and/or dremel, to more viable healthy nail plate or bed tissue - G0127, Q8 Progress Notes * Gisel TAYLOR SDOB: [birth year] (74 yo F)Acc No.[id number]:12/05/2024 Progress Note Patient:?Gisel TAYLOR Provider:?Santy Erickson DPM :1950???Age:74 Y???Sex:Female D ate:12/05/2024 Address:[address] [place], [place] [id number] Pcp:Yoshi Shetty Subjective: * Chief Complaints: * ???At Risk FootcarePainful N ail(s) aggrevated by shoes and causing difficulty standing/walking.Toe Irritation * HPI: ???At Risk footcare:?Pt States Last PCP Visit:?Date?11/08/2024 ???Toe pain:?Location:?B/L feet.?Duration:?several years.?Course:?worse.?Aggravated by:?shoes, any pressure.?Treatments:?change in shoes.? * ROS:?General/Constitutional:?Nausea?denies.?Vomiting?denies.?Hunger Thirst?denies.?Loss appetite?denies.?Chills?denies.?Fatigue?denies.?Fever?denies.?Night Sweats?denies.?Unexplained weight loss?denies.?Unexplained weight gain?denies.?HEENTM:?Dentures?denies.?Dizziness?denies.?Glasses/contacts?admits.?Retinopathy?den ies.?Blurred/double vision?denies.?TMJ?denies.?Discharge/drainage?denies.?Implants?denies.?Sore throat?denies.?Dental implants?denies.?Hard of hearing ?denies.?Difficulty chewing/swallowing/speaking?denies.?Nose bleeds?denies.?Sore mouth?denies.?Respiratory:?On O xygen?denies.?Pneumonia/pleurisy?denies.?Bronchitis?denies.?Emphysema?denies.?Co ughing?denies.?Cough blood?denies.?Shortness of breath?denies.?Wheezing?denies.?Cardiovascular:?Pacemaker?denies.?MVP?denies.?WPW?denies.?CHF?denies.?Heart attack?denies.?Septal defect?denies.?Rapid beat?denies.?Chest pain ?denies.?Atrial Fib.?denies.?Murmur/Palpitations?denies.?Gastrointestinal:?Hemorrhoids?denies.?Stomach/Abdominal pain?denies.?Dark blood stool?denies.?Irritable bowel ?denies.?Constipation?denies.?Diarrhea?denies.?Hematology:?Swelling?admits.?Clots?denies.?Varicose Veins?denies.?Bruising?denies.?Bleeding problem?denies.?Genitourinary:?Blood urine?denies.?Frequent/Painfu/urination/bladder control?denies.?Kidney stones?denies.?Infection (UTI)?denies.?Nephropathy?denies.?sex trans dis (STD)?denies.?Prostate?denies.?Musculoskeletal:?Hammertoes?admits.?Bunions?denies.?Back Pain?denies.?Muscle Cramps/ Resting?denies.?Muscle cramps / walking?denies.?Generalized aches and pains?denies.?Weakness?denies.?Integ.:?Sanz?denies.?Scars?denies.?Corns/calluses?admits.?Ingrown nails?admits.?Painful nails?admits.?Open Sores?denies.?Rashes?denies.?Neurologic:?Difficulty sleeping?denies.?Brain disorder?denies.?Numbness?denies.?Balance t rouble?denies.?Confusion?denies.?Fainting/blackouts?denies.?Tingling?denies.?Vance mors?denies.? * Medical History:? * Surgical History:?Gall bladd er removal [id number] * Hospitalization/Major Diagno stic Procedure:?covid 07/24/2024 * [...] medical reasons in the past 12 months??No ???Miscellaneous:?Caffeine: yes, 1 cup per day. ?Children: yes, 2. ?Exercise: no. ?Marital status: . ?Occupation: Retired. ???Drug/Alcohol:?AUDIT-C (Standard)?Did you have a drink containing alcohol in the past year??No ?Points?0 ?Interpretation?Negative * Medications:?TakingSymbicort 160-4.5 MCG/ACT Aerosol 2 puffs Inhalation Twice a day metFORMIN HCl 1000 MG Tablet 1 tablet with a meal Orally Once a day Simvastatin 10 MG Tablet 2 tablets in the evening Orally Once a day amLODIPine Besylate 5 MG Tablet 1 tablet Orally Once a day Lisinopril 30 MG Tablet 1 tablet Orally Once a day Taking Symbicort 160-4.5 MCG/ACT Aerosol 2 puffs Inhalation Twice a day Taking metFORMIN HCl 1000 MG Tablet 1 tablet with a meal Orally Once a day Taking Simvastatin 10 MG Tablet 2 tablets in the evening Orally Once a day Taking amLODIPine Besylate 5 MG Tablet 1 tablet Orally Once a day Taking Lisinopril 30 MG Tablet 1 tablet Orally Once a day Not-Taking/PRNExtra Depth Orthopedic Shoes, (1) Pair With (3) Pair Custom Heat Molded Multidensity Innersoles . Dx: NIDDM/PVD(E11.51), Hammertoe Foot Deformity(M20.41,M20.42), Preulcerative Skin Lesion(s)(L85.1) Wear Daily Medication List reviewed and reconciled with the patientNot-Taking/PRN Extra Depth Orthopedic Shoes, (1) Pair With (3) Pair Custom Heat Molded Multidensity Innersoles . Dx: NIDDM/PVD(E11.51), Hammertoe Foot Deformity(M20.41,M20.42), Preulcerative Skin Lesion(s)(L85.1) Wear Daily Medication List reviewed and reconciled with the patient * Allergies:?N.K.D.A.yes[Aller gies Verified] Objective: * Vitals:?Ht: 5ft 2in, Wt:112, BMI: 20.48, Shoe size:8-8.5, BP:120/70mm Hg, BS:not taken, Ht-cm: 157.48 cm, Wt-k.8 kg. * ???Past Orders: ???Lab:HEMOGLOBIN A1C (GLYCO HEMOGLOBIN) (Order Date - 02/22/2024) (Collection Date & Time - 12/30/2023) ? Value Reference Range ?HEMOGLOBIN A1C (HH) 7.8 * Examination: ???Ophthalmology Referral: ?DIABETES EYE EXAM?Vascular: ?DP PULSES (B):? 0/4, B/L.?PT PULSES (B):? 0/4, B/L.?CAPILLARY FILL TIME:? delayed, all digits, B/L.?TROPHIC CONDITION-TEXTURE/ELASTICITY/TURGOR/HAIR GROWTH (B):? decreased, fragile, thin, shiny skin, with sparse to absent hair growth, B/L.?TEMPERTURE GRADIENT (C):? decreased, cool to cool, proximal to distal, B/L.?PIGMENTATION:?rubrous, B/L.?EDEMA (C):?2/4 , pitting , without aching pain , Leg(s) , Ankle(s) , Foot , B/L.?CLAUDICATION (C):?denies, B/L.?REST PAIN:?denies, B/L.?Nails: ?NAILS are:?Elongated, overgrown, dystrophic, lytic, greater than 3mm thick, discolored and friable with crumbly malodorous subungual debris, with pain on palpation , TA , T5 , all other nails not described with characteristics as possessing mycosis are elongated, overgrown, and dystrophic ( T1, T2, T3, T4, T6, T7, T8, T9?).?Dermatologic: ?SKIN FINDINGS:?Skin exam reveals Keratotic lesion(s) located at , SUB MTH (s), 1, B/L, SUB MTH (s) , 5 , B/L , Plantar, Heel(s) , B/L.?Orthopedic: ?MUSCLE STRENGTH:?5/5 all groups in a symmetrical fashion, B/L.?FOOT MORPHOLOGY:?(-) Charcot collapse/destruction noted at MTJ.?DIGITAL DEFORMITIES:?Digital contracture, PIPJ, 2-5 B/L, incompl-reducible to push-up test, no over, nor underlapping, with evidence of shoe producing skin irritation.?FOOTWEAR:?worn, non-supportive, shoe gear properties exacerbate patient's foot/toe deformity , shoe gear properties exacerbate patients foot/toe deformity.?Neurological: ?SENSORY:?Neurological exam reveals intact sensorium, pain sensation normal, vibration sensation intact, pinprick sensation is normal in the lower extremities, Pt denies, anesthesia, burning, paresthesia, tingling, B/L.?General Examination: ?GENERAL APPEARANCE:?Reveals a pleasant, alert, well nourished, well- developed, well hydrated individual, who demonstrates proper attention to hygiene/body habitus, and is in no acute distress, Pt serves as own historian for office visit today.?ORIENTED:?person, place, and time.?FOOT EXAM:?Footwear Evaluation? Assessment: * Assessment: 1.?Other hammer toe(s) (acqu ired), right foot - M20.41???Specify :Chronic problem, Worse (4),Rx Management (4)???2.?Type 2 diabetes mellitus with diabetic peripheral angiopathy without gangrene - E11.51 (Primary)???3.?Tinea unguium - B35.1???4.?Pain in right toe(s) - M79.674???5.?Pain in left toe(s) - M79.675???6.?Other hammer toe(s) (acquired), left foot - M20.42???Specify :Chronic problem, Worse (4),Rx Management (4)??? Plan: * Treatment: 2.?Tinea unguium?Procedure: 04151-[id number] NAIL, 1-5 * Procedures:?Debride Nails 1-5:?Procedure:?Due to the clinical pathology outlined in the exam findings, performance of this nail treatment is medically necessary as its management by an unskilled/untrained nonprofessional would put this patients foot and overall health at risk. Therefore, debridement to affected nail(s), as described in exam (??TA?,?T5?), was performed exclusively by the physician of record to reduce/remove overall nail length, girth, thickness, subungual debris, and necrotic tissue, by manual and/or electrical means through the use of a nail nipper and/or dremel stylegrinder, to a more viable healthy nail plate or bed tissue 5 nails or fewer in number. Silver nitrate was used for any petechial bleeding as necessary. Definitive antifungal treatment options, both pharmaceutical and surgical, have been reviewed and discussed with the patient. The patient solely prefers the use of intermittent/as needed professional debridement services for their nail condition and understands that additional periodic treatments may be required as necessary to maintain effective symptomatic relief - 24143.?Keratoma Treatment:?Parring or Cutting of Benign Hyperkeratotic Lesion(s)?(-57) More than 4 Lesions - Due to the at risk nature of the patients medical condition as documented in the exam findings, performance of this keratoderma treatment is medically necessary as its management by an unskilled/untrained nonprofessional would put this patients foot and overall health at risk. Therefore, the benign hyperkeratotic lesions, ( 6) in total, locations as stated and described in the exam (?SUB MTH (s),?1,?B/L,?SUB MTH (s)?,?5?,?B/L?,?Plantar,?Heel(s)?,?B/L), were pared, and/or cut utilizing a sterile 15 blade, tissue nippers, and/or power dremel instrumentation by the physician of record - 54365, Q8.?Nail Reduction:?Nail Reduction?(-27) Trimming of all dystrophic nails - Due to the at risk nature of the patients medical condition as documented in the exam findings, performance of this nail treatment is medically necessary as its management by an unskilled/untrained nonprofessional would put this patients foot and overall health at risk. Therefore, the dystrophic nails, in locations as stated and described in the exam (??T1, T2, T3, T4, T6, T7, T8, T9), were debrided by the phisician of record to reduce/remove overall nail length and girth, by manual and electrical means with use of a nail nipper and/or dremel, to more viable healthy nail plate or bed tissue - G0127, Q8.? * Procedure Codes:?G0127 ADALBERTO ING DYSTROPHIC NAILS ANY #, Modifiers: XS , [id number] DEBRIDE NAIL, 1-5, Modifiers: XS 38627 TRIM SKIN LESIONS, OVER 4, Modifiers: XS , Q8 * Preventive Medicine:? ??Counseling:?Tobacco use:?Type of Tobacco Use Cessation Counseling provided?Smoking effects education ?Patient counseled on the dangers of smoking and urged to quit:?12/05/2024 ?Discussion:?-14: Office or other outpatient visit for the evaluation and management of an established patient, which required a medically appropriate history and/or examination and MODERATE level of DECISION MAKING for: 1 OR MORE CHRONIC PROBLEM(S) THATS WORSENING, 2 STABLE CHRONIC PROBLEMS, A NEWLY DIAGNOSED PROBLEM WITH UNCERTAIN PROGNOSIS, AN ACUTE COMPLICATED INJURY WITH MULTIPLE TREATMENT OPTIONS, OR AN ACUTE PROBLEM WITH ACCOMPANYING SYSTEMIC SYMPTOMS, THAT POSE(S) A MODERATE RISK OF MORBIDITY. THIS CONDITION MAY ALSO INCLUDE RX DRUG MANAGEMENT, OR A DECISON FOR MINOR SURGERY. The visit on the day of the encounter encompassed interpreting the data and educating the patient as to the nature of their condition, treatment options available according to their individual PMH, meds, allergies, and overall health/living conditions, as well as any potential risks or complications that may occur from a failure to adhere to, and participate in, the recommended course of therapy. The discussion included a complete verbal, and/or written explanation of the examination results, any x-rays taken, the proposed diagnosis, and outline of the treatment plan. A schedule for future care needs was also explained. The patient verbalized an understanding of the instructions at this time and agreed to be an active participant in their treatment. If the patient should think of any questions or concerns after the visit, I have encouraged the patient to call the office.?Digital Surgery:?Digital surgery was discussed with the patient, We elected to try conservative treatment at the present time, due to the patients medical history and increased asssociated post-operative risks.?Digital Treatment:?HT- I explained to the patient the possible etiologies of Hammertoes, including genetics/foot type/shoegear/activity level/exercise routine and the risks/benefits of all the different treatment options for their pain including: No treatment at all, Rest, Ice, New/supportive/wider/deeper Shoegear, Digital Padding/Strapping/Taping/Bracing/Gel protective sleeves, Foot/Ankle AFO Bracing, Stretching exercises, Deep Tissue Massage, Arch support/shoe inserts with splay metatarsal padding, and Custom orthoses. I insisted that any digital devices be removed daily and not worn overnight for safety. The patient is to carefully examine the toes daily for any skin irritation while using any splinting or padding device. The advantages and disadvantages of each option were discussed and the patients questions re: shoegear, padding, custom vs prefabricated inserts, activity level, and consistency in home treatment regimens for optimal success were answered to their verbally confirmed satisfaction.?Shoe Gear Counseling:?SHOE Rx - The patient was counseled in great detail on their muscoloskeletal foot and toe deformities which coincided with the dermatological presentations visualized on exam. We discussed how their deformities put the integrity of their feet at risk for potential pedal complications which makes the accomidative diabetic shoes and cutomizable inserts medically necessary. We discussed the different shoe and insert treatment types and options, as well as the important advantages for adhering to regularly wearing these accomidative devices daily. The patient was made aware of the fact that a failure to abide by these recommedations may be deleterious to their foot health as they are able to prevent many pedal complications such as skin irritation, skin ulceration, infection, and even loss of toe/foot/leg/or life. Time was also spent with the patient dispensing and discussing proper diabetic footcare techniques including daily skin moisturization, daily foot inspection for any interruption in skin integrity including open lesions, or sign of infection such as redness/malodor/drainage/swelling. Also discussed and recommended were procedures regarding daily shoe inspection for the presence of internal foreign bodies as well as any visualized irregular shoe or insert wear. Patient questions re: shoes, inserts, and self foot inspections were answered to their satisfaction as the patient verbally confirmed a full understanding of the above information, Patient defers recommended Orthopedic shoes.? ??Screening/Special Tests:?Fall Risk?Screening:?No falls in the past year ?FALLS: Screening for Future Fall Risk?Have you had any falls with injury in the past year??No * Follow Up:?prn * Images: * Sign off status: Completed true * Provider:?Santy Erickson DPM Date:?2024 Generated for Janie licea/Paul/Terry on:?12/19/2024 03:07 PM EST History and Physical Notes * HPI (History of Present Illness) Category Sub-Category Detail Notes Category Not es Toe pain Location: B/L feet Duration: several years Course: worse Aggravated by: shoes, any pressure Treatments: change in shoes At Risk footcare Pt States Last PCP Visit: Date: 4 Examination Category Sub-Category Detail Notes Category Not es Neurological SENSORY: Neurological exa m reveals intact sensorium, pain sensation normal, vibration sensation intact, pinprick sensation is normal in the lower extremities, Pt denies, anesthesia, burning, paresthesia, tingling, B/L Dermatologic SKIN FINDINGS: Skin exam reveal s Keratotic lesion(s) located at , SUB MTH (s), 1, B/L, SUB MTH (s) , 5 , B/L , Plantar, Heel(s) , B/L Orthopedic FOOT MORPHOLOGY: (-) Charcot col lapse/destruction noted at NEJ FOOTWEAR: worn, non-supportive , shoe gear properties exacerbate patient's foot/toe deformity , shoe gear properties exacerbate patients foot/toe deformity DIGITAL DEFORMITIES: Digital contracture , PIPJ, 2-5 B/L, incompl-reducible to push-up test, no over, nor underlapping, with evidence of shoe producing skin irritation MUSCLE STRENGTH: 5/5 all groups in a symmetrical fashion, B/L General Examination GENERAL APPEARANCE: Reveals a pleasant, alert, well nourished, well-developed, well hydrated individual, who demonstrates proper attention to hygiene/body habitus, and is in no acute distress, Pt serves as own historian for office visit today FOOT EXAM: Lower Extremity Neurological Exa m performed:: Yes Visual exam of foot performed:: Yes Date: 12/05/2024 ORIENTED: person, place, and t karissa Footwear Evaluation Footwear Evaluation performe d:: Yes Ophthalmology Referral DIABETES EYE EXAM Procedure Perform ed:: Yes ?Date of Exam Performed: 04/12/2024 Diabetic Retinopathy Screening:: Yes Findings of Diabetic Eye Exam:: no retin opathy Vascular DP PULSES (B): 0/4, B/L PT PULSES (B): 0/4, B/L CAPILLARY FILL TIME: delayed, all digits , B/L TEMPERTURE GRADIENT (C): decreased, cool to cool, proximal to distal, B/L TROPHIC CONDITION-TEXTURE/ELASTICITY/TURGOR/HAIR GROWTH (B): decreased, fragile, thin, shiny skin, wi th sparse to absent hair growth, B/L EDEMA (C): 2/4 , pitting , with out aching pain , Leg(s) , Ankle(s) , Foot , B/L CLAUDICATION (C): denies, B/L REST PAIN: denies, B/L PIGMENTATION: rubrous, B/L Nails NAILS are: Elongated, overg rown, dystrophic, lytic, greater than 3mm thick, discolored and friable with crumbly malodorous subungual debris, with pain on palpation , TA , T5 , all other nails not described with characteristics as possessing mycosis are elongated, overgrown, and dystrophic ( T1, T2, T3, T4, T6, T7, T8, T9 )
--- OUTSIDE RECORDS SUMMARY | 2024-12-19 15:08 | XMS_ITS ---
Author Organization [facility] [place] Address [address] [place] [address] Care Team Providers Care Digital Marketing Project Manager Name Role Phone Sena, Kartik Primary Care Provider Santy Erickson Unavailable [phone] Allergies No Known Allergies REASON FOR VISIT [...] Ordered Date Performed Result Body Sit e 49420-ZNDWOWL NAIL, 1-5 09/01/2024 N/A 26069-HZGT SKIN LESIONS, OVER 4 09/01/2024 N/A P5333-DCTNPZYC DYSTROPHIC NAILS ANY # 09/01/2024 N/A Encounters Encounter Location Date Provider Diagnosis [facility] [place] [address] [place] [address] 09/01/2024 Santy Erickson Type 2 diabetes mellitus [...] Treatment Pending Test Test Name Order Date 66450-IQOMRZA NAIL, 1-5 09/01/2024 15073-ROUB SKIN LESIONS, OVER 4 09/01/20 24 K8451-TEABIDTI DYSTROPHIC NAILS ANY # Next Appt Details Follow Up: prn, Reason: Provider Name:Santy Erickson , 03/06/2025 11:00:00 AM, [address] [place], [address], Procedure Notes * Category Sub-Category Detail Notes Keratoma Treatment Parring or Cutting o f Benign Hyperkeratotic Lesion(s) (-57) More than 4 Lesions - The Benign hyperkeratotic lesions, as described above were pared, and/or cut utilizing a sterile 15 blade, tissue nippers, and/or dremel - 11692 , Q8 Debride Nails 1-5 Procedure: Performance of this nail treatment by a nonprofessional would put this patients foot and overall health at risk. Therefore, nail debridement was performed extensively to reduce/remove overall nail length, girth, thickness, subungual debris, and necrotic tissue, by manual and/or electrical means through the use of a nail nipper and/or dremel-type universal grinder tool, to a more viable healthy nail plate or bed tissue 1-5. Silver nitrate used for any petechial bleeding as necessary. Definitive antifungal treatment options have been reviewed and discussed with the patient. The patient chooses, no pharmaceutical tx - 90091 Nail Reduction Nail Reduction (-27) Trimming o f dystrophic nails performed to reduce/remove overall nail length and girth, by manual and electrical means with use of a nail nipper and/or dremel, to more viable healthy nail plate or bed tissue, any number - G0127 , Q8 Progress Notes * Gisel TAYLOR SDOB: [birth year] (74 yo F)Acc No.[id number]:09/01/2024 Progress Note Patient:?Gisel Taylor S Provider:?Santy Erickson DPM :1950???Age:74 Y???Sex:Female D ate:09/01/2024 Address:[address] [place], [place] [id number] Pcp:Yoshi Shetty Subjective: * Chief Complaints: * [...] History:? * Surgical History:?Gall bladd er removal [id number] * Hospitalization/Major Diagno stic Procedure:?covid 07/24/2024 * [...] mellitus with diabetic peripheral angiopathy without gangrene?Procedure: 14637-THWH SKIN LESIONS, OVER 4 ?Procedure: M7738-BNBLRWZM DYSTROPHIC NAILS ANY # * Procedures:?Debride Nails 1-5:?Procedure:?Performance of this nail treatment by a nonprofessional would put this patients foot and overall health at risk. Therefore, nail debridement was performed extensively to reduce/remove overall nail length, girth, thickness, subungual debris, and necrotic tissue, by manual and/or electrical means through the use of a nail nipper and/or dremel-type universal grinder tool, to a more viable healthy nail plate or bed tissue 1-5. Silver nitrate used for any petechial bleeding as necessary. Definitive antifungal treatment options have been reviewed and discussed with the patient. The patient chooses, no pharmaceutical tx - 47517.?Keratoma Treatment:?Parring or Cutting of Benign Hyperkeratotic Lesion(s)?(-57) More than 4 Lesions - The Benign hyperkeratotic lesions, as described above were pared, and/or cut utilizing a sterile 15 blade, tissue nippers, and/or dremel - 03153 , Q8.?Nail Reduction:?Nail Reduction?(-27) Trimming of dystrophic nails performed to reduce/remove overall nail length and girth, by manual and electrical means with use of a nail nipper and/or dremel, to more viable healthy nail plate or bed tissue, any number - G0127 , Q8.? * Procedure Codes:?G0127 ADALBERTO ING DYSTROPHIC NAILS ANY #, Modifiers: XS , [id number] DEBRIDE NAIL, 1-5, Modifiers: XS 32883 TRIM SKIN LESIONS, OVER 4, Modifiers: XS , Q8 * Follow Up:?prn * Images: * Sign off status: Completed true * Provider:?Santy Erickson DPM Date:?2023 Generated for Janie licea/Paul/Terry on:?12/19/2024 03:07 PM [...] B/L , Heel(s) , B/L Vascular DP PULSES (B): 0/4, B/L PT [...]
--- OUTSIDE RECORDS SUMMARY | 2024-12-19 15:08 | XMS_ITS ---
Author Organization [facility] Address [address] [place] [address] Care Team Providers Care Turbo Generator Oiler Name Role Phone Yoshi Shetty Primary Care Provider Santy Erickson [phone] Encounters Encounter Location Date Provider Diagnosis [address] [address] 07/25/2024 Santy Erickson Plan Of Treatment Next Appt Details Provider Name:Santy Erickson , 03/06/2025 11:00:00 AM, [address] [place] [address], [address], Progress Notes * BRANDONGisel SDOB: [birth year] (74 yo F)Acc No.[id number]:07/25/2024 Progress Note Patient:?BRANDONGisel Provider:?Santy Erickson DPM :1950???Age:74 Y???Sex:Female D ate:07/25/2024 Address:[address] [place] [address] [facility] Pcp:Yoshi Shetty Subjective: * Chief Complaints: * [...]
--- OUTSIDE RECORDS SUMMARY | 2024-12-19 15:08 | XMS_ITS | Patient Health Record ---
Author Organization [facility] anuel [place] Address [address] [place] [address] Care Team Providers Care Peripheral Edp Equipment Operator Name Role Phone Sena Yoshi Primary Care Provider Santy Erickson Unavailable [phone] Allergies No Known Allergies Results Component Value Reference Range Notes HEMOGLOBIN A1C (GLYCOHEMOGLO BIN) Reviewed date:02/22/2024 01:18:47 [...] ast year? No Points 0 Interpretation Negative Problems Problem Type SNOMED Code ICD Code Onset Dates Problem Status W/U Status Risk Notes Problem Acquired hammer toe of right foot (8181478362182 105) Other hammer toe(s) (acquired), right foot (M20.41) Active confirmed Response to treatment,I mprovement Problem Acquired hammer toe of left foot (5113688636512 103) Other hammer toe(s) (acquired), left foot (M20.42) Active confirmed Response to treatment,I mprovement Problem Type 2 diabetes mellitus with peripheral angiopathy (708997243) Type 2 diabetes mellitus with diabetic peripheral angiopathy without gangrene (E11.51) Active confirmed Vital Signs Blood pressure diastolic 70 mm Hg 12/05/2024 Height 5ft 2in in 12/05/2024 Blood pressure systolic 120 mm Hg 12/05/2024 Weight 112 lbs 12/05/2024 BMI 20.48 kg/m2 12/05/2024 Procedures Procedure Date Ordered Date Performed Result Body Sit e 31195-OEQNGYL NAIL, 1-5 02/22/2024 N/A 71990-FXXD SKIN LESIONS, OVER 4 02/22/2024 N/A Q6145-BOEYWLQW DYSTROPHIC NAILS ANY # 02/22/2024 N/A 32477-KLOCCFV NAIL, 1-5 05/02/2024 N/A 29632-BFRX SKIN LESIONS, OVER 4 05/02/2024 N/A C8128-LXQDGUTQ DYSTROPHIC NAILS ANY # 05/02/2024 N/A 44289-LEQDAVK NAIL, 1-5 09/01/2024 N/A 77814-BOQQ SKIN LESIONS, OVER 4 09/01/2024 N/A I1003-JDVYJFIS DYSTROPHIC NAILS ANY # 09/01/2024 N/A 97970-TKVVTYH NAIL, 1-5 12/05/2024 N/A 41199-IGQM SKIN LESIONS, OVER 4 12/05/2024 N/A Y6949-SLDNNAVI DYSTROPHIC NAILS ANY # 12/05/2024 N/A Encounters Encounter Location Date Provider Diagnosis [facility] [address] [address] 02/22/2024 Santy Dre Type 2 diabetes mellitus with diabetic peripheral angiopathy without gangrene E11.51 ; Tinea unguium B35.1 ; Pain in right toe(s) M79.674 ; Pain in left toe(s) M79.675 ; Other hammer toe(s) (acquired), right foot M20.41 and Other hammer toe(s) (acquired), left foot M20.[address] [address] 05/02/2024 Santysandra ZunigaDre Type 2 diabetes mellitus with diabetic peripheral angiopathy without gangrene E11.51 ; Tinea unguium B35.1 ; Pain in right toe(s) M79.674 and Pain in left toe(s) M79.[address] [address] 09/01/2024 Santy Erickson Type 2 diabetes mellitus with diabetic peripheral angiopathy without gangrene E11.51 ; Tinea unguium B35.1 ; Pain in right toe(s) M79.674 and Pain in left toe(s) M79.[address] [address] 12/05/2024 Santysandra ZunigaDre Type 2 diabetes mellitus with diabetic peripheral angiopathy without gangrene E11.51 ; Other hammer toe(s) (acquired), right foot M20.41 ; Tinea unguium B35.1 ; Pain in right toe(s) M79.674 ; Pain in left toe(s) M79.675 and Other hammer toe(s) (acquired), left foot M20.[address] [address] 07/24/2024 Santysandra ZunigaDre Assessments Encounter Date Diagnosis (ICD Code) Assessment Notes Treatment Notes Treatment Clinical Notes Section Notes 02/22/2024 Tinea unguium (ICD-10 - B35.1) 02/22/2024 [...] (acquired), right foot (ICD-10 - M20.41) 12/05/2024 Type 2 diabetes mellitus with diabetic peripheral angiopathy without gangrene (ICD-10 - E11.51) 12/05/2024 Tinea unguium (ICD-10 - B35.1) 05/02/2024 Pain in right toe(s) (ICD-10 - M79.674) 09/01/2024 Pain in right toe(s) (ICD-10 - M79.674) 02/22/2024 Pain in right toe(s) (ICD-10 - M79.674) 05/02/2024 Pain in left toe(s) (ICD-10 - M79.675) 09/01/2024 Pain in left toe(s) (ICD-10 - M79.675) 02/22/2024 Pain in left toe(s) (ICD-10 - M79.675) 12/05/2024 Pain in right toe(s) (ICD-10 - M79.674) 12/05/2024 Pain in left toe(s) (ICD-10 - M79.675) 02/22/2024 Other hammer toe(s) (acquired), right foot (ICD-10 - M20.41) Response to treatment,Impro vement 02/22/2024 Other hammer toe(s) (acquired), left foot (ICD-10 - M20.42) Response to treatment,Impro vement 12/05/2024 Other hammer toe(s) (acquired), left foot (ICD-10 - M20.42) Plan Of Treatment Pending Test Test Name Order Date 17275-IDALNJG NAIL, 1-5 12/07/2023 76093-GQHPLEJ NAIL, 1-5 02/22/2024 69339-IXPZGCX NAIL, 1-5 05/02/2024 63758-FSEBFCY NAIL, 1-5 09/01/2024 43518-VJEWYLE NAIL, 1-12/05/2024 83424-JVID SKIN LESIONS, OVER 4 12/05/19 25 68396-XAWT SKIN LESIONS, OVER 4 09/01/20 35389-GQPR SKIN LESIONS, OVER 4 05/02/20 45115-SZQP SKIN LESIONS, OVER 4 12/07/19 24 41056-TCUW SKIN LESIONS, OVER 4 02/22/20 24 E1224-LWUMBENG DYSTROPHIC NAILS ANY # U8176-KJPFHQUB DYSTROPHIC NAILS ANY # N6081-SXSUDUAA DYSTROPHIC NAILS ANY # P1624-XNLDVQEB DYSTROPHIC NAILS ANY # J3765-QDJUQMUP DYSTROPHIC NAILS ANY # Next Appt Details Provider Name:Santy Erickson , 03/06/2025 11:00:00 AM, [address] [place], [address], Insurance Providers Payer Name Payer Address Payer Phone Subscriber Number Group Number Insured Name Patient Relationship to Insured Coverage Start Date Coverage End Date [employer] [address] [place] [address] [id number] Gisel Taylor Self - patient is the insured Medical (General) History Medical History History ICD Code type II diabetes Heart disease High blood pressure Poor circulation sinusitis Measles Mumps Chicken pox COPD Surgical History Surgery Date(Month/Year) Gall bladder removal 08-25-2018 Hernia Hospitalization History Reason Date(Month/Year) covid 07/24/2024
== END 2024-12-19 14:06 | disposition home or self-care (01) ==
PROVIDERS: PCP Internal Medicine; Visit Provider Internal Medicine
DX: J44.9 Chronic obstructive pulmonary disease, unspecified (principal); J30.9 Allergic rhinitis, unspecified; F17.200 Nicotine dependence, unspecified, uncomplicated; J96.91 Respiratory failure, unspecified with hypoxia
CPT/HCPCS: 99213

== ENCOUNTER → 2024-12-19 13:22 | Outpatient (BNVA) | payer MEDICARE, SELFPAY | PROVIDERS: PCP Internal Medicine; Visit Provider Internal Medicine | DX: J44.9 Chronic obstructive pulmonary disease, unspecified (principal); J30.9 Allergic rhinitis, unspecified; J96.91 Respiratory failure, unspecified with hypoxia; F17.210 Nicotine dependence, cigarettes, uncomplicated; Z79.899 Other long term (current) drug therapy | CPT/HCPCS: 99212 ==

== ENCOUNTER 2025-02-22 10:14 | Outpatient (AMB) | payer MEDICARE, SELFPAY ==
--- NOTE | 2025-02-22 11:13 | MHC.PC.OV ---
Vital Signs 02/22/25 11:15 Height 5 ft 3 in Weight 113 lb 2 oz BMI 20.0 BP 140/84 H Blood Pressure Location Lt brachial Position Sitting Pulse 86 Pulse Source Pulse Oximeter Temp 97.3 F Temp Source Temporal Artery Scan Pulse Oximetry (%) 95 Oxygen Delivery Method Room Air Intake Visit Reasons: 3mth f/u - see comments Intake Note: Patient is here to follow up on DM, CHF, COPD. Acetone Button Paster Required: No Entry Level Recruiter: Not Required per policy Accompanied by: Self / Same As Patient Allergies No Known Allergies Allergy (Verified 02/22/25 11:15) Tobacco use date assessed: 02/22/25 Fall risk assessment: No Falls in past year Last assessed Fall Risk: 02/22/25 Dental Screening Dental Screen Date: 02/22/25 Did you have a dental visit in the last 12 months?: Yes Did you have a dental problem in the last 6 months where you did not have access to dental care?: No Was dental information given to patient?: Patient has dentist HPI 3mth f/u - see comments HPI Details Presents to the office to discuss her chronic medical conditions. Stopped taking the trulicity. Compliant with other meds. [facility] Medical History (Updated 01/16/25 @ 10:51 by Johanna Weber PA-C) Nicotine dependence, cigarettes, uncomplicated Respiratory failure with hypoxia Post covid-19 condition, unspecified Tobacco use disorder Allergic rhinitis Osteoporosis (~2013) Congestive heart failure Chronic obstructive pulmonary disease, unspecified GERD (gastroesophageal reflux disease) Familial hypercholesterolemia Type 2 diabetes mellitus without complications Surgical History History of myringotomy (~2006) History of nasal surgery (~1989) History of ERCP (~2017) History of femoral hernia repair (~2008) History of cholecystectomy (~2017) History of eye surgery (~2019) Family History Father No problems noted. Mother No problems noted. Social History Household Members: Spouse Housing: House Do you presently have visiting nurse or other home services: No Alcohol intake: never Patient Tobacco Use Status: Current someday Tobacco user Tobacco use type: Cigarette Cigarette Packs Per Day: 0.25 Cigarettes Per Day: 1 (three a week) Years Smoked: 40 years e-Cigarette/Vaping Use: Never Used Second Hand Smoke Exposure: Yes service: No Current occupational status: retired Cognitive needs: No Hearing needs: No Vision needs: Yes (Glasses) Questionnaire PHQ-9 Over the last 2 weeks, how often have you been bothered by any of the following problems? 1. Little interest or pleasure in doing things: not at all 2. Feeling down, depressed, or hopeless: not at all 3. Trouble falling or staying asleep, or sleeping too much: not at all 4. Feeling tired or having little energy: not at all 5. Poor appetite or overeating: not at all 6. Feeling bad about yourself - or that you are a failure or have let yourself or your family down: not at all 7. Trouble concentrating on things, such as reading the newspaper or watching television: not at all 8. Moving or speaking so slowly that other people could have noticed. Or the opposite - being so fidgety or restless that you have been moving around a lot more than usual: not at all 9. Thoughts that you would be better off or of hurting yourself in some way: not at all Total score: 0 Depression Screening Interpretation: Negative Depression Screening Done: Yes Source: Developed by Drs. Maxx Owens, Gisel Pina, Juvenal Stoner and colleagues, with an educational saritha from [employer]. Thrive Questionnaire Date Thrive assessed: 02/22/25 I am a: Patient What is your living situation today?: I have a steady place to live Within the past 12 months, did the food you bought not last and you didn't have the money to get more?: Never true Within the past 12 months, did you worry whether your food would run out before you got money to buy more?: Never true Do you have trouble paying for medicines?: No Do you have trouble getting transportation to medical appointments?: No Do you have trouble paying your heating and electricity bill?: No Do you have trouble taking care of your child, family member or friend?: No Do you have trouble with day-to-day activities such as bathing, preparing meals, shopping, managing finances, etc.?: No Are you currently unemployed and looking for a job?: No Are you interested in more education?: No Please select the resources that you would like help with: None Currently or been in a relationship where the following occur: No concerns reported THRIVE Score: 0 AUDIT C Alcohol Use Questionnaire (AUDIT-C) 1. How often do you have a drink containing alcohol?: Never Total Score: 0 WESLEY-7 AMB Questionnaire WESLEY-7 Date WESLEY - 7 assessed: 02/22/25 Feeling nervous, anxious, or on edge: 0 = Not at all Not being able to stop or control worryin = Not at all Worrying too much about different things: 0 = Not at all Trouble relaxin = Not at all Being so restless that it is hard to sit still: 0 = Not at all Becoming easily annoyed or irritable: 0 = Not at all Feeling afraid as if something awful might happen: 0 = Not at all Total WESLEY-7 score (0-4 normal; 5-9 mild; 10-14 moderate; 15-21 severe): 0 Source: Developed by Drs. Maxx Owens, Gisel Pina, Juvenal Stoner and colleagues, with an educational saritha from [employer]. Physical exam (Primary Care) Vital Signs: Last Vital Signs Temp 97.3 F 02/22/25 11:15 Pulse 86 02/22/25 11:15 BP 140/84 H 02/22/25 11:15 Pulse Ox 95 02/22/25 11:15 Oxygen Delivery Method Room Air 02/22/25 11:15 Care Plan Goal for BP management: BP in range BMI result Body Mass Index 20.0 Tobacco/Smoking Status: Tobacco use Status Tobacco use date assessed 02/22/25 02/22/25 11:21 Patient Tobacco Use Status Current someday Tobacco 02/22/25 11:21 Tobacco use type Cigarette 02/22/25 11:21 e-Cigarette/Vaping Use Never Used 02/22/25 11:21 Are you ready to quit: No Tobacco cessation counseling provided: No PHQ-9: PHQ-9 Score PHQ-9: Total score 0 02/22/25 11:21 Depression Screening Interpretation: Negative Thrive Assessment: Date of Thrive Assessment Date Thrive assessed 02/22/25 02/22/25 11:21 Currently or been in a relationship where the following occur: No concerns reported Advance Care Planning discussion: Exists, not on file Date of discussion: 02/22/25 Who was present: Patient Forms completed: MOLST Actual minutes spent: 5 Const General: cooperative and healthy appearing Nutritional Appearance: well nourished Orientation/consciousness: patient oriented x3 Limitations: no limitations HENMT Head: Yes normal to inspection Eyes General: appearance normal, both eyes and all related structures Neck Neck: Yes normal visual inspection Chest Chest palpation & inspection: normal palpation of entire chest wall Resp Effort & Inspection: normal respiratory effort Neuro General: patient oriented x3 Results AMB Hemoglobin A1c AMB Hemoglobin A1c 7.8 % Last Edit by LAWSON Caputo on 02/22/25 11:50 Results Reviewed Results Reviewed: Laboratory Last Values Hgb A1c (Clinic) 7.8 % (4.0-6.0) H 02/22/25 11:12 Coding Level of Care Code Est Pt Level 3 (48919) Complex EM visit Add On G2211 Diagnoses Type 2 diabetes mellitus without complication, without long-term current use of insulin E11.9 Diabetes mellitus snf insulin use: without snf use Additional Codes Vital Signs *Quality* - Advance Care Planning discussion: Exists, not on file ([id number]) Assessment & Plan Assessment & Plan (1) Type 2 diabetes mellitus without complications: Code(s): E11.9 - Type 2 diabetes mellitus without complications Category: Medical Qualifiers: Diabetes mellitus snf insulin use: without termite control servicer use Qualified Code(s): E11.9 - Type 2 diabetes mellitus without complications Plan: Encouraged her to be compliant with medications Orders: Orders Complete Blood Count no Diff Today E11.9 - Type 2 diabetes mellitus without complications Lipid Panel Today E11.9 - Type 2 diabetes mellitus without complications UA and rflx microscopic Today E11.9 - Type 2 diabetes mellitus without complications AMB Hemoglobin A1c 02/22/25 E11.9 - Type 2 diabetes mellitus without complications Basic Metabolic Panel Today E11.9 - Type 2 diabetes mellitus without complications Liver Panel Today E11.9 - Type 2 diabetes mellitus without complications Thyroid Stimulating Hormone Today E11.9 - Type 2 diabetes mellitus without complications Microalbumin, Random (w Creat) Today E11.9 - Type 2 diabetes mellitus without complications Medications: Changed From dulaglutide (Trulicity) 0.75 mg (0.5 mL) subcut QWEEK 2 mL 1RF To dulaglutide (Trulicity) 0.75 mg (0.5 mL) subcut QWEEK 6.5 mL 1RF 90 days
[2025-02-22 11:15] VITALS: BP 140/84; PULSE 86; TEMP 36.3; O2SAT 95
--- OUTSIDE RECORDS SUMMARY | 2025-02-22 13:15 | XMS_ITS ---
Author Organization [facility] [place] Address [address] [place] [address] Care Team Providers Care Residential Specialist Name Role Phone Sena, Kartik Primary Care Provider Santy Erickson Unavailable [phone] Allergies No Known Allergies REASON FOR VISIT [...] Ordered Date Performed Result Body Sit e 43047-SKPEYBI NAIL, 1-5 09/01/2024 N/A 62698-EZND SKIN LESIONS, OVER 4 09/01/2024 N/A H6848-WGLPGKDG DYSTROPHIC NAILS ANY # 09/01/2024 N/A Encounters Encounter Location Date Provider Diagnosis [facility] [place] [address] [place] [address] 09/01/2024 Santy Erickson Type 2 diabetes mellitus [...] Treatment Pending Test Test Name Order Date 94487-SGCNMBN NAIL, 1-5 09/01/2024 16099-NKVT SKIN LESIONS, OVER 4 09/01/20 24 Z0838-QCBZGTNW DYSTROPHIC NAILS ANY # Next Appt Details Follow Up: prn, Reason: Provider Name:Santy Erickson , 03/06/2025 11:00:00 AM, [address] [place], [address], Procedure Notes * Category Sub-Category Detail Notes Keratoma Treatment Parring or Cutting o f Benign Hyperkeratotic Lesion(s) (-57) More than 4 Lesions - The Benign hyperkeratotic lesions, as described above were pared, and/or cut utilizing a sterile 15 blade, tissue nippers, and/or dremel - 95308 , Q8 Debride Nails 1-5 Procedure: Performance of this nail treatment by a nonprofessional would put this patients foot and overall health at risk. Therefore, nail debridement was performed extensively to reduce/remove overall nail length, girth, thickness, subungual debris, and necrotic tissue, by manual and/or electrical means through the use of a nail nipper and/or dremel-type surface grinder, to a more viable healthy nail plate or bed tissue 1-5. Silver nitrate used for any petechial bleeding as necessary. Definitive antifungal treatment options have been reviewed and discussed with the patient. The patient chooses, no pharmaceutical tx - 89252 Nail Reduction Nail Reduction (-27) Trimming o f dystrophic nails performed to reduce/remove overall nail length and girth, by manual and electrical means with use of a nail nipper and/or dremel, to more viable healthy nail plate or bed tissue, any number - G0127 , Q8 Progress Notes * Gisel TAYLOR SDOB: [birth year] (74 yo F)Acc No.[id number]:09/01/2024 Progress Note Patient:?Gisel Taylor S Provider:?Santy Erickson DPM :1950???Age:74 Y???Sex:Female D ate:09/01/2024 Address:[address] [place], [place] [address] Pcp:Yoshi Shetty Subjective: * Chief Complaints: * [...] History:? * Surgical History:?Gall bladd er removal 4-26-2046Xyxciw * Hospitalization/Major Diagno stic Procedure:?covid 07/24/2024 * [...] mellitus with diabetic peripheral angiopathy without gangrene?Procedure: 17339-ELTE SKIN LESIONS, OVER 4 ?Procedure: M3633-KZGJHPFE DYSTROPHIC NAILS ANY # * Procedures:?Debride Nails 1-5:?Procedure:?Performance of this nail treatment by a nonprofessional would put this patients foot and overall health at risk. Therefore, nail debridement was performed extensively to reduce/remove overall nail length, girth, thickness, subungual debris, and necrotic tissue, by manual and/or electrical means through the use of a nail nipper and/or dremel-type surface grinder, to a more viable healthy nail plate or bed tissue 1-5. Silver nitrate used for any petechial bleeding as necessary. Definitive antifungal treatment options have been reviewed and discussed with the patient. The patient chooses, no pharmaceutical tx - 56582.?Keratoma Treatment:?Parring or Cutting of Benign Hyperkeratotic Lesion(s)?(-57) More than 4 Lesions - The Benign hyperkeratotic lesions, as described above were pared, and/or cut utilizing a sterile 15 blade, tissue nippers, and/or dremel - 08943 , Q8.?Nail Reduction:?Nail Reduction?(-27) Trimming of dystrophic nails performed to reduce/remove overall nail length and girth, by manual and electrical means with use of a nail nipper and/or dremel, to more viable healthy nail plate or bed tissue, any number - G0127 , Q8.? * Procedure Codes:?G0127 ADALBERTO ING DYSTROPHIC NAILS ANY #, Modifiers: XS , [id number] DEBRIDE NAIL, 1-5, Modifiers: XS 38759 TRIM SKIN LESIONS, OVER 4, Modifiers: XS , Q8 * Follow Up:?prn * Images: * Sign off status: Completed true * Provider:?Santy Erickson DPM Date:?2023 Generated for Janie licea/Paul/Terry on:?02/22/2025 01:15 PM EDT History and Physical Notes * HPI (History [...]
--- OUTSIDE RECORDS SUMMARY | 2025-02-22 13:15 | XMS_ITS ---
Author Organization [facility] Address [address] [place] [address] Care Team Providers Care Engineer Of System Development Name Role Phone Yoshi Shetty Primary Care Provider Santy Erickson [phone] Encounters Encounter Location Date Provider Diagnosis [address] [address] 07/25/2024 Santy Erickson Plan Of Treatment Next Appt Details Provider Name:Santy Erickson , 03/06/2025 11:00:00 AM, [address] [place] [address], [address], Progress Notes * BRANDONGisel SDOB: [birth year] (74 yo F)Acc No.[id number]:07/25/2024 Progress Note Patient:?BRANDONGisel Provider:?Santy Erickson DPM :1950???Age:74 Y???Sex:Female D ate:07/25/2024 Address:[address] [place] [address] [facility] Pcp:Yoshi Shetty Subjective: * Chief Complaints: * [...]
--- OUTSIDE RECORDS SUMMARY | 2025-02-22 13:15 | XMS_ITS | Patient Health Record ---
Author Organization [facility] [place] Address [address] [place] [address] Care Team Providers Care Drafter Structural Name Role Phone Sena, Kartik Primary Care Provider Santy Erickson Unavailable [phone] Allergies No Known Allergies Reason For Referral No Information Medications Medication [...] Problem Acquired hammer toe of right foot (7160251602651 105) Other hammer toe(s) (acquired), right foot (M20.41) Active confirmed Response to treatment,I mprovement Problem Acquired hammer toe of left foot (9157448777857 103) Other hammer toe(s) (acquired), left foot (M20.42) Active confirmed Response to treatment,I mprovement Problem Type 2 diabetes mellitus with peripheral angiopathy (771861815) Type 2 diabetes mellitus with diabetic peripheral angiopathy without gangrene (E11.51) Active confirmed Vital Signs Blood pressure diastolic 70 mm Hg 12/05/2024 Height 5ft 2in in 12/05/2024 Blood pressure systolic 120 mm Hg 12/05/2024 Weight 112 lbs 12/05/2024 BMI 20.48 kg/m2 12/05/2024 Procedures Procedure Date Ordered Date Performed Result Body Sit e 09797-BLRULAI NAIL, 1-5 05/02/2024 N/A 67117-FEFL SKIN LESIONS, OVER 4 05/02/2024 N/A Z1903-FZMZOPCT DYSTROPHIC NAILS ANY # 05/02/2024 N/A 20898-FYYRVJA NAIL, 1-5 09/01/2024 N/A 15690-ZAQR SKIN LESIONS, OVER 4 09/01/2024 N/A R2091-QLUVUCFM DYSTROPHIC NAILS ANY # 09/01/2024 N/A 80415-MZQFOAY NAIL, 1-5 12/05/2024 N/A 69985-GUYT SKIN LESIONS, OVER 4 12/05/2024 N/A N3076-SHOBQXQL DYSTROPHIC NAILS ANY # 12/05/2024 N/A Encounters Encounter Location Date Provider Diagnosis [facility] [address] 05/02/2024 Santy Erickson Type 2 diabetes mellitus with diabetic peripheral angiopathy without gangrene E11.51 ; Tinea unguium B35.1 ; Pain in right toe(s) M79.674 and Pain in left toe(s) M79.[address] [facility] [address] 09/01/2024 Santy Erickson Type 2 diabetes mellitus with diabetic peripheral angiopathy without gangrene E11.51 ; Tinea unguium B35.1 ; Pain in right toe(s) M79.674 and Pain in left toe(s) M79.[address] [facility] [address] 12/05/2024 Santy Erickson Type 2 diabetes mellitus with diabetic peripheral angiopathy without gangrene E11.51 ; Other hammer toe(s) (acquired), right foot M20.41 ; Tinea unguium B35.1 ; Pain in right toe(s) M79.674 ; Pain in left toe(s) M79.675 and Other hammer toe(s) (acquired), left foot M20.42 [facility] [address] 07/24/2024 Santy Erickson Assessments Encounter Date Diagnosis (ICD Code) Assessment Notes Treatment Notes Treatment Clinical Notes Section Notes 05/02/2024 Tinea unguium (ICD-10 - B35.1) 05/02/2024 [...] Treatment Pending Test Test Name Order Date 92255-BQICRON NAIL, -12/07/2023 71955-VCWZSXP NAIL, -02/22/2024 22318-KHMFSGF NAIL, -05/02/2024 22244-UQLGKTC NAIL, -09/01/2024 18475-QOYXSWA NAIL, -12/05/2024 89902-AIMH SKIN LESIONS, OVER 4 12/05/19 25 09663-QJEI SKIN LESIONS, OVER 4 09/01/20 24 24732-AYVR SKIN LESIONS, OVER 4 05/02/20 24 30252-MFLC SKIN LESIONS, OVER 4 12/07/19 24 03978-UHXE SKIN LESIONS, OVER 4 02/22/20 24 U4525-MWEKTPVZ DYSTROPHIC NAILS ANY # L6128-FAEZRJED DYSTROPHIC NAILS ANY # K1440-XSQCDWTX DYSTROPHIC NAILS ANY # T6544-NVWALRDC DYSTROPHIC NAILS ANY # T8654-PZQHIYLD DYSTROPHIC NAILS ANY # Next Appt Details Provider Name:Santy Erickson , 03/06/2025 11:00:00 AM, [address] [place], [address], Insurance Providers Payer Name Payer Address Payer Phone Subscriber Number Group Number Insured Name Patient Relationship to Insured Coverage Start Date Coverage End Date [employer] [place] [employer]vantage [facility] [address] [place] [address] [phone] [id number] Gisel Taylor Self - patient is the insured Medical (General) History Medical History History ICD Code type II diabetes Heart disease High blood pressure Poor circulation sinusitis Measles Mumps Chicken pox COPD Surgical History Surgery Date(Month/Year) Gall bladder removal 08-25-2018 Hernia Hospitalization History Reason Date(Month/Year) covid 07/24/2024
--- OUTSIDE RECORDS SUMMARY | 2025-02-22 13:15 | XMS_ITS ---
Author Organization [facility] [place] Address [address] [place] [address] Care Team Providers Care Manager Management Name Role Phone Sena, Kartik Primary Care Provider Santy Erickson Unavailable [phone] Allergies No Known Allergies REASON FOR VISIT [...] Ordered Date Performed Result Body Sit e 22534-MFYAXXY NAIL, 1-12/05/2024 N/A 25221-OWLX SKIN LESIONS, OVER 4 12/05/2024 N/A C7832-HGNDRUIL DYSTROPHIC NAILS ANY # 12/05/2024 N/A Encounters Encounter Location Date Provider Diagnosis [facility] [place] [address] [place] [address] 12/05/2024 Santy Erickson Type 2 diabetes mellitus [...] Treatment Pending Test Test Name Order Date 10273-WRZEZHC NAIL, 1-5 12/05/2024 45387-EANT SKIN LESIONS, OVER 4 12/05/19 25 R0671-IPSVMNQM DYSTROPHIC NAILS ANY # Next Appt Details Follow Up: prn, Reason: Provider Name:Santy Erickson , 03/06/2025 11:00:00 AM, [address] [place] [address], [address], Procedure Notes * Category Sub-Category Detail Notes [...] instrumentation by the physician of record - 03631, Q8 Debride Nails 1-5 Procedure: Due to [...] necessary to maintain effective symptomatic relief - 79841 Nail Reduction Nail Reduction (-27) Trimming o [...] Gisel TAYLOR SDOB: [birth year] (74 yo F)Acc No.[id number]:12/05/2024 Progress Note Patient:?Gisel TAYLOR Provider:?Santy Erickson DPM :1950???Age:74 Y???Sex:Female D ate:12/05/2024 Address:[address] [place], [place] [id number] Pcp:Yoshi Shetty Subjective: * Chief Complaints: * [...] History:? * Surgical History:?Gall bladd er removal 3-33-7731Ouxvmi * Hospitalization/Major Diagno stic Procedure:?covid 07/24/2024 * [...] 7.8 * Examination: ???Ophthalmology Referral: ?DIABETES EYE EXAM?Procedure Performed:?Yes ?Date of Exam Performed?04/12/2024 ?Diabetic Retinopathy Screening:?Yes ?Findings of Diabetic Eye Exam:?no retinopathy?Vascular: ?DP PULSES (B):? 0/4, B/L.?PT PULSES (B):? [...] for office visit today.?ORIENTED:?person, place, and time.?FOOT EXAM:?Lower Extremity Neurological Exam performed:?Yes ?Visual exam of foot performed:?Yes ?Date?12/05/2024 ?Footwear Evaluation?Footwear Evaluation performed:?Yes??? Assessment: * Assessment: 1.?Other hammer toe(s) (acqu ired), right foot - M20.41???Specify :Chronic problem, Worse (4),Rx Management (4)???2.?Type 2 diabetes mellitus with diabetic peripheral angiopathy without gangrene - E11.51 (Primary)???3.?Tinea unguium - B35.1???4.?Pain in right toe(s) - M79.674???5.?Pain in left toe(s) - M79.675???6.?Other hammer toe(s) (acquired), left foot - M20.42???Specify :Chronic problem, Worse (4),Rx Management (4)??? Plan: * Treatment: 2.?Tinea unguium?Procedure: 25775-RHXIWMM NAIL, 1-5 * Procedures:?Debride Nails 1-5:?Procedure:?Due to [...] necessary to maintain effective symptomatic relief - 81254.?Keratoma Treatment:?Parring or Cutting of Benign Hyperkeratotic Lesion(s)?(-57) [...] instrumentation by the physician of record - 63447, Q8.?Nail Reduction:?Nail Reduction?(-27) Trimming of all dystrophic [...] DYSTROPHIC NAILS ANY #, Modifiers: XS , [id number] DEBRIDE NAIL, 1-5, Modifiers: XS 80415 TRIM SKIN LESIONS, OVER 4, Modifiers: XS [...] Erickson DPM Date:?2024 Generated for Janie licea/Paul/Terry on:?02/22/2025 01:14 PM EDT History and Physical Notes * [...] MORPHOLOGY: (-) Charcot col lapse/destruction noted at [facility] FOOTWEAR: worn, non-supportive , shoe gear properties [...]
== END 2025-02-22 11:36 | disposition home or self-care (01) ==
LOC: HO.HMCH 10:15
PROVIDERS: PCP Internal Medicine; Visit Provider Internal Medicine
DX: E11.9 Type 2 diabetes mellitus without complications (principal)

== ENCOUNTER → 2025-02-22 10:14 | Outpatient (BNVA) | payer MEDICARE, SELFPAY | PROVIDERS: PCP Internal Medicine; Visit Provider Internal Medicine | DX: E11.9 Type 2 diabetes mellitus without complications (principal) | CPT/HCPCS: 83036; 99212 ==

== ENCOUNTER 2025-02-23 08:15 | Outpatient (REF) | payer MEDICARE, SELFPAY ==
[2025-02-23 10:24] LABS: Hemoglobin 15.7 g/dl (12.0-16.0); Mean Corpuscular Hemoglobin 27.6 pg (27.0-33.0); Mean Corpuscular Volume 86.1 fL (80.0-98.0); Mean Platelet Volume 10.9 fL (9.4-12.3); Platelet Count 271 X10*3/uL (160-400); Red Blood Count 5.69 X10*6/uL (4.20-5.50); Red Cell Distribution Width 13.3 % (11.0-16.0); White Blood Count 7.6 X10*3/uL (4.8-10.8)
[2025-02-23 10:30] LABS: Appearance Urine Clear; Color Urine Yellow; Glucose Urine UA Negative (Negative); Leukocyte Esterase Urine Negative (Negative); Nitrite Urine Negative (Negative); Specific Gravity - Urine 1.025 (1.005-1.025); UMIC TRIGGER UA YES; Urine Blood Negative (Negative); Urine Ketones Trace mg/dL (Negative); Urine Protein 30 (1+) mg/dL (Neg-Trace)
[2025-02-23 10:44] LABS: Bacteria Urine Trace (None Seen); Hyaline Casts Urine 0-2 /LPF (0-2); RBC Urine 0-2 /HPF (0-2); WBC Urine 0-5 /HPF (0-5)
[2025-02-23 11:00] LABS: Alanine Aminotransferase 7 U/L (0-31); Albumin Level 4.1 g/dL (3.5-5.0); Alkaline Phosphatase 78 U/L (39-117); Anion Gap 11 (12-20); Aspartate Amino Transferase 14 U/L (5-31); Bilirubin Direct 0.2 mg/dL (0.0-0.5); Bilirubin Total 0.6 mg/dL (0.0-1.0); Blood Urea Nitrogen 24 mg/dL (9-16); Calcium 9.5 mg/dL (8.4-10.2); Carbon Dioxide 30 mmol/L (22-29); Chloride 107 mmol/L (96-108); Cholesterol 193 mg/dL (<200); Estimated Glomerular Filt Rate 57; Glucose Random 156 mg/dL (60-115); HDL Cholesterol 36 mg/dL (>40); LDL Cholesterol Calculated 125 mg/dL (<100); Potassium 4.2 mmol/L (3.3-5.1); Sodium 144 mmol/L (135-145); Total Protein 6.7 g/dL (6.5-8.0); Triglycerides 163 mg/dL (<150)
[2025-02-23 11:05] LABS: Microalbum/Creatinine Ratio Ur 259.8 ug/mg cr (<30)
[2025-02-23 11:30] LABS: Thyroid Stimulating Hormone 2.01 uIU/mL (0.32-4.0)
== END 2025-02-23 08:16 | disposition home or self-care (01) ==
LOC: HO.HMGCLDS 08:15
PROVIDERS: PCP Internal Medicine; Visit Provider Internal Medicine
DX: E11.9 Type 2 diabetes mellitus without complications (principal)
CPT/HCPCS: 36415; 80048; 80061; 80076; 81001; 82043; 82570; 84443; 85027

== ENCOUNTER 2025-05-15 09:20 | Outpatient (AMB) | payer MEDICARE, SELFPAY ==
--- NOTE | 2025-05-15 09:42 | MHC.OFFVIS ---
Vital Signs 05/15/25 09:43 Height 5 ft 3 in Weight 110 lb BMI 19.5 BP 130/74 Blood Pressure Location Lt brachial Position Sitting Pulse 96 Pulse Source Pulse Oximeter Pulse Oximetry (%) 94 Oxygen Delivery Method Room Air Intake Visit Reasons: copd Intake Note: pt is here for follow up and states she has a cough with mucous in her throat, for about a week, thick and cold. Manager Treasury Required: No Allergies No Known Allergies Allergy (Verified 05/15/25 10:13) Medication List - Last Reconciled 05/15/25 by Rock Zayas MD albuterol sulfate 90 mcg/actuation 2 puffs inhalation Q6H PRN blood sugar diagnostic (FreeStyle Lite Strips) test daily blood-glucose meter (FreeStyle Lite Meter kit) test daily dulaglutide (Trulicity) 0.75 mg (0.5 mL) subcut QWEEK 90 days furosemide 20 mg PO DAILY PRN lancets (FreeStyle Lancets) test daily lisinopril 30 mg PO DAILY metformin 1,000 mg PO BID simvastatin 10 mg PO BEDTIME Symbicort 160-4.5 mcg/actuation (budesonide-formoterol) 2 puffs PO Q12H NS Do you need a note to return to daycare/school/sports/work: No HPI HPI copd: Details: THIS 75 YEARS OLD FEMALE IS HERE FOR HER ROUTINE FOLLOW-UP AFTER 4 MONTHS. SHE IS BEING TREATED FOR COPD WITH SYMBICORT 160-4.52 PUFFS B.I.D.. HER BREATHING IS WELL CONTROLLED AND STABLE. CURRENTLY HER MAIN ISSUE IS NASAL CONGESTION, POSTNASAL DRIP AND FREQUENT COUGH. NO FEVER OR CHILLS AND NO INCREASE IN WHEEZING. BERENICE STILL SMOKES ABOUT 4 CIGARETTES A DAY, HAS NOT BEEN ABLE TO QUIT COMPLETELY. LAST LDCT WAS IN 2023 , SHOWING A FEW PULMONARY NODULES BUT ONLY ABOUT 3 MM IN SIZE. [facility] Medical History (Updated 05/15/25 @ 10:27 by Rock Zayas MD) Pulmonary nodules Nicotine dependence, cigarettes, uncomplicated Respiratory failure with hypoxia Post covid-19 condition, unspecified Tobacco use disorder Allergic rhinitis Osteoporosis (~2013) Congestive heart failure Chronic obstructive pulmonary disease, unspecified GERD (gastroesophageal reflux disease) Familial hypercholesterolemia Type 2 diabetes mellitus without complications Surgical History History of myringotomy (~2006) History of nasal surgery (~1989) History of ERCP (~2017) History of femoral hernia repair (~2008) History of cholecystectomy (~2017) History of eye surgery (~2019) Family History Father No problems noted. Mother No problems noted. Social History Household Members: Spouse Housing: House Do you presently have visiting nurse or other home services: No Alcohol intake: never Patient Tobacco Use Status: Current someday Tobacco user Tobacco use type: Cigarette Cigarette Packs Per Day: 0.25 Cigarettes Per Day: 1 (three a week) Years Smoked: 40 years e-Cigarette/Vaping Use: Never Used Second Hand Smoke Exposure: Yes service: No Current occupational status: retired Cognitive needs: No Hearing needs: No Vision needs: Yes (Glasses) Review of Systems Const All systems reviewed & are unremarkable except as noted in HPI and below Eyes Reports no additional complaints ENT Reports nasal congestion and Reports nasal discharge Card Denies chest pain, Denies irregular heart rhythm and Reports leg edema (MILD) Resp Reports as per HPI GI Reports no additional complaints Reports no additional complaints Musc Reports no additional complaints Skin/Breast Reports system reviewed and no additional complaints, except as documented Neuro Reports no additional complaints Psych Reports no additional complaints Endo Reports no additional complaints Physical Exam Vital Signs: Last Vital Signs Pulse 96 05/15/25 09:43 BP 130/74 05/15/25 09:43 Pulse Ox 94 05/15/25 09:43 Oxygen Delivery Method Room Air 05/15/25 09:43 BMI result Body Mass Index 19.5 Const General: comfortable, no acute distress, alert and awake Orientation/consciousness: patient oriented x3 HEENT Head: Yes normal to inspection General nose exam: No nasal polyps present, No nasal discharge present and Other nasal findings present (Marked bilateral nasal congestion and hypertrophy of the turbinates.) Face and sinus: Yes sinuses nontender and Yes other (HAS BILATERAL NASAL CONGESTION. WITH SMALL AMOUNT OF MUCUS IN NASOPHARYNX) Mouth: oropharynx normal Throat: Yes posterior oropharynx normal Eyes General: appearance normal, both eyes and all related structures Neck Neck: Yes normal visual inspection, Yes no lymphadenopathy, Yes trachea midline and Yes no JVD Thyroid: Thyroid normal Chest Chest palpation & inspection: normal inspection of the chest, normal palpation of entire chest wall and no tenderness Resp Other: Percussion note hyper-resonant, breath sounds are very distant with prolonged expiratory phase. No audible wheezes rhonchi or crepitations are heard at this time . Cardio Palpation: normal PMI Rate: regular rate Rhythm: regular rhythm Heart sounds: no gallops and no murmurs GI Palpation (GI): Soft to palpation, nontender, No hepatosplenomegaly present and no masses Auscultation: normal bowel sounds Back/Spine/Pelvis Thoracic/Lumbar Spine: thoracic and lumbar spine normal to inspection Skin General skin exam: no rashes or lesions noted Neuro General: patient oriented x3 and no focal motor deficits Cranial nerves: Yes CN's II-XII intact bilaterally Extrem General: Yes normal to inspection, Yes no clubbing, cyanosis or edema and Yes no calf tenderness Psych Appearance: grossly normal and well kempt Speech and movement: Normal speech and movement present Results Reviewed Results Reviewed: LAST LDCT IN 2023. . SHOWED HYPERINFLATED LUNG JONES AND A FEW 3 MM SIZED PULMONARY NODULES. Assessment & Plan Assessment & Plan (1) Chronic obstructive pulmonary disease, unspecified: Comment: (COPD ,severe , fairly stable at this time. RESPIRATORY STATUS IS STABLE, BUT SHE STILL HAS MILD HYPOXEMIA ON WALKING. Code(s): J44.9 - Chronic obstructive pulmonary disease, unspecified Category: Medical Qualifiers: COPD type: unspecified COPD Qualified Code(s): J44.9 - Chronic obstructive pulmonary disease, unspecified Plan: SYMBICORT 160-4.52 PUFFS B.I.D.. ALBUTEROL HFA 2 PUFFS Q 6 HOURS P.R.N. (2) Tobacco use disorder: Comment: She has the lifelong history of smoking, Currently she is still smoking 3-4 cigarettes a day. She has problem is to cut down the number of cigarettes but not ready to quit completely. Code(s): F17.200 - Nicotine dependence, unspecified, uncomplicated Category: Medical Plan: Advised to cut down the number to 3 then to 2 and 1. Per day She is due for LDCT this year (3) Allergic rhinitis: Comment: She has chronic allergic rhinitis which is controlled relatively well. But since last week she is having an acute exacerbation. Code(s): J30.9 - Allergic rhinitis, unspecified Category: Medical Plan: Continue to use Flonase 2 sprays in each nostril daily. May use loratadine 10 mg once a day. P.r.n. (4) Pulmonary nodules: Comment: She is in annual lung screening program which would be ending this year. Has a few pulmonary nodules the size his 3 mm or less, not worrisome. Code(s): R91.8 - Other nonspecific abnormal finding of lung field Category: Medical Plan: Advised to have the LDCT scan this year. And in the subsequent years we will order the regular CT scan as needed. Coding Level of Care Code Est Pt Level 3 (57980) Diagnoses Chronic obstructive pulmonary disease, unspecified COPD type J44.9 COPD type: unspecified COPD Tobacco use disorder F17.200 Allergic rhinitis J30.9 Pulmonary nodules R91.8
[2025-05-15 09:43] VITALS: BP 130/74; PULSE 96; O2SAT 94; BMI 19.5
--- OUTSIDE RECORDS SUMMARY | 2025-05-15 10:02 | XMS_ITS | Patient Health Record ---
Author Organization [facility] [place] Address [address] [place] [address] Care Team Providers Care Software Licensing Specialist Name Role Phone Sena Yoshi Primary Care Provider [phone] Santy Erickson Unavailable [phone] Allergies No Known Allergies Results Component Value Reference Range Notes HEMOGLOBIN A1C (GLYCOHEMOGLO BIN) Reviewed date:03/06/2025 11:24:35 AM Interpretation: Performing Lab: Notes/Report: HEMOGLOBIN A1C % (HH) 7.8 Reason For Referral No Information Medications Medication SIG (Take, Route, Frequency, Duration) Notes Start Date End Date Status Symbicort 160-4.5 MCG/ACT 2 puffs Inhalation Twice a day Active Trulicity Active metFORMIN HCl 1000 MG 1 tablet with a me al Orally Once a day Active amLODIPine Besylate 5 MG 1 tablet Orally Once a day Active Simvastatin 10 MG 2 tablets in the gino lubna Orally Once a day Active Extra Depth Orthopedic Shoes, (1) Pair With (3) Pair Custom Heat Molded Multidensity Innersoles Dx: NIDDM/PVD(E11.51), Hammertoe Foot Deformity(M20.41,M20.42) , Preulcerative Skin Lesion(s)(L85.1) Wear Daily for 365 days 12/07/2023 Not-Taking Lisinopril 30 MG 1 tablet Orally Once a day Active Social History Tobacco Use: Social History Observation Description Date Details (start date - stop date) Current Smoker 02/28/1985 - NA Tobacco use other than smoking: Question Answer Notes Are you an other tobacco user? No Tobacco Control (Standard) Question Answer Notes Tobacco use: Current smoker When did you start smoking? 02/28/1985 How often do you smoke cigarettes? Every day How many cigarettes a day do you smoke? 6-10 How soon after you wake up d o you smoke your first cigarette? 6-30 minutes Are you interested in quitting? Thinking about q uitting Additional Findings: Tobacco user Modera te cigarette smoker (10-19 cigs/day) AUDIT-C (Standard) Question Answer Notes Did you have a drink containing alcohol in the p ast year? No Points 0 Interpretation Negative Problems Problem Type SNOMED Code ICD Code Onset Dates Problem Status W/U Status Risk Notes Problem Acquired hammer toe of right foot (2908234177684 105) Other hammer toe(s) (acquired), right foot (M20.41) Active confirmed Response to treatment,I mprovement Problem Acquired hammer toe of left foot (9687972438051 103) Other hammer toe(s) (acquired), left foot (M20.42) Active confirmed Response to treatment,I mprovement Problem Type 2 diabetes mellitus with peripheral angiopathy (066653664) Type 2 diabetes mellitus with diabetic peripheral angiopathy without gangrene (E11.51) Active confirmed Vital Signs Blood pressure diastolic 70 mm Hg 03/06/2025 Height 5ft 2in in 03/06/2025 Blood pressure systolic 120 mm Hg 03/06/2025 Weight 112 lbs 03/06/2025 BMI 20.48 kg/m2 03/06/2025 Procedures Procedure Date Ordered Date Performed Result Body Sit e 67952-MIDEQUE NAIL, 1-5 09/01/2024 N/A 20007-IBKP SKIN LESIONS, OVER 4 09/01/2024 N/A C9375-UIQZXOAJ DYSTROPHIC NAILS ANY # 09/01/2024 N/A 60041-IVWKKBW NAIL, 1-5 12/05/2024 N/A 38358-KRFV SKIN LESIONS, OVER 4 12/05/2024 N/A G6317-OHSFHZZI DYSTROPHIC NAILS ANY # 12/05/2024 N/A 90224-ILVCZJN NAIL, 1-5 03/06/2025 N/A 60860-GYXB SKIN LESIONS, OVER 4 03/06/2025 N/A D5047-SYGBONEP DYSTROPHIC NAILS ANY # 03/06/2025 N/A Encounters Encounter Location Date Provider Diagnosis [facility] [address] [place] [address] 09/01/2024 Santy Erickson Type 2 diabetes mellitus with diabetic peripheral angiopathy without gangrene E11.51 ; Tinea unguium B35.1 ; Pain in right toe(s) M79.674 and Pain in left toe(s) M79.[address] [address] 12/05/2024 Santy Erickson Type 2 diabetes mellitus with diabetic peripheral angiopathy without gangrene E11.51 ; Other hammer toe(s) (acquired), right foot M20.41 ; Tinea unguium B35.1 ; Pain in right toe(s) M79.674 ; Pain in left toe(s) M79.675 and Other hammer toe(s) (acquired), left foot M20.[address] [address] 03/06/2025 Santy Erickson Type 2 diabetes mellitus with diabetic peripheral angiopathy without gangrene E11.51 ; Tinea unguium B35.1 ; Pain in right toe(s) M79.674 and Pain in left toe(s) M79.[address] [address] 07/24/2024 Santy Erickson Assessments Encounter Date Diagnosis (ICD Code) Assessment Notes Treatment Notes Treatment Clinical Notes Section Notes 09/01/2024 Tinea unguium (ICD-10 - B35.1) 09/01/2024 Type 2 diabetes mellitus with diabetic peripheral angiopathy without gangrene (ICD-10 - E11.51) 12/05/2024 Other hammer toe(s) (acquired), right foot (ICD-10 - M20.41) 12/05/2024 Type 2 diabetes mellitus with diabetic peripheral angiopathy without gangrene (ICD-10 - E11.51) 03/06/2025 Tinea unguium (ICD-10 - B35.1) 03/06/2025 Type 2 diabetes mellitus with diabetic peripheral angiopathy without gangrene (ICD-10 - E11.51) 03/06/2025 Pain in right toe(s) (ICD-10 - M79.674) 12/05/2024 Tinea unguium (ICD-10 - B35.1) 09/01/2024 Pain in right toe(s) (ICD-10 - M79.674) 09/01/2024 Pain in left toe(s) (ICD-10 - M79.675) 12/05/2024 Pain in right toe(s) (ICD-10 - M79.674) 03/06/2025 Pain in left toe(s) (ICD-10 - M79.675) 12/05/2024 Pain in left toe(s) (ICD-10 - M79.675) 12/05/2024 Other hammer toe(s) (acquired), left foot (ICD-10 - M20.42) Plan Of Treatment Pending Test Test Name Order Date 58462-LZKSOAA NAIL, 1-12/07/2023 29869-TDBEFPU NAIL, -02/22/2024 23211-WLGLCGR NAIL, -05/02/2024 79165-BSELNGN NAIL, -09/01/2024 64752-JDLKUKB NAIL, -12/05/2024 22881-KPJIZDN NAIL, -03/06/2025 28194-YJQN SKIN LESIONS, OVER 4 03/06/20 25 00534-QBAF SKIN LESIONS, OVER 4 12/05/19 25 61169-ZSMK SKIN LESIONS, OVER 4 09/01/20 24 68018-ISYY SKIN LESIONS, OVER 4 05/02/20 24 20301-IGHS SKIN LESIONS, OVER 4 12/07/19 24 23962-QSSI SKIN LESIONS, OVER 4 02/22/20 24 E1399-XNSTIZEA DYSTROPHIC NAILS ANY # A6275-DBQGDNGC DYSTROPHIC NAILS ANY # Q7104-JVNHYLRB DYSTROPHIC NAILS ANY # Y1446-QWNDOXEX DYSTROPHIC NAILS ANY # R1904-WNMRPLJU DYSTROPHIC NAILS ANY # P4934-GWZSAEKA DYSTROPHIC NAILS ANY # Next Appt Details Provider Name:Santy Erickson , 06/12/2025 10:30:00 AM, [address] [place], [address], Insurance Providers Payer Name Payer Address Payer Phone Subscriber Number Group Number Insured Name Patient Relationship to Insured Coverage Start Date Coverage End Date [employer] [place] [employer]age [address] [place] [address] [id number] Gisel Taylor Self - patient is the insured 4 Medical (General) History Medical History History ICD Code type II diabetes Heart disease High blood pressure Poor circulation sinusitis Measles Mumps Chicken pox COPD Surgical History Surgery Date(Month/Year) Gall bladder removal 08-25-2018 Hernia Hospitalization History Reason Date(Month/Year) covid 07/24/2024
== END 2025-05-15 10:15 | disposition home or self-care (01) ==
LOC: HO.HPS 09:21
PROVIDERS: PCP Internal Medicine; Visit Provider Internal Medicine
DX: J44.9 Chronic obstructive pulmonary disease, unspecified (principal); F17.200 Nicotine dependence, unspecified, uncomplicated; J30.9 Allergic rhinitis, unspecified; R91.8 Other nonspecific abnormal finding of lung field
CPT/HCPCS: 99213

== ENCOUNTER → 2025-05-15 09:20 | Outpatient (BNVA) | payer MEDICARE, SELFPAY | PROVIDERS: PCP Internal Medicine; Visit Provider Internal Medicine | DX: J44.9 Chronic obstructive pulmonary disease, unspecified (principal); R05.3 Chronic cough; R91.8 Other nonspecific abnormal finding of lung field; F17.200 Nicotine dependence, unspecified, uncomplicated; J30.9 Allergic rhinitis, unspecified | CPT/HCPCS: 99212 ==

== ENCOUNTER 2025-06-05 08:32 | Outpatient (AMB) | payer MEDICARE, SELFPAY ==
--- NOTE | 2025-06-05 08:35 | A.OFFPC_ITS ---
Vital Signs 06/05/25 08:38 Height 5 ft 3 in Weight 106 lb 0.8 oz BMI 18.8 BP 172/52 H Blood Pressure Location Lt brachial Pulse 102 H Pulse Source Pulse Oximeter Temp 97.2 F Pulse Oximetry (%) 94 Intake Visit Reasons: discuss medication/ f/u Intake Note: would also like to talk about trulicity Boatswains Mate Required: No Study Abroad Coordinator: Not Required per policy Accompanied by: Self / Same As Patient Allergies No Known Allergies Allergy (Verified 06/05/25 08:36) Tobacco use date assessed: 02/22/25 Fall risk assessment: No Falls in past year Last assessed Fall Risk: 02/22/25 Dental Screening Dental Screen Date: 02/22/25 Did you have a dental visit in the last 12 months?: Yes Did you have a dental problem in the last 6 months where you did not have access to dental care?: No Was dental information given to patient?: Patient has dentist [facility] Medical History (Updated 05/15/25 @ 10:27 by Rock Zayas MD) Pulmonary nodules Nicotine dependence, cigarettes, uncomplicated Respiratory failure with hypoxia Post covid-19 condition, unspecified Tobacco use disorder Allergic rhinitis Osteoporosis (~2013) Congestive heart failure Chronic obstructive pulmonary disease, unspecified GERD (gastroesophageal reflux disease) Familial hypercholesterolemia Type 2 diabetes mellitus without complications Surgical History History of myringotomy (~2006) History of nasal surgery (~1989) History of ERCP (~2017) History of femoral hernia repair (~2008) History of cholecystectomy (~2017) History of eye surgery (~2019) Family History Father No problems noted. Mother No problems noted. Social History Household Members: Spouse Housing: House Do you presently have visiting nurse or other home services: No Alcohol intake: never Patient Tobacco Use Status: Current someday Tobacco user Tobacco use type: Cigarette Cigarette Packs Per Day: 0.25 Cigarettes Per Day: 1 (three a week) Years Smoked: 40 years e-Cigarette/Vaping Use: Never Used Second Hand Smoke Exposure: Yes service: No Current occupational status: retired Cognitive needs: No Hearing needs: No Vision needs: Yes (Glasses) Questionnaire Thrive Questionnaire Date Thrive assessed: 02/22/25 WESLEY-7 AMB Questionnaire WESLEY-7 Date WESLEY - 7 assessed: 02/22/25 Source: Developed by Drs. Maxx Owens, Gisel Pina, Juvenal Stoner and colleagues, with an educational saritha from [employer]. Physical exam (Primary Care) Vital Signs: Last Vital Signs Temp 97.2 F 06/05/25 08:38 Pulse 102 H 06/05/25 08:38 BP 172/52 H 06/05/25 08:38 Pulse Ox 94 06/05/25 08:38 BMI result Body Mass Index 18.8 Tobacco/Smoking Status: Tobacco use Status Tobacco use date assessed 02/22/25 06/05/25 08:38 Patient Tobacco Use Status Current someday Tobacco 06/05/25 08:38 Tobacco use type Cigarette 06/05/25 08:38 e-Cigarette/Vaping Use Never Used 06/05/25 08:38 Are you ready to quit: No Tobacco cessation counseling provided: No Thrive Assessment: Date of Thrive Assessment Date Thrive assessed 02/22/25 06/05/25 08:38 Coding Level of Care Code Est Pt Level 4 (81380) Complex EM visit Add On G2211 Diagnoses Essential hypertension I10 Chronic congestive heart failure, unspecified heart failure type I50.9 Heart failure chronicity: chronic Heart failure type: unspecified Familial hypercholesterolemia E78.01 Adrenal nodule E27.8 Type 2 diabetes mellitus without complication, without long-term current use of insulin E11.9 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 No change in med dosage. Advised to record BP at home. (2) Congestive heart failure: Comment: (hospitalized 11/2019 mild CHF, chronic leg edema controlled on furosemide) Code(s): I50.9 - Heart failure, unspecified Category: Medical Qualifiers: Heart failure chronicity: chronic Heart failure type: unspecified Qualified Code(s): I50.9 - Heart failure, unspecified Plan: Condition is stable (3) Familial hypercholesterolemia: Code(s): E78.01 - Familial hypercholesterolemia Category: Medical Plan: Stable (4) Adrenal nodule: Comment: (left adrenal nodule measuring 1.3 cm on 12/[address]) Code(s): E27.8 - Other specified disorders of adrenal gland Category: Medical Plan: Stable (5) Type 2 diabetes mellitus without complications: Code(s): E11.9 - Type 2 diabetes mellitus without complications Category: Medical Qualifiers: Diabetes mellitus prison insulin use: without dedicated intermodal truck driver use Qualified Code(s): E11.9 - Type 2 diabetes mellitus without complications Plan: A1c is 7.0 . Continue current meds (6) Tobacco use disorder: Comment: She has the lifelong history of smoking, Currently she is still smoking 3-4 cigarettes a day. She has problem is to cut down the number of cigarettes but not ready to quit completely. Code(s): F17.200 - Nicotine dependence, unspecified, uncomplicated Category: Medical Plan: As above Plan History of Present Illness - The patient is a 75-year-old female presenting with anxiety, hypertension, COPD, and diabetes management. - Anxiety: The patient reports ongoing anxiety, which contributes to elevated blood pressure readings during visits. - Hypertension: The patient experiences elevated blood pressure, which is noted to decrease upon retesting. - COPD: The patient has a history of COPD, which causes shortness of breath and productive cough with phlegm. - Type 2 Diabetes Mellitus: The patient is on Trulicity and metformin for diabetes management, with recent A1c testing planned. Social History - Smoking: The patient smokes occasionally. - Oxygen Use: The patient uses oxygen at home as needed. Review of Systems - Cardiovascular: Reports anxiety-related elevated blood pressure. - Respiratory: Reports dyspnea and productive cough with phlegm due to COPD. Physical Exam General: Cooperative and healthy appearing Nutritional Appearance: Well nourished Orientation/consciousness: Patient oriented x3 Limitations: No limitations Head: Normal to inspection General: Appearance normal, both eyes and all related structures Neck: Normal visual inspection Chest: Normal palpation of entire chest wall Respiratory: Patient reports shortness of breath and cough with phlegm, likely due to COPD. ormal respiratory effort Neurology: Patient oriented x3 Results - Labs: A1c testing planned, to be conducted at the lab. Plan 1. Anxiety - Continue monitoring blood pressure and manage anxiety symptoms. 2. Essential Hypertension - Blood pressure to be monitored, lisinopril prescription refilled. 3. Chronic Obstructive Pulmonary Disease (Copd) - Continue using oxygen as needed, monitor respiratory symptoms. 4. Type 2 Diabetes Mellitus - Continue Trulicity and metformin, A1c testing to be conducted. Discussion Notes I discussed with the patient the importance of managing anxiety to help control blood pressure levels. We reviewed the use of Trulicity and metformin for diabetes management and planned for A1c testing. The patient was advised to continue using oxygen as needed for COPD and to monitor respiratory symptoms. Prescriptions for lisinopril, metformin, and simvastatin were refilled. Follow- up was scheduled in three months. Patient Instructions - Monitor blood pressure regularly and manage anxiety symptoms. - Continue taking Trulicity and metformin as prescribed. - Use oxygen as needed for COPD symptoms. - Complete A1c testing at the lab. - Follow up in three months. Orders: Orders AMB Hemoglobin A1c Today E11.9 - Type 2 diabetes mellitus without complications Medications: Refilled simvastatin 10 mg PO BEDTIME 90 tabs 1RF lisinopril 30 mg PO DAILY 90 tabs 1RF I10 - Essential (primary) hypertension metformin 1,000 mg PO BID 180 tabs 1RF
[2025-06-05 08:38] VITALS: BP 172/52; PULSE 102; TEMP 36.2; O2SAT 94; BMI 18.8
--- OUTSIDE RECORDS SUMMARY | 2025-06-05 08:43 | XMS_ITS | Patient Health Record ---
[facility] [place] Address [address] [place] [address] Care Team Providers Care Washing Tub Operator Name Role Phone Sena Yoshi Primary Care Provider [phone] Santy Erickson Unavailable [phone] Allergies No Known Allergies Results Component Value [...] Foot Deformity(M20.41,M20.42) , Preulcerative Skin Lesion(s)(L85.1) Wear Daily; Duration: 365 days 12/07/2023 Not-Taking Lisinopril 30 MG [...] Problem Acquired hammer toe of right foot (3187150456646 105) Other hammer toe(s) (acquired), right foot (M20.41) Active confirmed Response to treatment,I mprovement Problem Acquired hammer toe of left foot (7688368683675 103) Other hammer toe(s) (acquired), left foot (M20.42) Active confirmed Response to treatment,I mprovement Problem Type 2 diabetes mellitus with peripheral angiopathy (026334053) Type 2 diabetes mellitus with diabetic peripheral angiopathy without gangrene (E11.51) Active confirmed Vital Signs Blood pressure diastolic 70 mm Hg 03/06/2025 Height 5ft 2in in 03/06/2025 Blood pressure systolic 120 mm Hg 03/06/2025 Weight 112 lbs 03/06/2025 BMI 20.48 kg/m2 03/06/2025 Procedures Procedure Date Ordered Date Performed Result Body Sit e 46587-YGCQSNJ NAIL, 1-09/01/2024 N/A 19193-GRQL SKIN LESIONS, OVER 4 09/01/2024 N/A B6975-KBADSJRS DYSTROPHIC NAILS ANY # 09/01/2024 N/A 72237-RFWZWHG NAIL, 1-5 12/05/2024 N/A 60791-URBC SKIN LESIONS, OVER 4 12/05/2024 N/A X2732-GGPWPSOS DYSTROPHIC NAILS ANY # 12/05/2024 N/A 47435-GVLNCML NAIL, 1-5 03/06/2025 N/A 30477-FHME SKIN LESIONS, OVER 4 03/06/2025 N/A Z9243-TAKMCQNG DYSTROPHIC NAILS ANY # 03/06/2025 N/A Encounters Encounter Location Date [facility] [address] [address] [facility]/01/2024 Santy Erickson Type 2 diabetes mellitus with diabetic peripheral angiopathy without gangrene E11.51 ; Tinea unguium B35.1 ; Pain in right toe(s) M79.674 and Pain in left toe(s) M79.[address] [address] 12/05/2024 Santy Erickson Type 2 diabetes mellitus with diabetic peripheral angiopathy without gangrene E11.51 ; Other hammer toe(s) (acquired), right foot M20.41 ; Tinea unguium B35.1 ; Pain in right toe(s) M79.674 ; Pain in left toe(s) M79.675 and Other hammer toe(s) (acquired), left foot M20.[address] [address] 03/06/2025 Santy Erickson Type 2 diabetes mellitus with diabetic peripheral angiopathy without gangrene E11.51 ; Tinea unguium B35.1 ; Pain in right toe(s) M79.674 and Pain in left toe(s) M79.[address] [address] 07/24/2024 Santy Erickson Assessments Encounter Date Diagnosis [...] Treatment Pending Test Test Name Order Date 72607-XVCEOAO NAIL, 1-12/07/2023 79152-KUFNERV NAIL, 1-5 02/22/2024 55822-ZFHTLMP NAIL, 1-5 05/02/2024 45928-VLLPMOR NAIL, 1-5 09/01/2024 68721-ZMNVQOV NAIL, 1-5 12/05/2024 17115-TLNKTEV NAIL, 1-5 03/06/2025 74164-WDUG SKIN LESIONS, OVER 4 03/06/20 25 66521-AJHC SKIN LESIONS, OVER 4 12/05/19 25 69147-YGXT SKIN LESIONS, OVER 4 09/01/20 24 05305-NJWX SKIN LESIONS, OVER 4 05/02/20 24 40284-YQJJ SKIN LESIONS, OVER 4 12/07/19 24 10646-CDAN SKIN LESIONS, OVER 4 02/22/20 24 S9993-SJKNVEFQ DYSTROPHIC NAILS ANY # L4557-MJDQFNRL DYSTROPHIC NAILS ANY # O6676-UCDTCIZA DYSTROPHIC NAILS ANY # Z7350-LGFWMLRZ DYSTROPHIC NAILS ANY # R1484-TZGLALCZ DYSTROPHIC NAILS ANY # T7251-QPSVQBQD DYSTROPHIC NAILS ANY # Next Appt Details Provider Name:Santy Erickson , 06/12/2025 10:30:00 AM, [address] [place], [address], Insurance Providers Payer Name Payer Address Payer Phone Subscriber Number Group Number Insured Name Patient Relationship to Insured Coverage Start Date Coverage End Date [employer] [place] [employer]vantage [address] [place] [address] [phone] [id number] Gisel Taylor Self - patient is the insured 4 Medical (General) History Medical History History ICD Code type II diabetes Heart disease High blood pressure Poor circulation sinusitis Measles Mumps Chicken pox COPD Surgical History Surgery Date(Month/Year) Gall bladder removal 08-25-2018 Hernia Hospitalization History Reason Date(Month/Year) covid 07/24/2024
== END 2025-06-05 09:05 | disposition home or self-care (01) ==
LOC: HO.HMCSH 08:32
PROVIDERS: PCP Internal Medicine; Visit Provider Internal Medicine
DX: I10 Essential (primary) hypertension (principal); I50.9 Heart failure, unspecified; E78.01 Familial hypercholesterolemia; E27.8 Other specified disorders of adrenal gland; E11.9 Type 2 diabetes mellitus without complications; F17.200 Nicotine dependence, unspecified, uncomplicated

== ENCOUNTER → 2025-06-05 08:32 | Outpatient (BNVA) | payer MEDICARE, SELFPAY | PROVIDERS: PCP Internal Medicine; Visit Provider Internal Medicine | DX: I11.0 Hypertensive heart disease with heart failure (principal); I50.9 Heart failure, unspecified; E78.01 Familial hypercholesterolemia; E27.8 Other specified disorders of adrenal gland; E11.9 Type 2 diabetes mellitus without complications; J44.9 Chronic obstructive pulmonary disease, unspecified; F17.210 Nicotine dependence, cigarettes, uncomplicated | CPT/HCPCS: 83036; 99212 ==

== ENCOUNTER 2025-07-24 12:33 | Outpatient (REF) | payer MEDICARE, SELFPAY ==
--- NOTE | ~2025-07-24 | CT_ITS ---
EXAMINATION: CT LOW-DOSE SCREENING CHEST WITHOUT CONTRAST CLINICAL INFORMATION: 75-year-old female, current smoker, 52 pack years, lung cancer screening. COMPARISON: 03/17/2024, 02/26/2023. TECHNIQUE: Multidetector volumetric CT imaging of the chest is performed on a Siemens SOMATOM Definition scanner without contrast using low dose technique. Additional 2D coronal and sagittal reformatted images and axial 3D maximum intensity projection (MIP) images are generated on the CT workstation. This CT examination was performed using dose optimization techniques as appropriate, variously including the following: *Automated exposure control *Adjustment of mA and/or kV according to patient size (this includes techniques or standardized protocols for targeted exams where dose is matched to indication/reason for exam; i.e. extremities or head) *Use of iterative reconstruction technique FINDINGS: PULMONARY NODULES: 3 mm pleural-based nodule lateral right upper lobe (series 5, image 39), unchanged. 3 mm pleural-based nodule right major fissure (series 5, image 78), unchanged. No new or enlarging pulmonary nodule. LUNGS: There is moderate centrilobular emphysema with upper lobe predominance, unchanged. There is no airspace disease. There is linear scarring in both apices. There is no interstitial abnormality. Small airways demonstrate mild thickening, findings suggestive of mild chronic bronchitis. The central airways are patent. There are mild secretions in the distal trachea dependently. There is no pneumothorax or pleural effusion. MEDIASTINUM: Normal thyroid. Moderate atheromatous calcification of the aorta. No aortic aneurysm. Prominence of the main pulmonary artery suggesting pulmonary artery hypertension. Heart size is normal. There is no pericardial effusion. There is no adenopathy or mass. The esophagus is normal. CORONARY ARTERY CALCIFICATION: Mild three-vessel coronary calcification. CHEST WALL/AXILLA: No masses or abnormal lymph nodes present. UPPER ABDOMEN: There is pneumobilia, unchanged. There has been a cholecystectomy. There is hyperplasia of the left adrenal. OSSEOUS STRUCTURES: No suspicious lytic or blastic bone lesions. There are degenerative changes throughout the spine. CT/CT lung screening IMPRESSION: 1. There are two stable right lung 3 mm pulmonary nodules. There is no new or enlarging nodule. 2. Moderate centrilobular emphysema. No underlying active pulmonary disease. 3. Mild thickening of the small airways suggesting mild chronic bronchitis. 4. Additional ancillary findings as discussed in the body of the report. ASSESSMENT: 1. Lung-RADS Category 2: Benign appearance or behavior of nodules. 2. Lung-RADS Category S: None. RECOMMENDATION: Continued routine annual low-dose CT lung screening in 1 year is recommended. An order for CT CHEST LOW DOSE CANCER SCREENING ([id number]) can be placed. Electronically signed by: Sal Cerna MD 07/24/2025 01:48 PM EDT
--- OUTSIDE RECORDS SUMMARY | 2025-07-24 13:19 | XMS_ITS | Patient Health Record ---
[facility] Address [address] [place] [address] Care Team Providers Care Aboriginal Education Worker Coordinator Name Role Phone SenaYoshi Primary Care Provider [phone] Santy Erickson Unavailable [phone] Allergies No Known Allergies Results Component Value Reference Range Notes HEMOGLOBIN A1C (GLYCOHEMOGLO BIN) Reviewed date:03/06/2025 11:24:35 AM Interpretation: Performing Lab: Notes/Report: HEMOGLOBIN A1C % (HH) 7.8 Reason For Referral No Information Medications Medication SIG (Take, Route, Frequency, Duration) Notes Start Date End Date Status Symbicort 160-4.5 MCG/ACT 2 puffs Inhalation Twice a day Active Trulicity 0.75 MG/0.5ML as directed daily Active Simvastatin 10 MG 2 tablets in the gino lubna Orally Once a day Active metFORMIN HCl 1000 MG 1 tablet with a me al Orally Once a day Active Lisinopril 30 MG 1 tablet Orally Once a day Active amLODIPine Besylate 5 MG 1 tablet Orally Once a day Active Extra Depth Orthopedic Shoes, (1) Pair With (3) Pair Custom Heat Molded Multidensity Innersoles Dx: NIDDM/PVD(E11.51), Hammertoe Foot Deformity(M20.41,M20.42) , Preulcerative Skin Lesion(s)(L85.1) Wear Daily; Duration: 365 days 12/07/2023 Not-Taking Immunizations Vaccine Route Administration Date Status Comme nts Influenza Unknown 08/29/2024 Administered Social History Tobacco Use: Social History Observation [...] Problem Acquired hammer toe of right foot (4777821832869 105) Other hammer toe(s) (acquired), right foot (M20.41) Active confirmed Response to treatment,I mprovement Problem Acquired hammer toe of left foot (8142679117706 103) Other hammer toe(s) (acquired), left foot (M20.42) Active confirmed Response to treatment,I mprovement Problem Type 2 diabetes mellitus with peripheral angiopathy (037488175) Type 2 diabetes mellitus with diabetic peripheral angiopathy without gangrene (E11.51) Active confirmed Vital Signs Blood pressure diastolic 70 mm Hg 06/12/2025 Height 5ft 2in in 06/12/2025 Blood pressure systolic 126 mm Hg 06/12/2025 Weight 110 lbs 06/12/2025 BMI 20.12 kg/m2 06/12/2025 Procedures Procedure Date Ordered Date Performed Result Body Sit e 65892-BYJKMMC NAIL, 1-5 09/01/2024 N/A 77967-JYFE SKIN LESIONS, OVER 4 09/01/2024 N/A P8699-MLJRPSZS DYSTROPHIC NAILS ANY # 09/01/2024 N/A 21158-UYNYMNE NAIL, 1-5 12/05/2024 N/A 86889-ICVN SKIN LESIONS, OVER 4 12/05/2024 N/A J0460-JLNGOGND DYSTROPHIC NAILS ANY # 12/05/2024 N/A 05550-QKVYOQP NAIL, 1-5 03/06/2025 N/A 48784-JTMW SKIN LESIONS, OVER 4 03/06/2025 N/A I7724-WAYCQFPU DYSTROPHIC NAILS ANY # 03/06/2025 N/A 01646-KOLTHGC NAIL, 1-5 06/12/2025 N/A 08664-NOCM SKIN LESIONS, OVER 4 06/12/2025 N/A I3801-IWIJLJOV DYSTROPHIC NAILS ANY # 06/12/2025 N/A Encounters Encounter Location Date Provider Diagnosis [address] [address] 09/01/2024 Santy Erickson Type 2 diabetes mellitus with diabetic peripheral angiopathy without gangrene E11.51 ; Tinea unguium B35.1 ; Pain in right toe(s) M79.674 and Pain in left toe(s) M79.[address] [address] 12/05/2024 Santy Erickson Type 2 diabetes mellitus with diabetic peripheral angiopathy without gangrene E11.51 ; Other hammer toe(s) (acquired), right foot M20.41 ; Tinea unguium B35.1 ; Pain in right toe(s) M79.674 ; Pain in left toe(s) M79.675 and Other hammer toe(s) (acquired), left foot M20.[address] [address] 03/06/2025 Santy Erickson Type 2 diabetes mellitus with diabetic peripheral angiopathy without gangrene E11.51 ; Tinea unguium B35.1 ; Pain in right toe(s) M79.674 and Pain in left toe(s) M79.[address] [address] 06/12/2025 Santy Erickson Type 2 diabetes mellitus with diabetic peripheral angiopathy without gangrene E11.51 ; Tinea unguium B35.1 ; Pain in right toe(s) M79.674 and Pain in left toe(s) M79.[address] [address] 07/24/2024 Santy Erickson Assessments Encounter Date Diagnosis [...] peripheral angiopathy without gangrene (ICD-10 - E11.51) 06/12/2025 Tinea unguium (ICD-10 - B35.1) 06/12/2025 Type 2 diabetes mellitus with diabetic peripheral angiopathy without gangrene (ICD-10 - E11.51) 06/12/2025 Pain in right toe(s) (ICD-10 - M79.674) 03/06/2025 Pain in right toe(s) (ICD-10 - M79.674) 12/05/2024 Tinea unguium (ICD-10 - B35.1) 09/01/2024 Pain in right toe(s) (ICD-10 - M79.674) 09/01/2024 Pain in left toe(s) (ICD-10 - M79.675) 12/05/2024 Pain in right toe(s) (ICD-10 - M79.674) 03/06/2025 Pain in left toe(s) (ICD-10 - M79.675) 06/12/2025 Pain in left toe(s) (ICD-10 - M79.675) 12/05/2024 Pain in left toe(s) (ICD-10 - M79.675) 12/05/2024 Other hammer toe(s) (acquired), left foot (ICD-10 - M20.42) Plan Of Treatment Pending Test Test Name Order Date 55585-ZTYRUQB NAIL, 1-12/07/2023 39673-KJYETMX NAIL, 1-5 02/22/2024 15485-GJBPCOG NAIL, 1-5 05/02/2024 61944-PCVLMAG NAIL, 1-5 09/01/2024 39091-QUAGLCD NAIL, -12/05/2024 98412-IFKNERW NAIL, 1-03/06/2025 83230-GFTPJZH NAIL, 1-06/12/2025 45380-TBCV SKIN LESIONS, OVER 4 06/12/20 25 05038-DMXR SKIN LESIONS, OVER 4 03/06/20 18314-HISM SKIN LESIONS, OVER 4 12/05/19 25 15556-KPYC SKIN LESIONS, OVER 4 09/01/20 24 10016-BXAD SKIN LESIONS, OVER 4 05/02/20 24 88973-CEBS SKIN LESIONS, OVER 4 12/07/19 24 04583-PPLD SKIN LESIONS, OVER 4 02/22/20 W1445-VXIMXCAH DYSTROPHIC NAILS ANY # L4272-KPACDRLT DYSTROPHIC NAILS ANY # H8475-UDPKKTOT DYSTROPHIC NAILS ANY # F8123-KDJRVPUL DYSTROPHIC NAILS ANY # H2401-RVABTPTK DYSTROPHIC NAILS ANY # V8002-ZYGGSNHZ DYSTROPHIC NAILS ANY # E5845-ZNFHFNRQ DYSTROPHIC NAILS ANY # Next Appt Details Provider Name:Santy Erickson , 09/14/2025 09:15:00 AM, [address] [place], [address], Insurance Providers Payer Name Payer Address Payer Phone Subscriber Number Group Number Insured Name Patient Relationship to Insured Coverage Start Date Coverage End Date [employer] [place] [employer]vantage [address] [place] [address] [id number] Gisel Taylor Self - patient is the insured Medical (General) History Medical History History ICD Code type II diabetes Heart disease High blood pressure Poor circulation sinusitis Measles Mumps Chicken pox COPD Hypercholesterolemia Surgical History Surgery Date(Month/Year) Gall bladder removal 08-25-2018 Hernia Hospitalization History Reason Date(Month/Year) covid 07/24/2024
== END 2025-07-24 12:34 | disposition home or self-care (01) ==
LOC: HO.CT 12:33
PROVIDERS: PCP Internal Medicine; Visit Provider Physician Assistant Medical
DX: Z12.2 Encounter for screening for malignant neoplasm of respiratory organs (principal); F17.210 Nicotine dependence, cigarettes, uncomplicated
CPT/HCPCS: 71271

== ENCOUNTER → 2025-07-24 13:00 | Outpatient (BNV) | payer MEDICARE, SELFPAY | PROVIDERS: PCP Internal Medicine; Visit Provider Radiology Diagnostic Radiology | DX: F17.210 Nicotine dependence, cigarettes, uncomplicated (principal) | CPT/HCPCS: 71271 ==

== ENCOUNTER 2025-09-11 13:06 | Outpatient (AMB) | payer MEDICARE, SELFPAY ==
--- OUTSIDE RECORDS SUMMARY | 2024-07-25 09:30 | XMS_ITS ---
Author Organization [facility] Address [address] [place] [id number] Care Team Providers Care Sponge Packer Name Role Phone Yoshi Shetty Primary Care Provider Santy Erickson [phone] Encounters Encounter Location Date Provider Diagnosis [address] [address] 07/25/2024 Santy Erickson Plan Of Treatment Next Appt Details Provider Name:Santy Erickson , 09/14/2025 09:15:00 AM, [address] [place] [address], [phone], Progress Notes * Gisel TAYLOR SDOB: [birth year] (75 yo F)Acc No.[id number]:07/25/2024 Progress Note Patient: Gisel GAMBLE Provider: Tati Erickson DPM :1950 A ge:74 Y S ex:Female Date:07/25/2024 Address:[address] [place] [address] [facility] Pcp:Yoshi Shetty Subjective: * Chief Complaints: * [...] 07/25/2024 Generated for Janie licea/Paul/Terry on: 1 03:49 PM EDT
--- NOTE | 2025-09-11 13:25 | MHC.OFFVIS ---
Vital Signs 09/11/25 13:26 Height 5 ft 3 in Weight 110 lb 0.23 oz BMI 19.5 BP 190/78 H Blood Pressure Location Lt brachial Position Sitting Pulse 107 H Pulse Source Pulse Oximeter Pulse Oximetry (%) 90 L Oxygen Delivery Method Room Air Intake Visit Reasons: COPD Intake Note: pt is here for follow up and states she coughs and raises mucous. using oxygen at home as needed. Drugless Physician Required: No Water/Wastewater Project Manager: Water/Wastewater Project Manager offered & declined Allergies No Known Allergies Allergy (Verified 09/11/25 13:33) Medication List - Last Reconciled 09/11/25 by Rock Zayas MD albuterol sulfate 90 mcg/actuation 2 puffs inhalation Q6H PRN blood sugar diagnostic (FreeStyle Lite Strips) test daily blood-glucose meter (FreeStyle Lite Meter kit) test daily dulaglutide (Trulicity) 0.75 mg (0.5 mL) subcut QWEEK 90 days furosemide 20 mg PO DAILY PRN lancets (FreeStyle Lancets) test daily lisinopril 30 mg PO DAILY metformin 1,000 mg PO BID simvastatin 10 mg PO BEDTIME Symbicort 160-4.5 mcg/actuation (budesonide-formoterol) 2 puffs PO Q12H NS Do you need a note to return to daycare/school/sports/work: No HPI HPI COPD: Details: Gisel is 75 years old, smoker throughout her adult life, but now has cut down to only 1 cigarettes a day. She has mild cough especially in the morning hours and moderate amount of mucus. Her main complaint is runny nose and postnasal discharge, due to her chronic allergic rhinitis. It gets worse when there is some change in the climate. Breathing has remained stable. She does have O2 at home but uses only once in a while. [facility] Medical History Pulmonary nodules Nicotine dependence, cigarettes, uncomplicated Respiratory failure with hypoxia Post covid-19 condition, unspecified Tobacco use disorder Allergic rhinitis Osteoporosis (~2013) Congestive heart failure Chronic obstructive pulmonary disease, unspecified GERD (gastroesophageal reflux disease) Familial hypercholesterolemia Type 2 diabetes mellitus without complications Surgical History History of myringotomy (~2006) History of nasal surgery (~1989) History of ERCP (~2017) History of femoral hernia repair (~2008) History of cholecystectomy (~2017) History of eye surgery (~2019) Family History Father No problems noted. Mother No problems noted. Social History Household Members: Spouse Housing: House Do you presently have visiting nurse or other home services: No Alcohol intake: never Patient Tobacco Use Status: Current someday Tobacco user Tobacco use type: Cigarette Cigarette Packs Per Day: 0.25 Cigarettes Per Day: 1 (three a week) Years Smoked: 40 years e-Cigarette/Vaping Use: Never Used Second Hand Smoke Exposure: Yes service: No Current occupational status: retired Cognitive needs: No Hearing needs: No Vision needs: Yes (Glasses) Review of Systems Const All systems reviewed & are unremarkable except as noted in HPI and below Eyes Reports no additional complaints ENT Reports nasal congestion and Reports nasal discharge Card Denies chest pain, Denies irregular heart rhythm and Reports leg edema (MILD) Resp Reports as per HPI GI Reports no additional complaints Reports no additional complaints Musc Reports no additional complaints Skin/Breast Reports system reviewed and no additional complaints, except as documented Neuro Reports no additional complaints Psych Reports no additional complaints Endo Reports no additional complaints Physical Exam Vital Signs: Last Vital Signs Pulse 107 H 09/11/25 13:26 BP 190/78 H 09/11/25 13:26 Pulse Ox 90 L 09/11/25 13:26 Oxygen Delivery Method Room Air 09/11/25 13:26 BMI result Body Mass Index 19.5 Const General: comfortable, no acute distress, alert and awake Orientation/consciousness: patient oriented x3 HEENT Head: Yes normal to inspection General nose exam: No nasal polyps present, No nasal discharge present and Other nasal findings present (Marked bilateral nasal congestion and hypertrophy of the turbinates.) Face and sinus: Yes sinuses nontender and Yes other (HAS BILATERAL NASAL CONGESTION. WITH SMALL AMOUNT OF MUCUS IN NASOPHARYNX) Mouth: oropharynx normal Throat: Yes posterior oropharynx normal Eyes General: appearance normal, both eyes and all related structures Neck Neck: Yes normal visual inspection, Yes no lymphadenopathy, Yes trachea midline and Yes no JVD Thyroid: Thyroid normal Chest Chest palpation & inspection: normal inspection of the chest, normal palpation of entire chest wall and no tenderness Resp Other: Percussion note hyper-resonant, breath sounds are very distant with prolonged expiratory phase. No audible wheezes rhonchi or crepitations are heard at this time . Cardio Palpation: normal PMI Rate: regular rate Rhythm: regular rhythm Heart sounds: no gallops and no murmurs GI Palpation (GI): Soft to palpation, nontender, No hepatosplenomegaly present and no masses Auscultation: normal bowel sounds Back/Spine/Pelvis Thoracic/Lumbar Spine: thoracic and lumbar spine normal to inspection Skin General skin exam: no rashes or lesions noted Neuro General: patient oriented x3 and no focal motor deficits Cranial nerves: Yes CN's II-XII intact bilaterally Extrem General: Yes normal to inspection, Yes no clubbing, cyanosis or edema and Yes no calf tenderness Psych Appearance: grossly normal and well kempt Speech and movement: Normal speech and movement present Results Reviewed Results Reviewed: LDCT IN JUNE 2025, USUAL 3 MM NODULES, UNCHANGED FROM BEFORE. Assessment & Plan Assessment & Plan (1) Chronic obstructive pulmonary disease, unspecified: Comment: (COPD ,severe , fairly stable at this time. RESPIRATORY STATUS IS STABLE, BUT SHE STILL HAS MILD HYPOXEMIA ON WALKING. Code(s): J44.9 - Chronic obstructive pulmonary disease, unspecified Category: Medical Qualifiers: COPD type: unspecified COPD Qualified Code(s): J44.9 - Chronic obstructive pulmonary disease, unspecified Plan: Continue Symbicort 160-4.52 puffs b.i.d. and albuterol HFA 2 puffs Q 4-6 hours p.r.n. (2) Allergic rhinitis: Comment: She has chronic allergic rhinitis which is controlled but frequently flares up especially due to change in the weather. Code(s): J30.9 - Allergic rhinitis, unspecified Category: Medical Plan: Advised to use Flonase 2 spray in each nostril daily. And use Claritin 10 mg once a day p.r.n. if there is increased nasal congestion (3) Tobacco use disorder: Comment: She has the lifelong history of smoking, Currently she is still smoking 1-2 cigarettes a day . Code(s): F17.200 - Nicotine dependence, unspecified, uncomplicated Category: Medical Plan: Advised to quit smoking completely. Continue annual LDCT. (4) Respiratory failure with hypoxia: Comment: She has exercise induced hypoxemia. She does have stationary concentrator at home and also portable unit. Using oxygen during the day only for short periods. And takes the portable unit with her if she had to go for a long trip and for more than 1 or 2 hours. Code(s): J96.91 - Respiratory failure, unspecified with hypoxia Category: Medical Plan: as above (5) Pulmonary nodules: Comment: She is in annual lung screening program which would be ending this year. Has a few pulmonary nodules the size his 3 mm or less, not worrisome. Code(s): R91.8 - Other nonspecific abnormal finding of lung field Category: Medical Plan: Continue to participate in annual lung screening program. Coding Level of Care Code Est Pt Level 3 (00811) Diagnoses Chronic obstructive pulmonary disease, unspecified COPD type J44.9 COPD type: unspecified COPD Allergic rhinitis J30.9 Tobacco use disorder F17.200 Respiratory failure with hypoxia J96.91 Pulmonary nodules R91.8
[2025-09-11 13:26] VITALS: BP 190/78; PULSE 107; O2SAT 90; BMI 19.5
--- OUTSIDE RECORDS SUMMARY | 2025-09-11 15:49 | XMS_ITS | Patient Health Record ---
[facility] Address [address] [place] [address] Care Team Providers Care Slackline Operator Name Role Phone SenaYoshi Primary Care Provider Santy Erickson Unavailable [phone] Allergies No Known Allergies Results Component Value [...] Problem Acquired hammer toe of right foot (0018960011002 105) Other hammer toe(s) (acquired), right foot (M20.41) Active confirmed Response to treatment,I mprovement Problem Acquired hammer toe of left foot (9566382939789 103) Other hammer toe(s) (acquired), left foot (M20.42) Active confirmed Response to treatment,I mprovement Problem Type 2 diabetes mellitus with peripheral angiopathy (740338219) Type 2 diabetes mellitus with diabetic peripheral angiopathy without gangrene (E11.51) Active confirmed Vital Signs Blood pressure diastolic 70 mm Hg 06/12/2025 Height 5ft 2in in 06/12/2025 Blood pressure systolic 126 mm Hg 06/12/2025 Weight 110 lbs 06/12/2025 BMI 20.12 kg/m2 06/12/2025 Procedures Procedure Date Ordered Date Performed Result Body Sit e 10921-IQLPUIH NAIL, 1-5 12/05/2024 N/A 76582-WPBM SKIN LESIONS, OVER 4 12/05/2024 N/A M0803-CQWXPXIC DYSTROPHIC NAILS ANY # 12/05/2024 N/A 11720-CGGCYNM NAIL, 1-5 03/06/2025 N/A 14195-UMBP SKIN LESIONS, OVER 4 03/06/2025 N/A Y3034-RNDMREEU DYSTROPHIC NAILS ANY # 03/06/2025 N/A 85622-WNVHBDC NAIL, 1-5 06/12/2025 N/A 42273-EUFX SKIN LESIONS, OVER 4 06/12/2025 N/A Y7529-MUFMVNIU DYSTROPHIC NAILS ANY # 06/12/2025 N/A Encounters Encounter Location Date [facility] [address] 12/05/2024 Santy Erickson Type 2 diabetes mellitus with diabetic peripheral angiopathy without gangrene E11.51 ; Other hammer toe(s) (acquired), right foot M20.41 ; Tinea unguium B35.1 ; Pain in right toe(s) M79.674 ; Pain in left toe(s) M79.675 and Other hammer toe(s) (acquired), left foot M20.[address] [address] 03/06/2025 Santy Erickson Type 2 diabetes mellitus with diabetic peripheral angiopathy without gangrene E11.51 ; Tinea unguium B35.1 ; Pain in right toe(s) M79.674 and Pain in left toe(s) M79.[address] [address] 06/12/2025 Santy Erickson Type 2 diabetes mellitus with diabetic peripheral angiopathy without gangrene E11.51 ; Tinea unguium B35.1 ; Pain in right toe(s) M79.674 and Pain in left toe(s) M79.675 Assessments Encounter Date Diagnosis (ICD Code) Assessment Notes Treatment Notes Treatment Clinical Notes Section Notes 12/05/2024 Other hammer toe(s) (acquired), right foot [...] M79.674) 12/05/2024 Tinea unguium (ICD-10 - B35.1) 12/05/2024 Pain in right toe(s) (ICD-10 - M79.674) 03/06/2025 Pain in left toe(s) (ICD-10 - M79.675) 06/12/2025 Pain in left toe(s) (ICD-10 - M79.675) 12/05/2024 Pain in left toe(s) (ICD-10 - M79.675) 12/05/2024 Other hammer toe(s) (acquired), left foot (ICD-10 - M20.42) Plan Of Treatment Pending Test Test Name Order Date 49635-ZDXTLAP NAIL, 1-12/07/2023 10055-GDFEZZZ NAIL, -02/22/2024 79720-ODHOOCI NAIL, -05/02/2024 71634-LBOWCNC NAIL, -09/01/2024 71989-QEBWFNK NAIL, -12/05/2024 73726-UEAIRQX NAIL, -03/06/2025 70276-UIOUWKA NAIL, -06/12/2025 50215-WYCK SKIN LESIONS, OVER 4 06/12/20 25 37980-WNNJ SKIN LESIONS, OVER 4 03/06/20 25 29409-VWMK SKIN LESIONS, OVER 4 12/05/19 25 48374-PCWM SKIN LESIONS, OVER 4 09/01/20 24 50966-SIDQ SKIN LESIONS, OVER 4 05/02/20 24 48023-TZYX SKIN LESIONS, OVER 4 12/07/19 24 84682-EKVZ SKIN LESIONS, OVER 4 02/22/20 24 S4191-PORPZLMF DYSTROPHIC NAILS ANY # J4340-CVIYGDBW DYSTROPHIC NAILS ANY # O3726-HLUTFJKH DYSTROPHIC NAILS ANY # K3282-OKWMEZJJ DYSTROPHIC NAILS ANY # B6299-KOPAVGFD DYSTROPHIC NAILS ANY # B1819-ROAXHIIB DYSTROPHIC NAILS ANY # I6613-NIRRIPMY DYSTROPHIC NAILS ANY # Next Appt Details Provider Name:Santy Erickson , 09/14/2025 09:15:00 AM, [address] [place], [address], Insurance Providers Payer Name Payer Address Payer Phone Subscriber Number Group Number Insured Name Patient Relationship to Insured Coverage Start Date Coverage End Date [employer] Advantage [facility] [address] [place] [address] [phone] [id number] Gisel Taylor Self - patient is the insured Medical (General) History Medical History History ICD Code type II diabetes Heart disease High blood pressure Poor circulation sinusitis Measles Mumps Chicken pox COPD Hypercholesterolemia Surgical History Surgery Date(Month/Year) Gall bladder removal 08-25-2018 Hernia Hospitalization History Reason Date(Month/Year) covid 07/24/2024
== END 2025-09-11 13:48 | disposition home or self-care (01) ==
LOC: HO.HPS 13:07
PROVIDERS: PCP Internal Medicine; Visit Provider Internal Medicine
DX: J44.9 Chronic obstructive pulmonary disease, unspecified (principal); J30.9 Allergic rhinitis, unspecified; F17.200 Nicotine dependence, unspecified, uncomplicated; J96.91 Respiratory failure, unspecified with hypoxia; R91.8 Other nonspecific abnormal finding of lung field
CPT/HCPCS: 99213

== ENCOUNTER → 2025-09-11 13:06 | Outpatient (BNVA) | payer MEDICARE, SELFPAY | PROVIDERS: PCP Internal Medicine; Visit Provider Internal Medicine | DX: J44.9 Chronic obstructive pulmonary disease, unspecified (principal); J30.9 Allergic rhinitis, unspecified; F17.200 Nicotine dependence, unspecified, uncomplicated; J96.91 Respiratory failure, unspecified with hypoxia; R91.8 Other nonspecific abnormal finding of lung field | CPT/HCPCS: 99212 ==

== ENCOUNTER 2025-09-18 13:05 | Outpatient (AMB) | payer MEDICARE, SELFPAY ==
--- OUTSIDE RECORDS SUMMARY | 2024-07-25 09:30 | XMS_ITS ---
Author Organization [facility] Address [address] [place] [id number] Care Team Providers Care Deck Specialist Name Role Phone Yoshi Shetty Primary Care Provider [phone] Santy Erickson [phone] Encounters Encounter Location Date Provider Diagnosis [address] [id number] 07/25/2024 Santy Erickson Plan Of Treatment Next Appt Details Provider Name:Santy Erickson , 01/08/2026 02:00:00 PM, [address] [place] [address], [phone], Progress Notes * Gisel TAYLOR SDOB: [birth year] (75 yo F)Acc No.[id number]:07/25/2024 Progress Note Patient: Gisel GAMBLE Provider: Tati Erickson DPM :1950 A ge:74 Y S ex:Female Date:07/25/2024 Address:[address] [place] [address] [facility] Pcp:Yoshi Shetty Subjective: * Chief Complaints: * [...] 07/25/2024 Generated for Janie licea/Paul/Terry on: 1 04:52 PM EDT
--- OUTSIDE RECORDS SUMMARY | 2025-09-14 05:15 | XMS_ITS ---
Author Organization [facility] Address [address] [place] [address] Care Team Providers Care Party Plan Sales Unit Sales Leader Name Role Phone Yoshi Shetty Primary Care Provider Santy Erickson Unavailable [phone] Allergies No Known Allergies REASON FOR VISIT [...] Trulicity 0.75 MG/0.5ML as directed daily Active Social History Tobacco Use: Social History [...] Negative Vital Signs Height 5ft 2in in 09/14/2025 Weight 110 lbs 09/14/2025 BMI 20.12 kg/m2 09/14/2025 Blood pressure systolic 126 mm Hg 09/14/20 Blood pressure diastolic 70 mm Hg 025 Procedures Procedure Date Ordered Date Performed Result Body Sit e 78842-FMQNWMW NAIL, 1-5 09/14/2025 N/A 32615-CERE SKIN LESIONS, OVER 4 09/14/2025 N/A A9740-JHZMZOIJ DYSTROPHIC NAILS ANY # 09/14/2025 N/A Encounters Encounter Location Date Provider Diagnosis [facility] [address] [address] 09/14/2025 Santy Erickson Type 2 diabetes mellitus with diabetic peripheral angiopathy without gangrene E11.51 ; Tinea unguium B35.1 ; Pain in right toe(s) M79.674 and Pain in left toe(s) M79.675 Assessments Encounter Date Diagnosis (ICD Code) Assessment Notes Treatment Notes Treatment Clinical Notes Section Notes 09/14/2025 Type 2 diabetes mellitus with diabetic peripheral angiopathy without gangrene (ICD-10 - E11.51) 09/14/2025 Tinea unguium (ICD-10 - B35.1) 09/14/2025 Pain in right toe(s) (ICD-10 - M79.674) 09/14/2025 Pain in left toe(s) (ICD-10 - M79.675) Plan Of Treatment Pending Test Test Name Order Date 35784-PYUEUOZ NAIL, 1-5 09/14/2025 16108-SWRQ SKIN LESIONS, OVER 4 09/14/20 25 D9428-LLMHPDRY DYSTROPHIC NAILS ANY # Next Appt Details Follow Up: prn, Reason: Provider Name:Santy Erickson , 01/08/2026 02:00:00 PM, [address] [place] [address], [place], [address], Procedure Notes * Category Sub-Category Detail Notes [...] , B/L , Plantar, Heel(s) , B/L ), were pared, and/or cut utilizing a sterile 15 blade, tissue nippers, and/or power dremel instrumentation by the physician of record - 31686, Q8 Debride Nails 1-5 Procedure: Due to [...] necessary to maintain effective symptomatic relief - 39573 Nail Reduction Nail Reduction (-27) Trimming o [...] T2, T3, T4, T6, T7, T8, T9 ), were debrided by the phisician of record to reduce/remove overall nail length and girth, by manual and electrical means with use of a nail nipper and/or dremel, to more viable healthy nail plate or bed tissue - G0127, Q8 Progress Notes * Gisel TAYLOR SDOB: [birth year] (75 yo F)Acc No.[id number]:09/14/2025 Progress Note Patient: Gisel GAMBLE Provider: Tati Erickson DPM :1950 A ge:75 Y S ex:Female Date:09/14/2025 Address:[address] [place], [place] [id number] Pcp:Yoshi Shetty Subjective: * Chief Complaints: * A t Risk FootcarePainful Nail(s) aggrevated by shoes and causing difficulty standing/walking. * HPI: A t Risk footcare: Pt States Last PCP Visit: D ate 0 07/25/2025 [facility] Alex wong has an appt with PCP 09/18. * ROS: G eneral/Constitutional: Nausea d enies. V omiting d enies. H preeti Thirst d enies. L oss appetite d enies. C hills d enies. F atigue d enies.?Fever d enies. N ight Sweats d enies. U nexplained weight loss d enies. U nexplained weight gain d enies. H EENTM: Dentures d enies. D izziness d enies. G lasses/contacts a dmits. R etinopathy d enies. B lurred/double vision d enies. T MJ?denies. D ischarge/drainage d enies. I mplants d enies. S ore throat d enies. D ental implants d enies. H bonif[place] of hearing d enies. D ifficulty chewing/swallowing/speaking d enies. N ose bleeds d enies. S ore mouth d enies. ? R espiratory: On Oxygen d enies. P neumonia/pleurisy d enies.?Bronchitis d enies. E mphysema d enies. C oughing d enies. C ough blood?denies. S hortness of breath d enies. W heezing d enies. C ardiovascular: Pacemaker d enies. M BEHAVIORAL SERVICES TECH d enies. W PW d enies. C HF d enies. H eart attack d enies. S eptal defect d enies. R apid beat d enies. C hest pain d enies. A trial Fib. d enies. M urmur/Palpitations d enies. G astrointestinal: Hemorrhoids d enies. S tomach/Abdominal pain d enies. D ark blood stool d enies. I rritable bowel d enies. C onstipation d enies. D iarrhea d enies. H ematology: Swelling a dmits. C lots d enies. V aricose Veins d enies. B ruising d enies. B leeding problem d enies. G enitourinary: Blood urine d enies. F requent/Painfu/urination/bladder control d enies. K idney stones d enies. I nfection (UTI) d enies. N ephropathy d enies. s ex trans dis (STD) d enies. P rostate d enies. M usculoskeletal: Hammertoes a dmits. B unions d enies. B ack Pain d enies. M uscle Cramps/ Resting d enies. M uscle cramps / walking d enies.?Generalized aches and pains d enies. W eakness d enies. I nteg.: Sanz d enies. S cars d enies. C orns/calluses?admits. I ngrown nails a dmits. P ainful nails a dmits. O pen Sores d enies. R ashes d enies. N eurologic: Difficulty sleeping d enies. B rain disorder d enies. N umbness d enies. B alance trouble d enies. C onfusion d enies. F ainting/blackouts d enies. T ingling d enies. T remors d enies. * Medical History: * Surgical History: G all bladder removal [id number] * Hospitalization/Major Diagno stic Procedure: c ovid 07/24/2024 * Family History: M other: , diagnosed with Unspecified heart disease. F ather: , diagnosed with Diabetic - NIDDM. * Social History: T obacco Use: T obacco use other than smoking A re you an other tobacco user? N o Tobacco Control (Standard) T obacco use: C urrent smoker W hen did you start smoking? 0 02/28/1985 H ow often do you smoke cigarettes? E very day H ow many cigarettes a day do you smoke? 6 -10 H ow soon after you wake up do you smoke your first cigarette? 6 -30 minutes A re you interested in quitting? T hinking about quitting A dditional Findings: Tobacco user M oderate cigarette smoker (10-19 cigs/day) D rugs/Alcohol: D rugs H ave you used drugs other than those for medical reasons in the past 12 months? N o M iscellaneous: C affeine: yes, 1 cup per day. Children: yes, 2. Exercise: no. Marital status: . Occupation: Retired. D rug/Alcohol: A HELDER-C (Standard) D id you have a drink containing alcohol in the past year? N o P oints 0 I nterpretation N egative * Medications: T akingTrulicity 0.75 MG/0.5ML Solution Auto-injector as directed daily Symbicort 160-4.5 MCG/ACT Aerosol 2 puffs Inhalation Twice a day metFORMIN HCl 1000 MG Tablet 1 tablet with a meal Orally Once a day Simvastatin 10 MG Tablet 2 tablets in the evening Orally Once a day amLODIPine Besylate 5 MG Tablet 1 tablet Orally Once a day Lisinopril 30 MG Tablet 1 tablet Orally Once a day Taking Trulicity 0.75 MG/0.5ML Solution Auto-injector as directed daily Taking Symbicort 160-4.5 MCG/ACT Aerosol 2 puffs [...] reviewed and reconciled with the patient * Allergies: N .K.D.A.yes[Allergies Verified] Objective: * Vitals: H t: 5ft 2in, Wt: 110, BMI: 20.12, Shoe size: 8-8.5, BP: 126/70 mm Hg, BS: not taken, Ht-cm: 157.48 cm, Wt-k.9 kg. * P ast Orders: L ab:HEMOGLOBIN A1C (GLYCOHEMOGLOBIN) (Order Date - 06/29/2025) (Collection Date & Time - 09/14/2025 09:35 AM) Value Reference Range HEMOGLOBIN A1C % (HH) 7.1 * Examination: O phthalmology Referral: DIABETES EYE EXAM P rocedure Performed: Y gregory D ate of Exam Performed 0 03/01/2025 D iabetic Retinopathy Screening: Y es R etinal Screening Performed: Y es F indings of Diabetic Eye Exam: n o retinopathy V ascular: DP PULSES (B): 0/4, B/L. PT PULSES (B): 0/4, B/L. CAPILLARY FILL TIME: delayed, all digits, B/L. TROPHIC CONDITION-TEXTURE/ELASTICITY/TURGOR/HAIR GROWTH (B):? decreased, fragile, thin, shiny skin, with sparse to absent hair growth, B/L. TEMPERTURE GRADIENT (C): decreased, cool to cool, proximal to distal, B/L. PIGMENTATION: r ubrous, B/L. EDEMA (C): 2 /4 , pitting , without aching pain , Leg(s) , Ankle(s) , Foot , B/L. CLAUDICATION (C): d enies, B/L. REST PAIN: d enies, B/L. N ails: NAILS are: E longated, overgrown, dystrophic, lytic, greater than 3mm thick, discolored and friable with crumbly malodorous subungual debris, with pain on palpation , TA , T5 , all other nails not described with characteristics as possessing mycosis are elongated, overgrown, and dystrophic ( T1, T2, T3, T4, T6, T7, T8, T9 ) . D ermatologic: SKIN FINDINGS: S kin exam reveals Keratotic lesion(s) located at , SUB MTH (s), 1, B/L, SUB MTH (s) , 5 , B/L , Plantar, Heel(s) , B/L. Assessment: * Assessment: 1. T inea unguium - B35.1 2 . T ype 2 diabetes mellitus with diabetic peripheral angiopathy without gangrene - E11.51 (Primary) S pecify :Q8 3 . P ain in right toe(s) - M79.674 4 . P ain in left toe(s) - M79.675 Plan: * Treatment: 2. T inea unguium P rocedure: 23844-MWPCSRP NAIL, 1-5 * Procedures: D ebride Nails 1-5: Procedure: D ue to the clinical pathology outlined in the exam findings, performance of this nail treatment is medically necessary as its management by an unskilled/untrained nonprofessional would put this patients foot and overall health at risk. Therefore, debridement to affected nail(s), as described in exam ( TA , T 5 ) , was performed exclusively by the physician of [...] necessary to maintain effective symptomatic relief - 96202. K eratoma Treatment: Parring or Cutting of Benign Hyperkeratotic Lesion(s) ( -57) More than 4 Lesions - Due to [...] stated and described in the exam ( S UB MTH (s), 1 , B /L, S UB MTH (s) , 5 , B /L , P lantar, H eel(s) , B /L ) , were pared, and/or cut utilizing a sterile 15 blade, tissue nippers, and/or power dremel instrumentation by the physician of record - 79863, Q8. N ail Reduction: Nail Reduction ( -27) Trimming of all dystrophic nails - Due [...] T3, T4, T6, T7, T8, T9 ) , were debrided by the phisician of record to reduce/remove overall nail length and girth, by manual and electrical means with use of a nail nipper and/or dremel, to more viable healthy nail plate or bed tissue - G0127, Q8. * Procedure Codes: G 0127 TRIMMING DYSTROPHIC NAILS ANY #, Modifiers: XS , [id number] DEBRIDE NAIL, 1-5, Modifiers: XS 86692 TRIM SKIN LESIONS, OVER 4, Modifiers: XS , Q8 * Preventive Medicine: Counseling: T obacco use: Patient counseled on the dangers of smoking and urged to quit: 1 * Follow Up: p rn * Images: * Sign off status: Completed true * Provider: Tati Erickson DPM Date: Generated for Janie licea/Paul/Terry on: 04:53 PM EDT History and Physical Notes * HPI (History of Present Illness) Category Sub-Category Detail Notes Category Not es At Risk footcare Pt States Last PCP Visit: Date: [facility] States has an appt w ith PCP 09/18 Examination Category Sub-Category Detail Notes Category Not es Dermatologic SKIN FINDINGS: Skin exam reveal s Keratotic lesion(s) located at , SUB MTH (s), 1, B/L, SUB MTH (s) , 5 , B/L , Plantar, Heel(s) , B/L Ophthalmology Referral DIABETES EYE EXAM Procedu re Performed:: Yes Date of Exam Performed: 03/01/2025 Diabetic Retinopathy Screening:: Yes Retinal Screening Performed:: Yes Findings of Diabetic Eye Exam:: no [...]
[2025-09-18 13:19] VITALS: BP 162/72; PULSE 85; TEMP 37.4; O2SAT 94; BMI 19.0
--- NOTE | 2025-09-18 13:19 | MHC.PC.OV ---
Vital Signs 09/18/25 13:19 Height 5 ft 3 in Weight 107 lb 2 oz BMI 19.0 BP 162/72 H Blood Pressure Location Lt brachial Position Sitting Pulse 85 Pulse Source Pulse Oximeter Temp 99.4 F Temp Source Temporal Artery Scan Pulse Oximetry (%) 94 Oxygen Delivery Method Room Air Intake Visit Reasons: 3 month f/u Intake Note: would also like to talk about trulicity Accessioner Required: No Diet Kitchen Cook: Not Required per policy Accompanied by: Self / Same As Patient Allergies No Known Allergies Allergy (Verified 09/18/25 13:20) Tobacco use date assessed: 09/18/25 Fall risk assessment: No Falls in past year Last assessed Fall Risk: 09/18/25 Dental Screening Dental Screen Date: 09/18/25 Did you have a dental visit in the last 12 months?: No Did you have a dental problem in the last 6 months where you did not have access to dental care?: No Was dental information given to patient?: Patient has dentist [facility] Medical History Pulmonary nodules Nicotine dependence, cigarettes, uncomplicated Respiratory failure with hypoxia Post covid-19 condition, unspecified Tobacco use disorder Allergic rhinitis Osteoporosis (~2013) Congestive heart failure Chronic obstructive pulmonary disease, unspecified GERD (gastroesophageal reflux disease) Familial hypercholesterolemia Type 2 diabetes mellitus without complications Surgical History History of myringotomy (~2006) History of nasal surgery (~1989) History of ERCP (~2017) History of femoral hernia repair (~2008) History of cholecystectomy (~2017) History of eye surgery (~2019) Family History Father No problems noted. Mother No problems noted. Social History Household Members: Spouse Housing: House Do you presently have visiting nurse or other home services: No Alcohol intake: never Patient Tobacco Use Status: Current someday Tobacco user Tobacco use type: Cigarette Cigarette Packs Per Day: 0.25 Cigarettes Per Day: 1 (three a week) Years Smoked: 40 years e-Cigarette/Vaping Use: Never Used Second Hand Smoke Exposure: Yes service: No Current occupational status: retired Cognitive needs: No Hearing needs: No Vision needs: Yes (Glasses) Questionnaire PHQ-9 Over the last 2 weeks, how often have you been bothered by any of the following problems? 1. Little interest or pleasure in doing things: not at all 2. Feeling down, depressed, or hopeless: not at all 3. Trouble falling or staying asleep, or sleeping too much: not at all 4. Feeling tired or having little energy: not at all 5. Poor appetite or overeating: not at all 6. Feeling bad about yourself - or that you are a failure or have let yourself or your family down: not at all 7. Trouble concentrating on things, such as reading the newspaper or watching television: not at all 8. Moving or speaking so slowly that other people could have noticed. Or the opposite - being so fidgety or restless that you have been moving around a lot more than usual: not at all 9. Thoughts that you would be better off or of hurting yourself in some way: not at all Total score: 0 Depression Screening Interpretation: Negative Depression Screening Done: Yes Source: Developed by Drs. Maxx Owens, Gisel Pina, Juvenal Stoner and colleagues, with an educational saritha from [employer]. Thrive Questionnaire Date Thrive assessed: 09/18/25 I am a: Patient What is your living situation today?: I have a steady place to live Within the past 12 months, did the food you bought not last and you didn't have the money to get more?: Never true Within the past 12 months, did you worry whether your food would run out before you got money to buy more?: Never true Do you have trouble paying for medicines?: No Do you have trouble getting transportation to medical appointments?: No Do you have trouble paying your heating and electricity bill?: No Do you have trouble taking care of your child, family member or friend?: No Do you have trouble with day-to-day activities such as bathing, preparing meals, shopping, managing finances, etc.?: No Are you currently unemployed and looking for a job?: No Are you interested in more education?: No Please select the resources that you would like help with: None THRIVE Score: 0 AUDIT C Alcohol Use Questionnaire (AUDIT-C) 1. How often do you have a drink containing alcohol?: Never Total Score: 0 WESLEY-7 AMB Questionnaire WESLEY-7 Date WESLEY - 7 assessed: 09/18/25 Feeling nervous, anxious, or on edge: 0 = Not at all Not being able to stop or control worryin = Not at all Worrying too much about different things: 0 = Not at all Trouble relaxin = Not at all Being so restless that it is hard to sit still: 0 = Not at all Becoming easily annoyed or irritable: 0 = Not at all Feeling afraid as if something awful might happen: 0 = Not at all Total WESLEY-7 score (0-4 normal; 5-9 mild; 10-14 moderate; 15-21 severe): 0 Source: Developed by Drs. Maxx Owens, Gisel Pina, Juvenal Stoner and colleagues, with an educational saritha from [employer]. Physical exam (Primary Care) Vital Signs: Last Vital Signs Temp 99.4 F 09/18/25 13:19 Pulse 85 09/18/25 13:19 BP 162/72 H 09/18/25 13:19 Pulse Ox 94 09/18/25 13:19 Oxygen Delivery Method Room Air 09/18/25 13:19 BMI result Body Mass Index 19.0 Tobacco/Smoking Status: Tobacco use Status Tobacco use date assessed 09/18/25 09/18/25 13:23 Patient Tobacco Use Status Current someday Tobacco 09/18/25 13:23 Tobacco use type Cigarette 09/18/25 13:23 e-Cigarette/Vaping Use Never Used 09/18/25 13:23 PHQ-9: PHQ-9 Score PHQ-9: Total score 0 09/18/25 13:35 Depression Screening Interpretation: Negative Thrive Assessment: Date of Thrive Assessment Date Thrive assessed 09/18/25 09/18/25 13:23 Office Procedures Flu Questionnaire Does the patient have a severe egg allergy?: No Does the patient have severe life threatening allergies?: No Does the patient have a fever or illness today?: No Has the patient ever had Guillain-[place] Syndrome?: No Has the patient ever had any past reaction to a flu shot?: No Results AMB Hemoglobin A1c AMB Hemoglobin A1c 6.5 % Last Edit by Karlene Sharif CMA on 09/18/25 13:36 Immunizations Fluarix 1358-6517 (PF) 45 mcg (15 mcg x 3)/0.5 mL IM syringe Performing Provider: Yoshi Shetty MD [facility] Documented (not given) by: Karlene Sharif CMA on 09/18/25 13:35 Reason Not Given: Received Previously Results Reviewed Results Reviewed: Laboratory Last Values Hgb A1c (Clinic) 6.5 % (4.0-6.0) H 09/18/25 13:25 Coding Level of Care Code Est Pt Level 4 (93835) Complex EM visit Add On G2211 Diagnoses Essential hypertension I10 Assessment & Plan Assessment & Plan (1) Essential hypertension: Code(s): I10 - Essential (primary) hypertension Category: Medical Plan: History of Present Illness - The patient is a 75-year-old female presenting with a routine check-up and management of chronic conditions, including diabetes and hypertension. - Type 2 Diabetes Mellitus: The patient's A1c level has improved to 6.5% from 7.1% three months ago, indicating better glycemic control. She reports a slight weight loss from 110 pounds to 107 pounds, which she attributes to her current medication regimen. - Hypertension: The patient experienced an initial elevated blood pressure reading of 229 mmHg, which decreased to 162 mmHg upon subsequent measurements. She attributes the initial high reading to nerves. - Preventative care: The patient plans to receive an influenza vaccination. She has declined the COVID-19 vaccination at this time. Social History - The patient reports a slight weight loss from 110 pounds to 107 pounds, which she attributes to her current medication regimen. - The patient mentions not using her oxygen therapy recently and avoiding outdoor activities due to the sun. Review of Systems - Endocrine: Reports improved glycemic control with A1c at 6.5%. - Cardiovascular: Reports initial elevated blood pressure reading, denies persistent hypertension symptoms. - Respiratory: Denies recent use of oxygen therapy. Physical Exam General: Cooperative and healthy appearing Nutritional Appearance: Well nourished Orientation/consciousness: Patient oriented x3 Limitations: No limitations Head: Normal to inspection General: Appearance normal, both eyes and all related structures Neck: Normal visual inspection Chest: Normal palpation of entire chest wall Respiratory: No abnormalities noted ormal respiratory effort Neurology: Patient oriented x3, but experienced a fall due to tripping over a dog. Blood pressure was initially high at 229, but decreased to 162 after subsequent measurements, likely due to nerves. Results - Labs: A1c improved to 6.5% from 7.1% three months ago. Plan - Continue current diabetes management plan, monitor A1c levels regularly. - Monitor blood pressure closely, consider lifestyle modifications to manage hypertension. - Administer influenza vaccination as planned. - Discuss the potential benefits of COVID-19 vaccination in future visits. Discussion Notes During the visit, we discussed the patient's improved glycemic control and the importance of maintaining this trend. We also addressed the elevated blood pressure readings and the need for regular monitoring. The patient was advised to receive the influenza vaccination and consider the COVID-19 vaccination in the future. Follow-up appointments were scheduled to continue monitoring her chronic conditions. Patient Instructions - Continue taking diabetes medications as prescribed and monitor blood sugar levels regularly. - Monitor blood pressure at home and report any significant changes. - Receive the influenza vaccination as planned. - Consider discussing the COVID-19 vaccination at the next visit. Orders: Orders Influenza [id number] Immunization Today Z23 - Encounter for immunization AMB Hemoglobin A1c Today Z13.9 - Encounter for screening, unspecified
--- OUTSIDE RECORDS SUMMARY | 2025-09-18 16:53 | XMS_ITS | Patient Health Record ---
Author Organization [facility] Address [address] [place] [address] Care Team Providers Care Die Finisher Name Role Phone Sena, Kartik Primary Care Provider Santy Erickson Unavailable [phone] Allergies No Known Allergies Results Component Value Reference Range Notes HEMOGLOBIN A1C (GLYCOHEMOGLO BIN) Reviewed date:03/06/2025 11:24:35 AM Interpretation: Performing Lab: Notes/Report: HEMOGLOBIN A1C % (HH) 7.8 HEMOGLOBIN A1C (GLYCOHEMOGLO BIN) Reviewed date:09/14/2025 09:36:51 AM Interpretation: Performing Lab: Notes/Report: HEMOGLOBIN A1C % (HH) 7.1 Reason For Referral No Information Medications Medication [...] Trulicity 0.75 MG/0.5ML as directed daily Active Immunizations Vaccine Route Administration Date Status Comme [...] many cigarettes a day do you smoke? 5 or les s How soon after you wake up d o you smoke your first cigarette? After 60 minutes Are you interested in quitting? Ready to quit Additional Findings: Tobacco user Modera te cigarette smoker (10-19 cigs/day) AUDIT-C (Standard) Question Answer Notes Did you have a drink containing alcohol in the p ast year? No Points 0 Interpretation Negative Problems Problem Type SNOMED Code ICD Code Onset Dates Problem Status W/U Status Risk Notes Problem Acquired hammer toe of right foot (2669265485802 105) Other hammer toe(s) (acquired), right foot (M20.41) Active confirmed Response to treatment,I mprovement Problem Acquired hammer toe of left foot (5545439370577 103) Other hammer toe(s) (acquired), left foot (M20.42) Active confirmed Response to treatment,I mprovement Problem Type 2 diabetes mellitus with peripheral angiopathy (553036185) Type 2 diabetes mellitus with diabetic peripheral angiopathy without gangrene (E11.51) Active confirmed Vital Signs Blood pressure diastolic 70 mm Hg 09/14/2025 Height 5ft 2in in 09/14/2025 Blood pressure systolic 126 mm Hg 09/14/2025 Weight 110 lbs 09/14/2025 BMI 20.12 kg/m2 09/14/2025 Procedures Procedure Date Ordered Date Performed Result Body Sit e 18460-APLNMCO NAIL, 1-5 12/05/2024 N/A 98121-ACFO SKIN LESIONS, OVER 4 12/05/2024 N/A A4004-RZMOZIFS DYSTROPHIC NAILS ANY # 12/05/2024 N/A 11441-MAFTYQQ NAIL, 1-5 03/06/2025 N/A 70428-FRBU SKIN LESIONS, OVER 4 03/06/2025 N/A R6234-LYIDSVFQ DYSTROPHIC NAILS ANY # 03/06/2025 N/A 94097-GZRILZV NAIL, 1-5 06/12/2025 N/A 69821-PZVK SKIN LESIONS, OVER 4 06/12/2025 N/A H4944-TXJJPWKK DYSTROPHIC NAILS ANY # 06/12/2025 N/A 55114-LDLUPLL NAIL, 1-5 09/14/2025 N/A 22005-DAPP SKIN LESIONS, OVER 4 09/14/2025 N/A W4385-AREVJSAY DYSTROPHIC NAILS ANY # 09/14/2025 N/A Encounters Encounter Location Date Provider Diagnosis [address] [address] 12/05/2024 Santy Dre Type 2 diabetes mellitus with diabetic peripheral angiopathy without gangrene E11.51 ; Other hammer toe(s) (acquired), right foot M20.41 ; Tinea unguium B35.1 ; Pain in right toe(s) M79.674 ; Pain in left toe(s) M79.675 and Other hammer toe(s) (acquired), left foot M20.[address] [address] 03/06/2025 Santysandra ZunigaDre Type 2 diabetes mellitus with diabetic peripheral angiopathy without gangrene E11.51 ; Tinea unguium B35.1 ; Pain in right toe(s) M79.674 and Pain in left toe(s) M79.[address] [address] 06/12/2025 Santysandra ZunigaDre Type 2 diabetes mellitus with diabetic peripheral angiopathy without gangrene E11.51 ; Tinea unguium B35.1 ; Pain in right toe(s) M79.674 and Pain in left toe(s) M79.[address] [address] 09/14/2025 Santysandra ZunigaDre Type 2 diabetes mellitus with [...] 09/14/2025 Tinea unguium (ICD-10 - B35.1) 09/14/2025 Type 2 diabetes mellitus with diabetic peripheral angiopathy without gangrene (ICD-10 - E11.51) 06/12/2025 Pain in right toe(s) (ICD-10 - M79.674) 09/14/2025 Pain in right toe(s) (ICD-10 - M79.674) 03/06/2025 Pain in right toe(s) (ICD-10 - M79.674) 12/05/2024 Tinea unguium (ICD-10 - B35.1) 12/05/2024 Pain in right toe(s) (ICD-10 - M79.674) 03/06/2025 Pain in left toe(s) (ICD-10 - M79.675) 09/14/2025 Pain in left toe(s) (ICD-10 - M79.675) 06/12/2025 Pain in left toe(s) (ICD-10 - M79.675) 12/05/2024 Pain in left toe(s) (ICD-10 - M79.675) 12/05/2024 Other hammer toe(s) (acquired), left foot (ICD-10 - M20.42) Plan Of Treatment Pending Test Test Name Order Date 54969-EAADLPA NAIL, 1-5 12/07/2023 26085-OSARTHA NAIL, 1-5 02/22/2024 93770-NSLJXBR NAIL, 1-5 05/02/2024 40481-AKXORAD NAIL, 1-09/01/2024 67191-QUAXFCH NAIL, -12/05/2024 65425-ZHPMLIZ NAIL, 1-03/06/2025 34514-NWQBJVS NAIL, 1-06/12/2025 69381-WYQHIRS NAIL, 1-09/14/2025 69709-FULP SKIN LESIONS, OVER 4 09/14/20 25 93066-AHWD SKIN LESIONS, OVER 4 06/12/20 25 48963-PAOX SKIN LESIONS, OVER 4 03/06/20 25 08272-CCPY SKIN LESIONS, OVER 4 12/05/19 25 71951-CYBZ SKIN LESIONS, OVER 4 09/01/20 24 69786-ROVI SKIN LESIONS, OVER 4 05/02/20 24 39328-EPNG SKIN LESIONS, OVER 4 12/07/19 24 00572-SNWY SKIN LESIONS, OVER 4 02/22/20 24 C4270-XAXXBVMB DYSTROPHIC NAILS ANY # F2262-FXLGLSGV DYSTROPHIC NAILS ANY # F7553-RZAADRPH DYSTROPHIC NAILS ANY # L1672-KBBZQAEH DYSTROPHIC NAILS ANY # Z4533-ULCCDJIP DYSTROPHIC NAILS ANY # K5276-QXGNEGAU DYSTROPHIC NAILS ANY # F4642-FFZZYHAE DYSTROPHIC NAILS ANY # N0352-SOQTBGWI DYSTROPHIC NAILS ANY # Next Appt Details Provider Name:Santy Erickson , 01/08/2026 02:00:00 PM, [address] [place], [address], Insurance Providers Payer Name Payer Address Payer Phone Subscriber Number Group Number Insured Name Patient Relationship to Insured Coverage Start Date Coverage End Date [employer] [address] [place] [address] [id number] Gisel Taylor Self - patient is the insured Medical (General) History Medical History History ICD Code type II diabetes Heart disease High blood pressure Poor circulation sinusitis Measles Mumps Chicken pox COPD Hypercholesterolemia Surgical History Surgery Date(Month/Year) Gall bladder removal 08-25-2018 Hernia Hospitalization History Reason Date(Month/Year) covid 07/24/2024
== END 2025-09-18 13:59 | disposition home or self-care (01) ==
LOC: HO.HMCSH 13:05
PROVIDERS: PCP Internal Medicine; Visit Provider Internal Medicine
DX: Z23 Encounter for immunization (principal); Z13.9 Encounter for screening, unspecified; I10 Essential (primary) hypertension

== ENCOUNTER → 2025-09-18 13:05 | Outpatient (BNVA) | payer MEDICARE, SELFPAY | PROVIDERS: PCP Internal Medicine; Visit Provider Internal Medicine | DX: I10 Essential (primary) hypertension (principal); E11.9 Type 2 diabetes mellitus without complications; Z13.31 Encounter for screening for depression; Z13.39 Encounter for screening examination for other mental health and behavioral disorders | CPT/HCPCS: 83036; 90471; 96127; 99212 ==

== ENCOUNTER 2025-10-05 13:07 | Outpatient (AMB) | payer MEDICARE, SELFPAY ==
--- OUTSIDE RECORDS SUMMARY | 2024-07-25 08:30 | XMS_ITS ---
Author Organization [facility] Address [address] [place] [id number] Care Team Providers Care Hat Cutter Name Role Phone Yoshi Shetty Primary Care Provider Santy Erickson [phone] Encounters Encounter Location Date Provider Diagnosis [address] [id number] 07/25/2024 Santy Erickson Plan Of Treatment Next Appt Details Provider Name:Santy Erickson , 01/08/2026 02:00:00 PM, [address] [place] [address], [phone], Progress Notes * Gisel TAYLOR SDOB: [birth year] (75 yo F)Acc No.[id number]:07/25/2024 Progress Note Patient: Gisel GAMBLE Provider: Tati Erickson DPM :1950 A ge:74 Y S ex:Female Date:07/25/2024 Address:[address] [place] [address] [facility] Pcp:Yoshi Shetty Subjective: * Chief Complaints: * * Medical History: Objective: * Vitals: Assessment: Plan: * Treatment: * Images: * The named appointment provid er may or may not be the originator of this progress note, and it is not deemed complete until electronically signed by the appointment provider. Sign off status: Pending * Provider: Tati Erickson DPM Date: 0 07/25/2024 Generated for Jaine licea/Kristopher on: 12/05/2024 03:15 PM EST
--- NOTE | 2025-10-05 13:09 | MHC.OFFWIV ---
Intake Vital Signs 10/05/25 13:16 10/05/25 13:45 Height 5 ft 3 in Weight 107 lb BMI 19.0 BP 162/80 H Blood Pressure Location Rt brachial Position Sitting Pulse 117 H 102 H Pulse Source Pulse Oximeter Pulse Oximeter Temp 97.6 F Temp Source Oral Pulse Oximetry (%) 88 L 98 Oxygen Delivery Method Room Air Nasal Cannula Oxygen Flow Rate 1 Comment High BP & Low 02 reported to provider Intake Visit Reasons: EP SOB, sinus Patient Tobacco Use Status: Current someday Tobacco user Allergies No Known Allergies Allergy (Verified 10/05/25 13:20) Do you need a note to return to daycare/school/sports/work: No HPI EP SOB, sinus HPI Details This is a 75-year-old female patient who presents to the walk-in clinic today reporting sinus congestion/pains for the last 1-2 weeks. She intermittently wears oxygen via NC at rate of 1L at home. She did not come in with this today. Sa02 on RA was 88-89%. Patient states this is fairly normal for her, particularly with activity. PMH significant for CHF, htn, COPD on home O2. She is followed by Dr. Zayas for pulm and Dr. Paul for PCP. She could not get appointments so was advised to come to the NC. She denies any fevers/chills. Denies any shortness of breath. She has albuterol and symbicort inhalers. Used her albuterol this morning. She is down to smoking 1 cigarette per day. ON LICENSE OF [facility] Medical History Pulmonary nodules Nicotine dependence, cigarettes, uncomplicated Respiratory failure with hypoxia Post covid-19 condition, unspecified Tobacco use disorder Allergic rhinitis Osteoporosis (~2013) Congestive heart failure Chronic obstructive pulmonary disease, unspecified GERD (gastroesophageal reflux disease) Familial hypercholesterolemia Type 2 diabetes mellitus without complications Surgical History History of myringotomy (~2006) History of nasal surgery (~1989) History of ERCP (~2017) History of femoral hernia repair (~2008) History of cholecystectomy (~2017) History of eye surgery (~2019) Family History Father No problems noted. Mother No problems noted. Social History Household Members: Spouse Housing: House Do you presently have visiting nurse or other home services: No Alcohol intake: never Patient Tobacco Use Status: Current someday Tobacco user Tobacco use type: Cigarette Cigarette Packs Per Day: 0.25 Cigarettes Per Day: 1 (three a week) Years Smoked: 40 years e-Cigarette/Vaping Use: Never Used Second Hand Smoke Exposure: Yes service: No Current occupational status: retired Cognitive needs: No Hearing needs: No Vision needs: Yes (Glasses) Review of Systems Const All systems reviewed & are unremarkable except as noted in HPI and below Physical Exam Vital Signs: Last Vital Signs Temp 97.6 F 10/05/25 13:16 Pulse 117 H 10/05/25 13:16 BP 162/80 H 10/05/25 13:16 Pulse Ox 88 L 10/05/25 13:16 Oxygen Delivery Method Room Air 10/05/25 13:16 BMI result Body Mass Index 19.0 Const General: cooperative, healthy appearing, comfortable and no acute distress Limitations: no limitations HEENT Head: Yes normal to inspection Ears: hearing grossly normal bilaterally General nose exam: Normal external nose present and Nasal discharge present mucoid Face and sinus: Yes sinus tenderness (frontal/maxillary) Mouth: Normal oral and palatal mucosa present Throat: Yes posterior oropharynx normal Neck Neck: Yes no lymphadenopathy Resp Effort & Inspection: normal respiratory effort and Actively coughing Quality: productive Auscultation: clear to auscultation bilaterally Cardio Rate: regular rate Rhythm: regular rhythm Skin General skin exam: no rashes or lesions noted Extrem General: Yes capillary refill normal and Yes no clubbing, cyanosis or edema Psych Appearance: grossly normal Mental Status: mental status grossly normal Speech and movement: Normal speech and movement present Assessment & Plan Assessment & Plan (1) Acute sinusitis: Code(s): J01.90 - Acute sinusitis, unspecified Qualifiers: Recurrence: non-recurrent Sinusitis location: maxillary Qualified Code(s): J01.00 - Acute maxillary sinusitis, unspecified Plan: 1L O2 was applied in the office during patient triage, and SaO2 quickly increased to 98%, with pulse of 102. Patient states the lower reading is typical for her, and she was very active when coming to the office. I will start patient on a course of antibiotics for this acute sinusitis, now lasting nearly 2 weeks. LS are clear and slightly diminished. No adventitious sounds. We reviewed indications, use, possible s/e of medication. She should also increase hydration and healthy food/vitamin C intake. After our discussion, I removed oxygen and monitored her work of breathing and Sa02. Sat was maintained at 94%, with a FL of 100. No shortness of breath. This was stable and readings were maintained for approximately 15 minutes prior to discharge. Patient felt stable for discharge home. Advised to go to the emergency department if she develops any shortness of breath, fevers, chills, or need for increased supplemental O2 at home. All questions were answered and patient verbalizes understanding and agrees to plan. Medications: New amoxicillin 500 mg PO TID 21 caps 0RF 7 days J01.00 - Acute maxillary sinusitis, unspecified Coding Level of Care Code Est Pt Level 4 (95910) Diagnoses Acute non-recurrent maxillary sinusitis J01.00 Recurrence: non-recurrent Sinusitis location: maxillary
[2025-10-05 13:16] VITALS: BP 162/80; PULSE 117; TEMP 36.4; O2SAT 88; BMI 19.0
[2025-10-05 13:45] VITALS: PULSE 102; O2SAT 98
--- OUTSIDE RECORDS SUMMARY | 2025-10-05 15:16 | XMS_ITS | Patient Health Record ---
Author Organization [facility] Address [address] [place] [address] Care Team Providers Care Installment Agent Name Role Phone Sena, Kartik Primary Care Provider [phone] Santy Erickson Unavailable [phone] Allergies No Known Allergies Results Component Value [...] Problem Acquired hammer toe of right foot (5088739013829 105) Other hammer toe(s) (acquired), right foot (M20.41) Active confirmed Response to treatment,I mprovement Problem Acquired hammer toe of left foot (5528136010929 103) Other hammer toe(s) (acquired), left foot (M20.42) Active confirmed Response to treatment,I mprovement Problem Type 2 diabetes mellitus with peripheral angiopathy (914379940) Type 2 diabetes mellitus with diabetic peripheral angiopathy without gangrene (E11.51) Active confirmed Vital Signs Blood pressure diastolic 70 mm Hg 09/14/2025 Height 5ft 2in in 09/14/2025 Blood pressure systolic 126 mm Hg 09/14/2025 Weight 110 lbs 09/14/2025 BMI 20.12 kg/m2 09/14/2025 Procedures Procedure Date Ordered Date Performed Result Body Sit e 51921-RYXSZDK NAIL, 1-5 12/05/2024 N/A 42691-AKGN SKIN LESIONS, OVER 4 12/05/2024 N/A U1346-JBJVTNGM DYSTROPHIC NAILS ANY # 12/05/2024 N/A 52574-BIYNQAV NAIL, 1-5 03/06/2025 N/A 54789-FAXQ SKIN LESIONS, OVER 4 03/06/2025 N/A K3833-GZGJHYQQ DYSTROPHIC NAILS ANY # 03/06/2025 N/A 75697-TQBGOIL NAIL, 1-5 06/12/2025 N/A 72009-JNYP SKIN LESIONS, OVER 4 06/12/2025 N/A R4412-YZRPVUQW DYSTROPHIC NAILS ANY # 06/12/2025 N/A 01523-TBQOEXX NAIL, 1-5 09/14/2025 N/A 90876-RNFG SKIN LESIONS, OVER 4 09/14/2025 N/A I0424-SMLZWZSR DYSTROPHIC NAILS ANY # 09/14/2025 N/A Encounters Encounter Location Date Provider Diagnosis [address] [address] 12/05/2024 Santy Dre Type 2 diabetes mellitus with diabetic peripheral angiopathy without gangrene E11.51 ; Other hammer toe(s) (acquired), right foot M20.41 ; Tinea unguium B35.1 ; Pain in right toe(s) M79.674 ; Pain in left toe(s) M79.675 and Other hammer toe(s) (acquired), left foot M20.[address] [address] 03/06/2025 Santysandra ZunigaDre Type 2 diabetes mellitus with diabetic peripheral angiopathy without gangrene E11.51 ; Tinea unguium B35.1 ; Pain in right toe(s) M79.674 and Pain in left toe(s) M79.[address] [address] 06/12/2025 Santysandra ZunigaDre Type 2 diabetes mellitus with diabetic peripheral angiopathy without gangrene E11.51 ; Tinea unguium B35.1 ; Pain in right toe(s) M79.674 and Pain in left toe(s) M79.[address] [address] 09/14/2025 Santysandra ZunigaDre Type 2 diabetes mellitus [...] angiopathy without gangrene (ICD-10 - E11.51) 09/14/2025 Pain in right toe(s) (ICD-10 - M79.674) 03/06/2025 Pain in right toe(s) (ICD-10 - M79.674) 06/12/2025 Pain in right toe(s) (ICD-10 - M79.674) 12/05/2024 Tinea unguium (ICD-10 - B35.1) 12/05/2024 Pain in right toe(s) (ICD-10 - M79.674) 09/14/2025 Pain in left toe(s) (ICD-10 - M79.675) 06/12/2025 Pain in left toe(s) (ICD-10 - M79.675) 03/06/2025 Pain in left toe(s) (ICD-10 - M79.675) 12/05/2024 Pain in left toe(s) (ICD-10 - M79.675) 12/05/2024 Other hammer toe(s) (acquired), left foot (ICD-10 - M20.42) Plan Of Treatment Pending Test Test Name Order Date 88832-OJIQGNX NAIL, 1-5 12/07/2023 13565-TXMCCNA NAIL, 1-5 02/22/2024 81948-BKVNDOK NAIL, 1-5 05/02/2024 39423-LLKYHDX NAIL, 1-09/01/2024 85628-EGBDTUP NAIL, -12/05/2024 37675-YKKLFPW NAIL, 1-03/06/2025 43425-SLAXQVN NAIL, 1-06/12/2025 46020-EYYTGBX NAIL, 1-09/14/2025 15720-YXPL SKIN LESIONS, OVER 4 09/14/20 25 64767-QKAH SKIN LESIONS, OVER 4 06/12/20 25 26072-HNUA SKIN LESIONS, OVER 4 03/06/20 25 36566-VQFA SKIN LESIONS, OVER 4 12/05/19 25 11672-ZUOI SKIN LESIONS, OVER 4 09/01/20 24 89536-ZLPE SKIN LESIONS, OVER 4 05/02/20 24 75267-HEEO SKIN LESIONS, OVER 4 12/07/19 24 12156-OQIN SKIN LESIONS, OVER 4 02/22/20 24 K1022-VQAWCLRS DYSTROPHIC NAILS ANY # G4963-HERSIMXR DYSTROPHIC NAILS ANY # X2542-SCBCQXXJ DYSTROPHIC NAILS ANY # Y1064-RZKQHFOC DYSTROPHIC NAILS ANY # D4699-ZAZRJWXA DYSTROPHIC NAILS ANY # U8514-XNYLUVLJ DYSTROPHIC NAILS ANY # E0481-CPPMRZIZ DYSTROPHIC NAILS ANY # J3412-RIMOLMGG DYSTROPHIC NAILS ANY # Next Appt Details Provider Name:Santy Erickson , 01/08/2026 02:00:00 PM, [address] [place], [address], Insurance Providers Payer Name Payer Address Payer Phone Subscriber Number Group Number Insured Name Patient Relationship to Insured Coverage Start Date Coverage End Date [employer] [place] [employer]vantage [address] [place] [address] [phone] [id number] Gisel Taylor Self - patient is the insured Medical (General) History Medical History History ICD Code type II diabetes Heart disease High blood pressure Poor circulation sinusitis Measles Mumps Chicken pox COPD Hypercholesterolemia Surgical History Surgery Date(Month/Year) Gall bladder removal 08-25-2018 Hernia Hospitalization History Reason Date(Month/Year) covid 07/24/2024
== END 2025-10-05 14:12 | disposition home or self-care (01) ==
PROVIDERS: PCP Internal Medicine; Visit Provider Nurse Practitioner Family
DX: J01.00 Acute maxillary sinusitis, unspecified (principal)

== ENCOUNTER → 2025-10-05 13:07 | Outpatient (BNVA) | payer MEDICARE, SELFPAY | PROVIDERS: PCP Internal Medicine; Visit Provider Nurse Practitioner Family | DX: J01.00 Acute maxillary sinusitis, unspecified (principal); J44.9 Chronic obstructive pulmonary disease, unspecified; F17.210 Nicotine dependence, cigarettes, uncomplicated; Z99.81 Dependence on supplemental oxygen | CPT/HCPCS: 99212 ==

== ENCOUNTER 2025-10-12 10:33 | Outpatient (AMB) | payer MEDICARE, SELFPAY ==
[2025-10-12 10:33] VITALS: BP 170/80; PULSE 84; TEMP 36.8; O2SAT 93; BMI 19.0
--- NOTE | 2025-10-12 10:33 | MHC.OFFWIV ---
Intake Vital Signs 10/12/25 10:33 Height 5 ft 3 in Weight 107 lb BMI 19.0 BP 170/80 H Blood Pressure Location Rt brachial Position Sitting Pulse 84 Pulse Source Pulse Oximeter Temp 98.3 F Temp Source Oral Pulse Oximetry (%) 93 Oxygen Delivery Method Room Air Intake Visit Reasons: EP dry white inside mouth Intake Note: EP complains of mouth and throat dryness and trash started two days ago coincidental with the intake of antibiotic. Patient Tobacco Use Status: Current someday Tobacco user Allergies No Known Allergies Allergy (Verified 10/12/25 10:48) Do you need a note to return to daycare/school/sports/work: No HPI HPI Comments History of Present Illness Details This is a 75-year-old female with a past medical history of hypertension, hyperlipidemia, COPD not currently oxygen dependent and diabetes presenting for evaluation of a burning sensation on her tongue with white spots that she first noted 3 days ago. Patient was seen in the walk-in on October 05 and prescribed amoxicillin 3 times daily for management of an acute bacterial sinusitis. Patient states that her symptoms have significantly improved she denies having any recent fevers or chills. Patient does utilize inhalers for her COPD but states that she rinses her mouth out thereafter every time. REPLACED BY [facility] Medical History Pulmonary nodules Nicotine dependence, cigarettes, uncomplicated Respiratory failure with hypoxia Post covid-19 condition, unspecified Tobacco use disorder Allergic rhinitis Osteoporosis (~2013) Congestive heart failure Chronic obstructive pulmonary disease, unspecified GERD (gastroesophageal reflux disease) Familial hypercholesterolemia Type 2 diabetes mellitus without complications Surgical History History of myringotomy (~2006) History of nasal surgery (~1989) History of ERCP (~2017) History of femoral hernia repair (~2008) History of cholecystectomy (~2017) History of eye surgery (~2019) Family History Father No problems noted. Mother No problems noted. Social History Household Members: Spouse Housing: House Do you presently have visiting nurse or other home services: No Alcohol intake: never Patient Tobacco Use Status: Current someday Tobacco user Tobacco use type: Cigarette Cigarette Packs Per Day: 0.25 Cigarettes Per Day: 1 (three a week) Years Smoked: 40 years e-Cigarette/Vaping Use: Never Used Second Hand Smoke Exposure: Yes service: No Current occupational status: retired Cognitive needs: No Hearing needs: No Vision needs: Yes (Glasses) Review of Systems Const All systems reviewed & are unremarkable except as noted in HPI and below Denies body aches, Denies chills and Denies fever(s) Eyes Reports no additional complaints ENT Reports no additional complaints, Denies dysphagia, Reports dry mouth, Denies otalgia, Denies lip swelling, Reports mouth lesions, Reports mouth pain and Denies sore throat Card Reports no additional complaints Resp Reports no additional complaints GI Denies dysphagia Musc Reports no additional complaints Skin/Breast Reports system reviewed and no additional complaints, except as documented Psych Reports no additional complaints Aller/Immun Denies lip swelling Physical Exam Vital Signs: Last Vital Signs Temp 98.3 F 10/12/25 10:33 Pulse 84 10/12/25 10:33 BP 170/80 H 10/12/25 10:33 Pulse Ox 93 10/12/25 10:33 Oxygen Delivery Method Room Air 10/12/25 10:33 BMI result Body Mass Index 19.0 Const General: cooperative, healthy appearing, comfortable, no acute distress, well developed, alert, awake and Physically active Nutritional Appearance: average body habitus Orientation/consciousness: patient oriented x3 Limitations: no limitations HEENT Head: Yes normal to inspection and Yes normocephalic Ears: hearing grossly normal bilaterally and external ears normal Face and sinus: Yes sinuses nontender Mouth: abnormal oral mucosae (Bright erythema of the buccal mucosa with white plaques interspersed), lip normal, abnormal tongue (Erythematous, scattered lesions of plaques on surface of tongue), oropharynx normal, moist mucous membranes and normal oral mucosae Throat: Yes posterior oropharynx normal Eyes General: appearance normal, both eyes and all related structures Neuro General: patient oriented x3 Psych Appearance: grossly normal Mental Status: mental status grossly normal Insight: Good insight present (Psych) Judgement: Good judgement present (Psych) Assessment & Plan Assessment & Plan (1) Oropharyngeal candidiasis: Comment: Patient is encouraged to continue rinsing her mouth with water after using her pulmonary inhalers however patient will be discharged home with nystatin liquid to be used orally. Code(s): B37.0 - Candidal stomatitis Plan: Nystatin suspension QID x 10 days as directed. Coding Level of Care Code Est Pt Level 3 (88510) Diagnoses Oropharyngeal candidiasis B37.0 Time Spent (min) 20
== END 2025-10-12 11:12 | disposition home or self-care (01) ==
PROVIDERS: PCP Internal Medicine; Visit Provider Physician Assistant
DX: B37.0 Candidal stomatitis (principal)

== ENCOUNTER → 2025-10-12 10:33 | Outpatient (BNVA) | payer MEDICARE, SELFPAY | PROVIDERS: PCP Internal Medicine; Visit Provider Physician Assistant | DX: B37.0 Candidal stomatitis (principal); I10 Essential (primary) hypertension; J44.9 Chronic obstructive pulmonary disease, unspecified; E11.9 Type 2 diabetes mellitus without complications | CPT/HCPCS: 99212 ==

== ENCOUNTER 2025-11-13 14:18 | Outpatient (AMB) | payer MEDICARE, SELFPAY ==
--- OUTSIDE RECORDS SUMMARY | 2024-07-25 08:30 | XMS_ITS ---
Author Organization [facility] Address [address] [place] [id number] Care Team Providers Care Dolly Driver Name Role Phone Yoshi Shetty Primary Care Provider [phone] Santy Erickson [phone] Encounters Encounter Location Date Provider Diagnosis [address] [id number] 07/25/2024 Santy Erickson Plan Of Treatment Next Appt Details Provider Name:Santy Erickson , 01/08/2026 02:00:00 PM, [address] [place] [address], [phone], Progress Notes * Gisel TAYLOR SDOB: [birth year] (75 yo F)Acc No.[id number]:07/25/2024 Progress Note Patient: Gisel GAMBLE Provider: Tati Erickson DPM :1950 A ge:74 Y S ex:Female Date:07/25/2024 Address:[address] [place] [address] [facility] Pcp:Yoshi Shetty Subjective: * Chief Complaints: * * Medical History: Objective: * Vitals: Assessment: Plan: * Treatment: * Images: * The named appointment provid er may or may not be the originator of this progress note, and it is not deemed complete until electronically signed by the appointment provider. Sign off status: Pending * Provider: Tati Erickson DPM Date: 0 07/25/2024 Generated for Janie licea/Paul/Terry on: 1 01/14/2025 06:34 PM EST
[2025-11-13 14:31] VITALS: BP 195/82; PULSE 96; RESP 18; TEMP 36.5; O2SAT 92; BMI 19.1
--- NOTE | 2025-11-13 14:31 | MHC.PC.OV ---
Vital Signs 11/13/25 14:31 11/13/25 14:51 Height 5 ft 3 in Weight 108 lb BMI 19.1 BP 195/82 H 182/92 H Blood Pressure Location Rt brachial Lt brachial Position Sitting Sitting Respiration 18 Pulse 96 Pulse Source Pulse Oximeter Temp 97.7 F Temp Source Temporal Artery Scan Pulse Oximetry (%) 92 Oxygen Delivery Method Room Air Intake Visit Reasons: annual exam Lumber Driver Required: No Accompanied by: Self / Same As Patient Allergies No Known Allergies Allergy (Verified 11/13/25 14:31) Tobacco use date assessed: 09/18/25 Dental Screening Dental Screen Date: 09/18/25 HPI HPI Comments History of Present Illness Details History of Present Illness - The patient is a 75-year-old female presenting for management of hypertension and smoking cessation. - She expresses that attempting to quit smoking has made her feel very edgy. - She has reduced her smoking to one or two cigarettes per day. - Regarding her hypertension, she is currently taking lisinopril 30 mg. - She has not checked her blood pressure at home recently, with the last check being in June. - She takes Lasix, but not every day. - The patient reports having an oxygen tank at home and uses it as needed, approximately once a day or every two days, at a flow rate of one liter. - Her sugar levels were okay previously. - She states her last A1c was in August. - She and her received their flu shots on July 24. Social History - Tobacco Use: The patient is attempting to quit smoking and has reduced her intake to 1-2 cigarettes per day. - Stressors: The patient reports feeling very edgy due to smoking cessation and experiences stress from arguments with her about her smoking. - Family: She lives with her . Results - No new results were discussed during the visit. [facility] Medical History Pulmonary nodules Nicotine dependence, cigarettes, uncomplicated Respiratory failure with hypoxia Post covid-19 condition, unspecified Tobacco use disorder Allergic rhinitis Osteoporosis (~2013) Congestive heart failure Chronic obstructive pulmonary disease, unspecified GERD (gastroesophageal reflux disease) Familial hypercholesterolemia Type 2 diabetes mellitus without complications Surgical History History of myringotomy (~2006) History of nasal surgery (~1989) History of ERCP (~2017) History of femoral hernia repair (~2008) History of cholecystectomy (~2017) History of eye surgery (~2019) Family History Father No problems noted. Mother No problems noted. Social History Household Members: Spouse Housing: House Do you presently have visiting nurse or other home services: No Alcohol intake: never Patient Tobacco Use Status: Current someday Tobacco user Tobacco use type: Cigarette Cigarette Packs Per Day: 0.25 Cigarettes Per Day: 1 (three a week) Years Smoked: 40 years e-Cigarette/Vaping Use: Never Used Second Hand Smoke Exposure: Yes service: No Current occupational status: retired Cognitive needs: No Hearing needs: No Vision needs: Yes (Glasses) Questionnaire PHQ-9 Over the last 2 weeks, how often have you been bothered by any of the following problems? 1. Little interest or pleasure in doing things: not at all 2. Feeling down, depressed, or hopeless: not at all 3. Trouble falling or staying asleep, or sleeping too much: not at all 4. Feeling tired or having little energy: not at all 5. Poor appetite or overeating: not at all 6. Feeling bad about yourself - or that you are a failure or have let yourself or your family down: not at all 7. Trouble concentrating on things, such as reading the newspaper or watching television: not at all 8. Moving or speaking so slowly that other people could have noticed. Or the opposite - being so fidgety or restless that you have been moving around a lot more than usual: not at all 9. Thoughts that you would be better off or of hurting yourself in some way: not at all Total score: 0 Depression Screening Interpretation: Negative Depression Screening Done: Yes Source: Developed by Drs. Maxx Owens, Gisel Pina, Juvenal Stoner and colleagues, with an educational saritha from [employer]. Thrive Questionnaire Date Thrive assessed: 09/18/25 I am a: Patient What is your living situation today?: I have a steady place to live Within the past 12 months, did the food you bought not last and you didn't have the money to get more?: Never true Within the past 12 months, did you worry whether your food would run out before you got money to buy more?: Never true Do you have trouble paying for medicines?: No Do you have trouble getting transportation to medical appointments?: No Do you have trouble paying your heating and electricity bill?: No Do you have trouble taking care of your child, family member or friend?: No Do you have trouble with day-to-day activities such as bathing, preparing meals, shopping, managing finances, etc.?: No Are you currently unemployed and looking for a job?: No Are you interested in more education?: No Please select the resources that you would like help with: None THRIVE Score: 0 AUDIT C Alcohol Use Questionnaire (AUDIT-C) 1. How often do you have a drink containing alcohol?: Never 3. How often do you have six or more drinks on one occasion?: Never Total Score: 0 WESLEY-7 AMB Questionnaire WESLEY-7 Date WESLEY - 7 assessed: 09/18/25 Feeling nervous, anxious, or on edge: 0 = Not at all Not being able to stop or control worryin = Not at all Worrying too much about different things: 0 = Not at all Trouble relaxin = Not at all Being so restless that it is hard to sit still: 0 = Not at all Becoming easily annoyed or irritable: 0 = Not at all Feeling afraid as if something awful might happen: 0 = Not at all Total WESLEY-7 score (0-4 normal; 5-9 mild; 10-14 moderate; 15-21 severe): 0 Source: Developed by Drs. Maxx Owens, Gisel Pina, Juvenal Stoner and colleagues, with an educational saritha from [employer]. Review of Systems Narrative Review of Systems - Constitutional: Reports feeling very edgy. - Eyes/Ears/Nose/Throat: Reports constant rhinorrhea. - Respiratory: Sometimes uses supplemental oxygen at home as needed. Physical exam (Primary Care) Vital Signs: Last Vital Signs Temp 97.7 F 11/13/25 14:31 Pulse 96 11/13/25 14:31 Resp 18 11/13/25 14:31 BP 182/92 H 11/13/25 14:51 Pulse Ox 92 11/13/25 14:31 Oxygen Delivery Method Room Air 11/13/25 14:31 BMI result Body Mass Index 19.1 Tobacco/Smoking Status: Tobacco use Status Tobacco use date assessed 09/18/25 11/13/25 14:37 Patient Tobacco Use Status Current someday Tobacco 11/13/25 14:37 Tobacco use type Cigarette 11/13/25 14:37 e-Cigarette/Vaping Use Never Used 11/13/25 14:37 PHQ-9: PHQ-9 Score PHQ-9: Total score 0 11/13/25 14:51 Depression Screening Interpretation: Negative Thrive Assessment: Date of Thrive Assessment Date Thrive assessed 09/18/25 11/13/25 14:37 Narrative Physical Exam General: Appearance normal, both eyes and all related structures Nutritional Appearance: Well nourished Orientation/consciousness: Patient oriented x3 Limitations: No limitations Head: Normal to inspection Neck: Normal visual inspection Chest: Normal palpation of entire chest wall Respiratory: Normal respiratory effort, patient uses oxygen tank as needed Neurology: Patient oriented x3 Coding Level of Care Code Est Pt Prev Care >65y(68351) Add On Preventative Visit Only Diagnoses Annual physical exam Z00.00 Assessment & Plan Assessment & Plan (1) Annual physical exam: Code(s): Z00.00 - Encounter for general adult medical examination without abnormal findings Plan Plan - Continue smoking 3-4 cigarettes per day if needed to manage cravings and edginess. - The patient is to check her blood pressure at home daily. - Will monitor home blood pressure readings before making any adjustments to her lisinopril 30 mg. - The patient may take her Lasix daily to help lower her blood pressure. - The patient is to bring in 10 days of blood pressure readings for review. - Blood work will be ordered to check her sugar levels. - An A1c will be deferred until November, as it was last checked in August. Discussion Notes I discussed the importance of monitoring blood pressure at home to differentiate between nervousness-induced elevations and true hypertension, as this will guide medication management. I will not increase her blood pressure medication at this time and will await her home readings. I advised her to take Lasix daily to help manage her blood pressure. Regarding smoking, I encouraged her that smoking 2-4 cigarettes a day is acceptable for now to manage withdrawal symptoms. I also instructed her on the proper technique for measuring blood pressure at home. Patient Instructions - Feel free to smoke a few cigarettes a day (three to four is fine) to help with the stress of quitting. - You should check your blood pressure every day. - When you check your blood pressure, sit at a table with both feet flat on the ground and your arm resting down. - You can take your water pill (Lasix) every day to help lower your blood pressure. - After 10 days, please bring your list of 10 blood pressure readings to the clinic. - You can continue to use your home oxygen at one liter when you feel you need it.
[2025-11-13 14:51] VITALS: BP 182/92
--- OUTSIDE RECORDS SUMMARY | 2025-11-13 18:34 | XMS_ITS | Patient Health Record ---
Author Organization [facility] Address [address] [place] [address] Care Team Providers Care Leather Sprayer Name Role Phone Sena, Kartik Primary Care Provider Santy Erickson Unavailable [phone] Allergies No Known Allergies Results Component Value [...] Problem Acquired hammer toe of right foot (7168401031203 105) Other hammer toe(s) (acquired), right foot (M20.41) Active confirmed Response to treatment,I mprovement Problem Acquired hammer toe of left foot (1713469138173 103) Other hammer toe(s) (acquired), left foot (M20.42) Active confirmed Response to treatment,I mprovement Problem Type 2 diabetes mellitus with peripheral angiopathy (356698766) Type 2 diabetes mellitus with diabetic peripheral angiopathy without gangrene (E11.51) Active confirmed Vital Signs Blood pressure diastolic 70 mm Hg 09/14/2025 Height 5ft 2in in 09/14/2025 Blood pressure systolic 126 mm Hg 09/14/2025 Weight 110 lbs 09/14/2025 BMI 20.12 kg/m2 09/14/2025 Procedures Procedure Date Ordered Date Performed Result Body Sit e 12520-OBRPASZ NAIL, 1-5 12/05/2024 N/A 00740-XEUM SKIN LESIONS, OVER 4 12/05/2024 N/A Q2939-OISPBIRJ DYSTROPHIC NAILS ANY # 12/05/2024 N/A 93917-CQMXBVL NAIL, 1-5 03/06/2025 N/A 36109-QEHX SKIN LESIONS, OVER 4 03/06/2025 N/A X2390-XNGWPEVH DYSTROPHIC NAILS ANY # 03/06/2025 N/A 56885-MYCAABZ NAIL, 1-5 06/12/2025 N/A 86776-WKBZ SKIN LESIONS, OVER 4 06/12/2025 N/A J4534-DNSSUISF DYSTROPHIC NAILS ANY # 06/12/2025 N/A 85527-HIOHCBS NAIL, 1-5 09/14/2025 N/A 06285-HKYY SKIN LESIONS, OVER 4 09/14/2025 N/A U7075-HZQNMOSS DYSTROPHIC NAILS ANY # 09/14/2025 N/A Encounters Encounter Location Date Provider Diagnosis [address] [address] 12/05/2024 Santy Dre Type 2 diabetes mellitus with diabetic peripheral angiopathy without gangrene E11.51 ; Other hammer toe(s) (acquired), right foot M20.41 ; Tinea unguium B35.1 ; Pain in right toe(s) M79.674 ; Pain in left toe(s) M79.675 and Other hammer toe(s) (acquired), left foot M20.[address] [address] 03/06/2025 Santysandra ZunigaDer Type 2 diabetes mellitus with diabetic peripheral angiopathy without gangrene E11.51 ; Tinea unguium B35.1 ; Pain in right toe(s) M79.674 and Pain in left toe(s) M79.[address] [address] 06/12/2025 Santysandra ZunigaDre Type 2 diabetes mellitus with diabetic peripheral angiopathy without gangrene E11.51 ; Tinea unguium B35.1 ; Pain in right toe(s) M79.674 and Pain in left toe(s) M79.[address] [address] 09/14/2025 Santysandra ZunigaDre Type 2 diabetes mellitus [...] Treatment Pending Test Test Name Order Date 47142-KVCXFTC NAIL, 1-5 12/07/2023 96166-RUIVAFY NAIL, 1-5 02/22/2024 36655-PISHGYD NAIL, 1-5 05/02/2024 44037-HNTXSUU NAIL, 1-09/01/2024 07183-JADNOQO NAIL, -12/05/2024 97547-LDEFEFU NAIL, 1-03/06/2025 72501-VVQFBVG NAIL, 1-06/12/2025 90655-ZMUOQPF NAIL, 1-09/14/2025 17988-BPKO SKIN LESIONS, OVER 4 09/14/20 25 19640-DNFA SKIN LESIONS, OVER 4 06/12/20 25 82412-MILN SKIN LESIONS, OVER 4 03/06/20 25 70220-YJKZ SKIN LESIONS, OVER 4 12/05/19 25 25584-SJWN SKIN LESIONS, OVER 4 09/01/20 24 05200-PXVU SKIN LESIONS, OVER 4 05/02/20 24 84339-SBPF SKIN LESIONS, OVER 4 12/07/19 24 15885-HPGF SKIN LESIONS, OVER 4 02/22/20 24 V8624-FSJTPAEA DYSTROPHIC NAILS ANY # Z1548-RIUCBESW DYSTROPHIC NAILS ANY # V6698-PHHTQRGF DYSTROPHIC NAILS ANY # N4515-WROVPSSA DYSTROPHIC NAILS ANY # F0039-CJCHJYQY DYSTROPHIC NAILS ANY # G6998-IRTZQHXS DYSTROPHIC NAILS ANY # F0669-QMDLXXRU DYSTROPHIC NAILS ANY # O7343-UWNUHOQD DYSTROPHIC NAILS ANY # Next Appt Details Provider Name:Santy Erickson , 01/08/2026 02:00:00 PM, [address] [place], [address], Insurance Providers Payer Name Payer Address Payer Phone Subscriber Number Group Number Insured Name Patient Relationship to Insured Coverage Start Date Coverage End Date [employer] [place] [employer]vantage [address] [place] [address] [phone] [id number] Gisel Taylor Self - patient is the insured Medical (General) History Medical History History ICD Code type II diabetes Heart disease High blood pressure Poor circulation sinusitis Measles Mumps Chicken pox COPD Hypercholesterolemia Surgical History Surgery Date(Month/Year) Gall bladder removal 08-25-2018 Hernia Hospitalization History Reason Date(Month/Year) covid 07/24/2024
== END 2025-11-13 15:01 | disposition home or self-care (01) ==
LOC: HO.HMCSH 14:18
PROVIDERS: PCP Internal Medicine; Visit Provider Internal Medicine
DX: Z00.00 Encounter for general adult medical examination without abnormal findings (principal)

== ENCOUNTER → 2025-11-13 14:18 | Outpatient (BNVA) | payer MEDICARE, SELFPAY | PROVIDERS: PCP Internal Medicine; Visit Provider Internal Medicine | DX: Z00.00 Encounter for general adult medical examination without abnormal findings (principal) | CPT/HCPCS: 96127; 99397 ==